=== PATIENT | female | born 1995 | race Caucasian/White ===

== ENCOUNTER 2016-03-23 08:17 | Emergency (ER) | payer OTHER ==
[~2016-03-23] VITALS: Ht 162.6 cm; Wt 56.3 kg
[2016-03-23] VITALS (11 sets, daily range): BP systolic 161–218; BP diastolic 102–135; PULSE 118–136; RESP 16–17; TEMP 99.4–100.3; O2SAT 95–100
[~2016-03-23 08:17] MED LIST: CLON.2 PO; CORE25TA PO; COZA100T PO; DOXA1 PO; HYDR200T3 PO; LEVE500 PO; LISI10 PO; NORV10TA PO; PANT20 PO; PROM25TA5 PO; RENV2.4P PO; SODI650T PO; [UNRECOGNIZED DRUG - CODE] SQ
[2016-03-23 08:56] LABS: BLOOD, URINE TRACE (NEG); GLUCOSE,URINE 100 mg/dL (NEG); KETONE, URINE NEG (NEG); NITRITE,URINE NEG (NEG)
[2016-03-23] MEDS ORDERED: SODI650T PO (08:57)
[2016-03-23] MEDS ORDERED: PANT20 PO (08:57)
[2016-03-23] MEDS ORDERED: LISI10TA3 PO (08:57)
[2016-03-23] MEDS ORDERED: CLON.2 PO (08:57)
[2016-03-23] MEDS ORDERED: RENV2.4P PO (08:57)
[2016-03-23] MEDS ORDERED: CORE25TA PO (08:57)
[2016-03-23] MEDS ORDERED: DOXA1TAB36 PO (08:57)
[2016-03-23] MEDS ORDERED: HYDR200T3 PO (08:57)
[2016-03-23] MEDS ORDERED: AMLO10 PO (08:57)
[2016-03-23] MEDS ORDERED: COZA50TA PO (08:57)
[2016-03-23] MEDS ORDERED: EPOG2000 SQ (08:57)
[2016-03-23 09:01] LABS: METHOD OF COLLECTION CLEAN CATCH; URINE COLOR YELLOW (YELLW/STRAW); WBC, URINE 15-19 /hpf (0-5)
[2016-03-23 09:02] LABS: BACTERIA, URINE RARE /hpf; COMMENT (UR) CULTURE INDICATED; CULTURE IF INDICATED CULTURE INDICATED; RBC, URINE 0-3 /hpf (0-3); SQUAMOUS EPITHELIAL CELL URINE > 8 /hpf (0-5)
[2016-03-23 09:38] LABS: AUTOMATED NEUTROPHIL # 5.8 TH/MM3 (1.8-7.7); BASOPHIL % 0.3 % (0.0-2.0); EOSINOPHIL # 0.1 TH/MM3 (0-0.4); HEMATOCRIT 33.7 % (35.0-46.0); HEMO FLAGS DIFF FINAL; LYMPHOCYTE # 0.3 TH/MM3 (1.0-4.8); MEAN CELL VOLUME 86.3 FL (80.0-100.0); MEAN CORPUSCULAR HGB CONC 32.5 % (32.0-36.0); MONO % 1.3 % (0.0-8.0); NEUT % 91.4 % (16.0-70.0); PLATELET COUNT 218 TH/MM3 (150-450); RED BLOOD COUNT 3.91 MIL/MM3 (4.00-5.30); RED CELL DISTRIBUTION WIDTH 14.2 % (11.6-17.2); WHITE BLOOD COUNT 6.3 TH/MM3 (4.0-11.0)
[2016-03-23] MEDS ORDERED: LABETALOL HCL 100 MG/20 ML VIAL IV PUSH ONE ×2 (09:45→10:45)
[2016-03-23] MEDS ORDERED: SODIUM CHLOR 0.9% 1000 ML INJ 1,000 ML IV SCH (09:45)
[2016-03-23] MEDS ORDERED: MORPHINE SULFATE 4 MG/ML INJ IV PUSH ONE (09:45)
[2016-03-23] MEDS ORDERED: ONDANSETRON HCL 4 MG/2 ML VIAL IV PUSH ONE (09:45)
--- NOTE | 2016-03-23 09:52 | PD ---
HPI Chief Complaint: GI Complaint Time Seen by Provider: 09:27 Travel History International Travel<30 days: No Contact w/Intl Traveler<30days: No Traveled to known affect area: No History of Present Illness HPI 20-year-old female complains of fever nausea vomiting diarrhea coughing congestion abdominal pain. Patient states that the symptoms started last night. Patient has history of lupus and end-stage renal disease on nightly peritoneal dialysis. Patient's paddock judge is Dr. Curry. Patient states that the cough is mild dry cough. Patient states that she had diffuse cramping and abdominal pain. Patient denies any pain radiation. Patient denies any blood or mucus in the stool. Patient states that dialysis fluid is clear. Patient has frequent elevated blood pressure. PFSH Past Medical History Arthritis: No Autoimmune Disease: Yes (LUPUS ) Anxiety: Yes Depression: No Heart Rhythm Problems: No Cancer: No Cardiovascular Problems: Yes (htn on meds) High Cholesterol: No Chemotherapy: No Chest Pain: No Congestive Heart Failure: No Cerebrovascular Accident: Yes Diabetes: No Dialysis: Yes Diminished Hearing: No Endocrine: No Gastrointestinal Disorders: Yes (Nausea, low appetite) GERD: No Genitourinary: No Headaches: Yes Hepatitis: No Hiatal Hernia: No Heparin Induced Thrombocytopen: No Hypertension: Yes Immune Disorder: Yes (Lupus) Implanted Vascular Access Dvce: No Kidney Stones: No Musculoskeletal: No Neurologic: Yes (LUPUS) Psychiatric: No Reproductive: No Respiratory: No Immunizations Current: Yes Migraines: Yes (FROM HTN) Radiation Therapy: No Renal Failure: Yes Seizures: Yes (FROM HTN) Sickle Cell Disease: No Thyroid Disease: No Ulcer: No Tetanus Vaccination: > 5 Years Influenza Vaccination: Yes ?: Not LMP: 03/08/16 : 1 Para: 1 Past Surgical History Abdominal Surgery: Yes (PERMACATH) AICD: No Arteriovenous Shunt: No Body Medical Devices: , PD catheter Cardiac Surgery: No Endocrine Surgery: No Genitourinary Surgery: No Insulin Pump: No Joint Replacement: No Neurologic Surgery: No Pacemaker: No Thoracic Surgery: Yes (VAS CATH TO LEFT CHEST) Other Surgery: Yes ((R) Permacath, PD catheter) Social History Alcohol Use: No Tobacco Use: No Substance Use: Yes (Marijuana daily) Allergies-Medications (Allergen,Severity, Reaction): Coded Allergies: Hydralazine (Verified Allergy, Severe, Rash, 03/23/16) Vancomycin (Verified Allergy, Severe, Red man syndrome , 03/23/16) Metoprolol (Verified Allergy, Unknown, Patient does not know, 03/23/16) Reported Meds & Prescriptions Reported Meds & Active Scripts Active Phenergan (Promethazine HCl) 25 Mg Tab 25 Mg PO Q6H PRN Keppra (Levetiracetam) 500 Mg Tab 500 Mg PO Q12HR 30 Days Reported Sodium Bicarbonate 650 Mg Tab 650 Mg PO BIDPC Renvela Liq (Sevelamer Carbonate) 2.4 Gm Pack 2.4 Gm PO BID Protonix (Pantoprazole Sodium) 20 Mg Tab 20 Mg PO DAILY Norvasc (Amlodipine Besylate) 10 Mg Tab 10 Mg PO BID Cozaar (Losartan Potassium) 50 Mg Tab 50 Mg PO BID Lisinopril 10 Mg Tab 10 Mg PO BID Hydroxychloroquine (Hydroxychloroquine Sulfate) 200 Mg Tab 200 Mg PO BID Takw with food Epogen Inj (Epoetin Diego) 2,000 Unit/Ml Inj 1,500 Units SQ 2XMONTH Doxazosin (Doxazosin Mesylate) 1 Mg Tab 1 Mg PO HS Catapres (Clonidine) 0.2 Mg Tab 0.2 Mg PO BID Coreg (Carvedilol) 25 Mg Tab 25 Mg PO BID Review of Systems General / Constitutional: Positive: Fever Eyes: No: Visual changes HENT: No: Headaches Cardiovascular: No: Chest Pain or Discomfort Respiratory: Positive: Cough, No: Shortness of Breath Gastrointestinal: Positive: Nausea, Vomiting, Diarrhea, Abdominal Pain Genitourinary: No: Dysuria Musculoskeletal: No: Pain Skin: No Rash Neurologic: No: Weakness Psychiatric: No: Depression Endocrine: No: Polydipsia Hematologic/Lymphatic: No: Easy Bruising Physical Exam Narrative GENERAL: Well-nourished, well-developed patient. SKIN: Warm and dry. HEAD: Normocephalic. EYES: No scleral icterus. No injection or drainage. Throat: Nonerythematous. NECK: Supple, trachea midline. No JVD or lymphadenopathy. CARDIOVASCULAR: Regular rate and rhythm without murmurs, gallops, or rubs. RESPIRATORY: Breath sounds equal bilaterally. No accessory muscle use. GASTROINTESTINAL: Abdomen soft, nondistended. Patient has moderate diffuse tenderness over the abdomen. Questionable rebound. No guarding. Peritoneal catheter localized to left low quadrant of the abdomen. MUSCULOSKELETAL: No cyanosis, or edema. BACK: Nontender without obvious deformity. No CVA tenderness. Neurologic exam normal. Data Data Last Documented VS Vital Signs Date Time Temp Pulse Resp B/P Pulse Ox O2 Delivery O2 Flow Rate FiO2 03/23/16 12:12 125 17 170/102 98 Room Air 03/23/16 10:11 99.4 Orders Urinalysis - C+S If Indicated (03/23/16 08:21) Ed Urine Pregnancytest Poc (03/23/16 08:22) Urine Culture (03/23/16 08:45) Complete Blood Count With Diff (03/23/16 09:25) Comprehensive Metabolic Panel (03/23/16 09:25) Lactic Acid Sepsis Protocol (03/23/16 09:25) Blood Culture (03/23/16 09:25) Iv Access Insert/Monitor (03/23/16 09:25) Oxygen Administration (03/23/16 09:25) Oximetry (03/23/16 09:25) Influenzae A/B Antigen (03/23/16 09:35) Morphine Inj (Morphine Inj) (03/23/16 09:45) Ondansetron Inj (Zofran Inj) (03/23/16 09:45) Labetalol Inj (Trandate Inj) (03/23/16 09:45) Sodium Chlor 0.9% 1000 Ml Inj (Ns 1000 M (03/23/16 09:45) Labetalol Inj (Trandate Inj) (03/23/16 10:45) Ceftriaxone Inj (Rocephin Inj) (03/23/16 13:00) Labs Laboratory Tests Test 03/23/16 03/23/16 08:45 09:25 Urine Collection Type CLEAN CATCH Urine Color YELLOW Urine Turbidity SLIGHT Urine pH 8.0 Urine Specific [place] 1.009 Urine Protein 100 mg/dL Urine Glucose (UA) 100 mg/dL Urine Ketones NEG mg/dL Urine Occult Blood TRACE Urine Nitrite NEG Urine Bilirubin NEG Urine Leukocyte Esterase TRACE Urine RBC 0-3 /hpf Urine WBC 15-19 /hpf Urine WBC Clumps OCC Urine Squamous Epithelial > 8 /hpf Cells Urine Bacteria RARE /hpf Microscopic Urinalysis Comment CULTURE INDICATED Urine Collection Time 08:45 White Blood Count 6.3 TH/MM3 Red Blood Count 3.91 MIL/MM3 Hemoglobin 10.9 GM/DL Hematocrit 33.7 % Mean Corpuscular Volume 86.3 FL Mean Corpuscular Hemoglobin 28.0 PG Mean Corpuscular Hemoglobin 32.5 % Concent Red Cell Distribution Width 14.2 % Platelet Count 218 TH/MM3 Mean Platelet Volume 5.9 FL Neutrophils (%) (Auto) 91.4 % Lymphocytes (%) (Auto) 5.0 % Monocytes (%) (Auto) 1.3 % Eosinophils (%) (Auto) 2.0 % Basophils (%) (Auto) 0.3 % Neutrophils # (Auto) 5.8 TH/MM3 Lymphocytes # (Auto) 0.3 TH/MM3 Monocytes # (Auto) 0.1 TH/MM3 Eosinophils # (Auto) 0.1 TH/MM3 Basophils # (Auto) 0.0 TH/MM3 CBC Comment DIFF FINAL Differential Comment Sodium Level 139 MEQ/L Potassium Level 4.3 MEQ/L Chloride Level 100 MEQ/L Carbon Dioxide Level 24.8 MEQ/L Anion Gap 14 MEQ/L Blood Urea Nitrogen 47 MG/DL Creatinine 12.00 MG/DL Estimat Glomerular Filtration 4 ML/MIN Rate Random Glucose 82 MG/DL Lactic Acid Level 0.8 mmol/L Calcium Level 7.7 MG/DL Total Bilirubin 0.5 MG/DL Aspartate Amino Transf 11 U/L (AST/SGOT) Alanine Aminotransferase 14 U/L (ALT/SGPT) Alkaline Phosphatase 75 U/L Total Protein 7.6 GM/DL Albumin 3.1 GM/DL [facility] Medical Decision Making Medical Screen Exam Complete: Yes Emergency Medical Condition: Yes Interpretation(s) 12:45 PM. CBC with WBC 6.3. Hemoglobin 10.8 hematocrit 33.7. 81 neutrophil. BUN 47. Creatinine 12.0. Lactic acid 0.8. Calcium 7.7. UA positive with WBC and bacteria. Differential Diagnosis Differential diagnosis including viral syndrome, bronchitis, pneumonia, UTI, peritonitis. Narrative Course 80-year-old female with history of lupus, end-stage renal disease on nightly peritoneal dialysis which fever coughing nausea vomiting diarrhea abdominal pain. Normal saline solution 1 25 cc an hour. Morphine 4 g IV. Zofran 4 mg IV. Labetalol 20 mg IV. Rocephin 1 g IV. Reexamination do not see evidence of spontaneous bacterial peritonitis. I spoke with Dr. Curry. Advised patient to follow with dialysis clinic for culture her dialysis fluid. Diagnosis Primary Impression: Gastroenteritis Additional Impression: UTI (urinary tract infection) Qualified Code: N30.00 - Acute cystitis without hematuria Patient Instructions: General Instructions Additional Instructions: Take medications as directed. Follow-up with personal physician. Return if persistent problem or worse. Med/Other Pt SpecificInfo: Prescription(s) given Scripts Cephalexin (Keflex)500 Mg [id number] Mg PO Q8H #30 CAP Ref 0 Prov:Beto Masters MD 03/23/16 Diphenoxylate-Atropine (Lomotil)2.5-0.025 Mg Tab1 Tab PO Q6H PRN (DIARRHEA) #10 TAB Ref 0 Prov:Beto Masters MD 03/23/16 Ondansetron Odt (Zofran Odt)4 Mg Tab4 Mg SL Q6HR PRN (Nausea/Vomiting) #10 TAB Prov:Beto Masters MD 03/23/16 Disposition: 01 DISCHARGE HOME Condition: Stable Beto Masters MD Mar 23, 2016 09:52
[2016-03-23 10:09] LABS: CHLORIDE 100 MEQ/L (98-107); POTASSIUM 4.3 MEQ/L (3.5-5.1); SODIUM (NA) 139 MEQ/L (136-145)
[2016-03-23 10:13] LABS: ANION GAP 14 MEQ/L (5-15); BICARBONATE 24.8 MEQ/L (21.0-32.0); BLOOD UREA NITROGEN 47 MG/DL (7-18)
[2016-03-23 10:16] LABS: AST (GOT) 11 U/L (15-37)
[2016-03-23 10:18] LABS: TOTAL BILIRUBIN ADULT 0.5 MG/DL (0.2-1.0)
[2016-03-23 10:19] LABS: ALKALINE PHOSPHATASE 75 U/L (45-117)
[2016-03-23 10:29] LABS: GLOMERULAR FILTRATION RATE 4 ML/MIN (>89)
[2016-03-23 10:44] LABS: ALT (GPT) 14 U/L (10-53)
[2016-03-23] MEDS ORDERED: cefTRIAXone INJ 1,000 MG in SODIUM CHLORIDE 0.9% INJ 100 ML IV ONE (13:00)
[2016-03-23] MEDS ORDERED: CEPH-460 PO (13:30)
[2016-03-23] MEDS ORDERED: LOMO2.5T PO (13:30)
[2016-03-23] MEDS ORDERED: ZOFR4TAB3 SL (13:30)
== END 2016-03-23 14:18 | disposition home or self-care (01) ==
LOC: PHED 08:17
DX: K52.9 Noninfective gastroenteritis and colitis, unspecified (principal); N39.0 Urinary tract infection, site not specified; N18.6 End stage renal disease; M32.9 Systemic lupus erythematosus, unspecified; Z99.2 Dependence on renal dialysis; I12.0 Hypertensive chronic kidney disease with stage 5 chronic kidney disease or end stage renal disease
CPT/HCPCS: 80053; 81001; 83605; 84703; 85025; 87040; 87086; 87804; 96361; 96365; 96375; 96376; 99284; J0696; J2270; J2405; J7030

== ENCOUNTER 2016-03-26 16:06 | Inpatient (IN) | payer OTHER ==
[~2016-03-26] VITALS: Ht 162.6 cm; Wt 55.6 kg
[~2016-03-26 16:06] MED LIST changes: +AMLO10 PO; +CEPH-460 PO; -COZA100T PO; +COZA50TA PO; -DOXA1 PO; +DOXA1TAB36 PO; +EPOG2000 SQ; -LISI10 PO; +LISI10TA3 PO; +LOMO2.5T PO; -NORV10TA PO; +ZOFR4TAB3 SL; -[UNRECOGNIZED DRUG - CODE] SQ
[2016-03-26 16:09] VITALS: BP 181/126; PULSE 112; RESP 24; TEMP 97.7; O2SAT 100
--- NOTE | 2016-03-26 16:37 | PD ---
HPI Chief Complaint: GI Complaint Time Seen by Provider: 16:24 Travel History International Travel<30 days: No Contact w/Intl Traveler<30days: No Traveled to known affect area: No History of Present Illness HPI 20-year-old female with history of lupus, ESRD on home peritoneal dialysis, hypertensive encephalopathy, here for evaluation of nausea, vomiting, and epigastric abdominal pain. The patient states that she had a "rough night" last night and missed her dialysis. She has also been up all night. She has had several episodes of nonbilious/nonbloody emesis throughout the day today. She is also having epigastric abdominal discomfort that started after vomiting. She has had chills. No history of abdominal surgeries other than placement of abdominal catheter for peritoneal dialysis. She states that she feels somewhat anxious that her heart is racing to her chest. No chest pain. The patient was seen in the emergency department 3 days ago and was diagnosed with gastroenteritis which she states resolved when she left the emergency department. She was also diagnosed with a UTI at that time and was started on an antibiotic, however she does not remember the name of it. PFSH Past Medical History Arthritis: No Autoimmune Disease: Yes (LUPUS ) Anxiety: Yes Depression: No Heart Rhythm Problems: No Cancer: No Cardiovascular Problems: Yes (htn on meds) High Cholesterol: No Chemotherapy: No Chest Pain: No Congestive Heart Failure: No Cerebrovascular Accident: Yes Diabetes: No Dialysis: Yes Diminished Hearing: No Endocrine: No Gastrointestinal Disorders: Yes (Nausea, low appetite) GERD: No Genitourinary: No Headaches: Yes Hepatitis: No Hiatal Hernia: No Heparin Induced Thrombocytopen: No Hypertension: Yes Immune Disorder: Yes (Lupus) Implanted Vascular Access Dvce: No Kidney Stones: No Musculoskeletal: No Neurologic: Yes (LUPUS) Psychiatric: No Reproductive: No Respiratory: No Immunizations Current: Yes Migraines: Yes (FROM HTN) Radiation Therapy: No Renal Failure: Yes Seizures: Yes (FROM HTN) Sickle Cell Disease: No Thyroid Disease: No Ulcer: No ?: Not LMP: 03/07/16 : 1 Para: 1 Past Surgical History Abdominal Surgery: Yes (PERMACATH) AICD: No Arteriovenous Shunt: No Body Medical Devices: , PD catheter Cardiac Surgery: No Endocrine Surgery: No Genitourinary Surgery: No Insulin Pump: No Joint Replacement: No Neurologic Surgery: No Pacemaker: No Thoracic Surgery: Yes (VAS CATH TO LEFT CHEST) Other Surgery: Yes ((R) Permacath, PD catheter) Social History Alcohol Use: No Tobacco Use: No Substance Use: Yes (Marijuana daily) Allergies-Medications (Allergen,Severity, Reaction): Coded Allergies: Hydralazine (Verified Allergy, Severe, Rash, 03/23/16) Vancomycin (Verified Allergy, Severe, Red man syndrome , 03/23/16) Metoprolol (Verified Allergy, Unknown, Patient does not know, 03/23/16) Reported Meds & Prescriptions Reported Meds & Active Scripts Active Keflex (Cephalexin) 500 Mg Cap 500 Mg PO Q8H Lomotil (Diphenoxylate-Atropine) 2.5-0.025 Mg Tab 1 Tab PO Q6H PRN Zofran Odt (Ondansetron Odt) 4 Mg Tab 4 Mg SL Q6HR PRN Phenergan (Promethazine HCl) 25 Mg Tab 25 Mg PO Q6H PRN Keppra (Levetiracetam) 500 Mg Tab 500 Mg PO Q12HR 30 Days Reported Renvela (Sevelamer Carbonate) 800 Mg Tab 800 Mg PO TIDPC Sodium Bicarbonate 650 Mg Tab 650 Mg PO BIDPC Protonix (Pantoprazole Sodium) 20 Mg Tab 20 Mg PO DAILY Norvasc (Amlodipine Besylate) 10 Mg Tab 10 Mg PO BID Cozaar (Losartan Potassium) 50 Mg Tab 50 Mg PO BID Lisinopril 10 Mg Tab 10 Mg PO BID Hydroxychloroquine (Hydroxychloroquine Sulfate) 200 Mg Tab 200 Mg PO BID Takw with food Epogen Inj (Epoetin Diego) 2,000 Unit/Ml Inj 1,500 Units SQ 2XMONTH Doxazosin (Doxazosin Mesylate) 1 Mg Tab 1 Mg PO HS Catapres (Clonidine) 0.2 Mg Tab 0.2 Mg PO BID Coreg (Carvedilol) 25 Mg Tab 25 Mg PO BID Review of Systems Except as stated in HPI: all other systems reviewed are Neg Physical Exam Narrative GENERAL: Well-developed, well-nourished, comfortable, no acute distress. SKIN: Warm and dry. HEAD: Atraumatic. Normocephalic. EYES: Pupils equal and round. No scleral icterus. No injection or drainage. ENT: No nasal bleeding or discharge. Mucous membranes pink and moist. NECK: Trachea midline. No JVD. CARDIOVASCULAR: Tachycardic, rate 110, regular. RESPIRATORY: No accessory muscle use. Clear to auscultation. Breath sounds equal bilaterally. GASTROINTESTINAL: Abdomen soft, nondistended. Mild gastric tenderness without rebound or guarding. Rest of abdomen is without peritoneal signs. Normal bowel sounds. Left/mid abdomen peritoneal dialysis catheter with site clean, dry, intact, no erythema or purulence. MUSCULOSKELETAL: No obvious deformities. No clubbing. No cyanosis. No edema. NEUROLOGICAL: Awake and alert. No obvious cranial nerve deficits. Motor grossly within normal limits. Normal speech. PSYCHIATRIC: Appropriate mood and affect; insight and judgment normal. Data Data Last Documented VS Vital Signs Date Time Temp Pulse Resp B/P Pulse Ox O2 Delivery O2 Flow Rate FiO2 03/26/16 17:20 98 03/26/16 16:09 97.7 112 24 181/126 Room Air Orders Beta Hcg (Quant/Titer) (03/26/16 16:31) Complete Blood Count With Diff (03/26/16 16:31) Comprehensive Metabolic Panel (03/26/16 16:31) Lipase (03/26/16 16:31) Prothrombin Time / Inr (Pt) (03/26/16 16:31) Act Partial Throm Time (Ptt) (03/26/16 16:31) Ct Abd/Pel W/O Iv Contrast (03/26/16 16:31) Iv Access Insert/Monitor (03/26/16 16:31) Ecg Monitoring (03/26/16 16:31) Oximetry (03/26/16 16:31) Morphine Inj (Morphine Inj) (03/26/16 16:45) Sodium Chloride 0.9% Flush (Ns Flush) (03/26/16 16:45) Electrocardiogram (03/26/16 16:31) Al-Mag Hy-Si 40-40-4 Mg/Ml Liq (Mag-Al P (03/26/16 16:45) Lidocaine 2% Viscous (Xylocaine 2% Visco (03/26/16 16:45) Lorazepam Inj (Ativan Inj) (03/26/16 16:45) Ondansetron Inj (Zofran Inj) (03/26/16 16:45) Sodium Chlorid 0.9% 500 Ml Inj (Ns 500 M (03/26/16 16:45) Us Abdomen Gallbladder (03/26/16 ) Labs Laboratory Tests Test 03/26/16 17:00 White Blood Count 5.6 TH/MM3 Red Blood Count 3.72 MIL/MM3 Hemoglobin 10.5 GM/DL Hematocrit 30.7 % Mean Corpuscular Volume 82.5 FL Mean Corpuscular Hemoglobin 28.3 PG Mean Corpuscular Hemoglobin 34.3 % Concent Red Cell Distribution Width 14.6 % Platelet Count 102 TH/MM3 Mean Platelet Volume 6.3 FL Neutrophils (%) (Auto) 59.1 % Lymphocytes (%) (Auto) 23.8 % Monocytes (%) (Auto) 5.9 % Eosinophils (%) (Auto) 10.3 % Basophils (%) (Auto) 0.9 % Neutrophils # (Auto) 3.3 TH/MM3 Lymphocytes # (Auto) 1.3 TH/MM3 Monocytes # (Auto) 0.3 TH/MM3 Eosinophils # (Auto) 0.6 TH/MM3 Basophils # (Auto) 0.1 TH/MM3 CBC Comment DIFF FINAL Differential Comment Prothrombin Time 10.2 SEC Prothromb Time International 0.9 RATIO Ratio Activated Partial 31.0 SEC Thromboplast Time Sodium Level 134 MEQ/L Potassium Level 4.2 MEQ/L Chloride Level 93 MEQ/L Carbon Dioxide Level 21.5 MEQ/L Anion Gap 20 MEQ/L Blood Urea Nitrogen 61 MG/DL Creatinine 14.61 MG/DL Estimat Glomerular Filtration 3 ML/MIN Rate Random Glucose 74 MG/DL Calcium Level 7.2 MG/DL Protein Corrected Calcium 7.3 MG/DL Total Bilirubin 0.4 MG/DL Aspartate Amino Transf 18 U/L (AST/SGOT) Alanine Aminotransferase 17 U/L (ALT/SGPT) Alkaline Phosphatase 67 U/L Total Protein 7.0 GM/DL Albumin 3.2 GM/DL Lipase 149 U/L Human Chorionic Gonadotropin, LESS THAN 1 Quant MIU/ML MDM Medical Decision Making Medical Screen Exam Complete: Yes Emergency Medical Condition: Yes Medical Record Reviewed: Yes Interpretation(s) EKG: Sinus, rate 99, normal axis, normal intervals, no acute ischemic abnormality. Differential Diagnosis Gastritis, gastritis, dehydration, pancreatitis, hepatobiliary disease, bowel perforation, SBP, pancreatitis Narrative Course Initial vital signs show heart rate 112, blood pressure 181/126, pulse ox 100% on room air, oral temp of 97.7F. CBC shows WBC 5.6, hemoglobin 10.5, hematocrit 30.7, platelets 102. CMP is remarkable for BUN 61, creatinine 14.6, GFR 3, routine cracked a calcium of 7.2, anion gap 20, otherwise unremarkable. Renal function is slightly worse than her baseline. She did miss her peritoneal dialysis last night. Lipase is 149. Beta hCG is negative. CT abdomen/pelvis: CONCLUSION: 1. Distended gallbladder. This is nonspecific. 2. Atrophy of the kidneys with a suspected peritoneal dialysis catheter in place. Patient was made aware of all findings. She is feeling somewhat better after receiving pain medication, GI cocktail, Protonix, and a small bolus of IV fluids. Her heart rate has improved to 98. Chart review shows that the patient has been here in the past with heart rates in the 120s. I do not believe she has SBP. Given her CT findings and persistent epigastric abdominal discomfort/tenderness, right upper quadrant ultrasound was ordered to rule out cholecystitis. At approximately 7:00 PM at the end of my shift the patient was signed out to oncoming provider Dr. Thomas who will follow up with right upper quadrant ultrasound and disposition the patient. Joseph Henry MD Mar 26, 2016 16:37
[2016-03-26] MEDS ORDERED: MORPHINE SULFATE 4 MG/ML INJ IV PUSH ONE ×2 (16:45→19:30)
[2016-03-26] MEDS ORDERED: SODIUM CHLORIDE 0.9% FLUSH 5 ML FLUSH IVF PRN (16:45)
[2016-03-26] MEDS ORDERED: LORazepam 2 MG/ML VIAL IV PUSH ONE (16:45)
[2016-03-26] MEDS ORDERED: ALUMINUM/MAGNESIUM/SIMETH 30 ML CUP PO ONE (16:45)
[2016-03-26] MEDS ORDERED: ONDANSETRON HCL 4 MG/2 ML VIAL IV PUSH ONE ×2 (16:45→22:00)
[2016-03-26] MEDS ORDERED: LIDOCAINE VISCOUS 2% SOLN 15 ML UDC PO ONE (16:45)
[2016-03-26] MEDS ORDERED: SODIUM CHLORID 0.9% 500 ML INJ 500 ML IV ONE (16:45)
[2016-03-26 17:20] VITALS: O2SAT 98
[2016-03-26 17:24] LABS: AUTOMATED NEUTROPHIL # 3.3 TH/MM3 (1.8-7.7); BASOPHIL # 0.1 TH/MM3 (0-0.2); BASOPHIL % 0.9 % (0.0-2.0); EOSINOPHIL # 0.6 TH/MM3 (0-0.4); EOSINOPHIL % 10.3 % (0.0-4.0); HEMATOCRIT 30.7 % (35.0-46.0); HEMO FLAGS DIFF FINAL; LYMPH % 23.8 % (9.0-44.0); LYMPHOCYTE # 1.3 TH/MM3 (1.0-4.8); MEAN CELL VOLUME 82.5 FL (80.0-100.0); MEAN CORPUSCULAR HEMOGLOBIN 28.3 PG (27.0-34.0); MEAN CORPUSCULAR HGB CONC 34.3 % (32.0-36.0); MONO % 5.9 % (0.0-8.0); NEUT % 59.1 % (16.0-70.0); PLATELET COUNT 102 TH/MM3 (150-450); RED BLOOD COUNT 3.72 MIL/MM3 (4.00-5.30); RED CELL DISTRIBUTION WIDTH 14.6 % (11.6-17.2); WHITE BLOOD COUNT 5.6 TH/MM3 (4.0-11.0)
[2016-03-26 17:35] LABS: INTERNATIONAL NORMALIZED RATIO 0.9 RATIO; PROTHROMBIN TIME - PATIENT 10.2 SEC (9.8-11.6)
[2016-03-26 17:46] LABS: ALKALINE PHOSPHATASE 67 U/L (45-117); ALT (GPT) 17 U/L (10-53); ANION GAP 20 MEQ/L (5-15); AST (GOT) 18 U/L (15-37); BETA HCG QUANT LESS THAN 1 MIU/ML (0-5); BICARBONATE 21.5 MEQ/L (21.0-32.0); BLOOD UREA NITROGEN 61 MG/DL (7-18); CHLORIDE 93 MEQ/L (98-107); GLOMERULAR FILTRATION RATE 3 ML/MIN (>89); POTASSIUM 4.2 MEQ/L (3.5-5.1); SODIUM (NA) 134 MEQ/L (136-145); TOTAL BILIRUBIN ADULT 0.4 MG/DL (0.2-1.0)
[2016-03-26 17:55] LABS: CALCIUM-PROTEIN CORRECTED 7.3 MG/DL (8.5-10.1)
--- NOTE | 2016-03-26 19:08 | RADRPT ---
EXAM DATE/TIME: 03/26/2016 18:23 [facility] COMPARISON: No previous studies available for comparison. INDICATIONS : Nausea, vomiting and abdominal pain. ORAL CONTRAST: No oral contrast ingested. RADIATION DOSE: 10.08 CTDIvol (mGy) MEDICAL HISTORY : Lupus. Hypertension. Renal failure, chronic. SURGICAL HISTORY : PermCath for dialysis. ENCOUNTER: Initial ACUITY: 2 days PAIN SCALE: 5/10 LOCATION: Right upper quadrant TECHNIQUE: Volumetric scanning of the abdomen and pelvis was performed. Using automated exposure control and adjustment of the mA and/or kV according to patient size, radiation dose was kept as low as reasonably achievable to obtain optimal diagnostic quality images. FINDINGS: The liver, spleen, pancreas and adrenal glands appear normal for noncontrast CT examina tion. The gallbladder is distended. The kidneys demonstrate diffuse atrophy. The patient does have a peritoneal presumed dialysis catheter in the left lower quadrant. The appendix has contrast withi n it. It appears normal. The bowel is unremarkable. There are small calcifications seen in the ova teo bilaterally. CONCLUSION: 1. Distended gallbladder. This is nonspecific. 2. Atrophy of the kidneys with a suspected peritoneal dialysis catheter in place. Navin Lovell MD on March 26, 2016 at 18:57 Board Certified Radiologist. This report was verified electronically.
[2016-03-26] MEDS ORDERED: SEVEL800 PO (19:17)
[2016-03-26 19:50] VITALS: BP 149/104; PULSE 88; RESP 24; O2SAT 96
--- NOTE | 2016-03-26 20:39 | RADRPT ---
EXAM DATE/TIME: 03/26/2016 19:39 [facility] COMPARISON: CT ABDOMEN & PELVIS W/O CONTRAST, March 26, 2016, 18:23. INDICATIONS : Right upper quadrant pain. MEDICAL HISTORY : Kidney failure, dialysis. Seizures. Hypertension. LUPUS. SURGICAL HISTORY : VAS Cath to left chest. Permacath, PD catheter. ENCOUNTER: Initial ACUITY: 3 days PAIN SCORE: 9/10 LOCATION: Right upper quadrant MEASUREMENTS: LIVER: 16.3 cm length COMMON DUCT: 5 mm RIGHT KIDNEY: 7.7 x 2.9 x 2.5 cm FINDINGS: LIVER: Normal echotexture without focal lesion or ductal dilatation. There is minimal fluid seen around the liver margin. COMMON DUCT: No intraluminal mass or stone visualized. GALLBLADDER: The gallbladder is distended. Gallbladder wall is mildly thickened. The patient complains of pain ove r the gallbladder. Gallstones however are not seen. There is some fluid seen around the gallbladder. PANCREAS: The visualized portions are within normal limits. RIGHT KIDNEY: The kidney is small and echogenic consistent with chronic medical renal disease. CONCLUSION: 1. Distended gallbladder without gallstones seen. The patient does complain about pain over the gallb ladder. 2. Fluid around the gallbladder and around the liver margin. The patient is on peritoneal dialysis ca theter in place. 3. Chronic appearance of the right kidney. Navin Lovell MD on March 26, 2016 at 20:35 Board Certified Radiologist. This report was verified electronically.
--- NOTE | 2016-03-26 21:47 | PD ---
Data Data Last Documented VS Vital Signs Date Time Temp Pulse Resp B/P Pulse Ox O2 Delivery O2 Flow Rate FiO2 03/26/16 22:32 106 17 125/92 100 Room Air 03/26/16 16:09 97.7 Orders Beta Hcg (Quant/Titer) (03/26/16 16:31) Complete Blood Count With Diff (03/26/16 16:31) Comprehensive Metabolic Panel (03/26/16 16:31) Lipase (03/26/16 16:31) Prothrombin Time / Inr (Pt) (03/26/16 16:31) Act Partial Throm Time (Ptt) (03/26/16 16:31) Ct Abd/Pel W/O Iv Contrast (03/26/16 16:31) Iv Access Insert/Monitor (03/26/16 16:31) Ecg Monitoring (03/26/16 16:31) Oximetry (03/26/16 16:31) Morphine Inj (Morphine Inj) (03/26/16 16:45) Sodium Chloride 0.9% Flush (Ns Flush) (03/26/16 16:45) Electrocardiogram (03/26/16 16:31) Al-Mag Hy-Si 40-40-4 Mg/Ml Liq (Mag-Al P (03/26/16 16:45) Lidocaine 2% Viscous (Xylocaine 2% Visco (03/26/16 16:45) Lorazepam Inj (Ativan Inj) (03/26/16 16:45) Ondansetron Inj (Zofran Inj) (03/26/16 16:45) Sodium Chlorid 0.9% 500 Ml Inj (Ns 500 M (03/26/16 16:45) Us Abdomen Gallbladder (03/26/16 ) Morphine Inj (Morphine Inj) (03/26/16 19:30) Ondansetron Inj (Zofran Inj) (03/26/16 22:00) Metronidazole 500 Mg Inj (Flagyl 500 Mg (03/26/16 22:00) Ceftriaxone Inj (Rocephin Inj) (03/26/16 22:00) Admit Order (Ed Use Only) (03/26/16 ) Piperacil-Tazo 2.25 Gm Premix (Zosyn 2.2 (03/27/16 06:00) Consult Nephrology (03/26/16 ) Admit To Inpatient (03/26/16 ) Vital Signs (Adult) Q4H (03/26/16 23:44) Activity Oob With Assistance (03/26/16 23:44) Intake + Output JESSI.QSHIFT (03/26/16 23:44) Diet Heart Healthy (03/27/16 Breakfast) Sodium Chloride 0.9% Flush (Ns Flush) (03/26/16 23:45) Sodium Chloride 0.9% Flush (Ns Flush) (03/27/16 09:00) Ondansetron Inj (Zofran Inj) (03/26/16 23:45) Bisacodyl Supp (Dulcolax Supp) (03/26/16 23:45) Comprehensive Metabolic Panel (03/27/16 06:00) Complete Blood Count With Diff (03/27/16 06:00) Scd Bilateral/Knee High JESSI.BID (03/26/16 23:44) [place] Bilateral/Knee High JESSI.QSHIFT (03/26/16 23:44) Acetaminophen (Tylenol) (03/26/16 23:45) Acetamin-Hydrocod 325-5 Mg ([place] 5-325 (03/26/16 23:45) Morphine Inj (Morphine Inj) (03/26/16 23:45) Inpatient Certification (03/26/16 ) Pantoprazole Inj (Protonix Inj) (03/26/16 23:45) Pantoprazole Inj (Protonix Inj) (03/27/16 09:00) Consult General Surgery (03/26/16 ) Labs Laboratory Tests Test 03/26/16 17:00 White Blood Count 5.6 TH/MM3 Red Blood Count 3.72 MIL/MM3 Hemoglobin 10.5 GM/DL Hematocrit 30.7 % Mean Corpuscular Volume 82.5 FL Mean Corpuscular Hemoglobin 28.3 PG Mean Corpuscular Hemoglobin 34.3 % Concent Red Cell Distribution Width 14.6 % Platelet Count 102 TH/MM3 Mean Platelet Volume 6.3 FL Neutrophils (%) (Auto) 59.1 % Lymphocytes (%) (Auto) 23.8 % Monocytes (%) (Auto) 5.9 % Eosinophils (%) (Auto) 10.3 % Basophils (%) (Auto) 0.9 % Neutrophils # (Auto) 3.3 TH/MM3 Lymphocytes # (Auto) 1.3 TH/MM3 Monocytes # (Auto) 0.3 TH/MM3 Eosinophils # (Auto) 0.6 TH/MM3 Basophils # (Auto) 0.1 TH/MM3 CBC Comment DIFF FINAL Differential Comment Prothrombin Time 10.2 SEC Prothromb Time International 0.9 RATIO Ratio Activated Partial 31.0 SEC Thromboplast Time Sodium Level 134 MEQ/L Potassium Level 4.2 MEQ/L Chloride Level 93 MEQ/L Carbon Dioxide Level 21.5 MEQ/L Anion Gap 20 MEQ/L Blood Urea Nitrogen 61 MG/DL Creatinine 14.61 MG/DL Estimat Glomerular Filtration 3 ML/MIN Rate Random Glucose 74 MG/DL Calcium Level 7.2 MG/DL Protein Corrected Calcium 7.3 MG/DL Total Bilirubin 0.4 MG/DL Aspartate Amino Transf 18 U/L (AST/SGOT) Alanine Aminotransferase 17 U/L (ALT/SGPT) Alkaline Phosphatase 67 U/L Total Protein 7.0 GM/DL Albumin 3.2 GM/DL Lipase 149 U/L Human Chorionic Gonadotropin, LESS THAN 1 Quant MIU/ML MDM Supervised Visit with RILEY: Yes Narrative Course Patient care assumed by me from Dr. Henry [id number] patient has peritoneal dialysis catheter in place and has a history of clear affluent after recent dialysis. She presents today with right upper quadrant pain ultrasound of her right upper quadrant tenderness suggestive of acute cholecystitis. On my examination she is tender the right upper quadrant will weakly positive Carlson sign. She appears comfortable in no apparent distress. Shortly after my exam she is becoming more nauseated. Discussed with her that she should stay overnight and for surgical consultation in the morning and she is agreeable. Discussed with Dr. anisha holm patient was started on Rocephin and Flagyl. He will see first and a morning. Nothing by mouth. Diagnosis Primary Impression: Cholecystitis Admitting Information Admitting Physician Requests: Observation Condition: Stable Harry Thomas MD Mar 26, 2016 21:47
[2016-03-26] MEDS ORDERED: metroNIDAZOLE 500 MG INJ 100 ML IV ONE (22:00)
[2016-03-26] MEDS ORDERED: cefTRIAXone INJ 1,000 MG in SODIUM CHLORIDE 0.9% INJ 100 ML IV ONE (22:00)
[2016-03-26 22:32] VITALS: BP 125/92; PULSE 106; RESP 17; O2SAT 100
[2016-03-26] MEDS ORDERED: ACETAMINOPHEN/HYDROcodone 325 MG/5 MG TAB PO PRN (23:45)
[2016-03-26] MEDS ORDERED: ACETAMINOPHEN 325 MG TAB PO PRN (23:45)
[2016-03-26] MEDS ORDERED: SODIUM CHLORIDE 0.9% FLUSH 5 ML FLUSH FLUSH PRN (23:45)
[2016-03-26] MEDS ORDERED: PANTOPRAZOLE SODIUM 40 MG VIAL IV PUSH ONE (23:45)
[2016-03-26] MEDS ORDERED: BISACODYL 10 MG SUPP PR PRN (23:45)
--- NOTE | 2016-03-26 23:50 | HHI.HP ---
[facility] Service [facility] Primary Care Physician Juventino Gibbs MD Admission Diagnosis Cholecystitis. Diagnoses: (1) Cholecystitis Diagnosis: Principal (2) Intractable vomiting with nausea Diagnosis: Principal (3) ESRD (end stage renal disease) on dialysis Diagnosis: Principal (4) Thrombocytopenia Diagnosis: Principal Travel History International Travel<30 Days: No Contact w/Intl Traveler <30 Da: No Traveled to Known Affected Are: No History of Present Illness This is a 20-year-old female with a PMH of Lupus, ESRD on PD, Non-Compliance and HTN who came to the ER w/ complaints of abdominal pain, nausea and vomiting starting last night. States she missed her PD due to her symptoms. Denies diarrhea, fever or sick contacts. Similar symptoms for which she was seen in ER on 03/23/16, diagnosed w/ Gastroenteritis and d/c'd home from ER. States symptoms resolved at that time, however now recurred. On arrival, BP 181/126, HR 112, O2 sat 100% on RA, Afebrile. WBC normal. Platelets 102. Chemistry essentially at baseline. CT Abd/Pelvis w/ distended gallbladder. US Gallbladder w/ distended gallbladder without gallstones, fluid around the gallbladder and liver margin. General Surgery consulted by ER physician for cholecystitis. S/p Rocephin/Flagyl in ER. Review of Systems Other ROS: 14 point review of systems otherwise negative. Past Family Social History Past Medical History PMH: Lupus, ESRD on PD, Non-Compliance and HTN Past Surgical History PAST SURGICAL HISTORY: Permacath, PD Catheter, Vas-Cath Allergies: Coded Allergies: Hydralazine (Verified Allergy, Severe, Rash, 03/23/16) Vancomycin (Verified Allergy, Severe, Red man syndrome , 03/23/16) Metoprolol (Verified Allergy, Unknown, Patient does not know, 03/23/16) Family History PAST FAMILY HISTORY: Reviewed. No h/o DM or CAD Social History PAST SOCIAL HISTORY: Negative for alcohol or tobacco. Smokes Marijuana. Physical Exam Vital Signs Vital Signs Date Time Temp Pulse Resp B/P Pulse Ox O2 Delivery O2 Flow Rate FiO2 03/26/16 22:32 106 17 125/92 100 Room Air 03/26/16 19:52 17 03/26/16 19:50 88 24 149/104 96 Room Air 03/26/16 17:20 98 03/26/16 16:09 97.7 112 24 181/126 100 Room Air Physical Exam PE: GENERAL: Young female in no acute distress. HEENT: PERRLA, EOMI. No scleral icterus or conjunctival pallor. No lid lag or facial droop. CARDIOVASCULAR: Regular rate and rhythm. No obvious murmurs to auscultation. No chest tenderness to palpation. RESPIRATORY: No obvious rhonchi or wheezing. Clear to auscultation. Breath sounds equal bilaterally. GASTROINTESTINAL: Abdomen soft, mild epigastric tenderness to palpation, PD catheter in place, no signs of infection, nondistended. BS normal. MUSCULOSKELETAL: Extremities without clubbing, cyanosis, or edema. No obvious deformities. NEUROLOGICAL: Awake, alert and oriented x4. No focal neurologic deficits. Moving both upper and lower extremities spontaneously. Laboratory Laboratory Tests Test 03/26/16 17:00 White Blood Count 5.6 Red Blood Count 3.72 Hemoglobin 10.5 Hematocrit 30.7 Mean Corpuscular Volume 82.5 Mean Corpuscular Hemoglobin 28.3 Mean Corpuscular Hemoglobin 34.3 Concent Red Cell Distribution Width 14.6 Platelet Count 102 Mean Platelet Volume 6.3 Neutrophils (%) (Auto) 59.1 Lymphocytes (%) (Auto) 23.8 Monocytes (%) (Auto) 5.9 Eosinophils (%) (Auto) 10.3 Basophils (%) (Auto) 0.9 Neutrophils # (Auto) 3.3 Lymphocytes # (Auto) 1.3 Monocytes # (Auto) 0.3 Eosinophils # (Auto) 0.6 Basophils # (Auto) 0.1 CBC Comment DIFF FINAL Differential Comment Prothrombin Time 10.2 Prothromb Time International 0.9 Ratio Activated Partial 31.0 Thromboplast Time Sodium Level 134 Potassium Level 4.2 Chloride Level 93 Carbon Dioxide Level 21.5 Anion Gap 20 Blood Urea Nitrogen 61 Creatinine 14.61 Estimat Glomerular Filtration 3 Rate Random Glucose 74 Calcium Level 7.2 Protein Corrected Calcium 7.3 Total Bilirubin 0.4 Aspartate Amino Transf 18 (AST/SGOT) Alanine Aminotransferase 17 (ALT/SGPT) Alkaline Phosphatase 67 Total Protein 7.0 Albumin 3.2 Lipase 149 Human Chorionic Gonadotropin, LESS THAN 1 Quant Result Diagram: 03/26/16 1700 03/26/16 1700 Assessment and Plan Problem List: (1) Cholecystitis ICD Code: K81.9 Status: Acute (2) Intractable vomiting with nausea ICD Code: R11.2 Status: Resolved (3) ESRD (end stage renal disease) on dialysis ICD Code: N18.6 Status: Chronic (4) Thrombocytopenia ICD Code: D69.6 Status: Acute Assessment and Plan A/P: 1. Cholecystitis: RUQ pain, nausea/vomiting. CT Abd/Pelvis w/ distended gallbladder, US Gallbladder w/ distention, no stones, images reviewed by me. Gen Sx consulted by ER physician for cholecystitis. S/p Rocephin/Flagyl in ER. Will continue w/ IV Zosyn, gentle IVF for hydration, repeat labs in am. 2. Intractable N/V: secondary to above, Protonix IV, Zofran, IVF-caution w/ ESRD. 3. ESRD on PD: Missed PD last night secondary to nausea/vomiting. Consult Nephrology to resume PD. 4. Thrombocytopenia: Platelets 102, previously 218 on 03/23/16, 67 on . No active bleeding. Will monitor. 5. DVT Prophylaxis: SCD/Teds. 6. Social work for d/c planning as needed. 7. Case discussed w/ ER physician at length. Physician Certification 2 Midnight Certification Type: Admission for Inpatient Services Order for Inpatient Services The services are ordered in accordance with Medicare regulations or non- Medicare payer requirements, as applicable. In the case of services not specified as inpatient-only, they are appropriately provided as inpatient services in accordance with the 2-midnight benchmark. Estimated LOS (days): 2 days is the estimated time the patient will need to remain in the hospital, assuming treatment plan goals are met and no additional complications. Post-Hospital Plan: Home Alexa Perez MD Mar 26, 2016 23:50
[2016-03-27] VITALS (7 sets, daily range): BP systolic 136–173; BP diastolic 87–115; PULSE 92–116; RESP 16–18; TEMP 96.2–98.3; O2SAT 94–99
[2016-03-27] MEDS: MORPHINE SULFATE 4 MG/ML INJ IV PRN ×2 (01:43→05:45)
[2016-03-27] MEDS: ONDANSETRON HCL 4 MG/2 ML VIAL IVP PRN ×2 (01:43→09:26)
[2016-03-27] MEDS: PIPERACIL-TAZO 2.25 GM PREMIX 50 ML IV SCH ×4 (06:18→23:26)
[2016-03-27 06:37] LABS: AUTOMATED NEUTROPHIL # 2.1 TH/MM3 (1.8-7.7); BASOPHIL % 0.9 % (0.0-2.0); EOSINOPHIL # 0.3 TH/MM3 (0-0.4); EOSINOPHIL % 7.4 % (0.0-4.0); HEMATOCRIT 29.5 % (35.0-46.0); LYMPHOCYTE # 1.3 TH/MM3 (1.0-4.8); MEAN CELL VOLUME 83.1 FL (80.0-100.0); MEAN CORPUSCULAR HEMOGLOBIN 27.8 PG (27.0-34.0); MEAN CORPUSCULAR HGB CONC 33.5 % (32.0-36.0); MONO % 8.2 % (0.0-8.0); NEUT % 52.5 % (16.0-70.0); PLATELET COUNT 89 TH/MM3 (150-450); RED BLOOD COUNT 3.55 MIL/MM3 (4.00-5.30); RED CELL DISTRIBUTION WIDTH 14.5 % (11.6-17.2); WHITE BLOOD COUNT 4.1 TH/MM3 (4.0-11.0)
[2016-03-27 07:04] LABS: HEMO FLAGS AUTO DIFF
[2016-03-27 07:11] LABS: BICARBONATE 18.9 MEQ/L (21.0-32.0); POTASSIUM 4.6 MEQ/L (3.5-5.1); TOTAL BILIRUBIN ADULT 0.5 MG/DL (0.2-1.0)
[2016-03-27 07:26] LABS: CALCIUM-PROTEIN CORRECTED 7.3 MG/DL (8.5-10.1)
[2016-03-27] MEDS ORDERED: HEPARIN SODIUM - IV 10,000 UNITS/10 ML VIAL XX PRN (08:15)
[2016-03-27] MEDS ORDERED: SODIUM CHLORIDE 0.9% FLUSH 5 ML FLUSH IVF PRN (08:15)
[2016-03-27] MEDS: SODIUM CHLORIDE 0.9% FLUSH 5 ML FLUSH FLUSH SCH ×2 (09:00→20:17)
[2016-03-27] MEDS: HYDROmorphone HCL PF 1 MG/ML VIAL IV PUSH PRN ×4 (09:20→22:03)
[2016-03-27] MEDS: PANTOPRAZOLE SODIUM 40 MG VIAL IV PUSH SCH ×2 (09:20→20:17)
[2016-03-27 10:00] LABS: PLATELET ESTIMATE SMEAR LOW (NORMAL); PLATELET MORPHOLOGY NORMAL (NORMAL); SCAN/DIFF AUTO DIFF CONFIRMED
[2016-03-27] MEDS: METOCLOPRAMIDE HCL 10 MG/2 ML VIAL IV PRN ×2 (11:25→22:03)
--- NOTE | 2016-03-27 11:51 | PD.CONS ---
HPI Service Nephrology Consult Requested By Dr. Mcknight Reason for Consult ESRD Primary Care Physician Juventino Gibbs MD History of Present Illness Patient is a 20-year-old female with history of lupus nephritis, end-stage renal disease on peritoneal dialysis who has developed the abdominal pain for the past 2 days accompanied with nausea and vomiting she stated the she has only missed one treatment in the past and yesterday she was in the hospital including do treatment and she has diffuse abdominal pain and nausea and vomiting and states that her Tenckhoff tubing showed blood-tinged fluid, she denies any diarrhea. She follows with Dr. Curry Review of Systems Constitutional: COMPLAINS OF: Fatigue Gastrointestinal: COMPLAINS OF: Abdominal pain, Nausea, Vomiting Past Family Social History Allergies: Coded Allergies: Hydralazine (Verified Allergy, Severe, Rash, 03/23/16) Vancomycin (Verified Allergy, Severe, Red man syndrome , 03/23/16) Metoprolol (Verified Allergy, Unknown, Patient does not know, 03/23/16) Past Medical History Lupus nephritis Hypertension Anemia Compliance issues ESRD Past Surgical History Tenckhoff catheter in the left side Reported Medications Reported Meds & Active Scripts Active Keflex (Cephalexin) 500 Mg Cap 500 Mg PO Q8H Lomotil (Diphenoxylate-Atropine) 2.5-0.025 Mg Tab 1 Tab PO Q6H PRN Zofran Odt (Ondansetron Odt) 4 Mg Tab 4 Mg SL Q6HR PRN Phenergan (Promethazine HCl) 25 Mg Tab 25 Mg PO Q6H PRN Keppra (Levetiracetam) 500 Mg Tab 500 Mg PO Q12HR 30 Days Reported Renvela (Sevelamer Carbonate) 800 Mg Tab 800 Mg PO TIDPC Sodium Bicarbonate 650 Mg Tab 650 Mg PO BIDPC Protonix (Pantoprazole Sodium) 20 Mg Tab 20 Mg PO DAILY Norvasc (Amlodipine Besylate) 10 Mg Tab 10 Mg PO BID Cozaar (Losartan Potassium) 50 Mg Tab 50 Mg PO BID Lisinopril 10 Mg Tab 10 Mg PO BID Hydroxychloroquine (Hydroxychloroquine Sulfate) 200 Mg Tab 200 Mg PO BID Takw with food Epogen Inj (Epoetin Diego) 2,000 Unit/Ml Inj 1,500 Units SQ 2XMONTH Doxazosin (Doxazosin Mesylate) 1 Mg Tab 1 Mg PO HS Catapres (Clonidine) 0.2 Mg Tab 0.2 Mg PO BID Coreg (Carvedilol) 25 Mg Tab 25 Mg PO BID Active Ordered Medications Current Medications Medications (Trade) Dose Ordered Sig/Leora Route Start Time Stop Time Status Last Admin (Zosyn 2.25 Gm Premix) 50 ml @ 100 mls/hr Q6H IV 03/27/16 06:00 03/27/16 06:18 (NS Flush) 2 ml UNSCH PRN FLUSH 03/26/16 23:45 (NS Flush) 2 ml BID FLUSH 03/27/16 09:00 (Zofran Inj) 4 mg Q6H PRN IVP 03/26/16 23:45 03/27/16 09:26 (Dulcolax Supp) 10 mg DAILY PRN ID 03/26/16 23:45 (Tylenol) 650 mg Q6H PRN PO 03/26/16 23:45 (Taylor 5-325 Mg) 1 tab Q4H PRN PO 03/26/16 23:45 (Protonix Inj) 40 mg Q12H IV PUSH 03/27/16 09:00 03/27/16 09:20 (Dilaudid Pf Inj) 1 mg Q4H PRN IV PUSH 03/27/16 06:45 03/27/16 09:20 (NS Flush) 10 ml UNSCH PRN IVF 03/27/16 08:15 (Fortaz Inj) 1,000 mg DAILY IP 03/27/16 09:00 (Reglan Inj) 5 mg Q6H PRN IV 03/27/16 12:00 (Phenergan Supp) 25 mg Q6H PRN ID 03/27/16 12:00 Family History Noncontributory Social History Denies smoking or alcohol use Physical Exam Vital Signs Vital Signs Date Time Temp Pulse Resp B/P Pulse Ox O2 Delivery O2 Flow Rate FiO2 03/27/16 08:00 97.6 116 18 159/113 96 03/27/16 06:21 110 158/104 03/27/16 05:50 96.2 111 18 157/102 99 03/27/16 03:00 97.5 106 18 165/92 94 03/26/16 22:32 106 17 125/92 100 Room Air 03/26/16 19:52 17 03/26/16 19:50 88 24 149/104 96 Room Air 03/26/16 17:20 98 03/26/16 16:09 97.7 112 24 181/126 100 Room Air Physical Exam GENERAL: Well-nourished, well-developed patient. SKIN: Warm and dry. HEAD: Normocephalic. EYES: No scleral icterus. No injection or drainage. NECK: Supple, trachea midline. No JVD or lymphadenopathy. CARDIOVASCULAR: Tachycardia RESPIRATORY: Breath sounds equal bilaterally. No accessory muscle use. GASTROINTESTINAL: Abdomen soft, diffuse tenderness, nondistended. Blood-tinged fluid in Tenckhoff EXTREMITIES: No cyanosis, or edema. NEUROLOGICAL: Awake, alert, and oriented x 3. Non-focal. Laboratory Laboratory Tests Test 03/26/16 03/27/16 17:00 05:50 White Blood Count 5.6 4.1 Red Blood Count 3.72 3.55 Hemoglobin 10.5 9.9 Hematocrit 30.7 29.5 Mean Corpuscular Volume 82.5 83.1 Mean Corpuscular Hemoglobin 28.3 27.8 Mean Corpuscular Hemoglobin 34.3 33.5 Concent Red Cell Distribution Width 14.6 14.5 Platelet Count 102 89 Mean Platelet Volume 6.3 7.0 Neutrophils (%) (Auto) 59.1 52.5 Lymphocytes (%) (Auto) 23.8 31.0 Monocytes (%) (Auto) 5.9 8.2 Eosinophils (%) (Auto) 10.3 7.4 Basophils (%) (Auto) 0.9 0.9 Neutrophils # (Auto) 3.3 2.1 Lymphocytes # (Auto) 1.3 1.3 Monocytes # (Auto) 0.3 0.3 Eosinophils # (Auto) 0.6 0.3 Basophils # (Auto) 0.1 0.0 CBC Comment DIFF FINAL AUTO DIFF Differential Comment AUTO DIFF CONFIRMED Prothrombin Time 10.2 Prothromb Time International 0.9 Ratio Activated Partial 31.0 Thromboplast Time Sodium Level 134 136 Potassium Level 4.2 4.6 Chloride Level 93 94 Carbon Dioxide Level 21.5 18.9 Anion Gap 20 23 Blood Urea Nitrogen 61 70 Creatinine 14.61 14.80 Estimat Glomerular Filtration 3 3 Rate Random Glucose 74 66 Calcium Level 7.2 7.1 Protein Corrected Calcium 7.3 7.3 Total Bilirubin 0.4 0.5 Aspartate Amino Transf 18 15 (AST/SGOT) Alanine Aminotransferase 17 16 (ALT/SGPT) Alkaline Phosphatase 67 70 Total Protein 7.0 6.7 Albumin 3.2 2.9 Lipase 149 Human Chorionic Gonadotropin, LESS THAN 1 Quant Platelet Estimate LOW Platelet Morphology Comment NORMAL Result Diagram: 03/27/16 0550 03/27/16 0550 Imaging Last Impressions Abdomen/Pelvis CT 03/26/16 1631 Signed Impressions: Service Date/Time: Saturday, March 26, 2016 18:23 - CONCLUSION: 1. Distended gallbladder. This is nonspecific. 2. Atrophy of the kidneys with a suspected peritoneal dialysis catheter in place. Navin Lovell MD Gall Bladder Ultrasound 03/26/16 0000 Signed Impressions: Service Date/Time: Saturday, March 26, 2016 19:39 - CONCLUSION: 1. Distended gallbladder without gallstones seen. The patient does complain about pain over the gallbladder. 2. Fluid around the gallbladder and around the liver margin. The patient is on peritoneal dialysis catheter in place. 3. Chronic appearance of the right kidney. Navin Lovell MD Assessment and Plan Problem List: (1) ESRD (end stage renal disease) on dialysis Plan: Patient is on peritoneal dialysis and her cultures will be checked, blood count will be sent and she has nonspecific allergy to vancomycin however I will use try to do Peritoneal dialysis as there is blood intraperitoneal as well she has been covered with Zosyn, we will continue to monitor peritoneal dialysis fluid (2) Peritonitis associated with peritoneal dialysis Plan: Follow cultures (3) Cholecystitis Plan: Treated with antibiotics (4) Hypertension Plan: Continue monitoring (5) Lupus Plan: She is off the steroids Ronaldo Silva MD Mar 27, 2016 11:51
[2016-03-27] MEDS ORDERED: PROMETHAZINE HCL 25 MG SUPP PR PRN (12:00)
--- NOTE | 2016-03-27 12:28 | HHI.PR ---
Subjective Remarks Follow-up cholecystitis/end-stage renal disease on hemodialysis/intractable nausea and vomiting 03/27/16-patient seen and examined, complains of nausea without any emesis. So complains of abdominal pain. Currently afebrile Objective Vitals Vital Signs Date Time Temp Pulse Resp B/P Pulse Ox O2 Delivery O2 Flow Rate FiO2 03/27/16 08:00 97.6 116 18 159/113 96 03/27/16 06:21 110 158/104 03/27/16 05:50 96.2 111 18 157/102 99 03/27/16 03:00 97.5 106 18 165/92 94 03/26/16 22:32 106 17 125/92 100 Room Air 03/26/16 19:52 17 03/26/16 19:50 88 24 149/104 96 Room Air 03/26/16 17:20 98 03/26/16 16:09 97.7 112 24 181/126 100 Room Air I/O 03/26/16 03/26/16 03/26/16 03/27/16 03/27/16 03/27/16 07:00 15:00 23:00 07:00 15:00 23:00 Intake Total 240 ml Output Total 500 ml Balance -260 ml Intake Oral 240 ml Output Urine Total 500 ml # Bowel Movements 0 Result Diagram: 03/27/16 0550 03/27/16 0550 Imaging Last Impressions Abdomen/Pelvis CT 03/26/16 1631 Signed Impressions: Service Date/Time: Saturday, March 26, 2016 18:23 - CONCLUSION: 1. Distended gallbladder. This is nonspecific. 2. Atrophy of the kidneys with a suspected peritoneal dialysis catheter in place. Navin Lovell MD Gall Bladder Ultrasound 03/26/16 0000 Signed Impressions: Service Date/Time: Saturday, March 26, 2016 19:39 - CONCLUSION: 1. Distended gallbladder without gallstones seen. The patient does complain about pain over the gallbladder. 2. Fluid around the gallbladder and around the liver margin. The patient is on peritoneal dialysis catheter in place. 3. Chronic appearance of the right kidney. Navin Lovell MD Objective Remarks GENERAL: mild distress SKIN: Warm and dry. HEAD: Normocephalic. EYES: No scleral icterus. No injection or drainage. NECK: Supple, trachea midline. No JVD or lymphadenopathy. CARDIOVASCULAR: Regular rate and rhythm without murmurs, gallops, or rubs. RESPIRATORY: Breath sounds equal bilaterally. No accessory muscle use. GASTROINTESTINAL: Abdomen soft, tender, nondistended. +BS MUSCULOSKELETAL: No cyanosis, or edema. BACK: Nontender without obvious deformity. No CVA tenderness. A/P Problem List: (1) Cholecystitis ICD Code: K81.9 Status: Acute (2) Intractable vomiting with nausea ICD Code: R11.2 Status: Resolved (3) ESRD (end stage renal disease) on dialysis ICD Code: N18.6 Status: Chronic (4) Thrombocytopenia ICD Code: D69.6 Status: Acute Assessment and Plan 20-year-old female with 1. Cholecystitis: RUQ pain, nausea/vomiting. CT Abd/Pelvis w/ distended gallbladder, US Gallbladder w/ distention, no stones. Gen Sx consulted by ER physician for cholecystitis. S/p Rocephin/Flagyl in ER.continue w/ IV Zosyn, gentle IVF for hydration, 2. Intractable N/V: secondary to above, Protonix IV, Zofran, IVF-caution w/ ESRD. Add Reglan however caution secondary to renal failure 3. ESRD on PD: Appreciate input from nephrology and plan for dialysis 4. Thrombocytopenia: Platelets 102, previously 218 on 03/23/16, 67 on . No active bleeding. Continue to monitor 5. Hypertension: Resume patient outpatient medication including Coreg, Norvasc and clonidine if able to tolerate by mouth. 6. History of seizure disorder: Resume Keppra however may switch to IV 7. DVT Prophylaxis: SCD/Teds. Jalen Mcknight MD Mar 27, 2016 12:28
--- NOTE | 2016-03-27 14:17 | EKG ---
Date Performed: 03/26/2016 Time Performed: 17:13:09 PTAGE: 20 years EKG: Sinus rhythm NORMAL ECG Compared to prior tracing no significant change PREVIOUS TRACING : 03/26/2016 17.12 DOCTOR: Dmitry Tim Interpretating Date/Time 03/27/2016 14:12:30
[2016-03-27 14:42] LABS: PERITONEAL EOS 3 %; PERITONEAL HISTIOCYTES 4 %; PERITONEAL LYMPHS 17 %; PERITONEAL MONOS 43 %; PERITONEAL POLYS(SEGS) 33 %; PERITONEAL WBC 2025 /MM3 (0-10)
[2016-03-27] MEDS ORDERED: cloNIDine HCL 0.2 MG TAB PO ONE (14:45)
[2016-03-27] MEDS ORDERED: CARVEDILOL 12.5 MG TAB PO ONE (14:45)
--- NOTE | 2016-03-27 15:44 | MB ---
cc: JORDANA BUTTS MD DATE OF CONSULTATION: 03/27/2016. REASON FOR CONSULTATION: Abdominal pain. Cholecystitis. Peritoneal dialysis. Possible peritonitis. HISTORY OF PRESENT ILLNESS: 20-year-old female with history of lupus and related end-stage renal failure on peritoneal dialysis. The patient arrived to the emergency room complaining of abdominal pain, nausea and vomiting that started yesterday. After about 24 hours, the patient did not resolve and she came to the emergency room. No diarrhea. She the patient was on the 10th in another emergency room and was discharged home as a gastroenteritis. Now the question arises about possible causes of her problem and possible cholecystitis; hence, the surgical consultation. PAST MEDICAL HISTORY: Systemic lupus erythematosus with end-stage renal failure on dialysis. PAST SURGICAL HISTORY: Various intervascular dialysis catheter placements and PD catheter placements last year by Dr. Stien. ALLERGIES: 1. VANCOMYCIN - RED MAN SYNDROME. 2. METOPROLOL. FAMILY HISTORY: Family history is noncontributory. SOCIAL HISTORY: The patient does not drink. She smokes pot. PHYSICAL EXAMINATION: GENERAL: The physical examination reveals a 20-year-old female in no acute distress. HEAD, EYES, EARS, NOSE, THROAT: Normocephalic. No trauma to the head. Pupils equal and reactive. Extraocular muscles intact. NECK: The neck is supple. Bilateral carotid pulses. No bruits. CHEST: Clear. Bilateral breath sounds. HEART: Regular rhythm. ABDOMEN: Abdomen soft. On palpation, it is tender in all four quadrants, more so in the mid-abdomen than the upper quadrants. No rebound. No guarding. No masses. No abdominal distention. Peritoneal dialysis catheter has some blood in it and I have asked the renal group to see this. GROINS: Normal. EXTREMITIES: Within normal limits. BACK: Normal. NEUROLOGIC: The patient is fully intact. IMPRESSION AND RECOMMENDATIONS: I have reviewed laboratory and diagnostic procedures. As far as the cholecystitis is concerned, the CT scan reveals normal gallbladder without any calculi, somewhat distended due to abstinence from food, but nothing other than that. The ultrasound reveals essentially normal gallbladder. Perihepatic fluid is of course peritoneal dialysate. Therefore I doubt a diagnosis of acute cholecystitis, although I have no problem doing a HIDA scan to make sure the patient does have acalculous cholecystitis with biliary dyskinesia. Having said that, patients who present with abdominal pain and on peritoneal dialysis should be first worked up for peritonitis due to the bacterial contamination considering peritoneal dialysis. The patient should have blood cultures, peritoneal cultures and be placed on antibiotics. Further care will depend on findings of this. Dr. Stein knows the patient. I texted him briefly and he will resume care on Tuesday. Thank you very much for the referral. Jordana HATHAWAY/HARRY /2:45 PM /3:36 PM
[2016-03-27] MEDS: levETIRAcetam 500 MG TAB PO SCH (20:17)
[2016-03-27] MEDS: HYDROXYCHLOROQUINE SULFATE 200 MG TAB PO SCH (20:17)
[2016-03-27] MEDS: CARVEDILOL 12.5 MG TAB PO SCH (20:17)
[2016-03-27] MEDS: cloNIDine HCL 0.2 MG TAB PO SCH (20:20)
[2016-03-28] VITALS: BP 123/85; PULSE 100; RESP 16; TEMP 97.5; O2SAT 98
[2016-03-28] MEDS: HYDROmorphone HCL PF 1 MG/ML VIAL IV PUSH PRN ×4 (03:06→21:22)
[2016-03-28] MEDS: ONDANSETRON HCL 4 MG/2 ML VIAL IVP PRN (03:06)
[2016-03-28 04:03] VITALS: BP 107/79; PULSE 94; RESP 16; TEMP 97.7; O2SAT 99
[2016-03-28] MEDS: PIPERACIL-TAZO 2.25 GM PREMIX 50 ML IV SCH ×3 (06:07→23:14)
[2016-03-28 07:14] LABS: AUTOMATED NEUTROPHIL # 2.2 TH/MM3 (1.8-7.7); BASOPHIL # 0.1 TH/MM3 (0-0.2); BASOPHIL % 1.1 % (0.0-2.0); EOSINOPHIL # 0.6 TH/MM3 (0-0.4); EOSINOPHIL % 10.3 % (0.0-4.0); HEMATOCRIT 28.7 % (35.0-46.0); LYMPH % 41.1 % (9.0-44.0); LYMPHOCYTE # 2.2 TH/MM3 (1.0-4.8); MEAN CELL VOLUME 82.3 FL (80.0-100.0); MEAN CORPUSCULAR HEMOGLOBIN 27.8 PG (27.0-34.0); MEAN CORPUSCULAR HGB CONC 33.7 % (32.0-36.0); MONO % 6.9 % (0.0-8.0); NEUT % 40.6 % (16.0-70.0); PLATELET COUNT 70 TH/MM3 (150-450); RED BLOOD COUNT 3.49 MIL/MM3 (4.00-5.30); RED CELL DISTRIBUTION WIDTH 14.4 % (11.6-17.2); WHITE BLOOD COUNT 5.4 TH/MM3 (4.0-11.0)
[2016-03-28 07:32] LABS: BICARBONATE 19.2 MEQ/L (21.0-32.0); POTASSIUM 4.6 MEQ/L (3.5-5.1)
[2016-03-28 08:00] VITALS: BP 135/79; PULSE 99; RESP 20; TEMP 97.4; O2SAT 94
[2016-03-28 08:02] LABS: HEMO FLAGS AUTO DIFF
[2016-03-28] MEDS: cloNIDine HCL 0.2 MG TAB PO SCH (09:00)
[2016-03-28] MEDS: SODIUM CHLORIDE 0.9% FLUSH 5 ML FLUSH FLUSH SCH ×2 (09:00→19:41)
[2016-03-28] MEDS: levETIRAcetam 500 MG TAB PO SCH ×2 (10:12→19:42)
[2016-03-28] MEDS: PANTOPRAZOLE SODIUM 40 MG VIAL IV PUSH SCH ×2 (10:12→19:41)
[2016-03-28] MEDS: CARVEDILOL 12.5 MG TAB PO SCH ×2 (10:13→19:41)
[2016-03-28] MEDS: HYDROXYCHLOROQUINE SULFATE 200 MG TAB PO SCH ×2 (10:13→19:41)
[2016-03-28] MEDS: METOCLOPRAMIDE HCL 10 MG/2 ML VIAL IV PRN ×2 (10:25→21:22)
--- NOTE | 2016-03-28 10:52 | PD.CAR.PN ---
CVT Progress Note Subjective/Hospital Course: Patient seen yesterday in consult dictated Patient is known to Dr. Stein and surgical associates. They will assume consulting services and therefore I will sign off at this time Thanks J Objective: Vital Signs Date Time Temp Pulse Resp B/P Pulse Ox O2 Delivery O2 Flow Rate FiO2 03/28/16 08:00 97.4 99 20 135/79 94 03/28/16 04:03 97.7 94 16 107/79 99 03/28/16 00:00 97.5 100 16 123/85 98 03/27/16 20:00 97.7 92 16 136/87 97 03/27/16 16:00 98.3 114 18 173/115 97 03/27/16 12:00 97.5 115 16 160/108 94 Labs: Laboratory Tests Test 03/28/16 06:35 White Blood Count 5.4 TH/MM3 (4.0-11.0) Red Blood Count 3.49 MIL/MM3 (4.00-5.30) Hemoglobin 9.7 GM/DL (11.6-15.3) Hematocrit 28.7 % (35.0-46.0) Mean Corpuscular Volume 82.3 FL (80.0-100.0) Mean Corpuscular Hemoglobin 27.8 PG (27.0-34.0) Mean Corpuscular Hemoglobin 33.7 % Concent (32.0-36.0) Red Cell Distribution Width 14.4 % (11.6-17.2) Platelet Count 70 TH/MM3 (150-450) Mean Platelet Volume 6.1 FL (7.0-11.0) Neutrophils (%) (Auto) 40.6 % (16.0-70.0) Lymphocytes (%) (Auto) 41.1 % (9.0-44.0) Monocytes (%) (Auto) 6.9 % (0.0-8.0) Eosinophils (%) (Auto) 10.3 % (0.0-4.0) Basophils (%) (Auto) 1.1 % (0.0-2.0) Neutrophils # (Auto) 2.2 TH/MM3 (1.8-7.7) Lymphocytes # (Auto) 2.2 TH/MM3 (1.0-4.8) Monocytes # (Auto) 0.4 TH/MM3 (0-0.9) Eosinophils # (Auto) 0.6 TH/MM3 (0-0.4) Basophils # (Auto) 0.1 TH/MM3 (0-0.2) CBC Comment AUTO DIFF Sodium Level 137 MEQ/L (136-145) Potassium Level 4.6 MEQ/L (3.5-5.1) Chloride Level 94 MEQ/L (98-107) Carbon Dioxide Level 19.2 MEQ/L (21.0-32.0) Anion Gap 24 MEQ/L (5-15) Blood Urea Nitrogen 72 MG/DL (7-18) Creatinine 15.67 MG/DL (0.50-1.00) Estimat Glomerular Filtration 3 ML/MIN (>89) Rate Random Glucose 69 MG/DL (74-106) Calcium Level 7.5 MG/DL (8.5-10.1) Result Diagram: 03/28/16 0635 03/28/16 0635 Jordana Velasco MD Mar 28, 2016 10:52
[2016-03-28 11:28] LABS: OVALOCYTES 1+ (NORMAL); PLATELET ESTIMATE SMEAR LOW (NORMAL); PLATELET MORPHOLOGY NORMAL (NORMAL); SCAN/DIFF AUTO DIFF CONFIRMED
--- NOTE | 2016-03-28 11:34 | HHI.PR ---
Subjective Remarks Follow-up cholecystitis/end-stage renal disease on hemodialysis/intractable nausea and vomiting 03/27/16-patient seen and examined, complains of nausea without any emesis. So complains of abdominal pain. Currently afebrile 03/28/16-patient seen and examined, had one episode of emesis this morning and 6 complain of nausea. Currently afebrile. Objective Vitals Vital Signs Date Time Temp Pulse Resp B/P Pulse Ox O2 Delivery O2 Flow Rate FiO2 03/28/16 08:00 97.4 99 20 135/79 94 03/28/16 04:03 97.7 94 16 107/79 99 03/28/16 00:00 97.5 100 16 123/85 98 03/27/16 20:00 97.7 92 16 136/87 97 03/27/16 16:00 98.3 114 18 173/115 97 03/27/16 12:00 97.5 115 16 160/108 94 I/O 03/27/16 03/27/16 03/27/16 03/28/16 03/28/16 03/28/16 07:00 15:00 23:00 07:00 15:00 23:00 Intake Total 240 ml 480 ml 720 ml Output Total 500 ml 600 ml 200 ml Balance -260 ml 480 ml 120 ml -200 ml Intake Oral 240 ml 480 ml 720 ml Output Urine Total 500 ml 600 ml 200 ml # Voids 2 2 # Bowel Movements 0 Result Diagram: 03/28/16 0635 03/28/16 0635 Imaging Last Impressions Abdomen/Pelvis CT 03/26/16 1631 Signed Impressions: Service Date/Time: Saturday, March 26, 2016 18:23 - CONCLUSION: 1. Distended gallbladder. This is nonspecific. 2. Atrophy of the kidneys with a suspected peritoneal dialysis catheter in place. Navin Lovell MD Gall Bladder Ultrasound 03/26/16 0000 Signed Impressions: Service Date/Time: Saturday, March 26, 2016 19:39 - CONCLUSION: 1. Distended gallbladder without gallstones seen. The patient does complain about pain over the gallbladder. 2. Fluid around the gallbladder and around the liver margin. The patient is on peritoneal dialysis catheter in place. 3. Chronic appearance of the right kidney. Navin Lovell MD Objective Remarks GENERAL: mild distress SKIN: Warm and dry. HEAD: Normocephalic. EYES: No scleral icterus. No injection or drainage. NECK: Supple, trachea midline. No JVD or lymphadenopathy. CARDIOVASCULAR: Regular rate and rhythm without murmurs, gallops, or rubs. RESPIRATORY: Breath sounds equal bilaterally. No accessory muscle use. GASTROINTESTINAL: Abdomen soft, tender, nondistended. +BS MUSCULOSKELETAL: No cyanosis, or edema. BACK: Nontender without obvious deformity. No CVA tenderness. A/P Problem List: (1) Cholecystitis ICD Code: K81.9 Status: Acute (2) Intractable vomiting with nausea ICD Code: R11.2 Status: Resolved (3) ESRD (end stage renal disease) on dialysis ICD Code: N18.6 Status: Chronic (4) Thrombocytopenia ICD Code: D69.6 Status: Acute Assessment and Plan 20-year-old female with 1. Cholecystitis: RUQ pain, nausea/vomiting. CT Abd/Pelvis w/ distended gallbladder, US Gallbladder w/ distention, no stones. Patient was seen by Dr. Catherine however signed off and advise on consultation from Dr. Stein and associated. May consider HIDA. S/p Rocephin/Flagyl in ER.continue w/ IV Zosyn , gentle IVF for hydration, 2. Intractable N/V: secondary to above, Protonix IV, Zofran, IVF-caution w/ ESRD. Continue Reglan however caution secondary to renal failure 3. ESRD on PD: Appreciate input from nephrology . Peritoneal fluid culture pending however elevated WBC. Continue with current antibiotic including Zosyn 4. Thrombocytopenia: Platelets 102, previously 218 on 03/23/16, 67 on . No active bleeding. Continue to monitor 5. Hypertension: Continue patient outpatient medication including Coreg, Norvasc and clonidine . 6. History of seizure disorder: Continue Keppra by mouth twice a day 7. DVT Prophylaxis: SCD/Teds. Jalen Mcknight MD Mar 28, 2016 11:34
[2016-03-28 12:00] VITALS: BP 119/76; PULSE 106; RESP 20; TEMP 97.9; O2SAT 96
--- NOTE | 2016-03-28 12:36 | HHI.NPPN ---
Subjective History of Present Illness 20 year old with ESRD and abdominal pain, has distended GB she has N/V and developed hemoperitoneum Review of Systems General Constitutional: Fatigue Objective Data Data 03/27/16 03/28/16 19:00 07:00 Intake Total 480 ml 720 ml Output Total 600 ml 200 ml Balance -120 ml 520 ml Intake Oral 480 ml 720 ml Output Urine Total 600 ml 200 ml # Voids 2 2 Vital Signs Date Time Temp Pulse Resp B/P Pulse Ox O2 Delivery O2 Flow Rate FiO2 03/28/16 08:00 97.4 99 20 135/79 94 03/28/16 04:03 97.7 94 16 107/79 99 03/28/16 00:00 97.5 100 16 123/85 98 03/27/16 20:00 97.7 92 16 136/87 97 03/27/16 16:00 98.3 114 18 173/115 97 -: 03/28/16 0635 03/28/16 0635 Microbiology 03/27/16 Gram Stain - Final, Resulted 03/27/16 Body Fluid Culture, Resulted Pending Physical Exam General Appearance: Well Developed Neck Neck Exam: Neck Supple Pulmonary Resp Exam: Clear Bilaterally, Breath Sounds Equal Cardiology CV Exam: Regular, Normal Sinus Rhythm Gastrointestinal/Abdomen GI Exam: Soft Extremeties Extremities Exam: No Edema Neurologic Neuro Exam: Alert, Awake Assessment/Plan Problem List: (1) ESRD (end stage renal disease) on dialysis Plan: Patient is on peritoneal dialysis and her cultures will be checked, however Peritoneal wbc cell count not high, RBC was elevated it appears clear now try PD today possibly trauma related (2) Peritonitis associated with peritoneal dialysis Plan: Follow cultures (3) Cholecystitis Plan: Treated with antibiotics (4) Hypertension Plan: Continue monitoring (5) Lupus Plan: She is off the steroids Ronaldo Silva MD Mar 28, 2016 12:36
[2016-03-28] MEDS ORDERED: EPOETIN ALFA 20,000 UNITS/ML VIAL SQ ONE (14:00)
[2016-03-28 16:00] VITALS: BP 121/82; PULSE 94; RESP 20; TEMP 97.8; O2SAT 96
[2016-03-28 20:00] VITALS: BP 130/100; PULSE 98; RESP 16; TEMP 97.3; O2SAT 95
[2016-03-29] VITALS: BP 133/91; PULSE 96; RESP 16; TEMP 97.3; O2SAT 97
[2016-03-29] MEDS: ONDANSETRON HCL 4 MG/2 ML VIAL IVP PRN ×2 (01:57→09:01)
[2016-03-29] MEDS: HYDROmorphone HCL PF 1 MG/ML VIAL IV PUSH PRN ×5 (01:58→22:06)
[2016-03-29 04:00] VITALS: BP 140/94; PULSE 109; RESP 16; TEMP 97.3; O2SAT 95
[2016-03-29] MEDS: METOCLOPRAMIDE HCL 10 MG/2 ML VIAL IV PRN ×2 (05:54→16:59)
[2016-03-29 08:00] VITALS: BP_SYST 141; BP_SYST 155; BP_DIAS 103; BP_DIAS 107; PULSE 104; RESP 16; TEMP 98.3; O2SAT 95
[2016-03-29] MEDS: HYDROXYCHLOROQUINE SULFATE 200 MG TAB PO SCH ×2 (08:52→21:22)
[2016-03-29] MEDS: levETIRAcetam 500 MG TAB PO SCH ×2 (08:52→21:22)
[2016-03-29] MEDS: SODIUM CHLORIDE 0.9% FLUSH 5 ML FLUSH FLUSH SCH ×2 (08:53→21:23)
[2016-03-29] MEDS: PANTOPRAZOLE SODIUM 40 MG VIAL IV PUSH SCH ×2 (08:53→21:22)
[2016-03-29] MEDS: CARVEDILOL 12.5 MG TAB PO SCH ×2 (08:57→21:22)
[2016-03-29] MEDS: PIPERACIL-TAZO 2.25 GM PREMIX 50 ML IV SCH (11:42)
[2016-03-29 12:00] VITALS: BP 151/108; PULSE 109; RESP 16; TEMP 97.8; O2SAT 99
--- NOTE | 2016-03-29 12:54 | HHI.PR ---
Subjective Remarks Follow-up cholecystitis/end-stage renal disease on hemodialysis/intractable nausea and vomiting 03/27/16-patient seen and examined, complains of nausea without any emesis. So complains of abdominal pain. Currently afebrile 03/28/16-patient seen and examined, had one episode of emesis this morning and 6 complain of nausea. Currently afebrile. 03/29/16-patient seen and examined; currently afebrile. Report improvement of nausea and vomiting. At. She had peritoneal dialysis last night. Peritoneal fluid culture negative Objective Vitals Vital Signs Date Time Temp Pulse Resp B/P Pulse Ox O2 Delivery O2 Flow Rate FiO2 03/29/16 08:00 98.3 104 16 155/107 95 141/103 03/29/16 04:00 97.3 109 16 140/94 95 03/29/16 00:00 97.3 96 16 133/91 97 03/28/16 20:00 97.3 98 16 130/100 95 03/28/16 16:00 97.8 94 20 121/82 96 I/O 03/28/16 03/28/16 03/28/16 03/29/16 03/29/16 03/29/16 07:00 15:00 23:00 07:00 15:00 23:00 Intake Total 360 ml 480 ml 480 ml Output Total 200 ml 300 ml 400 ml 400 ml 529 ml Balance -200 ml 60 ml 80 ml 80 ml -529 ml Intake Oral 360 ml 480 ml 480 ml Output Urine Total 200 ml 300 ml 400 ml 400 ml Peritoneal Fluid 529 ml # Bowel Movements 0 # Sanitary Pads 2 Pads Result Diagram: 03/28/16 0635 03/28/16 0635 Imaging Last Impressions Abdomen/Pelvis CT 03/26/16 1631 Signed Impressions: Service Date/Time: Saturday, March 26, 2016 18:23 - CONCLUSION: 1. Distended gallbladder. This is nonspecific. 2. Atrophy of the kidneys with a suspected peritoneal dialysis catheter in place. Navin Lovell MD Gall Bladder Ultrasound 03/26/16 0000 Signed Impressions: Service Date/Time: Saturday, March 26, 2016 19:39 - CONCLUSION: 1. Distended gallbladder without gallstones seen. The patient does complain about pain over the gallbladder. 2. Fluid around the gallbladder and around the liver margin. The patient is on peritoneal dialysis catheter in place. 3. Chronic appearance of the right kidney. Navin Lovell MD Objective Remarks GENERAL: NAD SKIN: Warm and dry. HEAD: Normocephalic. EYES: No scleral icterus. No injection or drainage. NECK: Supple, trachea midline. No JVD or lymphadenopathy. CARDIOVASCULAR: Regular rate and rhythm without murmurs, gallops, or rubs. RESPIRATORY: Breath sounds equal bilaterally. No accessory muscle use. GASTROINTESTINAL: Abdomen soft, mildly tender, nondistended. +BS MUSCULOSKELETAL: No cyanosis, or edema. BACK: Nontender without obvious deformity. No CVA tenderness. A/P Problem List: (1) Cholecystitis ICD Code: K81.9 Status: Acute (2) Intractable vomiting with nausea ICD Code: R11.2 Status: Resolved (3) ESRD (end stage renal disease) on dialysis ICD Code: N18.6 Status: Chronic (4) Thrombocytopenia ICD Code: D69.6 Status: Acute Assessment and Plan 20-year-old female with 1. Cholecystitis: RUQ pain, nausea/vomiting. CT Abd/Pelvis w/ distended gallbladder, US Gallbladder w/ distention, no stones. Patient was seen by Dr. Catherine however signed off and advised on consultation from Dr. Stein and associated. May consider HIDA. S/p Rocephin/Flagyl in ER.continue w/ IV Zosyn , gentle IVF for hydration, 2. Intractable N/V: secondary to above, Protonix IV, Zofran, IVF-caution w/ ESRD. Continue Reglan however caution secondary to renal failure 3. ESRD on PD: Appreciate input from nephrology . Peritoneal fluid culture negative despite elevated WBC. Continue with current antibiotic including Zosyn 4. Thrombocytopenia: Platelets 102, previously 218 on 03/23/16, 67 on . No active bleeding. Continue to monitor 5. Hypertension: Normotensive and Continue patient outpatient medication including Coreg, Norvasc and clonidine . 6. History of seizure disorder: Continue Keppra by mouth twice a day 7. DVT Prophylaxis: SCD/Teds. Jaeln Mcknight MD Mar 29, 2016 12:54
--- NOTE | 2016-03-29 14:26 | HHI.NPPN ---
Subjective History of Present Illness 20 year old with ESRD and abdominal pain, has distended GB she has N/V and developed hemoperitoneum Review of Systems General Constitutional: Fatigue Objective Data Data 03/28/16 03/29/16 19:00 07:00 Intake Total 360 ml 960 ml Output Total 300 ml 800 ml Balance 60 ml 160 ml Intake Oral 360 ml 960 ml Output Urine Total 300 ml 800 ml # Bowel Movements 0 # Sanitary Pads 2 Pads Vital Signs Date Time Temp Pulse Resp B/P Pulse Ox O2 Delivery O2 Flow Rate FiO2 03/29/16 12:00 97.8 109 16 151/108 99 03/29/16 08:00 98.3 104 16 155/107 95 141/103 03/29/16 04:00 97.3 109 16 140/94 95 03/29/16 00:00 97.3 96 16 133/91 97 03/28/16 20:00 97.3 98 16 130/100 95 03/28/16 16:00 97.8 94 20 121/82 96 -: 03/28/16 0635 03/28/16 0635 Physical Exam General Appearance: Well Developed Neck Neck Exam: Neck Supple Pulmonary Resp Exam: Clear Bilaterally, Breath Sounds Equal Cardiology CV Exam: Regular, Normal Sinus Rhythm Gastrointestinal/Abdomen GI Exam: Soft Extremeties Extremities Exam: No Edema Neurologic Neuro Exam: Alert, Awake Assessment/Plan Problem List: (1) ESRD (end stage renal disease) on dialysis Plan: she had PD UF 524 ML stable no more Hemoperitoneum noted no evidence of infection on PD fluid (2) Peritonitis associated with peritoneal dialysis Plan: Follow cultures (3) Cholecystitis Plan: Treated with antibiotics (4) Hypertension Plan: Continue monitoring, high amlodipine increased (5) Lupus Plan: She is off the steroids Ronaldo Silva MD Mar 29, 2016 14:26
[2016-03-29 16:00] VITALS: BP 145/104; PULSE 111; RESP 16; TEMP 98.3; O2SAT 97
[2016-03-29 20:00] VITALS: BP 138/102; PULSE 109; RESP 18; TEMP 97.5; O2SAT 96
[2016-03-30] VITALS: BP 129/92; PULSE 98; RESP 18; TEMP 97.6; O2SAT 96
[2016-03-30] MEDS: PIPERACIL-TAZO 2.25 GM PREMIX 50 ML IV SCH ×2 (00:17→12:52)
[2016-03-30 04:00] VITALS: BP 141/94; PULSE 109; RESP 18; TEMP 98.3; O2SAT 94
[2016-03-30] MEDS: HYDROmorphone HCL PF 1 MG/ML VIAL IV PUSH PRN ×3 (06:07→19:42)
[2016-03-30 06:57] LABS: AUTOMATED NEUTROPHIL # 3.5 TH/MM3 (1.8-7.7); BASOPHIL # 0.1 TH/MM3 (0-0.2); BASOPHIL % 0.8 % (0.0-2.0); EOSINOPHIL # 0.6 TH/MM3 (0-0.4); EOSINOPHIL % 8.4 % (0.0-4.0); HEMATOCRIT 29.6 % (35.0-46.0); HEMO FLAGS DIFF FINAL; LYMPH % 35.1 % (9.0-44.0); LYMPHOCYTE # 2.5 TH/MM3 (1.0-4.8); MEAN CELL VOLUME 79.2 FL (80.0-100.0); MEAN CORPUSCULAR HEMOGLOBIN 27.8 PG (27.0-34.0); MEAN CORPUSCULAR HGB CONC 35.1 % (32.0-36.0); MONO % 6.2 % (0.0-8.0); NEUT % 49.5 % (16.0-70.0); PLATELET COUNT 125 TH/MM3 (150-450); RED BLOOD COUNT 3.73 MIL/MM3 (4.00-5.30); RED CELL DISTRIBUTION WIDTH 14.5 % (11.6-17.2)
[2016-03-30 07:33] LABS: BICARBONATE 25.1 MEQ/L (21.0-32.0); POTASSIUM 3.5 MEQ/L (3.5-5.1)
[2016-03-30 08:00] VITALS: BP 129/97; PULSE 104; RESP 16; TEMP 98.2; O2SAT 96
[2016-03-30] MEDS: SODIUM CHLORIDE 0.9% FLUSH 5 ML FLUSH FLUSH SCH ×2 (09:00→20:45)
--- NOTE | 2016-03-30 09:28 | HHI.PR ---
Subjective Remarks Follow-up cholecystitis/end-stage renal disease on hemodialysis/intractable nausea and vomiting 03/27/16-patient seen and examined, complains of nausea without any emesis. So complains of abdominal pain. Currently afebrile 03/28/16-patient seen and examined, had one episode of emesis this morning and 6 complain of nausea. Currently afebrile. 03/29/16-patient seen and examined; currently afebrile. Report improvement of nausea and vomiting. At. She had peritoneal dialysis last night. Peritoneal fluid culture negative 03/30/16-patient seen and examined, states she's had a couple episode of emesis yesterday and continues to have abdominal pain. She is finishing up dialysis this morning Objective Vitals Vital Signs Date Time Temp Pulse Resp B/P Pulse Ox O2 Delivery O2 Flow Rate FiO2 03/30/16 04:00 98.3 109 18 141/94 94 03/30/16 00:00 97.6 98 18 129/92 96 03/29/16 20:00 97.5 109 18 138/102 96 03/29/16 16:00 98.3 111 16 145/104 97 03/29/16 12:00 97.8 109 16 151/108 99 I/O 03/29/16 03/29/16 03/29/16 03/30/16 03/30/16 03/30/16 07:00 15:00 23:00 07:00 15:00 23:00 Intake Total 480 ml 240 ml 240 ml 240 ml Output Total 400 ml 929 ml 100 ml 687 ml Balance 80 ml -689 ml 240 ml 140 ml -687 ml Intake Oral 480 ml 240 ml 240 ml 240 ml Output Urine Total 400 ml 400 ml 100 ml Peritoneal Fluid 529 ml 687 ml Result Diagram: 03/30/16 0550 03/30/16 0550 Objective Remarks GENERAL: NAD SKIN: Warm and dry. HEAD: Normocephalic. EYES: No scleral icterus. No injection or drainage. NECK: Supple, trachea midline. No JVD or lymphadenopathy. CARDIOVASCULAR: Regular rate and rhythm without murmurs, gallops, or rubs. RESPIRATORY: Breath sounds equal bilaterally. No accessory muscle use. GASTROINTESTINAL: Abdomen soft, mildly tender, nondistended. +BS MUSCULOSKELETAL: No cyanosis, or edema. BACK: Nontender without obvious deformity. No CVA tenderness. A/P Problem List: (1) Cholecystitis ICD Code: K81.9 Status: Acute (2) Intractable vomiting with nausea ICD Code: R11.2 Status: Resolved (3) ESRD (end stage renal disease) on dialysis ICD Code: N18.6 Status: Chronic (4) Thrombocytopenia ICD Code: D69.6 Status: Acute Assessment and Plan 20-year-old female with 1. Cholecystitis: RUQ pain, nausea/vomiting. CT Abd/Pelvis w/ distended gallbladder, US Gallbladder w/ distention, no stones. Patient was seen by Dr. Catherine however signed off and advised on consultation from Dr. Stein and associated. Check HIDA today 03/30/16. S/p Rocephin/Flagyl in ER.continue w/ IV Zosyn, gentle IVF for hydration, 2. Intractable N/V: secondary to above, Protonix IV, Zofran, IVF-caution w/ ESRD. Continue Reglan 3. ESRD on PD: Appreciate input from nephrology . Peritoneal fluid culture negative despite elevated WBC. Continue with current antibiotic including Zosyn 4. Thrombocytopenia: No active bleeding. Continue to monitor 5. Hypertension: Normotensive and Continue patient outpatient medication including Coreg, Norvasc and clonidine . 6. History of seizure disorder: Continue Keppra by mouth twice a day 7. DVT Prophylaxis: SCD/Teds. Jalen Mcknight MD Mar 30, 2016 09:28
[2016-03-30] MEDS: levETIRAcetam 500 MG TAB PO SCH ×2 (09:48→20:42)
[2016-03-30] MEDS: CARVEDILOL 12.5 MG TAB PO SCH ×2 (09:48→20:42)
[2016-03-30] MEDS: PANTOPRAZOLE SODIUM 40 MG VIAL IV PUSH SCH ×2 (09:48→20:44)
[2016-03-30] MEDS: HYDROXYCHLOROQUINE SULFATE 200 MG TAB PO SCH ×2 (09:48→20:42)
[2016-03-30] MEDS ORDERED: SINCALIDE 5 MCG/5 ML VIAL IV ONE (11:38)
[2016-03-30 12:30] VITALS: BP 117/78; PULSE 102; RESP 16; TEMP 98.4; O2SAT 97
--- NOTE | 2016-03-30 12:38 | RADRPT ---
EXAM DATE/TIME: 03/30/2016 10:32 [facility] COMPARISON: No previous studies available for comparison. INDICATIONS : Abdominal pain with nausea and vomiting. DOSE: 4.1 mCi Tc99m Mebrofenin IV MEDICATION: 1.1 mcg Cholecystokinin IV; No symptomatic response. Cholecystokinin was administered by slow infusion over 8 minutes beginning at 60 minutes. MEDICAL HISTORY : Lupus. Renal disease, end stage. Hypertension. SURGICAL HISTORY : None. ENCOUNTER: Subsequent ACUITY: 1 week PAIN SCALE: 6/10 LOCATION: Right upper quadrant TECHNIQUE: Following the intravenous administration of radiotracer, dynamic sequential image were performed with continuous acquisition. Time-activity curves were generated. FINDINGS: HEPATIIC KINETICS: There is prompt uptake of radiotracer in the liver. No focal defects are seen. There is normal rate of washout from the hepatic parenchyma. BILIARY CLEARANCE: Activity is first seen in the extrahepatic biliary system at 10 minutes. There is normal excretion i nto the small bowel. GALLBLADDER: Activity is first seen in the gallbladder at 10 minutes. POST CHOLECYSTOKININ: After Cholecystokinin administration, there is mild emptying of the gallbladder with a 30 % ejection fraction. Common bile duct kinetics are normal and there is no evidence of biliary obstruction. BILIARY ENTERIC REFLUX: There is bile reflux into the stomach. CLINICAL: The patient was asymptomatic after Cholecystokinin administration. CONCLUSION: 1. No sign of biliary obstruction. 2. Bile reflux into the stomach. Navin Lovell MD on March 30, 2016 at 12:29 Board Certified Radiologist. This report was verified electronically.
--- NOTE | 2016-03-30 13:22 | HHI.NPPN ---
Subjective History of Present Illness 20 year old with ESRD and abdominal pain, has distended GB she has N/V and developed hemoperitoneum Review of Systems General Constitutional: Fatigue Objective Data Data 03/29/16 03/30/16 19:00 07:00 Intake Total 240 ml 480 ml Output Total 929 ml 100 ml Balance -689 ml 380 ml Intake Oral 240 ml 480 ml Output Urine Total 400 ml 100 ml Peritoneal Fluid 529 ml Vital Signs Date Time Temp Pulse Resp B/P Pulse Ox O2 Delivery O2 Flow Rate FiO2 03/30/16 08:00 98.2 104 16 129/97 96 03/30/16 04:00 98.3 109 18 141/94 94 03/30/16 00:00 97.6 98 18 129/92 96 03/29/16 20:00 97.5 109 18 138/102 96 03/29/16 16:00 98.3 111 16 145/104 97 -: 03/30/16 0550 03/30/16 0550 Physical Exam General Appearance: Well Developed Neck Neck Exam: Neck Supple Pulmonary Resp Exam: Clear Bilaterally, Breath Sounds Equal Cardiology CV Exam: Regular, Normal Sinus Rhythm Gastrointestinal/Abdomen GI Exam: Soft Extremeties Extremities Exam: No Edema Neurologic Neuro Exam: Alert, Awake Assessment/Plan Problem List: (1) ESRD (end stage renal disease) on dialysis Plan: Patient is on peritoneal dialysis and her cultures negative HIDA Neg bile reflux in stomach UF 687 ML continue supportive care (2) Peritonitis associated with peritoneal dialysis Plan: Follow cultures (3) Cholecystitis Plan: Treated with antibiotics (4) Hypertension Plan: Continue monitoring (5) Lupus Plan: She is off the steroids Ronaldo Silva MD Mar 30, 2016 13:22
[2016-03-30 16:00] VITALS: BP 108/69; PULSE 106; RESP 16; TEMP 98.4; O2SAT 96
[2016-03-30] MEDS: ONDANSETRON HCL 4 MG/2 ML VIAL IVP PRN (19:42)
[2016-03-30 20:00] VITALS: BP 117/84; PULSE 108; RESP 16; TEMP 98; O2SAT 97
[2016-03-31] VITALS: BP 128/89; PULSE 106; RESP 16; TEMP 97.5; O2SAT 98
[2016-03-31] MEDS: PIPERACIL-TAZO 2.25 GM PREMIX 50 ML IV SCH
[2016-03-31 04:00] VITALS: BP 120/80; PULSE 100; RESP 16; TEMP 97.7; O2SAT 98
[2016-03-31] MEDS: ONDANSETRON HCL 4 MG/2 ML VIAL IVP PRN ×3 (04:29→18:04)
[2016-03-31] MEDS: HYDROmorphone HCL PF 1 MG/ML VIAL IV PUSH PRN ×5 (04:29→18:04)
[2016-03-31 08:00] VITALS: BP 112/78; PULSE 99; RESP 18; TEMP 98.3; O2SAT 96
[2016-03-31] MEDS: SODIUM CHLORIDE 0.9% FLUSH 5 ML FLUSH FLUSH SCH (09:00)
--- NOTE | 2016-03-31 09:22 | HHI.PR ---
Subjective Remarks Follow-up cholecystitis/end-stage renal disease on hemodialysis/intractable nausea and vomiting 03/27/16-patient seen and examined, complains of nausea without any emesis. So complains of abdominal pain. Currently afebrile 03/28/16-patient seen and examined, had one episode of emesis this morning and 6 complain of nausea. Currently afebrile. 03/29/16-patient seen and examined; currently afebrile. Report improvement of nausea and vomiting. At. She had peritoneal dialysis last night. Peritoneal fluid culture negative 03/30/16-patient seen and examined, states she's had a couple episode of emesis yesterday and continues to have abdominal pain. She is finishing up dialysis this morning 03/31/16-patient seen and examined, denies any abdominal pain. No more nausea or vomiting.HIDA scan Negative . Vitals stable and patient afebrile. Objective Vitals Vital Signs Date Time Temp Pulse Resp B/P Pulse Ox O2 Delivery O2 Flow Rate FiO2 03/31/16 04:00 97.7 100 16 120/80 98 03/31/16 00:00 97.5 106 16 128/89 98 03/30/16 20:00 98.0 108 16 117/84 97 03/30/16 16:00 98.4 106 16 108/69 96 03/30/16 12:30 98.4 102 16 117/78 97 I/O 03/30/16 03/30/16 03/30/16 03/31/16 03/31/16 03/31/16 07:00 15:00 23:00 07:00 15:00 23:00 Intake Total 240 ml 240 ml 480 ml Output Total 100 ml 1087 ml Balance 140 ml -847 ml 480 ml Intake Oral 240 ml 240 ml 480 ml Output Urine Total 100 ml 400 ml Peritoneal Fluid 687 ml Result Diagram: 03/30/16 0550 03/30/16 0550 Imaging Last Impressions Hepatobiliary Scan Nuclear Medicine 03/30/16 0000 Signed Impressions: Service Date/Time: Wednesday, March 30, 2016 10:32 - CONCLUSION: 1. No sign of biliary obstruction. 2. Bile reflux into the stomach. Navin Lovell MD Abdomen/Pelvis CT 03/26/16 1631 Signed Impressions: Service Date/Time: Saturday, March 26, 2016 18:23 - CONCLUSION: 1. Distended gallbladder. This is nonspecific. 2. Atrophy of the kidneys with a suspected peritoneal dialysis catheter in place. Navin Lovell MD Gall Bladder Ultrasound 03/26/16 0000 Signed Impressions: Service Date/Time: Saturday, March 26, 2016 19:39 - CONCLUSION: 1. Distended gallbladder without gallstones seen. The patient does complain about pain over the gallbladder. 2. Fluid around the gallbladder and around the liver margin. The patient is on peritoneal dialysis catheter in place. 3. Chronic appearance of the right kidney. Navin Lovell MD Objective Remarks GENERAL: NAD SKIN: Warm and dry. HEAD: Normocephalic. EYES: No scleral icterus. No injection or drainage. NECK: Supple, trachea midline. No JVD or lymphadenopathy. CARDIOVASCULAR: Regular rate and rhythm without murmurs, gallops, or rubs. RESPIRATORY: Breath sounds equal bilaterally. No accessory muscle use. GASTROINTESTINAL: Abdomen soft, mildly tender, nondistended. +BS MUSCULOSKELETAL: No cyanosis, or edema. BACK: Nontender without obvious deformity. No CVA tenderness. A/P Problem List: (1) Cholecystitis ICD Code: K81.9 Status: Acute (2) Intractable vomiting with nausea ICD Code: R11.2 Status: Resolved (3) ESRD (end stage renal disease) on dialysis ICD Code: N18.6 Status: Chronic (4) Thrombocytopenia ICD Code: D69.6 Status: Acute Assessment and Plan 20-year-old female with 1. Cholecystitis: Improved CT Abd/Pelvis w/ distended gallbladder, US Gallbladder w/ distention, no stones. Patient was seen by Dr. Catherine however signed off and advised on consultation from Dr. Stein and associated. HIDA noted and review with No sign of biliary obstruction. 2. Bile reflux into the stomach. S/p Rocephin/Flagyl in ER.continue w/ IV Zosyn, gentle IVF for hydration, 2. Intractable N/V: Now resolved. Secondary to above, Protonix IV, Zofran, IVF -caution w/ ESRD. Continue Reglan 3. ESRD on PD: Appreciate input from nephrology . Peritoneal fluid culture negative despite elevated WBC. Continue with current antibiotic including Zosyn ; will discontinue Zosyn 4. Thrombocytopenia: No active bleeding. Continue to monitor 5. Hypertension: Normotensive and Continue patient outpatient medication including Coreg, Norvasc and clonidine . 6. History of seizure disorder: Continue Keppra by mouth twice a day 7. DVT Prophylaxis: SCD/Teds. Jalen Mcknight MD Mar 31, 2016 09:21
[2016-03-31] MEDS: levETIRAcetam 500 MG TAB PO SCH (09:25)
[2016-03-31] MEDS: CARVEDILOL 12.5 MG TAB PO SCH (09:25)
[2016-03-31] MEDS: HYDROXYCHLOROQUINE SULFATE 200 MG TAB PO SCH (09:25)
[2016-03-31] MEDS: PANTOPRAZOLE SODIUM 40 MG VIAL IV PUSH SCH (09:27)
--- NOTE | 2016-03-31 09:31 | HHI.DS ---
Discharge Summary Admission Date Mar 26, 2016 at 23:48 Discharge Date: Mar 31, 2016 Admitting Diagnosis Cholecystitis. (1) Cholecystitis ICD Code: K81.9 (2) Intractable vomiting with nausea ICD Code: R11.2 (3) ESRD (end stage renal disease) on dialysis ICD Code: N18.6 (4) Thrombocytopenia ICD Code: D69.6 Procedures None Brief History - From Admission This is a 20-year-old female with a PMH of Lupus, ESRD on PD, Non-Compliance and HTN who came to the ER w/ complaints of abdominal pain, nausea and vomiting starting last night. States she missed her PD due to her symptoms. Denies diarrhea, fever or sick contacts. Similar symptoms for which she was seen in ER on 03/23/16, diagnosed w/ Gastroenteritis and d/c'd home from ER. States symptoms resolved at that time, however now recurred. On arrival, BP 181/126, HR 112, O2 sat 100% on RA, Afebrile. WBC normal. Platelets 102. Chemistry essentially at baseline. CT Abd/Pelvis w/ distended gallbladder. US Gallbladder w/ distended gallbladder without gallstones, fluid around the gallbladder and liver margin. General Surgery consulted by ER physician for cholecystitis. S/p Rocephin/Flagyl in ER. CBC/BMP: 03/30/16 0550 03/30/16 0550 Significant Findings Laboratory Tests Test 03/30/16 05:50 Red Blood Count 3.73 MIL/MM3 (4.00-5.30) Hemoglobin 10.4 GM/DL (11.6-15.3) Hematocrit 29.6 % (35.0-46.0) Mean Corpuscular Volume 79.2 FL (80.0-100.0) Platelet Count 125 TH/MM3 (150-450) Eosinophils (%) (Auto) 8.4 % (0.0-4.0) Eosinophils # (Auto) 0.6 TH/MM3 (0-0.4) Chloride Level 95 MEQ/L (98-107) Anion Gap 17 MEQ/L (5-15) Blood Urea Nitrogen 55 MG/DL (7-18) Creatinine 12.82 MG/DL (0.50-1.00) Estimat Glomerular Filtration 4 ML/MIN (>89) Rate Calcium Level 8.0 MG/DL (8.5-10.1) Imaging Last Impressions Hepatobiliary Scan Nuclear Medicine 03/30/16 0000 Signed Impressions: Service Date/Time: Wednesday, March 30, 2016 10:32 - CONCLUSION: 1. No sign of biliary obstruction. 2. Bile reflux into the stomach. Navin Lovell MD Abdomen/Pelvis CT 03/26/16 1631 Signed Impressions: Service Date/Time: Saturday, March 26, 2016 18:23 - CONCLUSION: 1. Distended gallbladder. This is nonspecific. 2. Atrophy of the kidneys with a suspected peritoneal dialysis catheter in place. Navin Lovell MD Gall Bladder Ultrasound 03/26/16 0000 Signed Impressions: Service Date/Time: Saturday, March 26, 2016 19:39 - CONCLUSION: 1. Distended gallbladder without gallstones seen. The patient does complain about pain over the gallbladder. 2. Fluid around the gallbladder and around the liver margin. The patient is on peritoneal dialysis catheter in place. 3. Chronic appearance of the right kidney. Navin Lovell MD PE at Discharge GENERAL: NAD SKIN: Warm and dry. HEAD: Normocephalic. EYES: No scleral icterus. No injection or drainage. NECK: Supple, trachea midline. No JVD or lymphadenopathy. CARDIOVASCULAR: Regular rate and rhythm without murmurs, gallops, or rubs. RESPIRATORY: Breath sounds equal bilaterally. No accessory muscle use. GASTROINTESTINAL: Abdomen soft, mildly tender, nondistended. +BS MUSCULOSKELETAL: No cyanosis, or edema. BACK: Nontender without obvious deformity. No CVA tenderness. Hospital Course Patient was admitted secondary to intractable nausea and vomiting, was started on anti-emetics, Zosyn IV, IV fluids and nothing by mouth. CT abdomen/pelvis with finding of distended gallbladder and follow-up ultrasound gallbladder again with distention without stone for which general surgery was consulted. A HIDA scan was performed 03/30/16 and negative for CBD obstruction. Nephrology was consulted and patient throughout hospitalization received peritoneal dialysis; peritoneal fluid was obtained and culture resulted negative. She was continued on her treatment for hypertension as well as seizure disorder other chronic medical conditions. DVT and GI prophylaxis were provided. Prior to discharge vitals were stable and patient conditions improved as she was tolerating by mouth without a complication of nausea or vomiting. Pt Condition on Discharge: Stable Discharge Disposition: Discharge Home Discharge Time: <= 30 minutes Discharge Instructions DIET: Follow Instructions for: As Tolerated, No Restrictions Activities you can perform: Regular-No Restrictions Follow up Referrals: Nephrology PCP Follow-up - 1 Week Continued Medications: Amlodipine (Norvasc) 10 Mg Tab 10 MG PO BID Blood Pressure Management #30 Ref 0 TAB Carvedilol (Coreg) 25 Mg Tab 25 MG PO BID #60 Ref 0 TAB Clonidine (Catapres) 0.2 Mg Tab 0.2 MG PO BID Blood Pressure Management #60 Ref 0 TAB Doxazosin (Doxazosin) 1 Mg Tab 1 MG PO HS #30 Ref 0 TAB Epoetin Inj (Epogen Inj) 2,000 Unit/Ml Inj 1500 UNITS SQ 2XMONTH VIAL Hydroxychloroquine (Hydroxychloroquine) 200 Mg Tab 200 MG PO BID Takw with food #60 Ref 0 TAB Levetiracetam (Keppra) 500 Mg Tab 500 MG PO Q12HR seizures Days 30 TAB Lisinopril (Lisinopril) 10 Mg Tab 10 MG PO BID #30 Ref 0 TAB Losartan (Cozaar) 50 Mg Tab 50 MG PO BID Blood Pressure Management #30 Ref 0 TAB Pantoprazole (Protonix) 20 Mg Tab 20 MG PO DAILY Reflux #30 Ref 0 TAB Sevelamer Carbonate (Renvela) 800 Mg Tab 800 MG PO TIDPC Control phosphorous levels #90 Ref 0 TAB Sodium Bicarbonate (Sodium Bicarbonate) 650 Mg Tab 650 MG PO BIDPC #60 Ref 0 TAB Discontinued Medications: Cephalexin (Keflex) 500 Mg Cap 500 MG PO Q8H Infection #30 Ref 0 CAP Diphenoxylate-Atropine (Lomotil) 2.5-0.025 Mg Tab 1 TAB PO Q6H PRN DIARRHEA #10 Ref 0 TAB Ondansetron Odt (Zofran Odt) 4 Mg Tab 4 MG SL Q6HR PRN Nausea/Vomiting #10 TAB Promethazine (Phenergan) 25 Mg Tab 25 MG PO Q6H PRN Nausea/Vomiting #12 Ref 0 TAB Jalen Mcknight MD Mar 31, 2016 09:31
[2016-03-31] MEDS: METOCLOPRAMIDE HCL 10 MG/2 ML VIAL IV PRN (14:02)
--- NOTE | 2016-03-31 18:23 | HHI.NPPN ---
Subjective History of Present Illness 20 year old with ESRD and abdominal pain, has distended GB she has N/V and developed hemoperitoneum Review of Systems General Constitutional: Fatigue Objective Data Data 03/30/16 03/31/16 19:00 07:00 Intake Total 240 ml 480 ml Output Total 1087 ml Balance -847 ml 480 ml Intake Oral 240 ml 480 ml Output Urine Total 400 ml Peritoneal Fluid 687 ml Vital Signs Date Time Temp Pulse Resp B/P Pulse Ox O2 Delivery O2 Flow Rate FiO2 03/31/16 08:00 98.3 99 18 112/78 96 03/31/16 04:00 97.7 100 16 120/80 98 03/31/16 00:00 97.5 106 16 128/89 98 03/30/16 20:00 98.0 108 16 117/84 97 -: 03/30/16 0550 03/30/16 0550 Physical Exam General Appearance: Well Developed Neck Neck Exam: Neck Supple Pulmonary Resp Exam: Clear Bilaterally, Breath Sounds Equal Cardiology CV Exam: Regular, Normal Sinus Rhythm Gastrointestinal/Abdomen GI Exam: Soft Extremeties Extremities Exam: No Edema Neurologic Neuro Exam: Alert, Awake Assessment/Plan Problem List: (1) ESRD (end stage renal disease) on dialysis Plan: she had PD UF 687 ML stable continue with current management (2) Peritonitis associated with peritoneal dialysis Plan: Follow cultures (3) Cholecystitis Plan: Treated with antibiotics (4) Hypertension Plan: Continue monitoring, high amlodipine increased (5) Lupus Plan: She is off the steroids oRnaldo Silva MD Mar 31, 2016 18:23
--- NOTE | 2016-03-31 18:27 | HHI.PR ---
Subjective Subjective Notes Patient reports she is still having some emesis. Pain is in LUQ; none in RUQ Objective Vitals/I&O Vital Signs Date Time Temp Pulse Resp B/P Pulse Ox O2 Delivery O2 Flow Rate FiO2 03/31/16 08:00 98.3 99 18 112/78 96 Labs Date/Time Procedure Status Source Growth 03/27/16 13:35 Gram Stain - Final Complete Fluid Peritoneal Fluid 03/27/16 13:35 Body Fluid Culture - Final Complete Fluid Peritoneal Fluid NO GROWTH IN 72 HRS.--AEROBICALLY OR ... Lungs: Clear Abdomen: Non-distended, Other (Tender in LUQ; no RUQ, RLQ tenderness) A/P Assessment and Plan LUQ tenderness with continued emesis according to patient. HIDA scan 03/30 normal with 30% EF and no reproduction of pain with CCK administration. Gallbladder/biliary system is not etiology for patient's problems. Plan: No general surgery intervention required Rec: GI to see patient Will see as needed. Andi Gonzalez MD Mar 31, 2016 18:27
== END 2016-03-31 19:13 | disposition home or self-care (01) | DRG 444 ==
LOC: NEPC 16:06 → NEDA 23:48 → HOCB 03-27 01:35
PROVIDERS: ADMIT Hospitalist; ATTEND Hospitalist
PROC: 3E1M39Z Irrigation of Peritoneal Cavity using Dialysate, Percutaneous Approach (ICD-10-PCS; principal; 2016-03-28)
PROC: 3E1M39Z Irrigation of Peritoneal Cavity using Dialysate, Percutaneous Approach (ICD-10-PCS; 2016-03-29)
PROC: 3E1M39Z Irrigation of Peritoneal Cavity using Dialysate, Percutaneous Approach (ICD-10-PCS; 2016-03-30)
DX: K81.9 Cholecystitis, unspecified (principal); K65.9 Peritonitis, unspecified; K66.1 Hemoperitoneum; I67.4 Hypertensive encephalopathy; N18.6 End stage renal disease; I12.0 Hypertensive chronic kidney disease with stage 5 chronic kidney disease or end stage renal disease; D69.6 Thrombocytopenia, unspecified; M32.14 Glomerular disease in systemic lupus erythematosus; M32.9 Systemic lupus erythematosus, unspecified; Z99.2 Dependence on renal dialysis; G40.909 Epilepsy, unspecified, not intractable, without status epilepticus; K21.9 Gastro-esophageal reflux disease without esophagitis; Y84.1 Kidney dialysis as the cause of abnormal reaction of the patient, or of later complication, without mention of misadventure at the time of the procedure; Z86.73 Personal history of transient ischemic attack (TIA), and cerebral infarction without residual deficits; Z91.19 Patient's noncompliance with other medical treatment and regimen; D64.9 Anemia, unspecified; Z88.1 Allergy status to other antibiotic agents
CPT/HCPCS: 74176; 76705; 78227; 80048; 80053; 83690; 84702; 85025; 85610; 85730; 87070; 87205; 89051; 90935; 93005; 96365; 96375; 96376; A9537; C9113; J0696; J0713; J1170; J2060; J2270; J2405; J2543; J2765; J2805; J7040; Q4081

== ENCOUNTER 2016-05-03 10:36 | Inpatient (IN) | payer OTHER ==
[2016-05-03] VITALS (12 sets, daily range): BP systolic 22–230; BP diastolic 88–143; PULSE 104–168; RESP 20–26; TEMP 98.5–98.8; O2SAT 94–100
[~2016-05-03] VITALS: Ht 162.6 cm; Wt 59.4 kg
[~2016-05-03 10:36] MED LIST changes: -CEPH-460 PO; -CLON.2 PO; -LISI10TA3 PO; -LOMO2.5T PO; -PROM25TA5 PO; -RENV2.4P PO; +SEVEL800 PO; -ZOFR4TAB3 SL
[2016-05-03] MEDS ORDERED: ONDANSETRON HCL 4 MG/2 ML VIAL IV ONE (11:00)
[2016-05-03] MEDS ORDERED: HYDROmorphone HCL PF 1 MG/ML VIAL IVS ONE (11:00)
[2016-05-03] MEDS ORDERED: LABETALOL HCL 100 MG/20 ML VIAL IV PUSH ONE (11:00)
--- NOTE | 2016-05-03 11:01 | PD ---
HPI Chief Complaint: headache Time Seen by Provider: 10:43 Travel History International Travel<30 days: No Contact w/Intl Traveler<30days: No Traveled to known affect area: No History of Present Illness HPI This patient is brought in by paramedics emergently. Having severe headache. It's bilateral and frontal. No head injury or fever or blood thinners. She has chronic frequent cluster headaches but reports this is worse than usual. She arrives with a blood pressure 234 systolic. She has hypertension and peritoneal dialysis and lupus. She finished her dialysis this morning. Duration one day. No alleviating factors PFSH Past Medical History Arthritis: No Autoimmune Disease: Yes (LUPUS ) Anxiety: Yes Depression: No Heart Rhythm Problems: No Cancer: No Cardiovascular Problems: Yes (htn on meds) High Cholesterol: No Chemotherapy: No Chest Pain: No Congestive Heart Failure: No Cerebrovascular Accident: Yes Diabetes: No Dialysis: Yes (DAILY) Diminished Hearing: No Endocrine: No Gastrointestinal Disorders: Yes (Nausea, low appetite) GERD: No Genitourinary: No Headaches: Yes (CLUSTER MUNOZ) Hepatitis: No Hiatal Hernia: No Heparin Induced Thrombocytopen: No Hypertension: Yes Immune Disorder: Yes (Lupus) Implanted Vascular Access Dvce: No Kidney Stones: No Musculoskeletal: No Neurologic: Yes (LUPUS) Psychiatric: No Reproductive: No Respiratory: No Immunizations Current: Yes Migraines: Yes (FROM HTN) Radiation Therapy: No Renal Failure: Yes Seizures: Yes (FROM HTN) Sickle Cell Disease: No Thyroid Disease: No Ulcer: No ?: Not LMP: LAST MONTH : 1 Para: 1 Past Surgical History Abdominal Surgery: Yes (PERMACATH) AICD: No Arteriovenous Shunt: No Body Medical Devices: ,PD catheter Cardiac Surgery: No Endocrine Surgery: No Genitourinary Surgery: No Insulin Pump: No Joint Replacement: No Neurologic Surgery: No Pacemaker: No Thoracic Surgery: Yes (VAS CATH TO LEFT CHEST, removed) Other Surgery: Yes ((R) Permacath, PD catheter) Social History Alcohol Use: No Tobacco Use: No Substance Use: Yes (Marijuana daily) Allergies-Medications (Allergen,Severity, Reaction): Coded Allergies: Hydralazine (Verified Allergy, Severe, Rash, 03/23/16) Vancomycin (Verified Allergy, Severe, Red man syndrome , 03/23/16) Metoprolol (Verified Allergy, Unknown, Patient does not know, 03/23/16) Reported Meds & Prescriptions Reported Meds & Active Scripts Active Keppra (Levetiracetam) 500 Mg Tab 500 Mg PO Q12HR 30 Days Reported Renvela (Sevelamer Carbonate) 800 Mg Tab 800 Mg PO TIDPC Sodium Bicarbonate 650 Mg Tab 650 Mg PO BIDPC Protonix (Pantoprazole Sodium) 20 Mg Tab 20 Mg PO DAILY Norvasc (Amlodipine Besylate) 10 Mg Tab 10 Mg PO BID Cozaar (Losartan Potassium) 50 Mg Tab 50 Mg PO BID Hydroxychloroquine (Hydroxychloroquine Sulfate) 200 Mg Tab 200 Mg PO BID Takw with food Epogen Inj (Epoetin Diego) 2,000 Unit/Ml Inj 1,500 Units SQ 2XMONTH Coreg (Carvedilol) 25 Mg Tab 25 Mg PO BID Review of Systems General / Constitutional: No: Fever Eyes: No: Visual changes HENT: Positive: Headaches, Lightheadedness Cardiovascular: No: Chest Pain or Discomfort Respiratory: No: Shortness of Breath Gastrointestinal: Positive: Nausea, No: Abdominal Pain Genitourinary: No: Dysuria Musculoskeletal: No: Pain Skin: No Rash Neurologic: Positive: Dizziness, Headache, No: Weakness Psychiatric: Positive: Anxiety, No: Depression Endocrine: No: Polydipsia Hematologic/Lymphatic: No: Easy Bruising Physical Exam Narrative GENERAL: Well-nourished, well-developed patient in severe headache . SKIN: Warm and dry. HEAD: Atraumatic. Normocephalic. EYES: Pupils equal and round. No scleral icterus. No injection or drainage. ENT: No nasal bleeding or discharge. Mucous membranes pink and moist. NECK: Trachea midline. No JVD. No meningeal signs CARDIOVASCULAR: Regular rate and rhythm. No murmur appreciated. Tachycardic RESPIRATORY: No accessory muscle use. Clear to auscultation. Breath sounds equal bilaterally. GASTROINTESTINAL: Abdomen soft, non-tender, nondistended. Hepatic and splenic margins not palpable. Peritoneal dialysis catheter in place MUSCULOSKELETAL: No obvious deformities. No clubbing. No cyanosis. No edema. NEUROLOGICAL: Awake and alert. No obvious cranial nerve deficits. Motor grossly within normal limits. Normal speech. PSYCHIATRIC: Anxious mood and affect; insight and judgment normal. Data Data Last Documented VS Vital Signs Date Time Temp Pulse Resp B/P Pulse Ox O2 Delivery O2 Flow Rate FiO2 05/03/16 10:38 98.8 145 26 134/142 100 Orders Ondansetron Inj (Zofran Inj) (05/03/16 11:00) Hydromorphone Pf Inj (Dilaudid Pf Inj) (05/03/16 11:00) Labetalol Inj (Trandate Inj) (05/03/16 11:00) Iv Access Insert/Monitor (05/03/16 10:49) Complete Blood Count With Diff (05/03/16 10:49) Basic Metabolic Panel (Bmp) (05/03/16 10:49) Ct Brain W/O Iv Contrast(Rout) (05/03/16 ) [facility] Medical Decision Making Medical Screen Exam Complete: Yes Emergency Medical Condition: Yes Medical Record Reviewed: Yes Differential Diagnosis Intracranial hemorrhage, cluster headache, migraine Narrative Course I have reviewed the patient's electronic medical record. She is an extremely frequent visitor to the ER for headache and lupus and dialysis problems 2 IVs placed Patient arrives critically ill with hypertensive emergency I gave her 20 mg IV labetalol She claims allergy to metoprolol but takes carvedilol daily I've ordered an emergent CT of brain to rule out intracranial hemorrhage CBC Metabolic profile Coagulation studies Patient is alert and answering questions and following commands. Critical Care Narrative Aggregate critical care time was 35 minutes. Time to perform other separately billable procedures was not included in the critical care time. My time did not include minutes spent treating any other patients simultaneously or on activities that did not directly contribute to the patient's treatment. The services I provided to this patient were to treat and/or prevent clinically significant deterioration that could result in: Intracranial hemorrhage, brain stem herniation, permanent neurologic deficit I provided critical care services requiring my management, as noted below: Chart data review, documentation time, medication orders and management, vital sign assessments/reviewing monitor data, ordering and reviewing lab tests, ordering and interpreting/reviewing x-rays and diagnostic studies, care of the patient and discussion of the patient with the admitting physicians. Apollo Rdz MD May 03, 2016 11:01
[2016-05-03 11:09] LABS: AUTOMATED NEUTROPHIL # 8.5 TH/MM3 (1.8-7.7); BASOPHIL # 0.1 TH/MM3 (0-0.2); BASOPHIL % 0.5 % (0.0-2.0); EOSINOPHIL # 0.9 TH/MM3 (0-0.4); EOSINOPHIL % 7.4 % (0.0-4.0); HEMATOCRIT 35.1 % (35.0-46.0); HEMO FLAGS DIFF FINAL; LYMPH % 15.9 % (9.0-44.0); LYMPHOCYTE # 1.9 TH/MM3 (1.0-4.8); MEAN CELL VOLUME 81.1 FL (80.0-100.0); MEAN CORPUSCULAR HEMOGLOBIN 27.3 PG (27.0-34.0); MEAN CORPUSCULAR HGB CONC 33.7 % (32.0-36.0); MONO % 4.6 % (0.0-8.0); NEUT % 71.6 % (16.0-70.0); PLATELET COUNT 284 TH/MM3 (150-450); RED BLOOD COUNT 4.34 MIL/MM3 (4.00-5.30); RED CELL DISTRIBUTION WIDTH 16.3 % (11.6-17.2); WHITE BLOOD COUNT 11.9 TH/MM3 (4.0-11.0)
[2016-05-03] MEDS ORDERED: LORazepam 2 MG/ML VIAL ONE (11:10)
[2016-05-03] MEDS: niCARdipine INJ 25 MG in SODIUM CHLOR 0.9% 250 ML INJ 250 ML IV SCH ×2 (11:30→21:11)
--- NOTE | 2016-05-03 11:33 | RADRPT ---
EXAM DATE/TIME: 05/03/2016 11:13 [facility] COMPARISON: CT BRAIN W/O CONTRAST, January 21, 2016, 16:24. INDICATIONS : Extreme cephalgia, seizures this morning. Hypertensive. RADIATION DOSE: 40.30 CTDIvol (mGy) MEDICAL HISTORY : Seizures. Cardiovascular disease Hypertension.Lupus, renal failure. SURGICAL HISTORY : None. ENCOUNTER: Initial ACUITY: 1 day PAIN SCALE: Non-responsive LOCATION: cranial TECHNIQUE: Multiple contiguous axial images were obtained of the head. Using automated exposure control and adj ustment of the mA and/or kV according to patient size, radiation dose was kept as low as reasonably a chievable to obtain optimal diagnostic quality images. FINDINGS: CEREBRUM: The ventricles are normal for age. No evidence of midline shift, mass lesion, hemorrhage or acute in farction. No extra-axial fluid collections are seen. POSTERIOR FOSSA: The cerebellum and brainstem are intact. The 4th ventricle is midline. The cerebellopontine angle i s unremarkable. EXTRACRANIAL: The visualized portion of the orbits is intact. SKULL: The calvaria is intact. No evidence of skull fracture. CONCLUSION: Normal examination. No significant change has occurred. Medhat Dugan MD on May 03, 2016 at 11:27 Board Certified Radiologist. This report was verified electronically.
[2016-05-03 11:35] LABS: BICARBONATE 23.8 MEQ/L (21.0-32.0); POTASSIUM 3.1 MEQ/L (3.5-5.1)
[2016-05-03 11:54] LABS: PROTHROMBIN TIME - PATIENT 11.3 SEC (9.8-11.6)
[2016-05-03] MEDS ORDERED: PHENYTOIN INJ 1,000 MG in SODIUM CHLORIDE 0.9% INJ 100 ML IV ONE (12:15)
[2016-05-03] MEDS ORDERED: CHLORHEXIDINE GLUCONATE 2 % 1 PACK (2 CLOTHS) TOP PRN (13:15)
[2016-05-03] MEDS ORDERED: MISCELLANEOUS NURSING INFORMATION XX SCH (13:15)
[2016-05-03] MEDS ORDERED: SODIUM CHLORIDE 0.9% FLUSH 5 ML FLUSH IV FLUSH PRN (13:15)
[2016-05-03] MEDS ORDERED: DEXTROSE 50% IN WATER 50 ML VIAL(D50) IV PUSH PRN (13:30)
[2016-05-03] MEDS ORDERED: GLUCAGON 1 MG/ML VIAL OTHER PRN (13:30)
[2016-05-03] MEDS ORDERED: LORazepam 2 MG/ML VIAL IV PUSH PRN (13:30)
[2016-05-03] MEDS ORDERED: POTASSIUM CHLOR 20 MEQ PREMIX 100 ML IV ONE (14:00)
[2016-05-03] MEDS: CARVEDILOL 12.5 MG TAB PO SCH ×2 (14:00→21:08)
[2016-05-03] MEDS: levETIRAcetam 500 MG TAB PO SCH ×2 (14:00→21:08)
[2016-05-03] MEDS: LOSARTAN 50 MG TAB PO SCH ×2 (14:00→21:08)
--- NOTE | 2016-05-03 14:13 | EKG ---
Date Performed: 05/03/2016 Time Performed: 10:42:05 PTAGE: 20 years EKG: SINUS TACHYCARDIA WITH SHORT ID INTERVAL, POSSIBLE ATRIAL FLUTTER LEFT VENTRICULAR HYPERTRO PHY AND ST-T CHANGE ABNORMAL ECG PREVIOUS TRACING : 03/26/2016 17.13 DOCTOR: Cuong Vogt Interpretating Date/Time 05/03/2016 14:11:19
--- NOTE | 2016-05-03 14:23 | MH ---
cc: HERMES CARTER M.D. DATE OF ADMISSION: 05/03/2016 DATE OF : 1995 HISTORY OF PRESENT ILLNESS The patient is a 20-year-old female with past medical history of seizure disorder on Keppra, end-stage renal disease on peritoneal dialysis, lupus and hypertension, who presented to [facility] ED with severe headache which is generalized. She had a systolic blood pressure of greater than 200 and was tachycardic. A stat. CT scan of the brain was obtained which showed no acute intracranial findings. In the ER the patient had two episodes of seizure and a third one in CAT scan. She was given Ativan 2 mg IV push and a loading dose of Dilantin. For her blood pressure the patient was given labetalol 20 mg IV push and placed on a Cardene drip, currently 2 mg an hour, with a blood pressure of 168/98. History is limited due to the patient's underlying mental status. She is on 2 liters oxygen with good saturation. PAST MEDICAL HISTORY 1. End-stage renal disease on peritoneal dialysis. 2. Lupus. 3. Hypertension. 4. Cluster headaches. 5. Seizure disorder. PAST SURGICAL HISTORY Previous Perma-Cath placement. SOCIAL HISTORY Non-smoker, non-drinker. FAMILY HISTORY Noncontributory. REVIEW OF SYSTEMS As per HPI. The rest of the review of systems is limited as the patient is a poor historian. PHYSICAL EXAMINATION GENERAL: A 20-year-old female lying in bed in no acute respiratory distress, lethargic at times, on a Cardene drip. VITAL SIGNS: Afebrile with temperature of 98.8. Pulse 135, blood pressure 168/98. Saturation 98% on 2 liters oxygen. HEENT: Atraumatic, normocephalic. Pupils equal, round and reactive to light and accommodation. Extraocular muscles intact. Conjunctiva pink. Non-icteric sclera. Oral mucosa within normal. NECK: Supple. No JVD, adenopathy or thyromegaly. Trachea in the midline. CARDIOVASCULAR: Tachycardic. Normal S1, S2. No murmurs, rubs or gallops noted. PULMONARY: Bilateral equal entry. No rales or wheezing. ABDOMEN: Soft, nontender, no distension. Positive bowel sounds. EXTREMITIES: No cyanosis, clubbing or edema. NEUROLOGIC: No focal sensory deficit. LABORATORY DATA Sodium 133,, potassium 3.1, chloride 95, CO2 23, BUN 34, creatinine 13.3, glucose 120, calcium 8.4. WBC 11.9, hemoglobin 11.8, hematocrit 35, platelet count 284. INR 1, PT 11.3, PTT 32. RADIOGRAPHIC STUDIES CT of the brain showed no acute intracranial findings. IMPRESSION 1. Respiratory insufficiency. 2. Hypertensive emergency. 3. Seizures. 4. Encephalopathy, multifactorial, likely related to seizure disorder and hypertension. 5. End-stage renal disease on peritoneal dialysis. 6. Hypokalemia. 7. History of cluster headaches. 8. History of lupus. RECOMMENDATIONS 1. Monitor neuro status closely. CT scan of the brain in the ED negative for acute intracranial process. Will consult the neurology service and check an EEG study. 2. Place on Ativan 1 mg IV q.4h. p.r.n. for seizure. In addition she received one gram loading dose of Dilantin. Will obtain a Dilantin level tomorrow. 3. Continue with oxygen and maintain sats above 92%. 4. Bronchodilators in the form of DuoNeb q.6h. 5. Aspiration precautions and speech evaluation. 6. Monitor renal function, I's and O's, and avoid nephrotoxins. Will give KCl 20 mEq IV x1. 7. Consult nephrology service for peritoneal dialysis. 8. Keep n.p.o. for now and place on Protonix 40 mg daily for GI prophylaxis. 9. Monitor for signs of infections which include fever and WBC. Will obtain urinalysis with culture if indicated and a baseline chest x-ray. 10.Check a urine drug screen. The patient has a history of cannabinoid use. 11.Sliding scale insulin with Accu-Cheks if needed for glycemic control. 12.GI prophylaxis with Protonix 40 mg daily and DVT prophylaxis with SCDs and heparin subcu. 13.Further recommendations will be based on the hospital course. Critical care time 40 minutes excluding procedures. MD SAIMA Villanueva/SAMANTHA /1:57 PM /2:09 PM
[2016-05-03] MEDS: INSULIN NovoLIN REGULAR SUPPLEMENTAL SCALE SQ SCH ×2 (15:00→21:00)
--- NOTE | 2016-05-03 15:12 | RADRPT ---
EXAM DATE/TIME: 05/03/2016 14:13 [facility] COMPARISON: CHEST SINGLE AP, November 22, 2015, 16:20. INDICATIONS : Short of breath, lethargic, seizures, headache MEDICAL HISTORY : Hypertension. Lupus. Cephalgia, renal failure, cardiovascular disease SURGICAL HISTORY : None. ENCOUNTER: Initial ACUITY: 1 day PAIN SCORE: Non-responsive. LOCATION: Bilateral chest FINDINGS: There is mild interstitial prominence present. The lungs are clear. Heart and pulmonary vascularity are normal. Portions of the bony skeleton visualized are unremarkable. CONCLUSION: Mild interstitial prominence otherwise negative. Ricardo Matos MD FACR on May 03, 2016 at 14:52 Board Certified Radiologist. This report was verified electronically.
[2016-05-03] MEDS ORDERED: MORPHINE SULFATE 8 MG/ML INJ ONE (15:28)
[2016-05-03] MEDS ORDERED: SODIUM CHLORIDE 0.9% FLUSH 5 ML FLUSH IVF PRN (15:30)
[2016-05-03] MEDS ORDERED: HEPARIN SODIUM - IV 10,000 UNITS/10 ML VIAL XX PRN (15:30)
[2016-05-03] MEDS ORDERED: MORPHINE SULFATE 4 MG/ML INJ IV PUSH ONE ×2 (15:45)
[2016-05-03] MEDS ORDERED: LABETALOL HCL 100 MG/20 ML VIAL IV PUSH PRN (16:30)
--- NOTE | 2016-05-03 16:30 | PD.CONS ---
HPI Service Nephrology Consult Requested By Dr. Case Reason for Consult ESRD on Peritoneal dialysis Primary Care Physician Unknown History of Present Illness 20 year old with SLE, Hypertension, seizure disorder came in to the ER complaining of severe headaches, she was note to in Hypertensive emergency, BP 230/138, and then had seizure and she had total of 3 seizure required Ativan, she was transferred for observation in ICU. Review of Systems Constitutional: COMPLAINS OF: Fatigue Neurologic: COMPLAINS OF: Headache, Seizures Psychiatric: COMPLAINS OF: Anxiety Past Family Social History Allergies: Coded Allergies: Hydralazine (Verified Allergy, Severe, Rash, 03/23/16) Vancomycin (Verified Allergy, Severe, Red man syndrome , 03/23/16) Metoprolol (Verified Allergy, Unknown, Patient does not know, 03/23/16) Past Medical History SLE ESRD Anemia Hypertension headaches Lupus Nephritis Past Surgical History Kidney Biopsy Tenkhoff catheter Hx of PermCath Reported Medications Reported Meds & Active Scripts Active Keppra (Levetiracetam) 500 Mg Tab 500 Mg PO Q12HR 30 Days Reported Renvela (Sevelamer Carbonate) 800 Mg Tab 800 Mg PO TIDPC Sodium Bicarbonate 650 Mg Tab 650 Mg PO BIDPC Protonix (Pantoprazole Sodium) 20 Mg Tab 20 Mg PO DAILY Norvasc (Amlodipine Besylate) 10 Mg Tab 10 Mg PO BID Cozaar (Losartan Potassium) 50 Mg Tab 50 Mg PO BID Hydroxychloroquine (Hydroxychloroquine Sulfate) 200 Mg Tab 200 Mg PO BID Takw with food Epogen Inj (Epoetin Diego) 2,000 Unit/Ml Inj 1,500 Units SQ 2XMONTH Coreg (Carvedilol) 25 Mg Tab 25 Mg PO BID Active Ordered Medications Current Medications Medications (Trade) Dose Ordered Sig/Leora Route Start Time Stop Time Status Last Admin (Cardene Inj/NS 250 ml Inj) 260 ml @ 0 mls/hr TITRATE IV 05/03/16 11:30 05/03/16 11:30 (NS Flush) 2 ml UNSCH PRN IV FLUSH 05/03/16 13:15 (NS Flush) 2 ml BID IV FLUSH 05/03/16 21:00 (Protonix Inj) 40 mg DAILY IV 05/04/16 09:00 Miscellaneous Information 1 Q361D XX 05/03/16 13:15 (Chlorhexidine 2% Cloth) 3 pack Taper DAILY@04 TOP 05/04/16 04:00 04/30/17 03:59 (Chlorhexidine 2% Cloth) 3 pack UNSCH PRN TOP 05/03/16 13:15 (D50w (Vial) Inj) 25 ml UNSCH PRN IV PUSH 05/03/16 13:30 (Glucagon Inj) 1 mg UNSCH PRN OTHER 05/03/16 13:30 (NovoLIN R SUPPLEMENTAL SCALE) 1 Q6H SQ 05/03/16 15:00 (Ativan Inj) 1 mg Q4H PRN IV PUSH 05/03/16 13:30 (Norvasc) 10 mg BID PO 05/03/16 14:00 (Coreg) 25 mg BID PO 05/03/16 14:00 (Plaquenil) 200 mg BID PO 05/03/16 21:00 (Keppra) 500 mg Q12HR PO 05/03/16 14:00 (Cozaar) 50 mg BID PO 05/03/16 14:00 (Renvela) 800 mg TIDPC PO 05/03/16 18:30 (Sodium Bicarbonate) 650 mg BIDPC PO 05/03/16 18:00 (Heparin Inj) 5,000 units Q12HR SQ 05/03/16 21:00 (NS Flush) 10 ml UNSCH PRN IVF 05/03/16 15:30 Family History noncontributory Social History denies smoking or ETOH Physical Exam Vital Signs Vital Signs Date Time Temp Pulse Resp B/P Pulse Ox O2 Delivery O2 Flow Rate FiO2 05/03/16 16:00 98.8 126 26 158/100 98 05/03/16 14:00 104 20 176/110 97 Nasal Cannula 2 05/03/16 13:00 112 20 163/98 97 Room Air 05/03/16 12:30 104 20 169/103 96 Nasal Cannula 2 05/03/16 11:45 137 22 186/120 97 Nasal Cannula 2 05/03/16 11:30 123 22 212/134 97 Nasal Cannula 3 05/03/16 11:15 123 22 223/143 97 Nasal Cannula 3 05/03/16 10:50 168 26 230/128 98 Nasal Cannula 3 05/03/16 10:38 98.8 145 26 134/142 100 Physical Exam GENERAL: Well-nourished, well-developed patient. SKIN: Warm and dry. HEAD: Normocephalic. EYES: No scleral icterus. No injection or drainage. NECK: Supple, trachea midline. No JVD or lymphadenopathy. CARDIOVASCULAR: Tachycardia without murmurs, gallops, or rubs. RESPIRATORY: Breath sounds equal bilaterally. No accessory muscle use. GASTROINTESTINAL: Abdomen soft, non-tender, nondistended. EXTREMITIES: No cyanosis, or edema. NEUROLOGICAL: sleeping, alert, and oriented x 3. responding to verbal command. Laboratory Laboratory Tests Test 05/03/16 05/03/16 10:59 11:23 White Blood Count 11.9 Red Blood Count 4.34 Hemoglobin 11.8 Hematocrit 35.1 Mean Corpuscular Volume 81.1 Mean Corpuscular Hemoglobin 27.3 Mean Corpuscular Hemoglobin 33.7 Concent Red Cell Distribution Width 16.3 Platelet Count 284 Mean Platelet Volume 6.9 Neutrophils (%) (Auto) 71.6 Lymphocytes (%) (Auto) 15.9 Monocytes (%) (Auto) 4.6 Eosinophils (%) (Auto) 7.4 Basophils (%) (Auto) 0.5 Neutrophils # (Auto) 8.5 Lymphocytes # (Auto) 1.9 Monocytes # (Auto) 0.5 Eosinophils # (Auto) 0.9 Basophils # (Auto) 0.1 CBC Comment DIFF FINAL Differential Comment Sodium Level 133 Potassium Level 3.1 Chloride Level 95 Carbon Dioxide Level 23.8 Anion Gap 14 Blood Urea Nitrogen 34 Creatinine 13.36 Estimat Glomerular Filtration 3 Rate Random Glucose 120 Calcium Level 8.4 Prothrombin Time 11.3 Prothromb Time International 1.0 Ratio Activated Partial 32.0 Thromboplast Time Result Diagram: 05/03/16 1059 05/03/16 1059 Imaging Last Impressions Head CT 05/03/16 0000 Signed Impressions: Service Date/Time: Tuesday, May 03, 2016 11:13 - CONCLUSION: Normal examination. No significant change has occurred. Medhat Dugan MD Chest X-Ray 05/03/16 0000 Signed Impressions: Service Date/Time: Tuesday, May 03, 2016 14:13 - CONCLUSION: Mild interstitial prominence otherwise negative. Ricardo Matos MD FACR Assessment and Plan Problem List: (1) ESRD (end stage renal disease) on dialysis Plan: patient will be restarted on Peritoneal dialysis, she does 2 L exchanges 5 cycles continue supportive care replace potassium follow BMP monitor BP (2) Seizures Plan: on Dilantin/Keppra (3) Accelerated essential hypertension Plan: Cardene drip add PRN Labetalol as heart rate high (4) Hypokalemia Plan: replace Ronaldo Silva MD May 03, 2016 16:30
[2016-05-03] MEDS ORDERED: POTASSIUM CHLORIDE 10 MEQ CONTROLLED RELEASE TAB PO ONE (16:45)
[2016-05-03] MEDS: SODIUM BICARBONATE 650 MG TAB PO SCH (18:00)
[2016-05-03] MEDS: SEVELAMER CARBONATE 800 MG TAB PO SCH (18:30)
[2016-05-03] MEDS: SODIUM CHLORIDE 0.9% FLUSH 5 ML FLUSH IV FLUSH SCH (21:00)
[2016-05-03] MEDS: HYDROXYCHLOROQUINE SULFATE 200 MG TAB PO SCH (21:08)
[2016-05-03] MEDS: HEPARIN SODIUM - SQ 10,000 UNITS/ML VIAL SQ SCH (21:09)
[2016-05-03] MEDS: RESP: ALBUTEROL 2.5 MG/IPRATROPIUM 0.5 MG NEB (SCH) INH (22:00)
[2016-05-04] VITALS (14 sets, daily range): BP systolic 119–149; BP diastolic 63–98; PULSE 98–127; RESP 13–19; TEMP 98.5–99; O2SAT 93–100
[2016-05-04] MEDS: niCARdipine INJ 25 MG in SODIUM CHLOR 0.9% 250 ML INJ 250 ML IV SCH ×2 (00:41→06:26)
[2016-05-04] MEDS: INSULIN NovoLIN REGULAR SUPPLEMENTAL SCALE SQ SCH ×4 (03:00→21:00)
[2016-05-04] MEDS: CHLORHEXIDINE GLUCONATE 2 % 1 PACK (2 CLOTHS) TOP SCH (04:00)
[2016-05-04] MEDS: RESP: ALBUTEROL 2.5 MG/IPRATROPIUM 0.5 MG NEB (SCH) INH ×3 (04:00→19:52)
[2016-05-04 04:32] LABS: AUTOMATED NEUTROPHIL # 4.6 TH/MM3 (1.8-7.7); BASOPHIL % 0.4 % (0.0-2.0); EOSINOPHIL % 0.2 % (0.0-4.0); HEMATOCRIT 28.9 % (35.0-46.0); HEMO FLAGS DIFF FINAL; LYMPH % 20.1 % (9.0-44.0); LYMPHOCYTE # 1.3 TH/MM3 (1.0-4.8); MEAN CELL VOLUME 80.9 FL (80.0-100.0); MEAN CORPUSCULAR HEMOGLOBIN 27.7 PG (27.0-34.0); MEAN CORPUSCULAR HGB CONC 34.2 % (32.0-36.0); MONO % 5.3 % (0.0-8.0); PLATELET COUNT 275 TH/MM3 (150-450); RED BLOOD COUNT 3.58 MIL/MM3 (4.00-5.30); RED CELL DISTRIBUTION WIDTH 16.7 % (11.6-17.2); WHITE BLOOD COUNT 6.2 TH/MM3 (4.0-11.0)
[2016-05-04 04:52] LABS: BICARBONATE 23.7 MEQ/L (21.0-32.0); POTASSIUM 3.7 MEQ/L (3.5-5.1)
--- NOTE | 2016-05-04 06:05 | MB ---
cc: BRITNI ISRAEL M.D. DATE OF CONSULTATION 05/03/2016 DATE OF 1995 AGE [age] years old. REASON FOR CONSULTATION Seizure. HISTORY OF PRESENT ILLNESS The patient is a 20-year-old woman with a history of epilepsy on Keppra, history of end-stage renal disease on peritoneal dialysis, lupus, hypertension, comes into the ED with headache, blood pressure around [address] of the brain was obtained, did not show any acute findings. No hemorrhage or mass lesion or stroke. In the ER, however, she had two episodes of seizures, a third one in CAT scan. Given 2 mg of Ativan and a loading dose of Dilantin 1 gram. She was given some labetalol for her blood pressure and placed on a Cardene drip. Her pressure came down to 168/98. PAST MEDICAL HISTORY As stated. SOCIAL HISTORY Nonsmoker, nondrinker. FAMILY HISTORY Noncontributory. PHYSICAL EXAMINATION VITALS: Her temperature is 98.8, pulse 126, respiratory rate 26, blood pressure 158/100. GENERAL: She is awake and alert but somnolent. HEENT: Pupils are reactive. Face is symmetrical. NEUROLOGIC: She is nonverbal right now but she did nod yes and no and followed commands. She squeezes my hand equally. She wiggles her toes. Toes are downgoing. Reflexes are trace to 1+. Cerebellar she could not do, nor gait. LABORATORY DATA CBC shows a white count of 11.9. Coag panel - PTT 32. Chemistries - Her creatinine is 13.36, BUN 34, calcium 8.4, random glucose 120, sodium 133, potassium 3.1. Microbiology - None. CHEST X-RAY Mild interstitial prominence, otherwise unremarkable. CT OF THE HEAD Unremarkable. IMPRESSION 1. Epilepsy in a 20-year woman with end-stage renal disease, lupus and hypertension. She was loaded with 1 gram of Dilantin. We will get a level tomorrow. However, it may be difficult to maintain a level. 2. Continue Keppra 500 mg q. 12, certainly that can be increased. We may need to change her Dilantin to another antiepileptic, likely I would recommend at that point glucosamide. 3. With a patient with peritoneal dialysis, her Keppra dose can be increased, should not be more than 1000 mg every 24 hours so at this point I would not increase her Keppra dose. 4. If we do changes her to Vimpat, [employer] her a smaller dose, 50% of the usual dose. 5. However, at this point will continue with phenytoin, get the level tomorrow and, since there is no supplement with renal impairment, we can probably just continue her at 100 mg q.8. 6. Continue seizure precautions using Ativan and if she starts to have more seizures, airway needs to be maintained. At this point she is stable. 7. Nephrology will follow for peritoneal dialysis. 8. Watch for aspiration. 9. Further recommendations will be made accordingly. MD DEVIKA Mccormack/SSB /4:33 PM /5:56 AM
[2016-05-04] MEDS: PANTOPRAZOLE SODIUM 40 MG VIAL IV SCH (08:36)
[2016-05-04] MEDS: CARVEDILOL 12.5 MG TAB PO SCH (08:39)
[2016-05-04] MEDS: SEVELAMER CARBONATE 800 MG TAB PO SCH ×3 (08:39→18:02)
[2016-05-04] MEDS: POTASSIUM CHLORIDE 20 MEQ CONTROLLED RELEASE TAB PO SCH (08:39)
[2016-05-04] MEDS: HYDROXYCHLOROQUINE SULFATE 200 MG TAB PO SCH ×2 (08:39→21:06)
[2016-05-04] MEDS: levETIRAcetam 500 MG TAB PO SCH ×2 (08:39→21:06)
[2016-05-04] MEDS: SODIUM BICARBONATE 650 MG TAB PO SCH ×2 (08:39→18:02)
[2016-05-04] MEDS: SODIUM CHLORIDE 0.9% FLUSH 5 ML FLUSH IV FLUSH SCH ×2 (08:39→21:00)
[2016-05-04] MEDS: LOSARTAN 50 MG TAB PO SCH ×2 (08:39→21:06)
[2016-05-04] MEDS: HEPARIN SODIUM - SQ 10,000 UNITS/ML VIAL SQ SCH ×2 (08:40→21:06)
[2016-05-04] MEDS ORDERED: ACETAMINOPHEN 325 MG TAB PO PRN (09:00)
--- NOTE | 2016-05-04 09:08 | HHI.CCPN ---
Subjective Remarks/Hospital Course The patient is a 20-year-old female with past medical history of seizure disorder on Keppra, end-stage renal disease on peritoneal dialysis, lupus and hypertension, who presented to [facility] ED with severe headache which is generalized. She had a systolic blood pressure of greater than 200 and was tachycardic. A stat. CT scan of the brain was obtained which showed no acute intracranial findings. In the ER the patient had two episodes of seizure and a third one in CAT scan. She was given Ativan 2 mg IV push and a loading dose of Dilantin. For her blood pressure the patient was given labetalol 20 mg IV push and placed on a Cardene drip, currently 2 mg an hour, with a blood pressure of 168/98. History is limited due to the patient's underlying mental status. She is on 2 liters oxygen with good saturation. 05/04 Patient is lying in bed in NAD. No recurrent seizures. Afebrile. Objective Vital Signs Date Time Temp Pulse Resp B/P Pulse Ox O2 Delivery O2 Flow Rate FiO2 05/04/16 06:00 109 05/04/16 04:00 98.6 16 121/63 98 05/03/16 20:55 21 05/03/16 18:39 Nasal Cannula 2.00 Intake and Output 05/03/16 05/03/16 05/04/16 08:00 16:00 00:00 Intake Total 1040 ml Balance 1040 ml Result Diagram: 05/04/16 0344 05/04/16 0344 Other Results Laboratory Tests Test 05/03/16 05/03/16 05/03/16 05/04/16 10:59 11:23 16:00 03:44 White Blood Count 11.9 TH/MM3 6.2 TH/MM3 Red Blood Count 4.34 MIL/MM3 3.58 MIL/MM3 Hemoglobin 11.8 GM/DL 9.9 GM/DL Hematocrit 35.1 % 28.9 % Mean Corpuscular Volume 81.1 FL 80.9 FL Mean Corpuscular Hemoglobin 27.3 PG 27.7 PG Mean Corpuscular Hemoglobin 33.7 % 34.2 % Concent Red Cell Distribution Width 16.3 % 16.7 % Platelet Count 284 TH/MM3 275 TH/MM3 Mean Platelet Volume 6.9 FL 6.4 FL Neutrophils (%) (Auto) 71.6 % 74.0 % Lymphocytes (%) (Auto) 15.9 % 20.1 % Monocytes (%) (Auto) 4.6 % 5.3 % Eosinophils (%) (Auto) 7.4 % 0.2 % Basophils (%) (Auto) 0.5 % 0.4 % Neutrophils # (Auto) 8.5 TH/MM3 4.6 TH/MM3 Lymphocytes # (Auto) 1.9 TH/MM3 1.3 TH/MM3 Monocytes # (Auto) 0.5 TH/MM3 0.3 TH/MM3 Eosinophils # (Auto) 0.9 TH/MM3 0.0 TH/MM3 Basophils # (Auto) 0.1 TH/MM3 0.0 TH/MM3 CBC Comment DIFF FINAL DIFF FINAL Differential Comment Sodium Level 133 MEQ/L 136 MEQ/L Potassium Level 3.1 MEQ/L 3.7 MEQ/L Chloride Level 95 MEQ/L 98 MEQ/L Carbon Dioxide Level 23.8 MEQ/L 23.7 MEQ/L Anion Gap 14 MEQ/L 14 MEQ/L Blood Urea Nitrogen 34 MG/DL 36 MG/DL Creatinine 13.36 MG/DL 12.63 MG/DL Estimat Glomerular Filtration 3 ML/MIN 4 ML/MIN Rate Random Glucose 120 MG/DL 101 MG/DL Calcium Level 8.4 MG/DL 7.7 MG/DL Prothrombin Time 11.3 SEC Prothromb Time International 1.0 RATIO Ratio Activated Partial 32.0 SEC Thromboplast Time Nasal Screen MRSA (PCR) NEGATIVE Phenytoin (Dilantin) Level 0.8 MCG/ML Imaging Last Impressions Head CT 05/03/16 Signed Impressions: Service Date/Time: Tuesday, May 03, 2016 11:13 - CONCLUSION: Normal examination. No significant change has occurred. Medhat Dugan MD Chest X-Ray 05/03/16 Signed Impressions: Service Date/Time: Tuesday, May 03, 2016 14:13 - CONCLUSION: Mild interstitial prominence otherwise negative. Ricardo Matos MD FACR Objective Remarks GENERAL: Patient is lying in be din NAD SKIN: Warm and dry. HEAD: Normocephalic. EYES: No scleral icterus. No injection or drainage. NECK: Supple, trachea midline. No JVD or lymphadenopathy. CARDIOVASCULAR: Tachycardic without murmurs, gallops, or rubs. RESPIRATORY: Breath sounds equal bilaterally. No accessory muscle use. GASTROINTESTINAL: Abdomen soft, non-tender, nondistended. MUSCULOSKELETAL: No cyanosis, or edema. BACK: Nontender without obvious deformity. No CVA tenderness. A/P Assessment and Plan 1. Respiratory insufficiency. 2. Hypertensin 3. Seizures. 4. Encephalopathy, multifactorial, likely related to seizure disorder and hypertension. 5. End-stage renal disease on peritoneal dialysis. 6. Hypokalemia. 7. History of cluster headaches. 8. History of lupus. Plan Neuro: Monitor neuro status closely. CT brain: No acute intracranial process. Follow up on EEG results. Neuro is following- Dr. Pulido. Continue with Keppra 500mg Q12. s/p Dilantin 1gram loading dose on arrival. Dilantin level 0.8 today on Ativan 1 mg IV q.4h. p.r.n. for seizure. Pulm: Continue with oxygen and maintain sats above 92%. Bronchodilators in the form of DuoNeb q.6h. CV: Off Cardene drip. On Coreg 25mg BID, Cozaar 50mg BID, Norvasc 10mg BID Monitor HR and BP keep MAP>65mmHg : Monitor renal function, I's and O's, and avoid nephrotoxins. Renal -Dr. Silva. On PD. On Sodium bicarb and Renvela On Plaquenil 200mg BID for Lupus GI: on Protonix 40 mg daily for GI prophylaxis.On PO diet ID: Monitor for signs of infections(fever and WBC) CXR: Mild interstitial prominence Endo: SSI with Accu-Cheks if needed for glycemic control. GI prophylaxis with Protonix 40 mg daily and DVT prophylaxis with SCDs and heparin subcu. Will sign off and transfer care to [facility] Level 3 Vicente Case MD May 04, 2016 09:08
--- NOTE | 2016-05-04 10:38 | MG ---
cc: BRITNI ISRAEL M.D. Lab No: [id number] Date: 05/04/2016 Age: 20 Sex: F Race: ___ DATE OF [address] aCse TECHNIQUE In room 524, awake, drowsy, asleep. No hyperventilation due to headaches. Photic stimulation attempted, but wanted to stop due to headache. MEDICATIONS Received 2 mg of morphine during the EEG. Last EEG 01/22/2016 showed bihemispheric slowing. INDICATIONS She is at 20 woman admitted with severe headache, seizures, history of lupus as well. She also has a history of end-stage renal disease on dialysis. DESCRIPTION OF RECORD EKG shows some sinus tachycardia with quit a bit of artifact seen. Overall slowing noted with 2-3 Hz. No epileptic activity. IMPRESSION Abnormal EEG due to moderate slowing suggestive of an encephalopathic process. No epileptiform features. Clinical correlation. MD DEVIKA Mccormack/ELIAS /7:23 AM /10:34 AM
--- NOTE | 2016-05-04 11:14 | HHI.NPPN ---
Subjective History of Present Illness 20 year old female with SLE, Seizure, ESRD on PD Additional Remarks no more seizure overnight c/o headache Review of Systems Neuro Neuro: Headache Objective Data Data 05/03/16 05/04/16 19:00 07:00 Intake Total 1288 ml Balance 1288 ml Intake Oral 100 ml IV Total 1188 ml Vital Signs Date Time Temp Pulse Resp B/P Pulse Ox O2 Delivery O2 Flow Rate FiO2 05/04/16 10:35 95 21 05/04/16 06:00 109 05/04/16 04:00 98.6 125 16 121/63 98 05/04/16 04:00 125 05/04/16 02:00 123 05/04/16 00:00 127 05/04/16 00:00 98.7 127 18 131/69 93 05/03/16 22:00 138 05/03/16 21:26 20 05/03/16 20:55 94 21 05/03/16 20:00 139 05/03/16 20:00 98.5 139 20 153/88 95 05/03/16 18:39 Nasal Cannula 2.00 05/03/16 16:00 98.8 126 26 158/100 98 05/03/16 14:00 104 20 176/110 97 Nasal Cannula 2 05/03/16 13:00 112 20 163/98 97 Room Air 05/03/16 12:30 104 20 169/103 96 Nasal Cannula 2 05/03/16 11:45 137 22 186/120 97 Nasal Cannula 2 05/03/16 11:30 123 22 212/134 97 Nasal Cannula 3 05/03/16 11:15 123 22 223/143 97 Nasal Cannula 3 -: 05/04/16 0344 05/04/16 0344 Physical Exam General Appearance: Well Developed Neck Neck Exam: Neck Supple Pulmonary Resp Exam: Clear Bilaterally, Breath Sounds Equal Cardiology CV Exam: Regular, Normal Sinus Rhythm Gastrointestinal/Abdomen GI Exam: Soft, Non-Tender, Bowel Sounds Present Extremeties Extremities Exam: No Edema Neurologic Neuro Exam: Alert Assessment/Plan Problem List: (1) ESRD (end stage renal disease) on dialysis Plan: patient will be restarted on Peritoneal dialysis, she does 2 L exchanges 5 cycles continue supportive care replace potassium K better UF 988 ML (2) Seizures Plan: on Keppra (3) Accelerated essential hypertension Plan: Cardene drip off PRN Labetalol as heart rate high started on oral medications add oral Labetalol 300 mg bid and hold coreg (4) Hypokalemia Plan: replaced Ronaldo Silva MD May 04, 2016 11:14
--- NOTE | 2016-05-04 14:56 | HHI.PR ---
Subjective Remarks no sz's on lev 500 mg bid Objective Vital Signs Date Time Temp Pulse Resp B/P Pulse Ox O2 Delivery O2 Flow Rate FiO2 05/04/16 12:00 98.9 102 15 119/70 96 05/04/16 12:00 102 05/04/16 10:35 95 21 05/04/16 10:00 108 05/04/16 08:00 98.5 111 18 121/70 96 05/04/16 08:00 111 05/04/16 06:00 109 05/04/16 04:00 98.6 125 16 121/63 98 05/04/16 04:00 125 05/04/16 02:00 123 05/04/16 00:00 127 05/04/16 00:00 98.7 127 18 131/69 93 05/03/16 22:00 138 05/03/16 21:26 20 05/03/16 20:55 94 21 05/03/16 20:00 139 05/03/16 20:00 98.5 139 20 153/88 95 05/03/16 18:39 Nasal Cannula 2.00 05/03/16 16:00 98.8 126 26 158/100 98 I/O 05/03/16 05/03/16 05/03/16 05/04/16 05/04/16 05/04/16 07:00 15:00 23:00 07:00 15:00 23:00 Intake Total 1040 ml 248 ml 163 ml Output Total 988 ml Balance 1040 ml 248 ml -825 ml Intake Oral 100 ml 100 ml IV Total 940 ml 248 ml 63 ml Output Urine Total 0 ml Peritoneal Fluid 988 ml sleeping arousable, follows no focal deficit. Result Diagram: 05/04/16 0344 05/04/16 0344 Assessment and Plan Assessment and Plan hx epilepsy -cont keppra 500 mg bid -would not put back on dilantin level was 0.8. -sz precautions -eeg no sz's -cont dialysis bp control. Amee Pulido MD May 04, 2016 14:56
[2016-05-04] MEDS: LABETALOL HCL 300 MG TAB PO SCH (21:06)
[2016-05-05] VITALS (7 sets, daily range): BP systolic 120–138; BP diastolic 79–86; PULSE 96–109; RESP 14–19; TEMP 98.2–98.9; O2SAT 96–100
[2016-05-05] MEDS: INSULIN NovoLIN REGULAR SUPPLEMENTAL SCALE SQ SCH ×2 (03:00→08:08)
[2016-05-05] MEDS: RESP: ALBUTEROL 2.5 MG/IPRATROPIUM 0.5 MG NEB (SCH) INH (03:53)
[2016-05-05] MEDS: CHLORHEXIDINE GLUCONATE 2 % 1 PACK (2 CLOTHS) TOP SCH (04:00)
[2016-05-05 06:15] LABS: AUTOMATED NEUTROPHIL # 4.9 TH/MM3 (1.8-7.7); BASOPHIL # 0.1 TH/MM3 (0-0.2); BASOPHIL % 0.7 % (0.0-2.0); EOSINOPHIL # 0.9 TH/MM3 (0-0.4); EOSINOPHIL % 11.6 % (0.0-4.0); HEMATOCRIT 26.3 % (35.0-46.0); HEMO FLAGS DIFF FINAL; LYMPH % 22.3 % (9.0-44.0); LYMPHOCYTE # 1.8 TH/MM3 (1.0-4.8); MEAN CELL VOLUME 81.4 FL (80.0-100.0); MEAN CORPUSCULAR HEMOGLOBIN 28.3 PG (27.0-34.0); MEAN CORPUSCULAR HGB CONC 34.8 % (32.0-36.0); MONO % 3.5 % (0.0-8.0); NEUT % 61.9 % (16.0-70.0); PLATELET COUNT 276 TH/MM3 (150-450); RED BLOOD COUNT 3.23 MIL/MM3 (4.00-5.30); RED CELL DISTRIBUTION WIDTH 16.6 % (11.6-17.2); WHITE BLOOD COUNT 7.9 TH/MM3 (4.0-11.0)
[2016-05-05 06:46] LABS: BICARBONATE 25.2 MEQ/L (21.0-32.0); POTASSIUM 3.9 MEQ/L (3.5-5.1)
[2016-05-05] MEDS: PANTOPRAZOLE SODIUM 40 MG VIAL IV SCH (08:07)
[2016-05-05] MEDS: SODIUM CHLORIDE 0.9% FLUSH 5 ML FLUSH IV FLUSH SCH (08:08)
[2016-05-05] MEDS: POTASSIUM CHLORIDE 20 MEQ CONTROLLED RELEASE TAB PO SCH (08:08)
[2016-05-05] MEDS: HEPARIN SODIUM - SQ 10,000 UNITS/ML VIAL SQ SCH (08:08)
[2016-05-05] MEDS: LABETALOL HCL 300 MG TAB PO SCH (08:08)
[2016-05-05] MEDS: LOSARTAN 50 MG TAB PO SCH (08:08)
[2016-05-05] MEDS: HYDROXYCHLOROQUINE SULFATE 200 MG TAB PO SCH (08:08)
[2016-05-05] MEDS: levETIRAcetam 500 MG TAB PO SCH (08:08)
[2016-05-05] MEDS: SEVELAMER CARBONATE 800 MG TAB PO SCH (08:08)
[2016-05-05] MEDS: SODIUM BICARBONATE 650 MG TAB PO SCH (08:08)
--- NOTE | 2016-05-05 09:06 | HHI.NPPN ---
Subjective History of Present Illness 20 year old female with SLE, Seizure, ESRD on PD Additional Remarks no more seizure overnight c/o headache Review of Systems Neuro Neuro: Headache Objective Data Data 05/04/16 05/05/16 19:00 07:00 Intake Total 163 ml 510 ml Output Total 988 ml Balance -825 ml 510 ml Intake Oral 100 ml 440 ml IV Total 63 ml 70 ml Output Urine Total 0 ml Peritoneal Fluid 988 ml # Voids 1 Vital Signs Date Time Temp Pulse Resp B/P Pulse Ox O2 Delivery O2 Flow Rate FiO2 05/05/16 06:00 102 05/05/16 04:00 101 05/05/16 04:00 98.2 101 15 128/79 100 05/05/16 02:00 101 05/05/16 00:00 96 05/05/16 00:00 98.9 96 14 120/79 96 05/04/16 22:00 100 05/04/16 20:00 104 05/04/16 20:00 98.7 104 13 149/98 100 05/04/16 19:52 100 05/04/16 18:00 100 05/04/16 16:00 98 05/04/16 16:00 99.0 98 19 128/82 96 05/04/16 14:00 99 05/04/16 12:00 98.9 102 15 119/70 96 05/04/16 12:00 102 05/04/16 10:35 95 21 05/04/16 10:00 108 -: 05/05/16 0526 05/05/16 0526 Physical Exam General Appearance: Well Developed Neck Neck Exam: Neck Supple Pulmonary Resp Exam: Clear Bilaterally, Breath Sounds Equal Cardiology CV Exam: Regular, Normal Sinus Rhythm Gastrointestinal/Abdomen GI Exam: Soft, Non-Tender, Bowel Sounds Present Extremeties Extremities Exam: No Edema Neurologic Neuro Exam: Alert Assessment/Plan Problem List: (1) ESRD (end stage renal disease) on dialysis Plan: patient will be restarted on Peritoneal dialysis, she does 2 L exchanges 5 cycles continue supportive care replace potassium K better UF 605 ML BP improved k normal (2) Seizures Plan: on Keppra (3) Accelerated essential hypertension Plan: Cardene drip off PRN Labetalol as heart rate high started on oral medications add oral Labetalol 300 mg bid and hold coreg (4) Hypokalemia Plan: replaced Shira,Sajid MD May 05, 2016 09:06
[2016-05-05] MEDS ORDERED: LABE300T PO (11:08)
--- NOTE | 2016-05-05 11:09 | HHI.DS ---
Discharge Summary Admission Date May 03, 2016 at 12:55 Discharge Date: May 05, 2016 Admitting Diagnosis hypertensive emerg,uncontrolled seizure disorder (1) Malignant hypertension with chronic kidney disease stage IV ICD Code: I12.9 (2) Seizures ICD Code: R56.9 (3) ESRD (end stage renal disease) on dialysis ICD Code: N18.6 Procedures None Brief History - From Admission 20-year-old female with past medical history of end-stage renal disease on peritoneal dialysis, lupus, seizure disorder on Keppra who presented to [facility] emergency department with severe headache. She was noted to have systolic blood pressure greater than 200. The patient had 2 seizures in the ER. A stat head CT was obtained which showed no acute intracranial findings. She had another seizure in CAT scan. The patient was given Ativan 2 mg IV and a loading dose of Dilantin and started on Cardene drip. She was admitted to the c.o.d. clerk. CBC/BMP: 05/05/16 0526 05/05/16 0526 Significant Findings Laboratory Tests Test 05/03/16 05/03/16 05/04/16 05/05/16 10:59 11:23 03:44 05:26 White Blood Count 11.9 TH/MM3 (4.0-11.0) Mean Platelet Volume 6.9 FL 6.4 FL 6.2 FL (7.0-11.0) (7.0-11.0) (7.0-11.0) Neutrophils (%) (Auto) 71.6 % 74.0 % (16.0-70.0) (16.0-70.0) Eosinophils (%) (Auto) 7.4 % (0.0-4.0) 11.6 % (0.0-4.0) Neutrophils # (Auto) 8.5 TH/MM3 (1.8-7.7) Eosinophils # (Auto) 0.9 TH/MM3 0.9 TH/MM3 (0-0.4) (0-0.4) Sodium Level 133 MEQ/L (136-145) Potassium Level 3.1 MEQ/L (3.5-5.1) Chloride Level 95 MEQ/L (98-107) Blood Urea Nitrogen 34 MG/DL (7-18) 36 MG/DL (7-18) 34 MG/DL (7-18) Creatinine 13.36 MG/DL 12.63 MG/DL 13.21 MG/DL (0.50-1.00) (0.50-1.00) (0.50-1.00) Estimat Glomerular Filtration 3 ML/MIN (>89) 4 ML/MIN (>89) 4 ML/MIN (>89) Rate Random Glucose 120 MG/DL (74-106) Calcium Level 8.4 MG/DL 7.7 MG/DL 8.0 MG/DL (8.5-10.1) (8.5-10.1) (8.5-10.1) Activated Partial 32.0 SEC Thromboplast Time (24.3-30.1) Red Blood Count 3.58 MIL/MM3 3.23 MIL/MM3 (4.00-5.30) (4.00-5.30) Hemoglobin 9.9 GM/DL 9.2 GM/DL (11.6-15.3) (11.6-15.3) Hematocrit 28.9 % 26.3 % (35.0-46.0) (35.0-46.0) Phenytoin (Dilantin) Level 0.8 MCG/ML (10.0-20.0) PE at Discharge GENERAL: Well-nourished, well-developed patient. SKIN: Warm and dry. HEAD: Normocephalic. EYES: No scleral icterus. No injection or drainage. NECK: Supple, trachea midline. No JVD or lymphadenopathy. CARDIOVASCULAR: Regular rate and rhythm without murmurs, gallops, or rubs. RESPIRATORY: Breath sounds equal bilaterally. No accessory muscle use. GASTROINTESTINAL: Abdomen soft, non-tender, nondistended. EXTREMITIES: No cyanosis, or edema. NEUROLOGICAL: Awake, alert, and oriented x 3. Non-focal. Pt update on day of discharge The patient is doing well. Denies headaches. She states that she has been having blurry vision for the past few weeks and plans to see an boiler erector. Hospital Course The patient had no further seizures in the ICU. Her blood pressure obtained good control on by mouth medications. The patient continue with peritoneal dialysis. She was seen by neurology. EEG showed no seizure focus. It was recommended that she continue her Keppra. Of note the patient had recently had trouble getting her Keppra filled due to insurance denial and had been out of it for about a week and had only restarted it one to 2 days prior to admission. Of note the patient also tells me that she takes clonidine at home scheduled however this is not reported on her med history. The patient denied missing any doses of clonidine. The patient at this time is medically stable and greatly desires to go home. It is my opinion that the patient had a seizure likely secondary to her hypertensive crisis and this may have been exacerbated by being off her seizure medication for a week. Her blood pressure has been controlled on oral medications for 2 days as per her ICU nurse Jaret. I did discuss with the patient that clonidine withdrawal causing cause rebound hypertension. I recommended that she continue on the medications that we have had her on here but that she should check her blood pressure 2-3 times a day and that she can use clonidine as needed for systolic blood pressure greater than 160 or higher. I also asked the ICU nurse Jaret to make an appointment with her PCP Dr. Sai Moore for tomorrow so that she can have a blood pressure evaluation. The patient agrees that she will follow up tomorrow with Dr. Sai Moore. Pt Condition on Discharge: Stable Discharge Disposition: Discharge Home Discharge Time: > 30 minutes Discharge Instructions DIET: Follow Instructions for: As Tolerated, No Restrictions Speech Therapy-Diet Recommends: Regular Activities you can perform: Regular-No Restrictions New Medications: Clonidine (Clonidine) 0.1 Mg Tab 0.1 MG PO Q6HR PRN SYS BP GREATER THAN 160 MMHG #30 Ref 0 TAB Labetalol (Labetalol) 300 Mg Tab 300 MG PO Q12HR Blood Pressure Management #60 TAB Continued Medications: Amlodipine (Norvasc) 10 Mg Tab 10 MG PO BID Blood Pressure Management #30 Ref 0 TAB Epoetin Inj (Epogen Inj) 2,000 Unit/Ml Inj 1500 UNITS SQ 2XMONTH VIAL Hydroxychloroquine (Hydroxychloroquine) 200 Mg Tab 200 MG PO BID Takw with food #60 Ref 0 TAB Levetiracetam (Keppra) 500 Mg Tab 500 MG PO Q12HR seizures Days 30 TAB Losartan (Cozaar) 50 Mg Tab 50 MG PO BID Blood Pressure Management #30 Ref 0 TAB Pantoprazole (Protonix) 20 Mg Tab 20 MG PO DAILY Reflux #30 Ref 0 TAB Sevelamer Carbonate (Renvela) 800 Mg Tab 800 MG PO TIDPC Control phosphorous levels #90 Ref 0 TAB Sodium Bicarbonate (Sodium Bicarbonate) 650 Mg Tab 650 MG PO BIDPC #60 Ref 0 TAB Discontinued Medications: Carvedilol (Coreg) 25 Mg Tab 25 MG PO BID #60 Ref 0 TAB Lesli Low MD May 05, 2016 11:09
[2016-05-05] MEDS ORDERED: CLON0.1T PO (12:01)
== END 2016-05-05 13:30 | disposition home or self-care (01) | DRG 304 ==
LOC: NEPE 10:36 → NEDA 12:55 → HIMN 14:42
PROVIDERS: ADMIT Family Medicine; ATTEND Family Medicine
PROC: 3E1M39Z Irrigation of Peritoneal Cavity using Dialysate, Percutaneous Approach (ICD-10-PCS; principal; 2016-05-03)
DX: I16.1 Hypertensive emergency (principal); I12.0 Hypertensive chronic kidney disease with stage 5 chronic kidney disease or end stage renal disease; N18.6 End stage renal disease; G93.49 Other encephalopathy; M32.9 Systemic lupus erythematosus, unspecified; M32.14 Glomerular disease in systemic lupus erythematosus; Z99.2 Dependence on renal dialysis; G40.909 Epilepsy, unspecified, not intractable, without status epilepticus; G44.009 Cluster headache syndrome, unspecified, not intractable; R06.89 Other abnormalities of breathing; E87.6 Hypokalemia; Z91.14 Patient's other noncompliance with medication regimen; F12.90 Cannabis use, unspecified, uncomplicated; D64.9 Anemia, unspecified
CPT/HCPCS: 70450; 71010; 80048; 80185; 85025; 85610; 85730; 87641; 90935; 93005; 94640; 94664; 95819; 96365; 96375; C9113; J1165; J1644; J2060; J2270; J2405; J3480; J7050

== ENCOUNTER 2016-05-08 13:20 | Inpatient (IN) | payer OTHER ==
[~2016-05-08] VITALS: Ht 162.6 cm; Wt 54.0 kg
[~2016-05-08 13:20] MED LIST changes: +CLON0.1T PO; -CORE25TA PO; -DOXA1TAB36 PO; +LABE300T PO
[2016-05-08 13:25] VITALS: BP 169/134; PULSE 120; RESP 20; TEMP 97.7; O2SAT 99
[2016-05-08] MEDS ORDERED: CALC1CAP PO (13:43)
--- NOTE | 2016-05-08 14:09 | PD ---
HPI Chief Complaint: GI Complaint Time Seen by Provider: 14:09 Travel History International Travel<30 days: No Contact w/Intl Traveler<30days: No Traveled to known affect area: No History of Present Illness HPI 20-year-old female with a past medical history of end-stage renal disease on. She'll dialysis, lupus, hypertension, seizures presents to the emergency department for evaluation of "chest pain and abdominal pain". She also states that her hands and face have been swelling since she was last discharged. Patient just recently admitted to the hospital May 03 and was discharged on May 05 for hypertensive emergency, uncontrolled seizures. She is currently on Keppra. Patient denies any seizure. Patient denies . She states that she took a couple of her blood pressure medications this morning , was unsure which one she took. No fevers or chills. Patient does report history of gallbladder issues. Patient states her special technical operations officer is Dr. Curry. Patient reports doing her peritoneal dialysis as directed. When asked where her chest pain is, she points to her epigastric region. She denies any previous cardiac history. PFSH Past Medical History Arthritis: No Autoimmune Disease: Yes (LUPUS ) Anxiety: Yes Depression: No Heart Rhythm Problems: No Cancer: No Cardiovascular Problems: Yes (htn) High Cholesterol: No Chemotherapy: No Chest Pain: No Congestive Heart Failure: No Cerebrovascular Accident: Yes Diabetes: No Dialysis: Yes (DAILY) Diminished Hearing: No Endocrine: No Gastrointestinal Disorders: Yes (Nausea, low appetite) GERD: No Genitourinary: No Headaches: Yes (CLUSTER MUNOZ) Hepatitis: No Hiatal Hernia: No Heparin Induced Thrombocytopen: No Hypertension: Yes Immune Disorder: Yes (Lupus) Implanted Vascular Access Dvce: No Kidney Stones: No Musculoskeletal: No Neurologic: Yes (LUPUS) Psychiatric: No Reproductive: No Respiratory: No Immunizations Current: Yes Migraines: Yes (FROM HTN) Radiation Therapy: No Renal Failure: Yes Seizures: Yes (FROM HTN) Sickle Cell Disease: No Thyroid Disease: No Ulcer: No Tetanus Vaccination: > 5 Years ?: Not LMP: 05/01/2016 : 1 Para: 1 Past Surgical History Abdominal Surgery: Yes (PERMACATH, PERITONEAL DIALYSIS) AICD: No Arteriovenous Shunt: No Body Medical Devices: ,PD catheter Cardiac Surgery: No Endocrine Surgery: No Genitourinary Surgery: No Insulin Pump: No Joint Replacement: No Neurologic Surgery: No Pacemaker: No Thoracic Surgery: Yes (VAS CATH TO LEFT CHEST, removed) Other Surgery: Yes ((R) Permacath, PD catheter) Social History Alcohol Use: No Tobacco Use: No Substance Use: Yes (Marijuana daily) Allergies-Medications (Allergen,Severity, Reaction): Coded Allergies: Hydralazine (Verified Allergy, Severe, Rash, 05/08/16) Vancomycin (Verified Allergy, Severe, Red man syndrome , 05/08/16) Metoprolol (Verified Allergy, Unknown, Patient does not know, 05/08/16) Reported Meds & Prescriptions Reported Meds & Active Scripts Active Labetalol (Labetalol HCl) 300 Mg Tab 300 Mg PO Q12HR Keppra (Levetiracetam) 500 Mg Tab 500 Mg PO Q12HR 30 Days Reported Calcium Acetate (Phosphate Binder) 667 Mg Cap 1,334 Mg PO TID Sodium Bicarbonate 650 Mg Tab 650 Mg PO BIDPC Protonix (Pantoprazole Sodium) 20 Mg Tab 20 Mg PO DAILY Norvasc (Amlodipine Besylate) 10 Mg Tab 10 Mg PO BID Cozaar (Losartan Potassium) 50 Mg Tab 50 Mg PO BID Hydroxychloroquine (Hydroxychloroquine Sulfate) 200 Mg Tab 200 Mg PO BID Takw with food Epogen Inj (Epoetin Diego) 2,000 Unit/Ml Inj 1,500 Units SQ 2XMONTH Review of Systems Except as stated in HPI: all other systems reviewed are Neg Physical Exam Narrative GENERAL: Well-developed well-nourished female patient, ambulatory. Afebrile. SKIN: Warm and dry. HEAD: Normocephalic. Atraumatic. EYES: No scleral icterus. No injection or drainage. NECK: Supple, trachea midline. No JVD or lymphadenopathy. CARDIOVASCULAR: Regular rhythm without murmurs, gallops, or rubs. Patient is tachycardic on exam with heart rate approximately 110. RESPIRATORY: Breath sounds equal bilaterally. No accessory muscle use. Lungs sounds are clear to auscultation. GASTROINTESTINAL: Abdomen soft and nondistended. Patient is tender throughout the abdomen to palpation. Peritoneal dialysis catheter noted. MUSCULOSKELETAL: No cyanosis, or edema. BACK: Nontender without obvious deformity. No CVA tenderness. Data Data Last Documented VS Vital Signs Date Time Temp Pulse Resp B/P Pulse Ox O2 Delivery O2 Flow Rate FiO2 05/08/16 16:00 98 16 186/130 99 Room Air 05/08/16 13:25 97.7 Orders Beta Hcg (Quant/Titer) (05/08/16 14:04) Complete Blood Count With Diff (05/08/16 14:04) Comprehensive Metabolic Panel (05/08/16 14:04) Lipase (05/08/16 14:04) Ct Abd/Pel W/O Iv Contrast (05/08/16 14:04) Iv Access Insert/Monitor (05/08/16 14:04) Ecg Monitoring (05/08/16 14:04) Oximetry (05/08/16 14:04) Sodium Chloride 0.9% Flush (Ns Flush) (05/08/16 14:15) Electrocardiogram (05/08/16 14:04) Chest, Single Ap (05/08/16 ) Ondansetron Inj (Zofran Inj) (05/08/16 14:15) Morphine Inj (Morphine Inj) (05/08/16 14:30) Labetalol Inj (Trandate Inj) (05/08/16 15:15) Labetalol Inj (Trandate Inj) (05/08/16 16:15) Labs Laboratory Tests Test 05/08/16 14:12 White Blood Count 11.1 TH/MM3 Red Blood Count 4.49 MIL/MM3 Hemoglobin 12.3 GM/DL Hematocrit 37.2 % Mean Corpuscular Volume 82.8 FL Mean Corpuscular Hemoglobin 27.3 PG Mean Corpuscular Hemoglobin 32.9 % Concent Red Cell Distribution Width 17.6 % Platelet Count 295 TH/MM3 Mean Platelet Volume 6.3 FL Neutrophils (%) (Auto) 44.1 % Lymphocytes (%) (Auto) 26.8 % Monocytes (%) (Auto) 4.2 % Eosinophils (%) (Auto) 23.7 % Basophils (%) (Auto) 1.2 % Neutrophils # (Auto) 4.9 TH/MM3 Lymphocytes # (Auto) 3.0 TH/MM3 Monocytes # (Auto) 0.5 TH/MM3 Eosinophils # (Auto) 2.6 TH/MM3 Basophils # (Auto) 0.1 TH/MM3 CBC Comment DIFF FINAL Differential Comment Sodium Level 138 MEQ/L Potassium Level 4.2 MEQ/L Chloride Level 97 MEQ/L Carbon Dioxide Level 24.6 MEQ/L Anion Gap 16 MEQ/L Blood Urea Nitrogen 65 MG/DL Creatinine 11.47 MG/DL Estimat Glomerular Filtration 4 ML/MIN Rate Random Glucose 86 MG/DL Calcium Level 7.8 MG/DL Total Bilirubin 0.5 MG/DL Aspartate Amino Transf 14 U/L (AST/SGOT) Alanine Aminotransferase 10 U/L (ALT/SGPT) Alkaline Phosphatase 64 U/L Total Protein 5.6 GM/DL Albumin 2.5 GM/DL Lipase 427 U/L Human Chorionic Gonadotropin, 1 MIU/ML Quant MDM Medical Decision Making Medical Screen Exam Complete: Yes Emergency Medical Condition: Yes Medical Record Reviewed: Yes Interpretation(s) chest x-ray - CONCLUSION: No acute disease. CT abdomen/pelvis - CONCLUSION: 1. Fluid adjacent to the pancreas raises the possibility of pancreatitis in the right clinical setting. Correlation with amylase/lipase levels. 2. Diffuse minimal ascites. 3. Atrophic kidneys and peritoneal dialysis catheter. Differential Diagnosis Electrolyte abnormality versus peritonitis versus hypertensive urgency versus cholecystitis versus pancreatitis versus ESRD Narrative Course 20-year-old female presents to the emergency department for evaluation of chest pain,abdominal pain, swelling of the hands and face. EKG, CBC, CMP, lipase, beta-hCG, chest x-ray, CT of the abdomen/pelvis are ordered and pending. Patient is given Zofran 4 mg IV and morphine 4 mg IV. EKG shows sinus tachycardia, heart rate 104, no acute ST changes. CBC shows mild leukocytosis of 11.1. CMP shows anion gap 16, BUN 65, creatinine 11.47. Lipase is 427. Beta-hCG is 1. Chest x-ray shows no acute disease. CT abdomen/ pelvis shows 1. Fluid adjacent to the pancreas raises the possibility of pancreatitis in the right clinical setting. Correlation with amylase/lipase levels. 2. Diffuse minimal ascites. 3. Atrophic kidneys and peritoneal dialysis catheter. I discussed results with my attending physician, Dr. Cosby, who agrees on admission. Residents are paged. Dr. Pang, resident, accepted admission. Diagnosis Primary Impression: Pancreatitis, acute Qualified Code: K85.90 - Acute pancreatitis, unspecified complication status, unspecified pancreatitis type Additional Impressions: Malignant hypertension with chronic kidney disease stage IV ESRD (end stage renal disease) on dialysis Admitting Information Admitting Physician Requests: Tressa Sauceda May 08, 2016 14:09
[2016-05-08] MEDS ORDERED: ONDANSETRON HCL 4 MG/2 ML VIAL IV PUSH ONE (14:15)
[2016-05-08] MEDS ORDERED: SODIUM CHLORIDE 0.9% FLUSH 5 ML FLUSH IVF PRN ×2 (14:15→19:30)
[2016-05-08 14:30] VITALS: BP 201/138; PULSE 108; RESP 18; O2SAT 98
[2016-05-08] MEDS ORDERED: MORPHINE SULFATE 4 MG/ML INJ IV PUSH ONE (14:30)
[2016-05-08 14:31] LABS: AUTOMATED NEUTROPHIL # 4.9 TH/MM3 (1.8-7.7); BASOPHIL # 0.1 TH/MM3 (0-0.2); BASOPHIL % 1.2 % (0.0-2.0); EOSINOPHIL # 2.6 TH/MM3 (0-0.4); EOSINOPHIL % 23.7 % (0.0-4.0); HEMATOCRIT 37.2 % (35.0-46.0); HEMO FLAGS DIFF FINAL; LYMPH % 26.8 % (9.0-44.0); MEAN CELL VOLUME 82.8 FL (80.0-100.0); MEAN CORPUSCULAR HEMOGLOBIN 27.3 PG (27.0-34.0); MEAN CORPUSCULAR HGB CONC 32.9 % (32.0-36.0); MONO % 4.2 % (0.0-8.0); NEUT % 44.1 % (16.0-70.0); PLATELET COUNT 295 TH/MM3 (150-450); RED BLOOD COUNT 4.49 MIL/MM3 (4.00-5.30); RED CELL DISTRIBUTION WIDTH 17.6 % (11.6-17.2); WHITE BLOOD COUNT 11.1 TH/MM3 (4.0-11.0)
[2016-05-08 14:56] LABS: ALKALINE PHOSPHATASE 64 U/L (45-117); ALT (GPT) 10 U/L (10-53); ANION GAP 16 MEQ/L (5-15); AST (GOT) 14 U/L (15-37); BETA HCG QUANT 1 MIU/ML (0-5); BICARBONATE 24.6 MEQ/L (21.0-32.0); BLOOD UREA NITROGEN 65 MG/DL (7-18); CHLORIDE 97 MEQ/L (98-107); GLOMERULAR FILTRATION RATE 4 ML/MIN (>89); POTASSIUM 4.2 MEQ/L (3.5-5.1); SODIUM (NA) 138 MEQ/L (136-145); TOTAL BILIRUBIN ADULT 0.5 MG/DL (0.2-1.0)
[2016-05-08] MEDS ORDERED: LABETALOL HCL 100 MG/20 ML VIAL IV PUSH ONE ×2 (15:15→16:15)
--- NOTE | 2016-05-08 15:15 | RADRPT ---
EXAM DATE/TIME: 05/08/2016 14:28 [facility] COMPARISON: No previous studies available for comparison. INDICATIONS : Chest pain, weakness starting today MEDICAL HISTORY : Hypertension. Lupus. Cephalgia, renal failure, cardiovascular disease SURGICAL HISTORY : None. ENCOUNTER: Initial ACUITY: 1 day PAIN SCORE: 7/10 LOCATION: Bilateral chest FINDINGS: A single view of the chest demonstrates the lungs to be symmetrically aerated without evidence of mas s, infiltrate or effusion. The cardiomediastinal contours are unremarkable. Osseous structures are intact. CONCLUSION: No acute disease. Jalen Gregg MD on May 08, 2016 at 15:13 Board Certified Radiologist. This report was verified electronically.
--- NOTE | 2016-05-08 15:52 | RADRPT ---
EXAM DATE/TIME: 05/08/2016 15:26 [facility] COMPARISON: No previous studies available for comparison. INDICATIONS : Abdominal pain. ORAL CONTRAST: No oral contrast ingested. RADIATION DOSE: 4.58 CTDIvol (mGy) MEDICAL HISTORY : Lupus. Renal disease, end stage. Hypertension. SURGICAL HISTORY : Dialysis catheter placement. ENCOUNTER: Initial ACUITY: 1 day PAIN SCALE: 8/10 LOCATION: abdomen. TECHNIQUE: Volumetric scanning of the abdomen and pelvis was performed. Using automated exposure control and ad justment of the mA and/or kV according to patient size, radiation dose was kept as low as reasonably achievable to obtain optimal diagnostic quality images. FINDINGS: LOWER LUNGS: The visualized lower lungs are clear. LIVER: Homogeneous density without lesion. There is no dilation of the biliary tree. No calcified gallston es. SPLEEN: Normal size without lesion. PANCREAS: Fluid adjacent to the pancreas. KIDNEYS: Atrophic kidneys. There is no mass, stone, or hydronephrosis. ADRENAL GLANDS: Within normal limits. VASCULAR: There is no aortic aneurysm. BOWEL/MESENTERY: The stomach, small bowel, and colon demonstrate no acute abnormality. There is no free intraperitone al air or fluid. Haziness appearance to the abdomen CT minimal ascites. Peritoneal dialysis catheter in the left lower quadrant. Normal appendix. ABDOMINAL WALL: Within normal limits. RETROPERITONEUM: There is no lymphadenopathy. BLADDER: No wall thickening or mass. REPRODUCTIVE: Within normal limits. INGUINAL: There is no lymphadenopathy or hernia. MUSCULOSKELETAL: Within normal limits for patient age. CONCLUSION: 1. Fluid adjacent to the pancreas raises the possibility of pancreatitis in the right clinical settin g. Correlation with amylase/lipase levels. 2. Diffuse minimal ascites. 3. Atrophic kidneys and peritoneal dialysis catheter. Jalen Gregg MD on May 08, 2016 at 15:49 Board Certified Radiologist. This report was verified electronically.
[2016-05-08 16:00] VITALS: BP 186/130; PULSE 98; RESP 16; O2SAT 99
--- NOTE | 2016-05-08 16:29 | EKG ---
Date Performed: 05/08/2016 Time Performed: 14:15:34 PTAGE: 20 years EKG: SINUS TACHYCARDIA POSSIBLE LEFT ATRIAL ENLARGEMENT NONSPECIFIC T-WAVE ABNORMALITY ABNORMAL ECG PREVIOUS TRACING : 05/03/2016 10.42 Compared to previous tracing, lateral T wave abnormality wong s improved. DOCTOR: Ruy Salazar Interpretating Date/Time 05/08/2016 16:27:56
[2016-05-08 18:00] VITALS: BP 170/117; PULSE 103; PULSE 108; RESP 16; O2SAT 99
--- NOTE | 2016-05-08 18:08 | HHI.HP ---
[facility] Juventino Gibbs MD Admission Diagnosis acute pancreatitis; ESRD on peritoneal dialysis; HTN Diagnoses: Chief Complaint: abdominal pain, nausea Travel History International Travel<30 Days: No Contact w/Intl Traveler <30 Da: No Traveled to Known Affected Are: No History of Present Illness 20-year-old female with history of ESRD on PD, lupus, hypertension, anxiety, migraines, presents with a 2 day history of abdominal pain, nausea, chest fullness, shortness of breath. The patient states last night when she got on her dialysis machine, she started having abdominal discomfort and shortness of breath. This morning she woke up with significant abdominal pain located diffusely throughout the entire abdomen, associated with nausea. She also noticed her face was more swollen with increased shortness of breath. Her entire chest feels tight. Denies fevers/chills. Denies cough. She still makes urine, denies dysuria or increased urinary frequency/urgency. She follows with Dr. Curry, last seen 1-2 weeks ago and everything was fine at that visit. Denies any alcohol use. Reports compliance with medications. Denies any surrounding erythema/drainage at peritoneal dialysis catheter site. She has no other medical complaints at this time. Review of Systems Constitutional: COMPLAINS OF: Change in appetite, DENIES: Fever, Chills, Dizziness Endocrine: DENIES: Polydipsia, Polyuria, Polyphagia Eyes: DENIES: Blurred vision, Vision loss, Double Vision Ears, nose, mouth, throat: DENIES: Throat pain, Running Nose, Odynophagia Respiratory: COMPLAINS OF: Shortness of breath, DENIES: Cough, Sputum production Cardiovascular: COMPLAINS OF: Chest pain, DENIES: Palpitations, Syncope, Dyspnea on Exertion, Lower Extremity Edema Gastrointestinal: COMPLAINS OF: Abdominal pain, Nausea, DENIES: Constipation, Diarrhea, Vomiting Genitourinary: DENIES: Urinary frequency, Urgency, Dysuria Musculoskeletal: DENIES: Joint pain, Back pain, Neck pain Integumentary: DENIES: Pruritus, Rash Hematologic/lymphatic: DENIES: Bruising, Lymphadenopathy Immunologic/allergic: DENIES: Eczema, Urticaria Neurologic: DENIES: Headache, Localized weakness, Paresthesias Psychiatric: DENIES: Anxiety, Depression Past Family Social History Past Medical History seizures anxiety lupus ESRD on PD hypertension migraines Past Surgical History Permacath placement left upper chest PD catheter placement Reported Medications Labetalol (Labetalol HCl) 300 Mg Tab 300 Mg PO Q12HR Keppra (Levetiracetam) 500 Mg Tab 500 Mg PO Q12HR 30 Days Calcium Acetate (Phosphate Binder) 667 Mg Cap 1,334 Mg PO TID Sodium Bicarbonate 650 Mg Tab 650 Mg PO BIDPC Protonix (Pantoprazole Sodium) 20 Mg Tab 20 Mg PO DAILY Norvasc (Amlodipine Besylate) 10 Mg Tab 10 Mg PO BID Cozaar (Losartan Potassium) 50 Mg Tab 50 Mg PO BID Hydroxychloroquine (Hydroxychloroquine Sulfate) 200 Mg Tab 200 Mg PO BID Takw with food Epogen Inj (Epoetin Diego) 2,000 Unit/Ml Inj 1,500 Units SQ 2XMONTH Clonidine as needed Allergies: Coded Allergies: Hydralazine (Verified Allergy, Severe, Rash, 05/08/16) Vancomycin (Verified Allergy, Severe, Red man syndrome , 05/08/16) Metoprolol (Verified Allergy, Unknown, Patient does not know, 05/08/16) Active Ordered Medications Current Medications Medications (Trade) Dose Ordered Sig/Leora Route Start Time Stop Time Status Last Admin (NS Flush) 2 ml UNSCH PRN IVF 05/08/16 14:15 (NS Flush) 2 ml UNSCH PRN FLUSH 05/08/16 18:15 UNV (NS Flush) 2 ml BID FLUSH 05/08/16 21:00 UNV (Zofran Inj) 4 mg Q6H PRN IVP 05/08/16 18:15 UNV (Colace) 100 mg Q12H PRN PO 05/08/16 18:15 UNV (Heparin Inj) 5,000 units Q12H SQ 05/08/16 18:15 UNV (Tylenol) 650 mg Q6H PRN PO 05/08/16 18:15 UNV (Percocet 5-325 Mg) 1 tab Q6H PRN PO 05/08/16 18:15 UNV (Percocet 10-325 Mg) 1 tab Q6H PRN PO 05/08/16 18:15 UNV (Morphine Inj) 4 mg Q3H PRN IV 05/08/16 18:15 UNV (Narcan Inj) 0.4 mg UNSCH PRN IV 05/08/16 18:15 UNV Family History No significant family history. Social History Denies tobacco use Denies alcohol use Occasional marijuana use, denies any other illicit drug use Physical Exam Vital Signs Vital Signs Date Time Temp Pulse Resp B/P Pulse Ox O2 Delivery O2 Flow Rate FiO2 05/08/16 16:00 98 16 186/130 99 Room Air 05/08/16 14:30 108 18 201/138 98 Room Air 05/08/16 13:34 22 05/08/16 13:25 97.7 120 20 169/134 99 Room Air Physical Exam GENERAL: Well-nourished, well-developed young female patient in [facility]. SKIN: Warm and dry. No rash. HEAD: Normocephalic. Atraumatic. EYES: Pupils equal and round. No scleral icterus. No injection or drainage. ENT: No nasal bleeding or discharge. Mucous membranes pink and moist. NECK: Supple. Trachea midline. CARDIOVASCULAR: Regular rate and rhythm. S1, S2 noted. No murmur appreciated. Diffuse anterior chest wall tenderness to palpation. RESPIRATORY: No accessory muscle use. Clear to auscultation. Breath sounds equal bilaterally. GASTROINTESTINAL: Abdomen soft, nondistended, no erythema, diffuse tenderness to palpation throughout entire abdomen. Normoactive bowel sounds x4. PD catheter with no surrounding erythema/drainage. MUSCULOSKELETAL: No obvious deformities. Extremities without clubbing, cyanosis , or edema. NEUROLOGICAL: Awake and alert. No obvious cranial nerve deficits. Motor grossly within normal limits. Normal speech. PSYCHIATRIC: Appropriate mood and affect; insight and judgment normal. Laboratory Laboratory Tests Test 05/08/16 14:12 White Blood Count 11.1 Red Blood Count 4.49 Hemoglobin 12.3 Hematocrit 37.2 Mean Corpuscular Volume 82.8 Mean Corpuscular Hemoglobin 27.3 Mean Corpuscular Hemoglobin 32.9 Concent Red Cell Distribution Width 17.6 Platelet Count 295 Mean Platelet Volume 6.3 Neutrophils (%) (Auto) 44.1 Lymphocytes (%) (Auto) 26.8 Monocytes (%) (Auto) 4.2 Eosinophils (%) (Auto) 23.7 Basophils (%) (Auto) 1.2 Neutrophils # (Auto) 4.9 Lymphocytes # (Auto) 3.0 Monocytes # (Auto) 0.5 Eosinophils # (Auto) 2.6 Basophils # (Auto) 0.1 CBC Comment DIFF FINAL Differential Comment Sodium Level 138 Potassium Level 4.2 Chloride Level 97 Carbon Dioxide Level 24.6 Anion Gap 16 Blood Urea Nitrogen 65 Creatinine 11.47 Estimat Glomerular Filtration 4 Rate Random Glucose 86 Calcium Level 7.8 Total Bilirubin 0.5 Aspartate Amino Transf 14 (AST/SGOT) Alanine Aminotransferase 10 (ALT/SGPT) Alkaline Phosphatase 64 Total Protein 5.6 Albumin 2.5 Lipase 427 Human Chorionic Gonadotropin, 1 Quant Result Diagram: 05/08/16 1412 05/08/16 1412 Imaging Last Impressions Abdomen/Pelvis CT 05/08/16 1404 Signed Impressions: Service Date/Time: Sunday, May 08, 2016 15:26 - CONCLUSION: 1. Fluid adjacent to the pancreas raises the possibility of pancreatitis in the right clinical setting. Correlation with amylase/lipase levels. 2. Diffuse minimal ascites. 3. Atrophic kidneys and peritoneal dialysis catheter. Jalen Gregg MD Chest X-Ray 05/08/16 0000 Signed Impressions: Service Date/Time: Sunday, May 08, 2016 14:28 - CONCLUSION: No acute disease. Jalen Gregg MD Assessment and Plan Assessment and Plan 20-year-old female with history of ESRD on PD, lupus, hypertension, anxiety, migraines, presents with a 2 day history of abdominal pain, nausea, chest fullness, shortness of breath. Abdominal pain: Possible SBP and pancreatitis. Lipase 427. WBC 11.1 K, afebrile. Abdomen/pelvis CT images reviewed by me, showed fluid adjacent to the pancreas, results possibly pancreatitis; diffuse minimal ascites; atrophic kidneys and PD catheter. -Start on IV Rocephin 2 g daily to cover for SBP. -Clear liquid diet for now -Supportive treatment with IVF, antiemetics, and pain control with Percocet and IV morphine prn -Monitor CBC, CMP, lipase -Continue PPI. -Consider GI consult if no improvement NÉSTOR on ESRD on PD: Cr 11. Likely secondary to inability to tolerate recent peritoneal dialysis -Consult patient's customer service representative teller Dr. Curry -Monitor daily renal function Accelerated Hypertension: SBP >200 upon arrival. S/p multiple IV labetalol doses in the ED. Now SBP 170s -Continue patient's home Cozaar, Labetalol -Added clonidine prn and IV labetalol prn -Monitor BP and adjust antihypertensives as needed Chest Pain/SOB: atypical, suspect related to fluid overload. -Rule out ACS with serial cardiac enzymes and EKG x2 -IV morphine prn pain Seizure disorder: Chronic -Continue patient's Keppra twice a day DVT prophylaxis: Heparin sq Written by Ivet Cardenas, acting as scribe for Dr. Doss on 05/08/16 at 18:07. The documentation accurately reflects the work performed [id number] by me on at 18:07. Discussed Condition With Patient, ER Ivet Painting PA-C May 08, 2016 18:07 Emily Doss DO May 08, 2016 22:59
[2016-05-08] MEDS ORDERED: ACETAMINOPHEN 325 MG TAB PO PRN (18:15)
[2016-05-08] MEDS ORDERED: oxyCODONE/ACETAMINOPHEN 5 MG/325 MG TAB PO PRN (18:15)
[2016-05-08] MEDS ORDERED: NALOXONE HCL 0.4 MG/ML AMP IV PRN (18:15)
[2016-05-08] MEDS ORDERED: SODIUM CHLORIDE 0.9% FLUSH 5 ML FLUSH FLUSH PRN (18:15)
[2016-05-08] MEDS ORDERED: DOCUSATE SODIUM 100 MG CAP PO PRN (18:15)
[2016-05-08] MEDS ORDERED: LABETALOL HCL 100 MG/20 ML VIAL IV PUSH PRN (18:30)
[2016-05-08] MEDS ORDERED: cloNIDine HCL 0.2 MG TAB PO PRN (18:30)
[2016-05-08] MEDS ORDERED: HEPARIN SODIUM - IV 10,000 UNITS/10 ML VIAL XX PRN (19:30)
--- NOTE | 2016-05-08 20:32 | EKG ---
Date Performed: 05/08/2016 Time Performed: 18:31:39 PTAGE: 20 years EKG: SINUS TACHYCARDIA NONSPECIFIC T-WAVE ABNORMALITY ABNORMAL RHYTHM ECG PREVIOUS TRACING : 05/08/2016 14.15 No significant change from previous tracing noted. DOCTOR: Ruy Salazar Interpretating Date/Time 05/08/2016 20:31:39
[2016-05-08 21:08] VITALS: BP 139/95; PULSE 96; RESP 14; O2SAT 96
[2016-05-08] MEDS: cefTRIAXone INJ 2,000 MG in SODIUM CHLORIDE 0.9% INJ 100 ML IV SCH (22:15)
[2016-05-08] MEDS: LOSARTAN 50 MG TAB PO SCH (22:16)
[2016-05-08] MEDS: SODIUM CHLORIDE 0.9% FLUSH 5 ML FLUSH FLUSH SCH (22:16)
[2016-05-08] MEDS: HEPARIN SODIUM - SQ 10,000 UNITS/ML VIAL SQ SCH (22:16)
[2016-05-08] MEDS: levETIRAcetam 500 MG TAB PO SCH (22:17)
[2016-05-08 23:00] VITALS: BP 149/104; PULSE 104; RESP 20
[2016-05-09] VITALS (27 sets, daily range): BP systolic 117–144; BP diastolic 17–103; PULSE 89–112; RESP 16–30; TEMP 98.1–98.9; O2SAT 96–100
[2016-05-09] MEDS: LABETALOL HCL 300 MG TAB PO SCH ×3 (00:36→21:52)
[2016-05-09] MEDS: HYDROXYCHLOROQUINE SULFATE 200 MG TAB PO SCH ×3 (00:36→21:52)
[2016-05-09] MEDS: MORPHINE SULFATE 4 MG/ML INJ IV PRN ×5 (01:42→21:52)
[2016-05-09 04:42] LABS: AUTOMATED NEUTROPHIL # 3.5 TH/MM3 (1.8-7.7); BASOPHIL # 0.1 TH/MM3 (0-0.2); BASOPHIL % 1.2 % (0.0-2.0); EOSINOPHIL # 1.9 TH/MM3 (0-0.4); EOSINOPHIL % 23.1 % (0.0-4.0); HEMATOCRIT 32.3 % (35.0-46.0); HEMO FLAGS DIFF FINAL; LYMPH % 28.5 % (9.0-44.0); LYMPHOCYTE # 2.4 TH/MM3 (1.0-4.8); MEAN CELL VOLUME 81.7 FL (80.0-100.0); MEAN CORPUSCULAR HEMOGLOBIN 28.1 PG (27.0-34.0); MEAN CORPUSCULAR HGB CONC 34.4 % (32.0-36.0); MONO % 5.5 % (0.0-8.0); NEUT % 41.7 % (16.0-70.0); PLATELET COUNT 245 TH/MM3 (150-450); RED BLOOD COUNT 3.96 MIL/MM3 (4.00-5.30); RED CELL DISTRIBUTION WIDTH 17.7 % (11.6-17.2); WHITE BLOOD COUNT 8.4 TH/MM3 (4.0-11.0)
[2016-05-09 05:03] LABS: ALT (GPT) 7 U/L (10-53); ANION GAP 14 MEQ/L (5-15); AST (GOT) 10 U/L (15-37); BICARBONATE 27.1 MEQ/L (21.0-32.0); BLOOD UREA NITROGEN 60 MG/DL (7-18); CHLORIDE 98 MEQ/L (98-107); GLOMERULAR FILTRATION RATE 4 ML/MIN (>89); SODIUM (NA) 139 MEQ/L (136-145)
[2016-05-09 05:05] LABS: ALKALINE PHOSPHATASE 50 U/L (45-117); TOTAL BILIRUBIN ADULT 0.4 MG/DL (0.2-1.0)
[2016-05-09] MEDS: oxyCODONE/ACETAMINOPHEN 10 MG/325 MG TAB PO PRN (08:21)
[2016-05-09] MEDS: levETIRAcetam 500 MG TAB PO SCH ×2 (08:22→21:53)
[2016-05-09] MEDS: CALCIUM ACETATE 667 MG CAP PO SCH ×3 (08:23→18:00)
[2016-05-09] MEDS: PANTOPRAZOLE SOD 20 MG DELAYED RELEASE TAB PO SCH (08:23)
[2016-05-09] MEDS: HEPARIN SODIUM - SQ 10,000 UNITS/ML VIAL SQ SCH ×2 (08:24→21:51)
[2016-05-09] MEDS: SODIUM CHLORIDE 0.9% FLUSH 5 ML FLUSH FLUSH SCH ×2 (08:24→21:55)
[2016-05-09] MEDS: LOSARTAN 50 MG TAB PO SCH ×2 (08:24→21:52)
--- NOTE | 2016-05-09 09:17 | EKG ---
Date Performed: 05/08/2016 Time Performed: 23:58:28 PTAGE: 20 years EKG: SINUS TACHYCARDIA POSSIBLE LEFT ATRIAL ENLARGEMENT T-WAVE ABNORMALITY, CONSIDER ANTEROLATER AL ISCHEMIA T-WAVE ABNORMALITY, CONSIDER INFERIOR ISCHEMIA ABNORMAL ECG PREVIOUS TRACING : 05/08/2016 18.31 Compared to previous tracing, anterolateral and inferior T wave inversions are now evident. DOCTOR: Ruy Salazar Interpretating Date/Time 05/09/2016 09:15:36
[2016-05-09] MEDS: ONDANSETRON HCL 4 MG/2 ML VIAL IVP PRN (11:12)
--- NOTE | 2016-05-09 11:16 | HHI.PR ---
Subjective Remarks Follow up for Abdominal pain, ESRD on PD. Patient is doing somewhat better. However, she complains of persistent abdominal pain. No fever, chills. Objective Vitals Vital Signs Date Time Temp Pulse Resp B/P Pulse Ox O2 Delivery O2 Flow Rate FiO2 05/09/16 07:30 98.4 93 18 118/80 97 05/09/16 07:30 93 05/09/16 05:06 98.1 92 18 140/103 96 05/09/16 05:00 92 05/09/16 04:00 94 05/09/16 03:00 96 05/09/16 02:00 90 05/09/16 01:30 98.1 99 18 137/101 96 05/09/16 00:00 108 30 144/100 100 Room Air 05/08/16 23:00 104 20 149/104 Room Air 05/08/16 21:08 96 14 139/95 96 Room Air 05/08/16 18:00 103 16 170/117 99 Room Air 05/08/16 16:00 98 16 186/130 99 Room Air 05/08/16 14:30 108 18 201/138 98 Room Air 05/08/16 13:34 22 05/08/16 13:25 97.7 120 20 169/134 99 Room Air I/O 05/08/16 05/08/16 05/08/16 05/09/16 05/09/16 05/09/16 07:00 15:00 23:00 07:00 15:00 23:00 Intake Total 120 ml Output Total 500 ml Balance -380 ml Intake Oral 120 ml Output Urine Total 500 ml Result Diagram: 05/09/16 0357 05/09/16 0357 Imaging Last Impressions Abdomen/Pelvis CT 05/08/16 1404 Signed Impressions: Service Date/Time: Sunday, May 08, 2016 15:26 - CONCLUSION: 1. Fluid adjacent to the pancreas raises the possibility of pancreatitis in the right clinical setting. Correlation with amylase/lipase levels. 2. Diffuse minimal ascites. 3. Atrophic kidneys and peritoneal dialysis catheter. Jalen Gregg MD Chest X-Ray 05/08/16 0000 Signed Impressions: Service Date/Time: Sunday, May 08, 2016 14:28 - CONCLUSION: No acute disease. Jalen Gregg MD Objective Remarks GENERAL: Alert, Oriented x 3, NAD. SKIN: Warm and dry. HEAD: Normocephalic. EYES: No scleral icterus. No injection or drainage. NECK: Supple, trachea midline. No JVD or lymphadenopathy. CARDIOVASCULAR: Regular rate and rhythm without murmurs, gallops, or rubs. RESPIRATORY: Breath sounds equal bilaterally. No accessory muscle use. GASTROINTESTINAL: Abdomen soft, nondistended, tender to light palpation. No rigidity, guarding present. MUSCULOSKELETAL: No cyanosis, or edema. BACK: Nontender without obvious deformity. No CVA tenderness. Procedures None. A/P Assessment and Plan Ms. Sullivan is a 20-year-old female with history of ESRD on PD, lupus, hypertension, anxiety, migraines, presents with a 2 day history of abdominal pain, nausea, chest fullness, shortness of breath. Abdominal pain: Possible SBP and pancreatitis. Lipase 427. WBC 11.1 K, afebrile. Abdomen/pelvis CT images reviewed by me on 05/08/2016, showed fluid adjacent to the pancreas, results possibly pancreatitis; diffuse minimal ascites ; atrophic kidneys and PD catheter. - Lipase is not more than 3 times upper limit of normal. - Continue IV Rocephin 2 g daily for possible SBP. - Clear liquid diet for now - Supportive treatment with IVF, antiemetics, and pain control with Percocet and IV morphine prn - WBC 11.1 --> 8.4. - Continue PPI. - If no significant improvement by 05/10/2016, we will consult GI for abdominal pain. ESRD on PD: Cr 11. Likely secondary to inability to tolerate recent peritoneal dialysis - Nephrology consulted. Dr. Kothari saw patient today. Dr. Rosado will take over from 05/10/2016. Accelerated Hypertension: SBP >200 upon arrival. S/p multiple IV labetalol doses in the ED. - Continue patient's home Cozaar, Labetalol - Added clonidine prn and IV labetalol prn - Currently BP is within reasonable range. Chest Pain/SOB: atypical, suspect related to fluid overload. - ACS ruled out. Troponins were 0.02, 0.03. - IV morphine prn pain Seizure disorder: Chronic - Continue patient's Keppra twice a day Full code. Heparin SQ. Emily Doss DO May 09, 2016 11:16
--- NOTE | 2016-05-09 12:55 | MB ---
cc: RAMESH TREVINO MD DATE OF : 1995 DATE OF CONSULTATION: 05/09/2016 REASON FOR CONSULTATION: End-stage renal disease on peritoneal dialysis for evaluation. HISTORY OF PRESENT ILLNESS This is a 20-year-old female with past medical history of hypertension, history of lupus, anxiety, migraine, end-stage renal disease on peritoneal dialysis since January of last year who came to the hospital with complaint of abdominal pain. I was called to see the patient last night for the management of peritoneal dialysis. The patient has been on peritoneal dialysis since January last year and she has been following with Dr. Curry and she was recently discharged about four days ago. At that time she was admitted with uncontrolled hypertension and seizure. Patient has ultrasound of the lower bladder done last month and it shows the gallbladder was distended without any gallstones, and she did have HIDA scan done it shows no signs of biliary obstruction. The patient has this abdominal pain which started four days ago associated with nausea, vomiting. She has no history of diarrhea. She continued her peritoneal dialysis and according to her the fluid has been clear. She was started on clear liquid diet, now she has some improvement in her pain so far. There is no history of fever. Denies shortness of breath. When she came here this time, her blood pressure was on the higher side but it has been improving now. PAST MEDICAL HISTORY: 1. Hypertension. 2. History of seizure disorder. 3. Anxiety. 4. History of lupus. 5. Migraine headaches 6. End-stage renal disease on peritoneal dialysis. PAST SURGICAL HISTORY: 1. History of perm cath placement and removal. 2. History of PD catheter placement. REVIEW OF SYSTEMS: The patient denies any history of ever, no sore throat. No headache, dizziness. She has no shortness of breath, no chest pain. Sometimes she feels short of breath when she has more fluid in her belly. She has abdominal pain which started two days ago and the pain continues mainly around the umbilicus and increases by touching or movement. She has nausea and vomiting. The last time she vomited was last night. There is no history of diarrhea. The PD fluid has been clear. SOCIAL HISTORY Patient has no history of smoking or alcoholism. FAMILY HISTORY: Noncontributory. ALLERGIES She has allergy to HYDRALAZINE, METOPROLOL AND VANCOMYCIN. MEDICATIONS Currently she is on the following medications: 3. Amlodipine 10 mg b.i.d. 4. Plaquenil 200 mg b.i.d. 5. Cozaar 50 mg b.i.d. 6. Protonix 20 mg once a day. 7. Labetalol 300 mg q. 12-hour. 8. Keppra 500 mg q.12 h. 9. Ceftriaxone 1 gram IV q. 24-hour. 10. PhosLo 1334 mg t.i.d. 11. Zofran as needed. 12. Colace as needed. 13. Morphine as needed. PHYSICAL EXAMINATION: On examination the patient is awake, alert. She is in mild abdominal pain. Her last blood pressure is 118/80 and temperature is 98.4. Oxygen saturation on room air is 96 to 97%. HEENT: Pupils equally reacting to light. Nonicteric sclera. Conjunctivae normal. Neck: Supple. JVD is not elevated. Lungs: The patient has bilateral good air entry with occasional wheezing. Heart: S1-S2 regular rhythm. Abdomen: There is diffuse tenderness around the umbilicus. There is no rebound or rigidity. Bowel sounds are present. Extremities: There is no pedal edema. INVESTIGATIONS: WBC count is 8.4, hemoglobin 11.1, platelet count of 245, neutrophils 41.7%, sodium 139, potassium 4.0, chloride 98, bicarb 27, BUN 60, creatinine 11.2, calcium is 7.7, AST 10 and ALT is 7. Total protein is 4.7, albumin of 2.0, INR is 1.0. Urinalysis showing protein of 100, trace leukocyte esterase, WBC 15-19 but this is an old one which was done last month. Lipase level was 427. IMAGING STUDIES The patient had a CT scan of the abdomen and pelvis done which shows fluid adjacent to the pancreas, diffuse minimal ascites, atrophic kidneys with peritoneal dialysis, catheter in place. Chest x-ray was done which shows no acute disease. ASSESSMENT/PLAN 1. Abdominal pain and acute pancreatitis. 2. End-stage renal disease on peritoneal dialysis. 3. Hypertension uncontrolled. 4. History of seizure disorder 5. History of lupus. 6. Mild anemia The patient has elevated lipase and CT scan showing there is some inflammation around the pancreas. Her vomiting is better. She is started on liquids and so far tolerating well, her PD fluid is clear using 1.5% solution and the same prescription she was on before when she was here the last time. If the pain is not better then consider GI consultation. The patient will be followed by Dr. Curry from tomorrow. MD EMILIA Villegas/GINO /12:04 PM /12:43 PM
[2016-05-09] MEDS: cefTRIAXone INJ 2,000 MG in SODIUM CHLORIDE 0.9% INJ 100 ML IV SCH (21:54)
[2016-05-10] VITALS (25 sets, daily range): BP systolic 106–150; BP diastolic 66–113; PULSE 96–110; RESP 16–18; TEMP 98.6–99.3; O2SAT 95–99
[2016-05-10] MEDS: oxyCODONE/ACETAMINOPHEN 10 MG/325 MG TAB PO PRN ×2 (01:59→20:38)
[2016-05-10] MEDS: MORPHINE SULFATE 4 MG/ML INJ IV PRN ×4 (04:07→18:30)
[2016-05-10] MEDS: HEPARIN SODIUM - SQ 10,000 UNITS/ML VIAL SQ SCH ×2 (08:00→20:37)
[2016-05-10] MEDS: levETIRAcetam 500 MG TAB PO SCH ×2 (09:01→20:38)
[2016-05-10] MEDS: PANTOPRAZOLE SOD 20 MG DELAYED RELEASE TAB PO SCH (09:01)
[2016-05-10] MEDS: LABETALOL HCL 300 MG TAB PO SCH ×2 (09:01→20:37)
[2016-05-10] MEDS: CALCIUM ACETATE 667 MG CAP PO SCH ×3 (09:02→18:00)
[2016-05-10] MEDS: LOSARTAN 50 MG TAB PO SCH ×2 (09:02→20:37)
[2016-05-10] MEDS: HYDROXYCHLOROQUINE SULFATE 200 MG TAB PO SCH ×2 (09:02→20:37)
[2016-05-10] MEDS: SODIUM CHLORIDE 0.9% FLUSH 5 ML FLUSH FLUSH SCH ×2 (09:03→20:37)
--- NOTE | 2016-05-10 09:39 | HHI.NPPN ---
Subjective Complaints: Abdominal Pain General Problems: Hypertension Renal Failure: Chronic, End Stage Renal Disease Interval History She is awake. Afebrile. Blood pressure is stable. PD last night without complication. (Kaylen Ireland) Review of Systems Gastrointestinal Gastrointestinal: Abdominal Pain, Nausea & Vomiting (Kaylen Ireland) Objective Data Data 05/09/16 05/10/16 19:00 07:00 Intake Total 770 ml 240 ml Output Total 1428 ml 350 ml Balance -658 ml -110 ml Intake Oral 770 ml 240 ml IV Total 0 ml 0 ml Output Urine Total 500 ml 350 ml Emesis 300 ml Peritoneal Fluid 628 ml # Bowel Movements 0 0 Vital Signs Date Time Temp Pulse Resp B/P Pulse Ox O2 Delivery O2 Flow Rate FiO2 05/10/16 06:00 99 05/10/16 05:03 98.6 103 18 106/66 97 05/10/16 05:00 104 05/10/16 04:00 102 05/10/16 03:00 98 05/10/16 02:00 102 05/10/16 01:00 102 05/10/16 00:51 98.9 98 16 150/113 98 05/10/16 00:00 106 05/09/16 23:00 102 05/09/16 22:00 104 05/09/16 21:09 98.9 107 16 141/103 97 05/09/16 21:00 106 05/09/16 20:00 107 05/09/16 19:00 96 05/09/16 18:42 112 05/09/16 17:49 98.2 92 16 117/72 97 05/09/16 17:00 100 05/09/16 16:00 104 05/09/16 15:00 101 05/09/16 14:00 102 05/09/16 13:01 96 05/09/16 12:00 90 05/09/16 11:19 98.3 89 18 117/17 97 05/09/16 11:00 93 05/09/16 10:00 96 (Kaylen Ireland) -: 05/09/16 0357 05/09/16 0357 Imaging Last 72 hours Impressions Abdomen/Pelvis CT 05/08/16 1404 Signed Impressions: Service Date/Time: Sunday, May 08, 2016 15:26 - CONCLUSION: 1. Fluid adjacent to the pancreas raises the possibility of pancreatitis in the right clinical setting. Correlation with amylase/lipase levels. 2. Diffuse minimal ascites. 3. Atrophic kidneys and peritoneal dialysis catheter. Jalen Gregg MD Chest X-Ray 05/08/16 0000 Signed Impressions: Service Date/Time: Sunday, May 08, 2016 14:28 - CONCLUSION: No acute disease. Jalen Gregg MD Tubes & Lines: Tenckhoff Catheter (Kaylen Ireland PROGRAM REVIEW DIRECTOR) Physical Exam General Appearance: Well Developed, Well Nourished, No Acute Distress (Kaylen Ireland B. PROGRAM REVIEW DIRECTOR) Throat Throat Exam: Oral Mucosa [place] & Moist (Kaylen Ireland B. PROGRAM REVIEW DIRECTOR) Neck Neck Exam: Neck Supple (Kaylen Ireland B. PROGRAM REVIEW DIRECTOR) Pulmonary Resp Exam: Clear Bilaterally, Breath Sounds Equal (Kaylen Ierland B. PROGRAM REVIEW DIRECTOR) Cardiology CV Exam: Normal Sinus Rhythm, Good Perfusion, Tachycardia (Kaylen Ireland B. PROGRAM REVIEW DIRECTOR) Gastrointestinal/Abdomen GI Exam: Soft, Bowel Sounds Present GI Remarks slightly tender (Kaylen Ireland B. PROGRAM REVIEW DIRECTOR) Musculoskeletal MS Exam: Joints Intact, Good Strength (Kaylen Ireland B. PROGRAM REVIEW DIRECTOR) Integumentary Skin Exam: Clear, Warm, Dry, Intact (Kaylen Ireland B. PROGRAM REVIEW DIRECTOR) Extremeties Extremities Exam: No Edema, Pedal Pulses Palpable (Kaylen Ireland B. PROGRAM REVIEW DIRECTOR) Neurologic Neuro Exam: Alert, Awake, Oriented, Speech Clear, Moving All Extremities ( Kaylen Ireland B. PROGRAM REVIEW DIRECTOR) Psychiatric Psych Exam: Appropriate Responses (Kaylen Ireland BBart POLLARDP) Assessment/Plan Discussed Condition With: Patient Assessment Summary: Anemia of CKD, Hypertension, End Stage Renal Disease Problem List: (1) ESRD (end stage renal disease) on dialysis Plan: Continue PD nightly, no current concerns no electrolyte concerns continue current plan (2) Pancreatitis, acute Plan: On Rocephin with clear liquid diet afebrile, monitor clinically possible GI evaluation prn pain medications (3) Hypertension Plan: BP acceptable continue oral medications (4) Metabolic bone disease Plan: On calcium acetate check phosphorus level in am (5) Anemia Plan: Hb stable, she receives Epogen in the PD clinic outpatient monitor for changes (Kaylen Ireland) Plan Patient was seen and examined. Agree with above. She reports that she is hungry , wants us to advance her diet. Continue PD. (Jasbir Curry MD) Problem Qualifiers (1) Pancreatitis, acute: Qualified Code: K85.90 - Acute pancreatitis, unspecified complication status, unspecified pancreatitis type Kaylen Ireland May 10, 2016 09:39 Jasbir Curry MD May 10, 2016 11:34
--- NOTE | 2016-05-10 14:18 | HHI.PR ---
Subjective Remarks Follow up for Abdominal pain, ESRD on PD. Ms. Sullivan is currently doing well. She reports feeling better and improved abdominal pain. She is tolerating diet better per RN. No fever or chills. Objective Vitals Vital Signs Date Time Temp Pulse Resp B/P Pulse Ox O2 Delivery O2 Flow Rate FiO2 05/10/16 13:00 18 05/10/16 12:00 104 05/10/16 11:00 100 05/10/16 11:00 99.2 105 18 139/96 99 05/10/16 10:00 110 05/10/16 08:00 98 05/10/16 07:30 98.9 99 18 119/73 95 05/10/16 07:00 98 05/10/16 06:00 99 05/10/16 05:03 98.6 103 18 106/66 97 05/10/16 05:00 104 05/10/16 04:00 102 05/10/16 03:00 98 05/10/16 02:00 102 05/10/16 01:00 102 05/10/16 00:51 98.9 98 16 150/113 98 05/10/16 00:00 106 05/09/16 23:00 102 05/09/16 22:00 104 05/09/16 21:09 98.9 107 16 141/103 97 05/09/16 21:00 106 05/09/16 20:00 107 05/09/16 19:00 96 05/09/16 18:42 112 05/09/16 17:49 98.2 92 16 117/72 97 05/09/16 17:00 100 05/09/16 16:00 104 05/09/16 15:00 101 I/O 05/09/16 05/09/16 05/09/16 05/10/16 05/10/16 05/10/16 07:00 15:00 23:00 07:00 15:00 23:00 Intake Total 120 ml 650 ml 240 ml Output Total 1128 ml 300 ml 350 ml 818 ml Balance -1008 ml 350 ml -110 ml -818 ml Intake Oral 120 ml 650 ml 240 ml IV Total 0 ml 0 ml Output Urine Total 500 ml 0 ml 350 ml Emesis 300 ml Peritoneal Fluid 628 ml 818 ml # Voids 1 # Bowel Movements 0 0 Result Diagram: 05/09/16 0357 05/09/16 0357 Imaging Last Impressions Abdomen/Pelvis CT 05/08/16 1404 Signed Impressions: Service Date/Time: Sunday, May 08, 2016 15:26 - CONCLUSION: 1. Fluid adjacent to the pancreas raises the possibility of pancreatitis in the right clinical setting. Correlation with amylase/lipase levels. 2. Diffuse minimal ascites. 3. Atrophic kidneys and peritoneal dialysis catheter. Jalen Gregg MD Chest X-Ray 05/08/16 0000 Signed Impressions: Service Date/Time: Sunday, May 08, 2016 14:28 - CONCLUSION: No acute disease. Jalen Gregg MD Objective Remarks GENERAL: Alert, Oriented x 3, NAD. SKIN: Warm and dry. HEAD: Normocephalic. EYES: No scleral icterus. No injection or drainage. NECK: Supple, trachea midline. No JVD or lymphadenopathy. CARDIOVASCULAR: Regular rate and rhythm without murmurs, gallops, or rubs. RESPIRATORY: Breath sounds equal bilaterally. No accessory muscle use. GASTROINTESTINAL: Abdomen soft, nondistended, tender to light palpation. No rigidity, guarding present. MUSCULOSKELETAL: No cyanosis, or edema. BACK: Nontender without obvious deformity. No CVA tenderness. Procedures None. A/P Assessment and Plan Ms. Sullivan is a 20-year-old female with history of ESRD on PD, lupus, hypertension, anxiety, migraines, presents with a 2 day history of abdominal pain, nausea, chest fullness, shortness of breath. Abdominal pain: Possible SBP and pancreatitis. Lipase 427. WBC 11.1 K, afebrile. Abdomen/pelvis CT images reviewed by me on 05/08/2016, showed fluid adjacent to the pancreas, results possibly pancreatitis; diffuse minimal ascites ; atrophic kidneys and PD catheter. - Lipase is not more than 3 times upper limit of normal. - Continue IV Rocephin 2 g daily for possible SBP. -Advance diet to regular diet. - Supportive treatment with IVF, antiemetics, and pain control with Percocet and IV morphine prn - WBC 11.1 --> 8.4. - Continue PPI. ESRD on PD: Cr 11. Likely secondary to inability to tolerate recent peritoneal dialysis - Nephrology following patient. Accelerated Hypertension: SBP >200 upon arrival. S/p multiple IV labetalol doses in the ED. - Continue patient's home Cozaar, Labetalol - Added clonidine prn and IV labetalol prn - Currently BP is within reasonable range. Chest Pain/SOB: atypical, suspect related to fluid overload. - ACS ruled out. Troponins were 0.02, 0.03. - IV morphine prn pain Seizure disorder: Chronic - Continue patient's Keppra twice a day Full code. Heparin SQ. Emily Doss DO May 10, 2016 14:18
[2016-05-10] MEDS: ONDANSETRON HCL 4 MG/2 ML VIAL IVP PRN (14:45)
[2016-05-10] MEDS: cefTRIAXone INJ 2,000 MG in SODIUM CHLORIDE 0.9% INJ 100 ML IV SCH (20:36)
[2016-05-11] VITALS (12 sets, daily range): BP systolic 127–142; BP diastolic 84–88; PULSE 71–117; RESP 16–18; TEMP 98.7–99; O2SAT 97–98
[2016-05-11] MEDS: MORPHINE SULFATE 4 MG/ML INJ IV PRN ×2 (00:14→06:10)
[2016-05-11 06:57] LABS: BICARBONATE 30.5 MEQ/L (21.0-32.0)
[2016-05-11] MEDS ORDERED: PERC7.5T13 PO (09:17)
[2016-05-11] MEDS ORDERED: CIPR500T2 PO (09:17)
--- NOTE | 2016-05-11 09:21 | HHI.DS ---
Discharge Summary Admission Date May 08, 2016 at 6:18 pm Discharge Date: May 11, 2016 Admitting Diagnosis acute pancreatitis; ESRD on peritoneal dialysis; HTN (1) Gastroenteritis ICD Code: K52.9 (2) ESRD (end stage renal disease) on dialysis ICD Code: N18.6 (3) SBP (spontaneous bacterial peritonitis) ICD Code: K65.2 Procedures None. Brief History - From Admission 20-year-old female with history of ESRD on PD, lupus, hypertension, anxiety, migraines, presents with a 2 day history of abdominal pain, nausea, chest fullness, shortness of breath. The patient states last night when she got on her dialysis machine, she started having abdominal discomfort and shortness of breath. This morning she woke up with significant abdominal pain located diffusely throughout the entire abdomen, associated with nausea. She also noticed her face was more swollen with increased shortness of breath. Her entire chest feels tight. Denies fevers/chills. Denies cough. She still makes urine, denies dysuria or increased urinary frequency/urgency. She follows with Dr. Curry, last seen 1-2 weeks ago and everything was fine at that visit. Denies any alcohol use. Reports compliance with medications. Denies any surrounding erythema/drainage at peritoneal dialysis catheter site. She has no other medical complaints at this time. CBC/BMP: 05/09/16 0357 05/11/16 0443 Significant Findings Laboratory Tests Test 05/08/16 05/09/16 05/11/16 14:12 03:57 04:43 White Blood Count 11.1 TH/MM3 (4.0-11.0) Red Cell Distribution Width 17.6 % 17.7 % (11.6-17.2) (11.6-17.2) Mean Platelet Volume 6.3 FL 6.7 FL (7.0-11.0) (7.0-11.0) Eosinophils (%) (Auto) 23.7 % 23.1 % (0.0-4.0) (0.0-4.0) Eosinophils # (Auto) 2.6 TH/MM3 1.9 TH/MM3 (0-0.4) (0-0.4) Chloride Level 97 MEQ/L (98-107) Anion Gap 16 MEQ/L (5-15) Blood Urea Nitrogen 65 MG/DL (7-18) 60 MG/DL (7-18) 52 MG/DL (7-18) Creatinine 11.47 MG/DL 11.26 MG/DL 12.55 MG/DL (0.50-1.00) (0.50-1.00) (0.50-1.00) Estimat Glomerular Filtration 4 ML/MIN (>89) 4 ML/MIN (>89) 4 ML/MIN (>89) Rate Calcium Level 7.8 MG/DL 7.7 MG/DL 8.0 MG/DL (8.5-10.1) (8.5-10.1) (8.5-10.1) Aspartate Amino Transf 14 U/L (15-37) 10 U/L (15-37) (AST/SGOT) Total Protein 5.6 GM/DL 4.7 GM/DL (6.4-8.2) (6.4-8.2) Albumin 2.5 GM/DL 2.0 GM/DL 2.2 GM/DL (3.4-5.0) (3.4-5.0) (3.4-5.0) Lipase 427 U/L (73-393) Red Blood Count 3.96 MIL/MM3 (4.00-5.30) Hemoglobin 11.1 GM/DL (11.6-15.3) Hematocrit 32.3 % (35.0-46.0) Alanine Aminotransferase 7 U/L (10-53) (ALT/SGPT) Phosphorus Level 7.7 MG/DL (2.5-4.9) Imaging Last Impressions Abdomen/Pelvis CT 05/08/16 1404 Signed Impressions: Service Date/Time: Sunday, May 08, 2016 15:26 - CONCLUSION: 1. Fluid adjacent to the pancreas raises the possibility of pancreatitis in the right clinical setting. Correlation with amylase/lipase levels. 2. Diffuse minimal ascites. 3. Atrophic kidneys and peritoneal dialysis catheter. Jalen Gregg MD Chest X-Ray 05/08/16 0000 Signed Impressions: Service Date/Time: Sunday, May 08, 2016 14:28 - CONCLUSION: No acute disease. Jalen Gregg MD PE at Discharge GENERAL: Alert, Oriented x 3, NAD. SKIN: Warm and dry. HEAD: Normocephalic. EYES: No scleral icterus. No injection or drainage. NECK: Supple, trachea midline. No JVD or lymphadenopathy. CARDIOVASCULAR: Regular rate and rhythm without murmurs, gallops, or rubs. RESPIRATORY: Breath sounds equal bilaterally. No accessory muscle use. GASTROINTESTINAL: Abdomen soft, nondistended, Non-Tender. No rigidity, guarding present. MUSCULOSKELETAL: No cyanosis, or edema. BACK: Nontender without obvious deformity. No CVA tenderness. Pt update on day of discharge Ms. Sullivan is doing well. No acute concerns. Tolerated diet well last night. Much improved abdominal pain. No fever, chills. Hospital Course Ms. Sullivan is a 20-year-old female with history of ESRD on PD, lupus, hypertension, anxiety, migraines, presents with a 2 day history of abdominal pain, nausea, chest fullness, shortness of breath. Abdominal pain Probable Spontaneous bacterial peritonitis. Possible Acute pancreatitis. - Lipase 427. WBC 11.1 K, afebrile. Abdomen/pelvis CT images reviewed by me on 05/08/2016, showed fluid adjacent to the pancreas, results possibly pancreatitis; diffuse minimal ascites; atrophic kidneys and PD catheter. - Lipase is not more than 3 times upper limit of normal. - Continue IV Rocephin 2 g daily for possible SBP. Cipro for 5 days on discharge. - Continue regular diet. - Supportive treatment with IVF, antiemetics, and pain control with Percocet and IV morphine prn - WBC 11.1 --> 8.4. - Continue PPI. ESRD on PD: Cr 11. Likely secondary to inability to tolerate recent peritoneal dialysis - Nephrology following patient. Accelerated Hypertension: SBP >200 upon arrival. S/p multiple IV labetalol doses in the ED. - Continue patient's home Cozaar, Labetalol - clonidine prn and IV labetalol prn - Currently BP is within reasonable range. Chest Pain/SOB: atypical, suspect related to fluid overload. - ACS ruled out. Troponins were 0.02, 0.03. - IV morphine prn pain Seizure disorder: Chronic - Continue patient's Keppra twice a day Patient was seen/examined. She is doing well and is being discharged home. Nephrology is okay with the discharge plan. Pt Condition on Discharge: Good Discharge Disposition: Discharge Home Discharge Time: > 30 minutes Discharge Instructions DIET: Follow Instructions for: As Tolerated, No Restrictions Activities you can perform: Regular-No Restrictions Follow up Referrals: Nephrology - 1 Week with Jasbir Curry MD PCP Follow-up - 1 Week New Medications: Ciprofloxacin (Ciprofloxacin) 500 Mg Tab 500 MG PO BID Infection #10 Ref 0 TAB Oxycodone-Acetaminophen (Percocet) 7.5-325 mg Tab 1 TAB PO Q6H PRN PAIN #20 Ref 0 TAB Continued Medications: Amlodipine (Norvasc) 10 Mg Tab 10 MG PO BID Blood Pressure Management #30 Ref 0 TAB Calcium Acetate (Phosphate Binder) (Calcium Acetate (Phosphate Binder)) 667 Mg Cap 1334 MG PO TID Hyperphosphatemia #180 Ref 0 CAP Epoetin Inj (Epogen Inj) 2,000 Unit/Ml Inj 1500 UNITS SQ 2XMONTH VIAL Hydroxychloroquine (Hydroxychloroquine) 200 Mg Tab 200 MG PO BID Takw with food #60 Ref 0 TAB Labetalol (Labetalol) 300 Mg Tab 300 MG PO Q12HR Blood Pressure Management #60 TAB Levetiracetam (Keppra) 500 Mg Tab 500 MG PO Q12HR seizures Days 30 TAB Losartan (Cozaar) 50 Mg Tab 50 MG PO BID Blood Pressure Management #30 Ref 0 TAB Pantoprazole (Protonix) 20 Mg Tab 20 MG PO DAILY Reflux #30 Ref 0 TAB Sodium Bicarbonate (Sodium Bicarbonate) 650 Mg Tab 650 MG PO BIDPC #60 Ref 0 TAB Emily Doss DO May 11, 2016 09:21
[2016-05-11] MEDS: levETIRAcetam 500 MG TAB PO SCH (09:35)
[2016-05-11] MEDS: PANTOPRAZOLE SOD 20 MG DELAYED RELEASE TAB PO SCH (09:35)
[2016-05-11] MEDS: LABETALOL HCL 300 MG TAB PO SCH (09:36)
[2016-05-11] MEDS: HYDROXYCHLOROQUINE SULFATE 200 MG TAB PO SCH (09:36)
[2016-05-11] MEDS: LOSARTAN 50 MG TAB PO SCH (09:36)
[2016-05-11] MEDS: HEPARIN SODIUM - SQ 10,000 UNITS/ML VIAL SQ SCH (09:36)
[2016-05-11] MEDS: CALCIUM ACETATE 667 MG CAP PO SCH ×2 (09:36→13:00)
[2016-05-11] MEDS: oxyCODONE/ACETAMINOPHEN 10 MG/325 MG TAB PO PRN (09:42)
[2016-05-11] MEDS: SODIUM CHLORIDE 0.9% FLUSH 5 ML FLUSH FLUSH SCH (09:42)
--- NOTE | 2016-05-11 12:32 | HHI.NPPN ---
Subjective Complaints: Abdominal Pain General Problems: Hypertension Renal Failure: Chronic, End Stage Renal Disease Interval History PD going well. She was going to be discharged but began vomiting. (Kaylen Ireland) Review of Systems Gastrointestinal Gastrointestinal: Abdominal Pain, Nausea & Vomiting (Kaylen Ireland) Objective Data Data 05/10/16 05/11/16 19:00 07:00 Intake Total 460 ml Output Total 818 ml Balance -818 ml 460 ml Intake Oral 360 ml IV Total 100 ml Peritoneal Fluid 818 ml # Voids 1 1 # Bowel Movements 0 Vital Signs Date Time Temp Pulse Resp B/P Pulse Ox O2 Delivery O2 Flow Rate FiO2 05/11/16 10:00 96 05/11/16 09:00 96 05/11/16 08:00 100 05/11/16 07:47 98.7 101 16 127/84 05/11/16 07:00 111 05/11/16 06:00 71 05/11/16 05:00 88 05/11/16 04:00 91 05/11/16 03:00 99.0 94 18 133/84 98 05/11/16 03:00 99 05/11/16 02:00 98 05/11/16 01:00 93 05/11/16 00:00 99.0 117 18 142/88 97 05/11/16 00:00 117 05/10/16 23:00 104 05/10/16 22:00 107 05/10/16 21:00 96 05/10/16 20:00 96 05/10/16 20:00 98.8 99 18 138/90 97 05/10/16 19:00 98 05/10/16 17:00 100 05/10/16 16:00 102 05/10/16 15:00 99.3 103 18 138/88 98 05/10/16 15:00 102 05/10/16 14:00 100 05/10/16 13:00 106 05/10/16 13:00 18 (Kaylen Ireland) -: 05/09/16 0357 05/11/16 0443 Tubes & Lines: Tenckhoff Catheter (Kaylen Ireland) Physical Exam General Appearance: Well Developed, Well Nourished, No Acute Distress (Kayeln Ireland) Throat Throat Exam: Oral Mucosa [place] & Moist (Kaylen Ireland) Neck Neck Exam: Neck Supple (Kaylen Ireland) Pulmonary Resp Exam: Clear Bilaterally, Breath Sounds Equal (Kaylen Ireland) Cardiology CV Exam: Normal Sinus Rhythm, Good Perfusion, Tachycardia (Kaylen Ierland) Gastrointestinal/Abdomen GI Exam: Soft, Bowel Sounds Present GI Remarks slightly tender (Kaylen Ireland) Musculoskeletal MS Exam: Joints Intact, Good Strength (Kaylen Ireland) Integumentary Skin Exam: Clear, Warm, Dry, Intact (Kaylen Ireland) Extremeties Extremities Exam: No Edema, Pedal Pulses Palpable (Kaylen Ireland) Neurologic Neuro Exam: Alert, Awake, Oriented, Speech Clear, Moving All Extremities ( Kaylen Ireland) Psychiatric Psych Exam: Appropriate Responses (Kaylen Ireland) Assessment/Plan Discussed Condition With: Patient Assessment Summary: Anemia of CKD, Hypertension, End Stage Renal Disease Problem List: (1) ESRD (end stage renal disease) on dialysis Plan: Continue PD nightly, no current concerns no electrolyte concerns continue current plan she is cleared for discharge if tolerating food/fluids (2) Pancreatitis, acute Plan: On Rocephin had tolerated advanced diet, now vomiting, reattempt feeding afebrile, monitor clinically prn pain medications (3) Hypertension Plan: BP acceptable continue oral medications (4) Metabolic bone disease Plan: On calcium acetate discussed phos restriction (5) Anemia Plan: Hb stable, she receives Epogen in the PD clinic outpatient monitor for changes Plan D. (Kaylen Ireland) Plan patient was seen and examined. Agree with above assessment and plan. Possible discharge today. (Jasbir Curry MD) Problem Qualifiers (1) Pancreatitis, acute: Qualified Code: K85.90 - Acute pancreatitis, unspecified complication status, unspecified pancreatitis type Kaylen Ireland May 11, 2016 12:32 Jasbir Curry MD May 11, 2016 16:36
== END 2016-05-11 15:27 | disposition home or self-care (01) | DRG 371 ==
LOC: NEPA 13:20 → NEDA 16:24 → OBSVTOIN 18:18 → HCIS 05-09 01:04
PROVIDERS: ADMIT Hospitalist; ATTEND Hospitalist
PROC: 3E1M39Z Irrigation of Peritoneal Cavity using Dialysate, Percutaneous Approach (ICD-10-PCS; principal; 2016-05-10)
DX: K65.2 Spontaneous bacterial peritonitis (principal); K85.90 Acute pancreatitis without necrosis or infection, unspecified; N18.6 End stage renal disease; E88.89 Other specified metabolic disorders; I12.0 Hypertensive chronic kidney disease with stage 5 chronic kidney disease or end stage renal disease; M32.9 Systemic lupus erythematosus, unspecified; F41.9 Anxiety disorder, unspecified; G40.909 Epilepsy, unspecified, not intractable, without status epilepticus; E87.70 Fluid overload, unspecified; F12.90 Cannabis use, unspecified, uncomplicated; G43.909 Migraine, unspecified, not intractable, without status migrainosus; D63.1 Anemia in chronic kidney disease; K52.9 Noninfective gastroenteritis and colitis, unspecified; Z99.2 Dependence on renal dialysis
CPT/HCPCS: 71010; 74176; 80053; 80069; 82550; 83690; 84484; 84702; 85025; 87040; 90935; 93005; 96374; 96375; 96376; J0696; J1644; J2270; J2405

== ENCOUNTER 2016-05-24 14:26 | Inpatient (IN) | payer OTHER ==
[~2016-05-24] VITALS: Ht 162.6 cm; Wt 58.9 kg
[~2016-05-24 14:26] MED LIST changes: +CALC1CAP PO; +CIPR500T2 PO; -CLON0.1T PO; +PERC7.5T13 PO; -SEVEL800 PO
[2016-05-24 14:38] VITALS: BP 191/142; PULSE 104; RESP 20; TEMP 102.9; O2SAT 97
[2016-05-24 15:30] VITALS: RESP 22; O2SAT 100
[2016-05-24] MEDS ORDERED: MORPHINE SULFATE 4 MG/ML INJ IV PUSH ONE (15:45)
[2016-05-24] MEDS ORDERED: SODIUM CHLORIDE 0.9% FLUSH 5 ML FLUSH IVF PRN (15:45)
[2016-05-24] MEDS ORDERED: ONDANSETRON HCL 4 MG/2 ML VIAL IVP ONE (15:45)
[2016-05-24] MEDS ORDERED: LABETALOL HCL 100 MG/20 ML VIAL IV PUSH ONE (15:45)
--- NOTE | 2016-05-24 15:49 | PD ---
HPI Chief Complaint: Headache Time Seen by Provider: 15:28 Travel History International Travel<30 days: No Contact w/Intl Traveler<30days: No Traveled to known affect area: No History of Present Illness HPI The patient is a 20-year-old female who presents to the emergency department for headache, blurry vision, nausea, vomiting, body aches, and fever. The patient states her symptoms started last night and progressively worsened. The patient states she awakened this morning with a headache which she describes as throbbing, bilateral, and associated with blurry vision. The patient also complains of chest pain and chest tightness with mild shortness of breath. The patient does note a dry nonproductive cough that started last night. She also complains of generalized abdominal pain and states she had pancreatitis several weeks ago. The patient is currently on peritoneal dialysis, nightly, for end- stage renal disease secondary to lupus. The patient was being treated for lupus , however, was taken off of the CellCept secondary to her renal disease. The patient is currently followed by her territory account representative, Dr. Curry. The patient does note a history of similar symptoms in the past secondary to elevated blood pressure. The patient states she had these symptoms 3 weeks ago when she suffered 3 seizures from her elevated blood pressure. Patient also complains of body aches, mostly over the right thigh and right ankle. PFSH Past Medical History Arthritis: No Autoimmune Disease: Yes (LUPUS ) Anxiety: Yes Depression: No Heart Rhythm Problems: No Cancer: No Cardiovascular Problems: Yes (htn) High Cholesterol: No Chemotherapy: No Chest Pain: No Congestive Heart Failure: No Cerebrovascular Accident: Yes Diabetes: No Dialysis: Yes (DAILY) Diminished Hearing: No Endocrine: No Gastrointestinal Disorders: Yes (Nausea, low appetite) GERD: No Genitourinary: No Headaches: Yes (CLUSTER MUNOZ) Hepatitis: No Hiatal Hernia: No Heparin Induced Thrombocytopen: No Hypertension: Yes Immune Disorder: Yes (Lupus) Implanted Vascular Access Dvce: No Kidney Stones: No Musculoskeletal: No Neurologic: Yes (LUPUS) Psychiatric: No Reproductive: No Respiratory: No Immunizations Current: Yes Migraines: Yes (FROM HTN) Radiation Therapy: No Renal Failure: Yes Seizures: Yes (FROM HTN) Sickle Cell Disease: No Thyroid Disease: No Ulcer: No ?: Not LMP: 3 WEEKS AGO : 1 Para: 1 Past Surgical History Abdominal Surgery: Yes (PERMACATH, PERITONEAL DIALYSIS) AICD: No Arteriovenous Shunt: No Body Medical Devices: ,PD catheter Cardiac Surgery: No Endocrine Surgery: No Genitourinary Surgery: No Insulin Pump: No Joint Replacement: No Neurologic Surgery: No Pacemaker: No Thoracic Surgery: Yes (VAS CATH TO LEFT CHEST, removed) Other Surgery: Yes ((R) Permacath, PD catheter) Social History Alcohol Use: No Tobacco Use: No Substance Use: Yes (Marijuana daily) Allergies-Medications (Allergen,Severity, Reaction): Coded Allergies: Hydralazine (Verified Allergy, Severe, Rash, 05/08/16) Vancomycin (Verified Allergy, Severe, Red man syndrome , 05/08/16) Metoprolol (Verified Allergy, Unknown, Patient does not know, 05/08/16) Reported Meds & Prescriptions Reported Meds & Active Scripts Active Percocet (Oxycodone-Acetaminophen) 7.5-325 mg Tab 1 Tab PO Q6H PRN Ciprofloxacin (Ciprofloxacin HCl) 500 Mg Tab 500 Mg PO BID Labetalol (Labetalol HCl) 300 Mg Tab 300 Mg PO Q12HR Keppra (Levetiracetam) 500 Mg Tab 500 Mg PO Q12HR 30 Days Reported Calcium Acetate (Phosphate Binder) 667 Mg Cap 1,334 Mg PO TID Sodium Bicarbonate 650 Mg Tab 650 Mg PO BIDPC Protonix (Pantoprazole Sodium) 20 Mg Tab 20 Mg PO DAILY Norvasc (Amlodipine Besylate) 10 Mg Tab 10 Mg PO BID Cozaar (Losartan Potassium) 50 Mg Tab 50 Mg PO BID Hydroxychloroquine (Hydroxychloroquine Sulfate) 200 Mg Tab 200 Mg PO BID Takw with food Epogen Inj (Epoetin [place]) 2,000 Unit/Ml Inj 1,500 Units SQ 2XMONTH Review of Systems Except as stated in HPI: all other systems reviewed are Neg General / Constitutional: Positive: Fever Eyes: Positive: Blurred Vision HENT: Positive: Headaches Cardiovascular: Positive: Chest Pain or Discomfort Respiratory: Positive: Shortness of Breath Gastrointestinal: Positive: Nausea, Vomiting Genitourinary: Positive: Decreased Urinary Output Musculoskeletal: Positive: Myalgias, Arthralgias, Weakness Skin: No Rash Physical Exam Narrative GENERAL: 20-year-old female appears her stated age and appears in moderate discomfort and slightly anxious. SKIN: Warm and dry. HEAD: Atraumatic. Normocephalic. EYES: Pupils equal and round. 3 mm bilateral and reactive. EOMs are intact. Patient is able to see fingers at a distance of 2 feet without difficulty. ENT: No nasal bleeding or discharge. Mucous membranes pink and moist. NECK: Trachea midline. No JVD. No meningeal signs. CARDIOVASCULAR: Regular, tachycardic with a heart rate of 101. RESPIRATORY: No accessory muscle use. Clear to auscultation. Breath sounds equal bilaterally. GASTROINTESTINAL: Abdomen soft, peritoneal dialysis catheter in place. Soft, mild tenderness. MUSCULOSKELETAL: No obvious deformities. No clubbing. No cyanosis. No edema. Back: No CVA tenderness. NEUROLOGICAL: Awake and alert. No obvious cranial nerve deficits. Motor grossly within normal limits. Normal speech. Nonfocal. PSYCHIATRIC: Appropriate mood and affect; insight and judgment normal. Data Data Last Documented VS Vital Signs Date Time Temp Pulse Resp B/P Pulse Ox O2 Delivery O2 Flow Rate FiO2 05/24/16 15:30 22 100 Room Air 05/24/16 15:30 110 05/24/16 14:38 102.9 191/142 Orders Complete Blood Count With Diff (05/24/16 15:39) Comprehensive Metabolic Panel (05/24/16 15:39) Prothrombin Time / Inr (Pt) (05/24/16 15:39) Act Partial Throm Time (Ptt) (05/24/16 15:39) Blood Culture (05/24/16 15:39) Ct Brain W/O Iv Contrast(Rout) (05/24/16 15:39) Ecg Monitoring (05/24/16 15:39) Iv Access Insert/Monitor (05/24/16 15:39) Oximetry (05/24/16 15:39) Sodium Chloride 0.9% Flush (Ns Flush) (05/24/16 15:45) Ondansetron Inj (Zofran Inj) (05/24/16 15:45) Influenzae A/B Antigen (05/24/16 15:39) Morphine Inj (Morphine Inj) (05/24/16 15:45) Labetalol Inj (Trandate Inj) (05/24/16 15:45) Lipase (05/24/16 15:39) Peritoneal Cell Count + Diff (05/24/16 15:46) Acetaminophen (Tylenol) (05/24/16 16:00) Chest, Single Ap (05/24/16 ) Creatine Kinase (Cpk) (05/24/16 15:39) Electrocardiogram (05/24/16 ) Lactic Acid Sepsis Protocol (05/24/16 16:04) Ceftriaxone Inj (Rocephin Inj) (05/24/16 16:45) Calcium Gluconate Inj (Calcium Gluconate (05/24/16 17:15) Insulin Human Regular Inj (Novolin R Inj (05/24/16 17:15) Dextrose 50% In Linnea (Vial) Inj (D50w (Vi (05/24/16 17:15) Sodium Polysty Sulfate Liq (Kayexalate L (05/24/16 17:15) Ceftriaxone Inj (Rocephin Inj) (05/24/16 17:30) Vancomycin Inj (Vancomycin Inj) (05/24/16 17:45) Admit Order (Ed Use Only) (05/24/16 17:32) Labs Laboratory Tests Test 05/24/16 05/24/16 15:58 16:17 White Blood Count 4.7 TH/MM3 Red Blood Count 3.92 MIL/MM3 Hemoglobin 11.1 GM/DL Hematocrit 34.2 % Mean Corpuscular Volume 87.2 FL Mean Corpuscular Hemoglobin 28.4 PG Mean Corpuscular Hemoglobin 32.5 % Concent Red Cell Distribution Width 19.1 % Platelet Count 186 TH/MM3 Mean Platelet Volume 6.8 FL Neutrophils (%) (Auto) 61.6 % Lymphocytes (%) (Auto) 22.1 % Monocytes (%) (Auto) 6.6 % Eosinophils (%) (Auto) 8.8 % Basophils (%) (Auto) 0.9 % Neutrophils # (Auto) 3.0 TH/MM3 Lymphocytes # (Auto) 1.0 TH/MM3 Monocytes # (Auto) 0.3 TH/MM3 Eosinophils # (Auto) 0.4 TH/MM3 Basophils # (Auto) 0.0 TH/MM3 CBC Comment DIFF FINAL Differential Comment Prothrombin Time 11.0 SEC Prothromb Time International 1.0 RATIO Ratio Activated Partial 30.6 SEC Thromboplast Time Sodium Level 136 MEQ/L Potassium Level 6.4 MEQ/L Chloride Level 100 MEQ/L Carbon Dioxide Level 23.5 MEQ/L Anion Gap 13 MEQ/L Blood Urea Nitrogen 44 MG/DL Creatinine 12.00 MG/DL Estimat Glomerular Filtration 4 ML/MIN Rate Random Glucose 81 MG/DL Calcium Level 7.4 MG/DL Protein Corrected Calcium 8.0 MG/DL Total Bilirubin 0.4 MG/DL Aspartate Amino Transf 19 U/L (AST/SGOT) Alanine Aminotransferase 15 U/L (ALT/SGPT) Alkaline Phosphatase 68 U/L Total Creatine Kinase 31 U/L Total Protein 6.0 GM/DL Albumin 2.6 GM/DL Lipase 130 U/L Lactic Acid Level 1.0 mmol/L MDM Medical Decision Making Medical Screen Exam Complete: Yes Emergency Medical Condition: Yes Medical Record Reviewed: Yes Differential Diagnosis Differential diagnosis includes hypertensive emergency, hypertensive urgency, influenza, spontaneous bacterial peritonitis, pneumonia, dissection, end-stage renal disease on peritoneal dialysis, lupus exacerbation. Narrative Course IV was established, labs are drawn and sent, and the patient was placed on cardiac telemetry monitoring and continuous pulse oximetry monitoring. EKG was ordered and interpreted. Chest x-ray was ordered. CT of the brain was obtained. The patient was administered labetalol 20 mg intravenously, morphine 4 mg intravenously, Zofran 4 mg intravenously. Fluid from the peritoneal dialysis catheter was ordered to evaluate for possible spontaneous bacterial peritonitis with diffuse symptoms and history of peritoneal dialysis. Blood cultures were sent to lab. The patient was signed out of 4 PM laboratory evaluation, chest x-ray, and CT of the brain pending. Diagnosis Primary Impression: Accelerated essential hypertension Additional Impression: ESRD (end stage renal disease) on dialysis Admitting Information Admitting Physician Requests: Admit Condition: Stable Fady Latif MD May 24, 2016 15:49
[2016-05-24] MEDS ORDERED: ACETAMINOPHEN 325 MG TAB PO ONE (16:00)
[2016-05-24 16:12] LABS: BASOPHIL % 0.9 % (0.0-2.0); EOSINOPHIL # 0.4 TH/MM3 (0-0.4); EOSINOPHIL % 8.8 % (0.0-4.0); HEMATOCRIT 34.2 % (35.0-46.0); HEMO FLAGS DIFF FINAL; LYMPH % 22.1 % (9.0-44.0); MEAN CELL VOLUME 87.2 FL (80.0-100.0); MEAN CORPUSCULAR HEMOGLOBIN 28.4 PG (27.0-34.0); MEAN CORPUSCULAR HGB CONC 32.5 % (32.0-36.0); MONO % 6.6 % (0.0-8.0); NEUT % 61.6 % (16.0-70.0); PLATELET COUNT 186 TH/MM3 (150-450); RED BLOOD COUNT 3.92 MIL/MM3 (4.00-5.30); RED CELL DISTRIBUTION WIDTH 19.1 % (11.6-17.2); WHITE BLOOD COUNT 4.7 TH/MM3 (4.0-11.0)
--- NOTE | 2016-05-24 16:14 | RADHPO ---
EXAM DATE/TIME: 05/24/2016 15:56 [facility] COMPARISON: CHEST SINGLE AP, May 08, 2016, 14:28. INDICATIONS : Severe shortness of breath. MEDICAL HISTORY : Hypertension. Renal disease, end stage. Lupus. SURGICAL HISTORY : dialysis catheter ENCOUNTER: Initial ACUITY: 2 days PAIN SCORE: 0/10 LOCATION: Bilateral upper chest FINDINGS: A single view of the chest demonstrates the lungs to be symmetrically aerated without evidence of mas s, infiltrate or effusion. The cardiomediastinal contours are unremarkable. Osseous structures are intact. CONCLUSION: No acute disease. Ricardo Matos MD FACR on May 24, 2016 at 16:13 Board Certified Radiologist. This report was verified electronically.
[2016-05-24 16:19] LABS: POTASSIUM 6.4 MEQ/L (3.5-5.1)
[2016-05-24 16:23] LABS: APTT (PATIENT) 30.6 SEC (24.3-30.1)
[2016-05-24 16:36] LABS: BICARBONATE 23.5 MEQ/L (21.0-32.0); TOTAL BILIRUBIN ADULT 0.4 MG/DL (0.2-1.0)
[2016-05-24] MEDS ORDERED: cefTRIAXone INJ 1,000 MG in SODIUM CHLORIDE 0.9% INJ 100 ML IV ONE (16:45)
--- NOTE | 2016-05-24 16:51 | RADHPO ---
EXAM DATE/TIME: 05/24/2016 16:21 [place] COMPARISON: CT BRAIN W/O CONTRAST, May 03, 2016, 11:13. INDICATIONS : Cephaliga. RADIATION DOSE: 56.98 CTDIvol (mGy) MEDICAL HISTORY : Cerebrovascular disease. Hypertension. Renal failure, chronic.Lupus SURGICAL HISTORY : None. ENCOUNTER: Initial ACUITY: 1 day PAIN SCALE: 4/10 LOCATION: Bilateral cranial TECHNIQUE: Multiple contiguous axial images were obtained of the head. Using automated exposure control and adj ustment of the mA and/or kV according to patient size, radiation dose was kept as low as reasonably a chievable to obtain optimal diagnostic quality images. FINDINGS: CEREBRUM: The ventricles are normal for age. No evidence of midline shift, mass lesion, hemorrhage or acute in farction. No extra-axial fluid collections are seen. POSTERIOR FOSSA: The cerebellum and brainstem are intact. The 4th ventricle is midline. The cerebellopontine angle i s unremarkable. EXTRACRANIAL: The visualized portion of the orbits is intact. There appears to be soft tissue swelling at the super ior medial left frontal scalp. SKULL: The calvaria is intact. No evidence of skull fracture. CONCLUSION: No acute intracranial abnormality. Navin Lovell MD on May 24, 2016 at 16:48 Board Certified Radiologist. This report was verified electronically.
--- NOTE | 2016-05-24 17:10 | PD ---
Physical Exam Narrative Received sign out from previous team to follow up labs, CT brain and likely admit. 20yo F with PMH of end stage renal disease on peritoneal dialysis secondary to lupus presents to the ED with c/o headache, generalized bodyache, sob, abdominal pain and fever since yesterday. Pt also with chest tightness, blurry vision today. +NBNB vomit today. States she has a history of migraine and usually gets similar headache when her blood pressure was elevated. States she was just admitted for pancreatitis and the abdominal pain feels similar. Denies any rash, focal weakness, focal numbness, neck pain. Pt is febrile at 102.9F, tachycardic at 104bpm and tachypneic at 20 breaths a minute on arrival. Pt also found to be hypertensive at 191/142. Pt was given morphine 4mg, acetaminophen 650mg, labetalol 20mg IV by previous team. Peritoneal cultures were also ordered by previous team. I was informed by dialysis that a nurse cannot be sent to [place] to obtain the cultures at this time but when they come to do dialysis, they will be able to draw fluid for cultures. Will cover with ceftriaxone 2mg IV. Pt evaluated at bedside and does not have any nuchal rigidity. I discussed with previous team regarding possibility of meningitis and he also does not feel that pt has meningitis based on his exam. GENERAL: 20yo F in moderate distress. SKIN: Warm and dry. HEAD: Atraumatic. Normocephalic. EYES: Pupils equal and round at 4mm bilaterally. EOMI. No scleral icterus. No injection or drainage. ENT: Throat clear. TM wnl bilaterally. NECK: No nuchal rigidity. CARDIOVASCULAR: Tachycardic. No murmur appreciated. RESPIRATORY: No accessory muscle use. Clear to auscultation. Breath sounds equal bilaterally. GASTROINTESTINAL: Abdomen soft, +Peritoneal dialysis catheter. Mild ttp periumbilical. No rebound tenderness or guarding. MUSCULOSKELETAL: No obvious deformities. No clubbing. No cyanosis. No edema. NEUROLOGICAL: Awake and alert. No obvious cranial nerve deficits. Motor grossly within normal limits. Normal speech. PSYCHIATRIC: Appropriate mood and affect; insight and judgment normal. Labs reviewed, no leukocytosis. H/H low at 11.1/34.2, at baseline. Creatinine 12.0, at baseline. K is elevated at 6.4. Pt does have some peaked T wave in anterior leads on EKG, will give calcium gluconate, insulin/dextrose, kayexylate. Lactic acid 1.0. Lipase is normal at 130. Dr. Velasco is her service liaison representative. CT brain and CXR negative. I discussed with Dr. Velasco and he recommended adding vancomycin 1gm IV for MRSA coverage. States that she had vancomycin before with no adverse reaction. Pt also states she does not know why it is listed in her allergies. Discussed with Dr. Mcknight and accepted to his service. Informed by nurse that pt did not get her medication for hyperkalemia and that she is going to hemodialysis now. Since she is having hemodialysis, I cancelled the insulin/dextrose and kayexylate. Data Data Last Documented VS Vital Signs Date Time Temp Pulse Resp B/P Pulse Ox O2 Delivery O2 Flow Rate FiO2 05/24/16 15:30 22 100 Room Air 05/24/16 15:30 110 05/24/16 14:38 102.9 191/142 Orders Complete Blood Count With Diff (05/24/16 15:39) Comprehensive Metabolic Panel (05/24/16 15:39) Prothrombin Time / Inr (Pt) (05/24/16 15:39) Act Partial Throm Time (Ptt) (05/24/16 15:39) Blood Culture (05/24/16 15:39) Ct Brain W/O Iv Contrast(Rout) (05/24/16 15:39) Ecg Monitoring (05/24/16 15:39) Iv Access Insert/Monitor (05/24/16 15:39) Oximetry (05/24/16 15:39) Sodium Chloride 0.9% Flush (Ns Flush) (05/24/16 15:45) Ondansetron Inj (Zofran Inj) (05/24/16 15:45) Influenzae A/B Antigen (05/24/16 15:39) Morphine Inj (Morphine Inj) (05/24/16 15:45) Labetalol Inj (Trandate Inj) (05/24/16 15:45) Lipase (05/24/16 15:39) Peritoneal Cell Count + Diff (05/24/16 15:46) Acetaminophen (Tylenol) (05/24/16 16:00) Chest, Single Ap (05/24/16 ) Creatine Kinase (Cpk) (05/24/16 15:39) Electrocardiogram (05/24/16 ) Lactic Acid Sepsis Protocol (05/24/16 16:04) Ceftriaxone Inj (Rocephin Inj) (05/24/16 16:45) Calcium Gluconate Inj (Calcium Gluconate (05/24/16 17:15) Insulin Human Regular Inj (Novolin R Inj (05/24/16 17:15) Dextrose 50% In Linnea (Vial) Inj (D50w (Vi (05/24/16 17:15) Sodium Polysty Sulfate Liq (Kayexalate L (05/24/16 17:15) Ceftriaxone Inj (Rocephin Inj) (05/24/16 17:30) Vancomycin Inj (Vancomycin Inj) (05/24/16 17:45) Admit Order (Ed Use Only) (05/24/16 17:32) Labs Laboratory Tests Test 05/24/16 05/24/16 15:58 16:17 White Blood Count 4.7 TH/MM3 Red Blood Count 3.92 MIL/MM3 Hemoglobin 11.1 GM/DL Hematocrit 34.2 % Mean Corpuscular Volume 87.2 FL Mean Corpuscular Hemoglobin 28.4 PG Mean Corpuscular Hemoglobin 32.5 % Concent Red Cell Distribution Width 19.1 % Platelet Count 186 TH/MM3 Mean Platelet Volume 6.8 FL Neutrophils (%) (Auto) 61.6 % Lymphocytes (%) (Auto) 22.1 % Monocytes (%) (Auto) 6.6 % Eosinophils (%) (Auto) 8.8 % Basophils (%) (Auto) 0.9 % Neutrophils # (Auto) 3.0 TH/MM3 Lymphocytes # (Auto) 1.0 TH/MM3 Monocytes # (Auto) 0.3 TH/MM3 Eosinophils # (Auto) 0.4 TH/MM3 Basophils # (Auto) 0.0 TH/MM3 CBC Comment DIFF FINAL Differential Comment Prothrombin Time 11.0 SEC Prothromb Time International 1.0 RATIO Ratio Activated Partial 30.6 SEC Thromboplast Time Sodium Level 136 MEQ/L Potassium Level 6.4 MEQ/L Chloride Level 100 MEQ/L Carbon Dioxide Level 23.5 MEQ/L Anion Gap 13 MEQ/L Blood Urea Nitrogen 44 MG/DL Creatinine 12.00 MG/DL Estimat Glomerular Filtration 4 ML/MIN Rate Random Glucose 81 MG/DL Calcium Level 7.4 MG/DL Protein Corrected Calcium 8.0 MG/DL Total Bilirubin 0.4 MG/DL Aspartate Amino Transf 19 U/L (AST/SGOT) Alanine Aminotransferase 15 U/L (ALT/SGPT) Alkaline Phosphatase 68 U/L Total Creatine Kinase 31 U/L Total Protein 6.0 GM/DL Albumin 2.6 GM/DL Lipase 130 U/L Lactic Acid Level 1.0 mmol/L MDM Supervised Visit with [facility]: No Interpretation(s) EKG: NSR 91bpm. Normal axis. Peaked T waves in V2-V3. Laboratory Tests Test 05/24/16 05/24/16 15:58 16:17 White Blood Count 4.7 TH/MM3 (4.0-11.0) Red Blood Count 3.92 MIL/MM3 (4.00-5.30) Hemoglobin 11.1 GM/DL (11.6-15.3) Hematocrit 34.2 % (35.0-46.0) Mean Corpuscular Volume 87.2 FL (80.0-100.0) Mean Corpuscular Hemoglobin 28.4 PG (27.0-34.0) Mean Corpuscular Hemoglobin 32.5 % Concent (32.0-36.0) Red Cell Distribution Width 19.1 % (11.6-17.2) Platelet Count 186 TH/MM3 (150-450) Mean Platelet Volume 6.8 FL (7.0-11.0) Neutrophils (%) (Auto) 61.6 % (16.0-70.0) Lymphocytes (%) (Auto) 22.1 % (9.0-44.0) Monocytes (%) (Auto) 6.6 % (0.0-8.0) Eosinophils (%) (Auto) 8.8 % (0.0-4.0) Basophils (%) (Auto) 0.9 % (0.0-2.0) Neutrophils # (Auto) 3.0 TH/MM3 (1.8-7.7) Lymphocytes # (Auto) 1.0 TH/MM3 (1.0-4.8) Monocytes # (Auto) 0.3 TH/MM3 (0-0.9) Eosinophils # (Auto) 0.4 TH/MM3 (0-0.4) Basophils # (Auto) 0.0 TH/MM3 (0-0.2) CBC Comment DIFF FINAL Differential Comment Prothrombin Time 11.0 SEC (9.8-11.6) Prothromb Time International 1.0 RATIO Ratio Activated Partial 30.6 SEC Thromboplast Time (24.3-30.1) Sodium Level 136 MEQ/L (136-145) Potassium Level 6.4 MEQ/L (3.5-5.1) Chloride Level 100 MEQ/L (98-107) Carbon Dioxide Level 23.5 MEQ/L (21.0-32.0) Anion Gap 13 MEQ/L (5-15) Blood Urea Nitrogen 44 MG/DL (7-18) Creatinine 12.00 MG/DL (0.50-1.00) Estimat Glomerular Filtration 4 ML/MIN (>89) Rate Random Glucose 81 MG/DL (74-106) Calcium Level 7.4 MG/DL (8.5-10.1) Protein Corrected Calcium 8.0 MG/DL (8.5-10.1) Total Bilirubin 0.4 MG/DL (0.2-1.0) Aspartate Amino Transf 19 U/L (15-37) (AST/SGOT) Alanine Aminotransferase 15 U/L (10-53) (ALT/SGPT) Alkaline Phosphatase 68 U/L (45-117) Total Creatine Kinase 31 U/L (26-192) Total Protein 6.0 GM/DL (6.4-8.2) Albumin 2.6 GM/DL (3.4-5.0) Lipase 130 U/L (73-393) Lactic Acid Level 1.0 mmol/L (0.4-2.0) Critical Care Narrative Aggregate critical care time was 40 minutes. Time to perform other separately billable procedures was not included in the critical care time. My time did not include minutes spent treating any other patients simultaneously or on activities that did not directly contribute to the patient's treatment. The services I provided to this patient were to treat and/or prevent clinically significant deterioration that could result in: cardiovascular collapse or . I provided critical care services requiring my management, as noted below: Chart data review, documentation time, medication orders and management, vital sign assessments/reviewing monitor data, ordering and reviewing lab tests, ordering and interpreting/reviewing x-rays and diagnostic studies, care of the patient and discussion of the patient with the admitting physicians. Diagnosis Primary Impression: Sepsis Qualified Code: A41.9 - Sepsis, due to unspecified organism Additional Impressions: ESRD (end stage renal disease) on dialysis Hyperkalemia Admitting Information Admitting Physician Requests: Admit Condition: Stable Darlene Lee DO May 24, 2016 17:10
[2016-05-24] MEDS ORDERED: DEXTROSE 50% IN WATER 50 ML VIAL(D50) IV PUSH ONE (17:15)
[2016-05-24] MEDS ORDERED: SODIUM POLYSTYRENE SULFONATE SUSP 15 GM/60 ML CUP PO ONE (17:15)
[2016-05-24] MEDS ORDERED: CALCIUM GLUCONATE 10% 1 GM/10 ML VIAL SLOW IVP ONE (17:15)
[2016-05-24] MEDS ORDERED: INSULIN HUMAN REGULAR 1,000 UNITS/10 ML VIAL IV PUSH ONE (17:15)
[2016-05-24] MEDS ORDERED: cefTRIAXone INJ 2,000 MG in SODIUM CHLORIDE 0.9% INJ 100 ML IV ONE (17:30)
[2016-05-24] MEDS ORDERED: VANCOMYCIN INJ 1,000 MG in SODIUM CHLOR 0.9% 250 ML INJ 250 ML IV ONE (17:45)
[2016-05-24] MEDS ORDERED: SODIUM CHLORIDE 0.9% FLUSH 5 ML FLUSH FLUSH PRN (18:00)
[2016-05-24] MEDS ORDERED: RESP: ALBUTEROL 2.5 MG/IPRATROPIUM 0.5 MG NEB (PRN) NEB (18:00)
[2016-05-24] MEDS ORDERED: ACETAMINOPHEN 325 MG TAB PO PRN ×2 (18:00)
[2016-05-24] MEDS ORDERED: SODIUM BICARBONATE 650 MG TAB PO SCH (18:00)
[2016-05-24] MEDS ORDERED: NALOXONE HCL 0.4 MG/ML AMP IV PRN (18:00)
[2016-05-24 18:20] VITALS: BP 173/127; PULSE 83; RESP 22; TEMP 99.9; O2SAT 98
[2016-05-24] MEDS: CALCIUM ACETATE 667 MG CAP PO SCH (18:27)
[2016-05-24] MEDS: cloNIDine HCL 0.1 MG TAB PO PRN ×2 (18:28→21:54)
[2016-05-24 19:25] LABS: PERITONEAL HISTIOCYTES 32 %; PERITONEAL LYMPHS 50 %; PERITONEAL MESOTHELIAL 2 %; PERITONEAL MONOS 12 %; PERITONEAL POLYS(SEGS) 4 %; PERITONEAL WBC 9 /MM3 (0-10)
[2016-05-24 20:00] VITALS: BP 191/132; PULSE 79; RESP 16; TEMP 98.4; O2SAT 97
[2016-05-24 20:53] VITALS: O2SAT 98
[2016-05-24] MEDS ORDERED: LABETALOL HCL 300 MG TAB PO SCH (21:00)
[2016-05-24 21:46] VITALS: BP 193/132; PULSE 90; RESP 18; TEMP 98.9; O2SAT 99
[2016-05-24] MEDS: MORPHINE SULFATE 4 MG/ML INJ IV PRN (21:48)
[2016-05-24] MEDS: ONDANSETRON HCL 4 MG/2 ML VIAL IVP PRN (21:52)
[2016-05-24] MEDS: LOSARTAN 50 MG TAB PO SCH (21:53)
[2016-05-24] MEDS: levETIRAcetam 500 MG TAB PO SCH (21:53)
[2016-05-24] MEDS: HYDROXYCHLOROQUINE SULFATE 200 MG TAB PO SCH (21:53)
[2016-05-24] MEDS: SODIUM CHLORIDE 0.9% FLUSH 5 ML FLUSH FLUSH SCH (21:54)
[2016-05-24] MEDS: LABETALOL HCL 100 MG TAB PO SCH (21:54)
[2016-05-25] VITALS (8 sets, daily range): BP systolic 114–177; BP diastolic 73–124; PULSE 83–97; RESP 18–20; TEMP 97.5–100.1; O2SAT 93–100
[2016-05-25] MEDS: ONDANSETRON HCL 4 MG/2 ML VIAL IVP PRN ×2 (04:06→20:53)
[2016-05-25] MEDS: MORPHINE SULFATE 4 MG/ML INJ IV PRN ×5 (04:08→20:53)
[2016-05-25 06:34] LABS: ALKALINE PHOSPHATASE 58 U/L (45-117); ALT (GPT) 13 U/L (10-53); ANION GAP 13 MEQ/L (5-15); AST (GOT) 14 U/L (15-37); BICARBONATE 23.9 MEQ/L (21.0-32.0); BLOOD UREA NITROGEN 42 MG/DL (7-18); CHLORIDE 101 MEQ/L (98-107); GLOMERULAR FILTRATION RATE 4 ML/MIN (>89); POTASSIUM 5.1 MEQ/L (3.5-5.1); SODIUM (NA) 138 MEQ/L (136-145); TOTAL BILIRUBIN ADULT 0.4 MG/DL (0.2-1.0)
[2016-05-25] MEDS ORDERED: HEPARIN SODIUM - IV 10,000 UNITS/10 ML VIAL XX PRN (08:15)
[2016-05-25] MEDS ORDERED: SODIUM CHLORIDE 0.9% FLUSH 5 ML FLUSH IVF PRN (08:15)
--- NOTE | 2016-05-25 08:19 | PD.CONS ---
HPI Service Nephrology Consult Requested By Reason for Consult ESRD on PD Primary Care Physician Juventino Gibbs MD History of Present Illness This is a 20-year-old female pt with ESRD on PD who presents to the emergency department for headache, blurry vision, nausea, vomiting, body aches, and fever. The patient states her symptoms started Tuesday night and progressively worsened. She has also been hypertensive on arrival 190s systolic. She did not take her medications on Tuesday morning as she was not feeling well. 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 She has not had any trouble with PD, no abdominal pain. Hx of migraines, she states her headaches have been typical of her usual migraines. She has also had sinus congestion, denies sick contacts, states she got the flu vaccine. We were consulted for dialysis management. Her PD fluid was cultured, it is not indicative of peritonitis. Temp 102.9 at highest. 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 nephritis Hypertension Anemia Compliance issues Metabolic bone disease Past Surgical History Tenckhoff catheter Permcath and removal Reported Medications Percocet (Oxycodone-Acetaminophen) 7.5-325 mg Tab 1 Tab PO Q6H PRN Ciprofloxacin (Ciprofloxacin HCl) 500 Mg Tab 500 Mg PO BID Labetalol (Labetalol HCl) 300 Mg Tab 300 Mg PO Q12HR Keppra (Levetiracetam) 500 Mg Tab 500 Mg PO Q12HR 30 Days Calcium Acetate (Phosphate Binder) 667 Mg Cap 1,334 Mg PO TID Sodium Bicarbonate 650 Mg Tab 650 Mg PO BIDPC Protonix (Pantoprazole Sodium) 20 Mg Tab 20 Mg PO DAILY Norvasc (Amlodipine Besylate) 10 Mg Tab 10 Mg PO BID Cozaar (Losartan Potassium) 50 Mg Tab 50 Mg PO BID Hydroxychloroquine (Hydroxychloroquine Sulfate) 200 Mg Tab 200 Mg PO BID Takw with food Epogen Inj (Epoetin Diego) 2,000 Unit/Ml Inj 1,500 Units SQ 2XMONTH Active Ordered Medications Current Medications Medications (Trade) Dose Ordered Sig/Leora Route Start Time Stop Time Status Last Admin (NS Flush) 2 ml UNSCH PRN FLUSH 05/24/16 18:00 (NS Flush) 2 ml BID FLUSH 05/24/16 21:00 05/24/16 21:54 (Tylenol) 650 mg Q4H PRN PO 05/24/16 18:00 (Zofran Inj) 4 mg Q6H PRN IVP 05/24/16 18:00 05/25/16 04:06 (Tylenol) 650 mg Q6H PRN PO 05/24/16 18:00 (Morphine Inj) 2 mg Q4H PRN IV 05/24/16 18:00 05/25/16 04:08 Naloxone HCl 0.4 mg 0.4 mg UNSCH PRN IV 05/24/16 18:00 (Rocephin Inj/NS Inj) 100 ml @ 200 mls/hr Q24H IV 05/25/16 09:00 (Norvasc) 10 mg BID PO 05/24/16 21:00 05/24/16 21:53 (Phoslo) 1,334 mg TID PO 05/24/16 18:00 05/24/16 18:27 (Plaquenil) 200 mg BID PO 05/24/16 21:00 05/24/16 21:53 (Keppra) 500 mg Q12HR PO 05/24/16 21:00 05/24/16 21:53 (Cozaar) 50 mg BID PO 05/24/16 21:00 05/24/16 21:53 (Protonix) 20 mg DAILY PO 05/25/16 09:00 (Catapres) 0.1 mg Q6H PRN PO 05/24/16 18:00 05/24/16 21:54 (Sodium Bicarbonate) 650 mg BIDPC PO 05/25/16 09:00 (Trandate) 300 mg Q12HR PO 05/24/16 21:00 05/24/16 21:54 Family History no hx of renal disorders Social History former smoker no ETOH or drug use lives with daughter, has boyfriend independent full code (Kayeln Ireland) Physical Exam Vital Signs Vital Signs Date Time Temp Pulse Resp B/P Pulse Ox O2 Delivery O2 Flow Rate FiO2 05/25/16 03:58 98.1 97 20 128/84 97 05/25/16 00:18 20 05/25/16 00:00 100.1 92 18 177/124 100 05/24/16 21:46 98.9 90 18 193/132 99 05/24/16 20:53 98 Nasal Cannula 21 05/24/16 20:00 98.4 79 16 191/132 97 05/24/16 18:20 99.9 83 22 173/127 98 05/24/16 15:30 22 100 Room Air 05/24/16 15:30 110 05/24/16 14:38 102.9 104 20 191/142 97 Physical Exam Young female, awake/oriented some sinus congestion lungs clear S1/S2, normal rate/rhythm without murmurs or rubs abdomen soft, catheter in place, normal bowel sounds ext: no edema Laboratory Laboratory Tests Test 05/24/16 05/24/16 05/24/16 05/25/16 15:58 16:17 18:30 05:27 White Blood Count 4.7 Red Blood Count 3.92 Hemoglobin 11.1 Hematocrit 34.2 Mean Corpuscular Volume 87.2 Mean Corpuscular Hemoglobin 28.4 Mean Corpuscular Hemoglobin 32.5 Concent Red Cell Distribution Width 19.1 Platelet Count 186 Mean Platelet Volume 6.8 Neutrophils (%) (Auto) 61.6 Lymphocytes (%) (Auto) 22.1 Monocytes (%) (Auto) 6.6 Eosinophils (%) (Auto) 8.8 Basophils (%) (Auto) 0.9 Neutrophils # (Auto) 3.0 Lymphocytes # (Auto) 1.0 Monocytes # (Auto) 0.3 Eosinophils # (Auto) 0.4 Basophils # (Auto) 0.0 CBC Comment DIFF FINAL Differential Comment Prothrombin Time 11.0 Prothromb Time International 1.0 Ratio Activated Partial 30.6 Thromboplast Time Sodium Level 136 138 Potassium Level 6.4 5.1 Chloride Level 100 101 Carbon Dioxide Level 23.5 23.9 Anion Gap 13 13 Blood Urea Nitrogen 44 42 Creatinine 12.00 12.00 Estimat Glomerular Filtration 4 4 Rate Random Glucose 81 87 Calcium Level 7.4 8.1 Protein Corrected Calcium 8.0 Total Bilirubin 0.4 0.4 Aspartate Amino Transf 19 14 (AST/SGOT) Alanine Aminotransferase 15 13 (ALT/SGPT) Alkaline Phosphatase 68 58 Total Creatine Kinase 31 Total Protein 6.0 5.2 Albumin 2.6 2.2 Lipase 130 Lactic Acid Level 1.0 Peritoneal Fluid WBC 9 Peritoneal Fluid RBC 4 Peritoneal Fluid Neutrophils 4 Peritoneal Fluid Lymphocytes 50 Peritoneal Fluid Monocytes 12 Peritoneal Fluid Mesothelial 2 Cells Peritoneal Fluid Histiocytes 32 Date/Time Procedure Status Source Growth 05/24/16 16:10 Aerobic Blood Culture Received Blood Peripheral Pending 05/24/16 16:10 Anaerobic Blood Culture Received Blood Peripheral Pending 05/24/16 15:55 Influenza Types A,B Antigen (GIOVANNI) - Final Complete Nasal Aspirate NEGATIVE FOR FLU A AND B ANTIGEN.... (Kaylen Ireland) Result Diagram: 05/24/16 1558 05/25/16 0527 Imaging CXR and head CT reviewed (Kaylen Ireland) Assessment and Plan Problem List: (1) ESRD (end stage renal disease) on dialysis Plan: PD resumed, her regimen consists of 9 hrs, 6 cycles, 1.5% solution, no last fill hyperkalemic yesterday, treated medically, has normalized no acute renal concerns continue and monitor for changes no IVF required high protein diet (2) Hypertension Plan: BP improved after medications were resumed she is on Amlodipine, labetalol, losartan (3) Metabolic bone disease Plan: on phoslo, check phosphorus in am if still admitted (4) Fever Plan: fever of unknown origin WBC normal, PD fluid negative for peritonitis CXR reviewed, negative check UA (Kaylen Ireland) Assessment and Plan patient was seen and examined. No evidence of peritonitis. She can be discharged from renal standpoint. Hyperkalemia has improved. (Jasbir Curry MD) Kaylen Ireland May 25, 2016 08:19 Jasbir Curry MD May 25, 2016 09:29
--- NOTE | 2016-05-25 09:30 | HHI.HP ---
[facility] Physician Juventino Gibbs MD Admission Diagnosis Sepsis Diagnoses: (1) Sepsis (2) ESRD (end stage renal disease) on dialysis (3) Accelerated essential hypertension (4) Hyperkalemia (5) Peritonitis associated with peritoneal dialysis (6) Lupus (7) Seizure Chief Complaint: Nausea, vomiting, generalized malaise Travel History International Travel<30 Days: No Contact w/Intl Traveler <30 Da: No Traveled to Known Affected Are: No Sepsis Criteria SIRS Criteria (2 or more): Temp > 100.9 or < 96.8, Heart rate over 90 Sepsis Criteria (SIRS+source): Infect source susp/known Criteria Outcome: Meets sepsis criteria History of Present Illness 20 year-old -[place] female with a PMH of Lupus, ESRD on PD, Non- Compliance and HTN who came to the ER w/ complaints of abdominal pain, headache , blurry vision, body aches, fevers, nausea and vomiting started Tuesday night and progressively worsened yesterday 05/24/16. ED patient was hypertensive with says BP 190s. She was started on antibiotics secondary to questionable peritonitis associated with peritoneal dialysis. Chest x-ray with no acute cardiopulmonary disease and head CT negative. There was no GI bleed patient denies any diarrhea Review of Systems Other 12 systems reviewed and are negative except for the ones mentioned in the history of present illness Past Family Social History Past Medical History seizures anxiety lupus ESRD on PD hypertension migraines Past Surgical History Permacath placement left upper chest PD catheter placement Reported Medications Percocet (Oxycodone-Acetaminophen) 7.5-325 mg Tab 1 Tab PO Q6H PRN Ciprofloxacin (Ciprofloxacin HCl) 500 Mg Tab 500 Mg PO BID Labetalol (Labetalol HCl) 300 Mg Tab 300 Mg PO Q12HR Keppra (Levetiracetam) 500 Mg Tab 500 Mg PO Q12HR 30 Days Reported Calcium Acetate (Phosphate Binder) 667 Mg Cap 1,334 Mg PO TID Sodium Bicarbonate 650 Mg Tab 650 Mg PO BIDPC Protonix (Pantoprazole Sodium) 20 Mg Tab 20 Mg PO DAILY Norvasc (Amlodipine Besylate) 10 Mg Tab 10 Mg PO BID Cozaar (Losartan Potassium) 50 Mg Tab 50 Mg PO BID Hydroxychloroquine (Hydroxychloroquine Sulfate) 200 Mg Tab 200 Mg PO BID Takw with food Epogen Inj (Epoetin Diego) 2,000 Unit/Ml Inj 1,500 Units SQ 2XMONTH Allergies: Coded Allergies: Hydralazine (Verified Allergy, Severe, Rash, 05/08/16) Vancomycin (Verified Allergy, Severe, Red man syndrome , 05/08/16) Metoprolol (Verified Allergy, Unknown, Patient does not know, 05/08/16) Family History No h/o DM or CAD Social History Denies tobacco use Denies alcohol use Occasional marijuana use, denies any other illicit drug use Physical Exam Vital Signs Vital Signs Date Time Temp Pulse Resp B/P Pulse Ox O2 Delivery O2 Flow Rate FiO2 05/25/16 08:26 98.0 86 18 143/94 97 05/25/16 03:58 98.1 97 20 128/84 97 05/25/16 00:18 20 05/25/16 00:00 100.1 92 18 177/124 100 05/24/16 21:46 98.9 90 18 193/132 99 05/24/16 20:53 98 Nasal Cannula 21 05/24/16 20:00 98.4 79 16 191/132 97 05/24/16 18:20 99.9 83 22 173/127 98 05/24/16 15:30 22 100 Room Air 05/24/16 15:30 110 05/24/16 14:38 102.9 104 20 191/142 97 Physical Exam GENERAL: This is a well-nourished, well-developed patient, in no apparent distress. SKIN: No rashes, ecchymoses or lesions. Cool and dry. HEAD: Atraumatic. Normocephalic. No temporal or scalp tenderness. EYES: Pupils equal round and reactive. Extraocular motions intact. No scleral icterus. No injection or drainage. ENT: Nose without bleeding, purulent drainage or septal hematoma. Throat without erythema, tonsillar hypertrophy or exudate. Uvula midline. Airway patent. NECK: Trachea midline. No JVD or lymphadenopathy. Supple, nontender, no meningeal signs. CARDIOVASCULAR: Regular rate and rhythm without murmurs, gallops, or rubs. RESPIRATORY: Clear to auscultation. Breath sounds equal bilaterally. No wheezes , rales, or rhonchi. GASTROINTESTINAL: Abdomen soft, non-tender, nondistended. No hepato-splenomegaly , or palpable masses. No guarding. MUSCULOSKELETAL: Extremities without clubbing, cyanosis, or edema. No joint tenderness, effusion, or edema noted. No calf tenderness. Negative Homans sign bilaterally. NEUROLOGICAL: Awake and alert. Cranial nerves II through XII intact. Motor and sensory grossly within normal limits. Five out of 5 muscle strength in all muscle groups. Normal speech. Laboratory Laboratory Tests Test 05/24/16 05/24/16 05/24/16 05/25/16 15:58 16:17 18:30 05:27 White Blood Count 4.7 Red Blood Count 3.92 Hemoglobin 11.1 Hematocrit 34.2 Mean Corpuscular Volume 87.2 Mean Corpuscular Hemoglobin 28.4 Mean Corpuscular Hemoglobin 32.5 Concent Red Cell Distribution Width 19.1 Platelet Count 186 Mean Platelet Volume 6.8 Neutrophils (%) (Auto) 61.6 Lymphocytes (%) (Auto) 22.1 Monocytes (%) (Auto) 6.6 Eosinophils (%) (Auto) 8.8 Basophils (%) (Auto) 0.9 Neutrophils # (Auto) 3.0 Lymphocytes # (Auto) 1.0 Monocytes # (Auto) 0.3 Eosinophils # (Auto) 0.4 Basophils # (Auto) 0.0 CBC Comment DIFF FINAL Differential Comment Prothrombin Time 11.0 Prothromb Time International 1.0 Ratio Activated Partial 30.6 Thromboplast Time Sodium Level 136 138 Potassium Level 6.4 5.1 Chloride Level 100 101 Carbon Dioxide Level 23.5 23.9 Anion Gap 13 13 Blood Urea Nitrogen 44 42 Creatinine 12.00 12.00 Estimat Glomerular Filtration 4 4 Rate Random Glucose 81 87 Calcium Level 7.4 8.1 Protein Corrected Calcium 8.0 Total Bilirubin 0.4 0.4 Aspartate Amino Transf 19 14 (AST/SGOT) Alanine Aminotransferase 15 13 (ALT/SGPT) Alkaline Phosphatase 68 58 Total Creatine Kinase 31 Total Protein 6.0 5.2 Albumin 2.6 2.2 Lipase 130 Lactic Acid Level 1.0 Peritoneal Fluid WBC 9 Peritoneal Fluid RBC 4 Peritoneal Fluid Neutrophils 4 Peritoneal Fluid Lymphocytes 50 Peritoneal Fluid Monocytes 12 Peritoneal Fluid Mesothelial 2 Cells Peritoneal Fluid Histiocytes 32 Date/Time Procedure Status Source Growth 05/24/16 16:10 Aerobic Blood Culture Received Blood Peripheral Pending 05/24/16 16:10 Anaerobic Blood Culture Received Blood Peripheral Pending 05/24/16 15:55 Influenza Types A,B Antigen (GIOVANNI) - Final Complete Nasal Aspirate NEGATIVE FOR FLU A AND B ANTIGEN.... Result Diagram: 05/24/16 1558 05/25/16 0527 Assessment and Plan Problem List: (1) Sepsis ICD Code: A41.9 Status: Acute (2) Peritonitis associated with peritoneal dialysis ICD Code: T85.71XA Status: Acute (3) ESRD (end stage renal disease) on dialysis ICD Code: N18.6 Status: Chronic (4) Seizures ICD Code: R56.9 Status: Acute (5) Accelerated essential hypertension ICD Code: I10 Status: Acute (6) Hyperkalemia ICD Code: E87.5 Status: Acute (7) Seizure ICD Code: R56.9 Status: Acute (8) Lupus ICD Code: M32.9 Status: Chronic Assessment and Plan 20-year-old female with Sepsis:SIRS Criteria (2 or more): Initially thought to be secondary to peritonitis d/t PD ;Temp > 100.9 or < 96.8, Heart rate over 90; Treated with Rocephin and vancomycin IV 1 in ED, continue with Rocephin 1 g IV every 24H Peritonitis associated with PD: initially treated with Rocephin and Vancomycin IV ; however PD culture obtained was not indicative of Peritonitis; WBC normal Fever of unknown origin: CXR noted and reviewed by me and negative; PD culture negative; Check UA and continue with empiric Treatment with Rocephin Hyperkalemia: Treated with calcium gluconate, insulin/dextrose, Kayexalate End-stage renal disease on peritoneal dialysis: Nephrology was consulted and patient currently on daily PD Accelerated essential hypertension: Resolved after home medications were resumed including Amlodipine, labetalol, losartan History of seizure disorder: Continue Keppra by mouth twice a day History of lupus: Continue outpatient medication Headache: CT head noted and review without any acute finding Code Status Full code Discussed Condition With Patient, ED physician Physician Certification 2 Midnight Certification Type: Admission for Inpatient Services Order for Inpatient Services The services are ordered in accordance with Medicare regulations or non- Medicare payer requirements, as applicable. In the case of services not specified as inpatient-only, they are appropriately provided as inpatient services in accordance with the 2-midnight benchmark. Estimated LOS (days): 2 days is the estimated time the patient will need to remain in the hospital, assuming treatment plan goals are met and no additional complications. Post-Hospital Plan: Not yet determined Problem Qualifiers (1) Sepsis: Qualified Code: A41.9 - Sepsis, due to unspecified organism Jalen Mcknight MD May 25, 2016 09:30
[2016-05-25] MEDS: LOSARTAN 50 MG TAB PO SCH ×2 (10:08→20:52)
[2016-05-25] MEDS: HYDROXYCHLOROQUINE SULFATE 200 MG TAB PO SCH ×2 (10:08→20:51)
[2016-05-25] MEDS: levETIRAcetam 500 MG TAB PO SCH ×2 (10:08→20:52)
[2016-05-25] MEDS: CALCIUM ACETATE 667 MG CAP PO SCH ×3 (10:08→17:45)
[2016-05-25] MEDS: cefTRIAXone INJ 1,000 MG in SODIUM CHLORIDE 0.9% INJ 100 ML IV SCH (10:08)
[2016-05-25] MEDS: PANTOPRAZOLE SOD 20 MG DELAYED RELEASE TAB PO SCH (10:08)
[2016-05-25] MEDS: SODIUM BICARBONATE 325 MG TAB PO SCH ×2 (10:09→17:45)
[2016-05-25] MEDS: LABETALOL HCL 100 MG TAB PO SCH ×2 (10:09→20:52)
[2016-05-25] MEDS: SODIUM CHLORIDE 0.9% FLUSH 5 ML FLUSH FLUSH SCH ×2 (10:09→20:52)
[2016-05-25 18:55] LABS: BLOOD, URINE NEG (NEG); GLUCOSE,URINE 100 mg/dL (NEG); KETONE, URINE NEG (NEG); NITRITE,URINE NEG (NEG); PH, URINE 7.5 (5.0-8.5)
[2016-05-25 19:11] LABS: URINE COLOR YELLOW (YELLW/STRAW)
[2016-05-25 19:12] LABS: WBC, URINE 0-2 /hpf (0-5)
[2016-05-25 19:13] LABS: BACTERIA, URINE RARE /hpf; COMMENT (UR) CULT NOT INDICATED; CULTURE IF INDICATED CULT NOT INDICATED
[2016-05-26] VITALS: BP 124/81; PULSE 89; RESP 18; TEMP 97; O2SAT 96
[2016-05-26] MEDS: MORPHINE SULFATE 4 MG/ML INJ IV PRN (00:27)
--- NOTE | 2016-05-26 07:52 | EKG ---
Date Performed: 05/24/2016 Time Performed: 16:09:20 PTAGE: 20 years EKG: Sinus rhythm Compared to the previous tracing sinus rate has slowed, T wave changes have resolved Normal ECG PREVIOUS TRACING : 05/08/2016 23.58 DOCTOR: Shalom Allred Interpretating Date/Time 05/26/2016 07:51:53
--- NOTE | 2016-05-26 08:19 | HHI.NPPN ---
Subjective Renal Failure: Chronic, End Stage Renal Disease Interval History She has been afebrile. No acute concerns. PD going well. (Kaylen Ireland) Objective Data Data 05/25/16 05/26/16 19:00 07:00 Intake Total 260 ml 240 ml Output Total 822 ml Balance 260 ml -582 ml Intake Oral 260 ml 240 ml Peritoneal Fluid 822 ml # Voids 6 # Bowel Movements 0 Vital Signs Date Time Temp Pulse Resp B/P Pulse Ox O2 Delivery O2 Flow Rate FiO2 05/26/16 00:00 97.0 89 18 124/81 96 05/25/16 21:46 18 05/25/16 20:55 100 21 05/25/16 20:00 97.5 83 18 129/88 98 05/25/16 17:03 97.5 85 19 114/73 93 05/25/16 12:19 97.5 89 18 137/87 96 05/25/16 08:26 98.0 86 18 143/94 97 (Kaylen Ireland) -: 05/24/16 1558 05/25/16 0527 Imaging Last Impressions Head CT 05/24/16 1539 Signed Impressions: Service Date/Time: Tuesday, May 24, 2016 16:21 - CONCLUSION: No acute intracranial abnormality. Navin Lovell MD Chest X-Ray 05/24/16 0000 Signed Impressions: Service Date/Time: Tuesday, May 24, 2016 15:56 - CONCLUSION: No acute disease. Ricardo Matos MD FACR Tubes & Lines: Tenckhoff Catheter (Kaylen Ireland) Physical Exam General Appearance: Well Developed, Well Nourished, No Acute Distress, Sleeping ( Kaylen Ireland) Ears & Nose Ears & Nose Remarks sinus congestion (Kaylen Ireland) Throat Throat Exam: Oral Mucosa [place] & Moist (Kaylen Ireland) Pulmonary Resp Exam: Clear Bilaterally, Breath Sounds Equal (Kaylen Ireland) Cardiology CV Exam: Normal Sinus Rhythm, Good Perfusion (Kaylen Ireland) Gastrointestinal/Abdomen GI Exam: Soft, Non-Tender, Bowel Sounds Present (Kaylen Ireland) Musculoskeletal MS Exam: Normal Gait, Normal Tone, Good Strength (Kaylen Ireland) Integumentary Skin Exam: Clear, Warm, Dry, Intact (Kaylen Ireland) Extremeties Extremities Exam: No Edema, Pedal Pulses Palpable (Kaylen Ireland) Neurologic Neuro Exam: Alert, Oriented, Speech Clear, Moving All Extremities (Kaylen Ireland) Psychiatric Psych Exam: Appropriate Responses (Kaylen Ireland) Assessment/Plan Discussed Condition With: Patient Assessment Summary: Anemia of CKD, Hypertension, Transplant Kidney Status Problem List: (1) ESRD (end stage renal disease) on dialysis Plan: PD resumed, her regimen consists of 9 hrs, 6 cycles, 1.5% solution, no last fill no new labs PD has gone well no acute renal concerns (2) Hypertension Plan: BP stable she is on Amlodipine, labetalol, losartan (3) Metabolic bone disease Plan: on phoslo (4) Fever Plan: now afebrile fever of unknown origin UA unremarkable, CXR negative, PD fluid negative may have been viral illnes Plan She can be discharged from renal perspective. We have appt to follow her in PD clinic on . (Kaylen Ireland) Plan patient is stable from renal standpoint. She can be discharged from renal standpoint. (Jasbir Curry MD) Kaylen Ireland May 26, 2016 08:19 Jasbir Curry MD May 26, 2016 09:18
--- NOTE | 2016-05-26 08:32 | HHI.PR ---
Subjective Remarks Follow-up fever of unknown origin/ 05/26/16-patient seen and examined, currently afebrile 48 hours, denies any headaches. Tolerated by mouth without any competition of nausea and vomiting. She has been cleared by nephrology for discharge Objective Vitals Vital Signs Date Time Temp Pulse Resp B/P Pulse Ox O2 Delivery O2 Flow Rate FiO2 05/26/16 00:00 97.0 89 18 124/81 96 05/25/16 21:46 18 05/25/16 20:55 100 21 05/25/16 20:00 97.5 83 18 129/88 98 05/25/16 17:03 97.5 85 19 114/73 93 05/25/16 12:19 97.5 89 18 137/87 96 I/O 05/25/16 05/25/16 05/25/16 05/26/16 05/26/16 05/26/16 07:00 15:00 23:00 07:00 15:00 23:00 Intake Total 320 ml 260 ml 240 ml Output Total 600 ml 822 ml Balance -280 ml 260 ml -582 ml Intake Oral 320 ml 260 ml 240 ml Output Urine Total 600 ml Peritoneal Fluid 822 ml # Voids 2 6 # Bowel Movements 0 0 Result Diagram: 05/24/16 1558 05/25/16 0527 Imaging Last Impressions Head CT 05/24/16 1539 Signed Impressions: Service Date/Time: Tuesday, May 24, 2016 16:21 - CONCLUSION: No acute intracranial abnormality. Navin Lovell MD Chest X-Ray 05/24/16 0000 Signed Impressions: Service Date/Time: Tuesday, May 24, 2016 15:56 - CONCLUSION: No acute disease. Ricardo Matos MD FACR Objective Remarks GENERAL: NAD SKIN: Warm and dry. HEAD: Normocephalic. EYES: No scleral icterus. No injection or drainage. NECK: Supple, trachea midline. No JVD or lymphadenopathy. CARDIOVASCULAR: Regular rate and rhythm without murmurs, gallops, or rubs. RESPIRATORY: Breath sounds equal bilaterally. No accessory muscle use. GASTROINTESTINAL: Abdomen soft, non-tender, nondistended. MUSCULOSKELETAL: No cyanosis, or edema. BACK: Nontender without obvious deformity. No CVA tenderness. Procedures none A/P Problem List: (1) Sepsis ICD Code: A41.9 Status: Resolved (2) Peritonitis associated with peritoneal dialysis ICD Code: T85.71XA Status: Resolved (3) ESRD (end stage renal disease) on dialysis ICD Code: N18.6 Status: Chronic (4) Seizures ICD Code: R56.9 Status: Chronic (5) Accelerated essential hypertension ICD Code: I10 Status: Resolved (6) Hyperkalemia ICD Code: E87.5 Status: Resolved (7) Seizure ICD Code: R56.9 Status: Chronic (8) Lupus ICD Code: M32.9 Status: Chronic Assessment and Plan 20-year-old female with Sepsis: Resolved. Currently on Rocephin 1 g IV every 24H; all cultures report including UA, peritoneal fluid were all negative. Chest x-ray negative. Peritonitis associated with PD: initially treated with Rocephin and Vancomycin IV ; however PD culture obtained was not indicative of Peritonitis; WBC normal Fever of unknown origin: Resolved. CXR noted and reviewed by me and negative; PD culture negative; UA negative. Patient currently on Rocephin which I will discontinue today. Hyperkalemia: Treated with calcium gluconate, insulin/dextrose, Kayexalate End-stage renal disease on peritoneal dialysis: Appreciate input from Nephrology and patient currently on daily PD; will follow with nephrology Accelerated essential hypertension: Resolved after home medications were resumed including Amlodipine, labetalol, losartan History of seizure disorder: Continue Keppra by mouth twice a day History of lupus: Continue outpatient medication Headache: CT head noted and review without any acute finding-resolved Patient's condition significantly improved since admission, therefore she'll be discharged home. Problem Qualifiers (1) Sepsis: Qualified Code: A41.9 - Sepsis, due to unspecified organism Jalen Mcnkight MD May 26, 2016 08:32
[2016-05-26] MEDS: LABETALOL HCL 100 MG TAB PO SCH (08:48)
[2016-05-26] MEDS: CALCIUM ACETATE 667 MG CAP PO SCH (08:48)
[2016-05-26] MEDS: levETIRAcetam 500 MG TAB PO SCH (08:48)
[2016-05-26] MEDS: SODIUM BICARBONATE 325 MG TAB PO SCH (08:49)
[2016-05-26] MEDS: HYDROXYCHLOROQUINE SULFATE 200 MG TAB PO SCH (08:49)
[2016-05-26] MEDS: LOSARTAN 50 MG TAB PO SCH (08:49)
[2016-05-26] MEDS: SODIUM CHLORIDE 0.9% FLUSH 5 ML FLUSH FLUSH SCH (08:49)
--- NOTE | 2016-05-26 08:49 | HHI.DS ---
Discharge Summary Admission Date May 24, 2016 at 17:33 Discharge Date: May 26, 2016 Admitting Diagnosis Sepsis (1) Sepsis ICD Code: A41.9 (2) Peritonitis associated with peritoneal dialysis ICD Code: T85.71XA (3) ESRD (end stage renal disease) on dialysis ICD Code: N18.6 (4) Seizures ICD Code: R56.9 (5) Accelerated essential hypertension ICD Code: I10 (6) Hyperkalemia ICD Code: E87.5 (7) Seizure ICD Code: R56.9 (8) Lupus ICD Code: M32.9 Procedures none Brief History - From Admission 20 year-old -Maltese female with a PMH of Lupus, ESRD on PD, Non- Compliance and HTN who came to the ER w/ complaints of abdominal pain, headache , blurry vision, body aches, fevers, nausea and vomiting started Tuesday night and progressively worsened yesterday 05/24/16. ED patient was hypertensive with says BP 190s. She was started on antibiotics secondary to questionable peritonitis associated with peritoneal dialysis. Chest x-ray with no acute cardiopulmonary disease and head CT negative. There was no GI bleed patient denies any diarrhea CBC/BMP: 05/24/16 1558 05/25/16 0527 Significant Findings Laboratory Tests Test 05/24/16 05/24/16 05/25/16 05/25/16 15:58 18:30 05:27 18:25 Red Blood Count 3.92 MIL/MM3 (4.00-5.30) Hemoglobin 11.1 GM/DL (11.6-15.3) Hematocrit 34.2 % (35.0-46.0) Red Cell Distribution Width 19.1 % (11.6-17.2) Mean Platelet Volume 6.8 FL (7.0-11.0) Eosinophils (%) (Auto) 8.8 % (0.0-4.0) Activated Partial 30.6 SEC Thromboplast Time (24.3-30.1) Potassium Level 6.4 MEQ/L (3.5-5.1) Blood Urea Nitrogen 44 MG/DL (7-18) 42 MG/DL (7-18) Creatinine 12.00 MG/DL 12.00 MG/DL (0.50-1.00) (0.50-1.00) Estimat Glomerular Filtration 4 ML/MIN (>89) 4 ML/MIN (>89) Rate Calcium Level 7.4 MG/DL 8.1 MG/DL (8.5-10.1) (8.5-10.1) Protein Corrected Calcium 8.0 MG/DL (8.5-10.1) Total Protein 6.0 GM/DL 5.2 GM/DL (6.4-8.2) (6.4-8.2) Albumin 2.6 GM/DL 2.2 GM/DL (3.4-5.0) (3.4-5.0) Peritoneal Fluid RBC 4 /MM3 (0-0) Aspartate Amino Transf 14 U/L (15-37) (AST/SGOT) Urine Protein 100 mg/dL (NEG-TRACE) Urine Glucose (UA) 100 mg/dL (NEG) Urine RBC 4-9 /hpf (0-3) Urine Squamous Epithelial 6-8 /hpf (0-5) Cells Urine Bacteria RARE /hpf (NONE) Imaging Last Impressions Head CT 05/24/16 1539 Signed Impressions: Service Date/Time: Tuesday, May 24, 2016 16:21 - CONCLUSION: No acute intracranial abnormality. Navin Lovell MD Chest X-Ray 05/24/16 0000 Signed Impressions: Service Date/Time: Tuesday, May 24, 2016 15:56 - CONCLUSION: No acute disease. Ricardo Matos MD FACR PE at Discharge GENERAL: NAD SKIN: Warm and dry. HEAD: Normocephalic. EYES: No scleral icterus. No injection or drainage. NECK: Supple, trachea midline. No JVD or lymphadenopathy. CARDIOVASCULAR: Regular rate and rhythm without murmurs, gallops, or rubs. RESPIRATORY: Breath sounds equal bilaterally. No accessory muscle use. GASTROINTESTINAL: Abdomen soft, non-tender, nondistended. MUSCULOSKELETAL: No cyanosis, or edema. BACK: Nontender without obvious deformity. No CVA tenderness. Hospital Course Patient admitted secondary to febrile episode and was thought to have peritonitis associated with PD for which she was started on Rocephin and vancomycin with culture of PD however, came back negative. UA and chest x-ray were all negative patient's febrile episode resolved. She was treating the ED for hyperkalemia. Hold oral antihypertensive medications were resumed and patient's BP remained stable throughout hospitalization. She was continued on home medication for other chronic medical conditions. Pt Condition on Discharge: Stable Discharge Disposition: Discharge Home Discharge Time: <= 30 minutes Discharge Instructions DIET: Follow Instructions for: Renal Failure Diet Activities you can perform: Regular-No Restrictions Follow up Referrals: Nephrology - Next Day PCP Follow-up - 1 Week Continued Medications: Amlodipine (Norvasc) 10 Mg Tab 10 MG PO BID Blood Pressure Management #30 Ref 0 TAB Calcium Acetate (Phosphate Binder) (Calcium Acetate (Phosphate Binder)) 667 Mg Cap 1334 MG PO TID Hyperphosphatemia #180 Ref 0 CAP Epoetin Inj (Epogen Inj) 2,000 Unit/Ml Inj 1500 UNITS SQ 2XMONTH VIAL Hydroxychloroquine (Hydroxychloroquine) 200 Mg Tab 200 MG PO BID Takw with food #60 Ref 0 TAB Labetalol (Labetalol) 300 Mg Tab 300 MG PO Q12HR Blood Pressure Management #60 TAB Levetiracetam (Keppra) 500 Mg Tab 500 MG PO Q12HR seizures Days 30 TAB Losartan (Cozaar) 50 Mg Tab 50 MG PO BID Blood Pressure Management #30 Ref 0 TAB Pantoprazole (Protonix) 20 Mg Tab 20 MG PO DAILY Reflux #30 Ref 0 TAB Sodium Bicarbonate (Sodium Bicarbonate) 650 Mg Tab 650 MG PO BIDPC #60 Ref 0 TAB Discontinued Medications: Ciprofloxacin (Ciprofloxacin) 500 Mg Tab 500 MG PO BID Infection #10 Ref 0 TAB Oxycodone-Acetaminophen (Percocet) 7.5-325 mg Tab 1 TAB PO Q6H PRN PAIN #20 Ref 0 TAB Jalen Mcknight MD May 26, 2016 08:49
[2016-05-26] MEDS: PANTOPRAZOLE SOD 20 MG DELAYED RELEASE TAB PO SCH (08:50)
[2016-05-26] MEDS: cefTRIAXone INJ 1,000 MG in SODIUM CHLORIDE 0.9% INJ 100 ML IV SCH (08:59)
[2016-05-26 09:25] VITALS: BP 129/89; PULSE 62; RESP 18; TEMP 96.5; O2SAT 98
== END 2016-05-26 10:09 | disposition home or self-care (01) | DRG 871 ==
LOC: PHED 14:26 → PHEDA 17:33 → PH3B 18:07
PROVIDERS: ADMIT Hospitalist; ATTEND Hospitalist
DX: A41.9 Sepsis, unspecified organism (principal); N18.6 End stage renal disease; E88.89 Other specified metabolic disorders; I12.0 Hypertensive chronic kidney disease with stage 5 chronic kidney disease or end stage renal disease; M32.14 Glomerular disease in systemic lupus erythematosus; E87.5 Hyperkalemia; G40.909 Epilepsy, unspecified, not intractable, without status epilepticus; G43.909 Migraine, unspecified, not intractable, without status migrainosus; R09.81 Nasal congestion; F41.9 Anxiety disorder, unspecified; D63.1 Anemia in chronic kidney disease; F12.90 Cannabis use, unspecified, uncomplicated; Z86.73 Personal history of transient ischemic attack (TIA), and cerebral infarction without residual deficits; Z88.1 Allergy status to other antibiotic agents; Z91.19 Patient's noncompliance with other medical treatment and regimen; Z87.891 Personal history of nicotine dependence; Z99.2 Dependence on renal dialysis
CPT/HCPCS: 70450; 71010; 80053; 81001; 82550; 83605; 83690; 85025; 85610; 85730; 87040; 87804; 89051; 90935; 93005; 96374; 96375; J0610; J0696; J2270; J2405; J3370; J7050

== ENCOUNTER 2016-05-31 12:54 | Inpatient (IN) | payer OTHER ==
[~2016-05-31] VITALS: Ht 162.6 cm; Wt 56.6 kg
[2016-05-31] VITALS (18 sets, daily range): BP systolic 118–196; BP diastolic 76–141; PULSE 78–95; RESP 9–24; TEMP 97.9–98.7; O2SAT 96–100
[~2016-05-31 12:54] MED LIST changes: -CIPR500T2 PO; -PERC7.5T13 PO
[2016-05-31] MEDS ORDERED: LABETALOL HCL 100 MG/20 ML VIAL IV PUSH ONE (13:30)
--- NOTE | 2016-05-31 13:43 | PD ---
HPI Chief Complaint: GI Complaint Time Seen by Provider: 13:22 Travel History International Travel<30 days: No Contact w/Intl Traveler<30days: No Traveled to known affect area: No History of Present Illness HPI 20yo F with PMH of peritoneal dialysis secondary to lupus, migraine headache, seizure on keppra, HTN presents to the ED with c/o headache. States it feels like her migraine headache and had blurry vision that is now getting better. Pt states she vomited her blood pressure medication this morning and is now feeling nauseous. Denies any fever, neck pain, new abdominal pain, focal weakness or numbness. Pt was just here for sepsis and with same complaints. Pt always has headache when her blood pressure is elevated. Pt was just here for fever of unknown origin and had similar headache and negative CT brain . PFSH Past Medical History Arthritis: No Autoimmune Disease: Yes (LUPUS ) Anxiety: Yes Depression: No Heart Rhythm Problems: No Cancer: No Cardiovascular Problems: Yes (htn) High Cholesterol: No Chemotherapy: No Chest Pain: No Congestive Heart Failure: No Cerebrovascular Accident: Yes Diabetes: Yes Patient Takes Glucophage: No Dialysis: Yes (DAILY) Diminished Hearing: No Endocrine: No Gastrointestinal Disorders: Yes (Nausea, low appetite) GERD: No Genitourinary: No Headaches: Yes (CLUSTER MUNOZ) Hepatitis: No Hiatal Hernia: No Heparin Induced Thrombocytopen: No Hypertension: Yes Immune Disorder: Yes (Lupus) Implanted Vascular Access Dvce: No Kidney Stones: No Musculoskeletal: No Neurologic: Yes (LUPUS) Psychiatric: No Reproductive: No Respiratory: No Immunizations Current: Yes Migraines: Yes (FROM HTN) Radiation Therapy: No Renal Failure: Yes Seizures: Yes (FROM HTN) Sickle Cell Disease: No Thyroid Disease: No Ulcer: No ?: Not : 1 Para: 1 Past Surgical History Abdominal Surgery: Yes (PERMACATH, PERITONEAL DIALYSIS) AICD: No Arteriovenous Shunt: No Body Medical Devices: ,PD catheter Cardiac Surgery: No Ear Surgery: No Endocrine Surgery: No Eye Surgery: No Genitourinary Surgery: No Gynecologic Surgery: No Insulin Pump: No Joint Replacement: No Neurologic Surgery: No Oral Surgery: No Pacemaker: No Thoracic Surgery: Yes (VAS CATH TO LEFT CHEST, removed) Other Surgery: Yes ((R) Permacath, PD catheter) Social History Alcohol Use: No Tobacco Use: No Substance Use: Yes (Marijuana daily) Allergies-Medications (Allergen,Severity, Reaction): Coded Allergies: Hydralazine (Verified Allergy, Severe, Rash, 05/31/16) Vancomycin (Verified Allergy, Severe, Red man syndrome , 05/31/16) Metoprolol (Verified Allergy, Unknown, Patient does not know, 05/31/16) Reported Meds & Prescriptions Reported Meds & Active Scripts Active Labetalol (Labetalol HCl) 300 Mg Tab 300 Mg PO Q12HR Keppra (Levetiracetam) 500 Mg Tab 500 Mg PO Q12HR 30 Days Reported Calcium Acetate (Phosphate Binder) 667 Mg Cap 1,334 Mg PO TID Sodium Bicarbonate 650 Mg Tab 650 Mg PO BIDPC Protonix (Pantoprazole Sodium) 20 Mg Tab 20 Mg PO DAILY Norvasc (Amlodipine Besylate) 10 Mg Tab 10 Mg PO BID Cozaar (Losartan Potassium) 50 Mg Tab 50 Mg PO BID Hydroxychloroquine (Hydroxychloroquine Sulfate) 200 Mg Tab 200 Mg PO BID Takw with food Epogen Inj (Epoetin Diego) 2,000 Unit/Ml Inj 1,500 Units SQ 2XMONTH Review of Systems Except as stated in HPI: all other systems reviewed are Neg Physical Exam Narrative GENERAL: 20yo F not in distress. SKIN: Warm and dry. HEAD: Atraumatic. Normocephalic. EYES: Pupils equal and round. EOMI. No scleral icterus. No injection or drainage. ENT: No nasal bleeding or discharge. Mucous membranes pink and moist. NECK: Trachea midline. No JVD. No nuchal rigidity. CARDIOVASCULAR: Regular rate and rhythm. No murmur appreciated. RESPIRATORY: No accessory muscle use. Clear to auscultation. Breath sounds equal bilaterally. GASTROINTESTINAL: Abdomen soft, nondistended. +Peritoneal dialysis catheter. No rebound tenderness or guarding. MUSCULOSKELETAL: No obvious deformities. No clubbing. No cyanosis. No edema. NEUROLOGICAL: Awake and alert. No obvious cranial nerve deficits. Motor grossly within normal limits. Normal speech. Data Data Last Documented VS Vital Signs Date Time Temp Pulse Resp B/P Pulse Ox O2 Delivery O2 Flow Rate FiO2 05/31/16 14:58 80 18 164/117 97 Room Air 05/31/16 13:13 98.7 Orders Labetalol Inj (Trandate Inj) (05/31/16 13:30) Complete Blood Count With Diff (05/31/16 13:27) Basic Metabolic Panel (Bmp) (05/31/16 13:27) Prothrombin Time / Inr (Pt) (05/31/16 13:27) Act Partial Throm Time (Ptt) (05/31/16 13:27) Ondansetron Inj (Zofran Inj) (05/31/16 14:00) Ketorolac Inj (Toradol Inj) (05/31/16 14:00) Clonidine (Catapres) (05/31/16 14:15) Protein Corrected Calcium(Pcc) (05/31/16 13:42) Prochlorperazine Inj (Compazine Inj) (05/31/16 14:45) Ct Brain W/O Iv Contrast(Rout) (05/31/16 ) Nicardipine Inj (Cardene Inj) (05/31/16 15:30) Calcium Gluconate Inj (Calcium Gluconate (05/31/16 16:00) Admit Order (Ed Use Only) (05/31/16 15:56) Labs Laboratory Tests Test 05/31/16 13:42 White Blood Count 5.5 TH/MM3 Red Blood Count 3.54 MIL/MM3 Hemoglobin 10.1 GM/DL Hematocrit 29.7 % Mean Corpuscular Volume 83.8 FL Mean Corpuscular Hemoglobin 28.5 PG Mean Corpuscular Hemoglobin 34.0 % Concent Red Cell Distribution Width 17.6 % Platelet Count 86 TH/MM3 Mean Platelet Volume 6.3 FL Neutrophils (%) (Auto) 61.8 % Lymphocytes (%) (Auto) 22.9 % Monocytes (%) (Auto) 4.3 % Eosinophils (%) (Auto) 10.1 % Basophils (%) (Auto) 0.9 % Neutrophils # (Auto) 3.4 TH/MM3 Lymphocytes # (Auto) 1.2 TH/MM3 Monocytes # (Auto) 0.2 TH/MM3 Eosinophils # (Auto) 0.5 TH/MM3 Basophils # (Auto) 0.1 TH/MM3 CBC Comment AUTO DIFF Differential Comment AUTO DIFF CONFIRMED Platelet Estimate LOW Platelet Morphology Comment NORMAL Ovalocytes 1+ Acanthocytes OCC Prothrombin Time 10.7 SEC Prothromb Time International 1.0 RATIO Ratio Activated Partial 28.7 SEC Thromboplast Time Sodium Level 139 MEQ/L Potassium Level 5.1 MEQ/L Chloride Level 101 MEQ/L Carbon Dioxide Level 26.7 MEQ/L Anion Gap 11 MEQ/L Blood Urea Nitrogen 49 MG/DL Creatinine 10.86 MG/DL Estimat Glomerular Filtration 4 ML/MIN Rate Random Glucose 82 MG/DL Calcium Level 7.3 MG/DL Protein Corrected Calcium 8.1 MG/DL Total Protein 5.6 GM/DL MDM Medical Decision Making Medical Screen Exam Complete: Yes Emergency Medical Condition: Yes Interpretation(s) EKG: NSR 87bpm. Normal axis. TWI aVL. Laboratory Tests Test 05/31/16 13:42 White Blood Count 5.5 TH/MM3 (4.0-11.0) Red Blood Count 3.54 MIL/MM3 (4.00-5.30) Hemoglobin 10.1 GM/DL (11.6-15.3) Hematocrit 29.7 % (35.0-46.0) Mean Corpuscular Volume 83.8 FL (80.0-100.0) Mean Corpuscular Hemoglobin 28.5 PG (27.0-34.0) Mean Corpuscular Hemoglobin 34.0 % Concent (32.0-36.0) Red Cell Distribution Width 17.6 % (11.6-17.2) Platelet Count 86 TH/MM3 (150-450) Mean Platelet Volume 6.3 FL (7.0-11.0) Neutrophils (%) (Auto) 61.8 % (16.0-70.0) Lymphocytes (%) (Auto) 22.9 % (9.0-44.0) Monocytes (%) (Auto) 4.3 % (0.0-8.0) Eosinophils (%) (Auto) 10.1 % (0.0-4.0) Basophils (%) (Auto) 0.9 % (0.0-2.0) Neutrophils # (Auto) 3.4 TH/MM3 (1.8-7.7) Lymphocytes # (Auto) 1.2 TH/MM3 (1.0-4.8) Monocytes # (Auto) 0.2 TH/MM3 (0-0.9) Eosinophils # (Auto) 0.5 TH/MM3 (0-0.4) Basophils # (Auto) 0.1 TH/MM3 (0-0.2) CBC Comment AUTO DIFF Differential Comment AUTO DIFF CONFIRMED Platelet Estimate LOW (NORMAL) Platelet Morphology Comment NORMAL (NORMAL) Ovalocytes 1+ (NORMAL) Acanthocytes OCC (NORMAL) Prothrombin Time 10.7 SEC (9.8-11.6) Prothromb Time International 1.0 RATIO Ratio Activated Partial 28.7 SEC Thromboplast Time (24.3-30.1) Sodium Level 139 MEQ/L (136-145) Potassium Level 5.1 MEQ/L (3.5-5.1) Chloride Level 101 MEQ/L (98-107) Carbon Dioxide Level 26.7 MEQ/L (21.0-32.0) Anion Gap 11 MEQ/L (5-15) Blood Urea Nitrogen 49 MG/DL (7-18) Creatinine 10.86 MG/DL (0.50-1.00) Estimat Glomerular Filtration 4 ML/MIN (>89) Rate Random Glucose 82 MG/DL (74-106) Calcium Level 7.3 MG/DL (8.5-10.1) Protein Corrected Calcium 8.1 MG/DL (8.5-10.1) Total Protein 5.6 GM/DL (6.4-8.2) Last Impressions Head CT 05/31/16 0000 Signed Impressions: Service Date/Time: Tuesday, May 31, 2016 15:28 - CONCLUSION: No acute intracranial abnormality. Mild mucosal thickening within the right sphenoid sinus. Harry Decker MD Differential Diagnosis Hypertensive emergency vs. migraine headache vs. ICH Narrative Course 20yo F with migraine headache that feels like her normal headache. Pt complains of mild blurry vision that was improving. Pt has always had blurry vision with her migraine and just had CT brain on 05/24/16. Pt's blood pressure is 193/141. Pt states she vomited today after she took her blood pressure medication. Pt is on multiple blood pressure medications including amlodipine 10mg, labetalol 30mmg and losartan 50mg. Pt has many admissions for hypertensive emergency. Labs reviewed, no leukocytosis. Creatinine is better than baseline at 10.86. Pt evaluated at bedside after toradol, zofran and states her nausea has improved but not her headache. Pt also states her vision is getting worse. Pt given compazine for her migraine headache. Pt has been given labetalol 20mg IV , as well as clonidine 0.1mg PO and BP is still 202/137. Will do CT brain and start pt on nicardipine drip. CT brain showed no acute intracranial abnormality. Discussed with Dr. Chavez who accepted the patient to her service. Diagnosis Primary Impression: Hypertensive urgency Admitting Information Admitting Physician Requests: Observation Darlene Lee DO May 31, 2016 13:43
[2016-05-31 13:51] LABS: AUTOMATED NEUTROPHIL # 3.4 TH/MM3 (1.8-7.7); BASOPHIL # 0.1 TH/MM3 (0-0.2); BASOPHIL % 0.9 % (0.0-2.0); EOSINOPHIL # 0.5 TH/MM3 (0-0.4); EOSINOPHIL % 10.1 % (0.0-4.0); HEMATOCRIT 29.7 % (35.0-46.0); LYMPH % 22.9 % (9.0-44.0); LYMPHOCYTE # 1.2 TH/MM3 (1.0-4.8); MEAN CELL VOLUME 83.8 FL (80.0-100.0); MEAN CORPUSCULAR HEMOGLOBIN 28.5 PG (27.0-34.0); MONO % 4.3 % (0.0-8.0); NEUT % 61.8 % (16.0-70.0); PLATELET COUNT 86 TH/MM3 (150-450); RED BLOOD COUNT 3.54 MIL/MM3 (4.00-5.30); RED CELL DISTRIBUTION WIDTH 17.6 % (11.6-17.2); WHITE BLOOD COUNT 5.5 TH/MM3 (4.0-11.0)
[2016-05-31 13:54] LABS: HEMO FLAGS AUTO DIFF
[2016-05-31 13:59] LABS: APTT (PATIENT) 28.7 SEC (24.3-30.1); PROTHROMBIN TIME - PATIENT 10.7 SEC (9.8-11.6)
[2016-05-31] MEDS ORDERED: ONDANSETRON HCL 4 MG/2 ML VIAL IV PUSH ONE (14:00)
[2016-05-31] MEDS ORDERED: KETOROLAC TROMETHAMINE 30 MG/ML (IVP) VIAL IV PUSH ONE (14:00)
[2016-05-31 14:15] LABS: BICARBONATE 26.7 MEQ/L (21.0-32.0); POTASSIUM 5.1 MEQ/L (3.5-5.1)
[2016-05-31] MEDS ORDERED: cloNIDine HCL 0.1 MG TAB PO ONE (14:15)
[2016-05-31 14:32] LABS: ACANTHOCYTES OCC (NORMAL); CALCIUM-PROTEIN CORRECTED 8.1 MG/DL (8.5-10.1); OVALOCYTES 1+ (NORMAL)
[2016-05-31 14:33] LABS: PLATELET ESTIMATE SMEAR LOW (NORMAL); PLATELET MORPHOLOGY NORMAL (NORMAL); SCAN/DIFF AUTO DIFF CONFIRMED
[2016-05-31] MEDS ORDERED: PROCHLORPERAZINE INJ 10 MG/2 ML VIAL IVS ONE (14:45)
[2016-05-31] MEDS ORDERED: niCARdipine INJ 25 MG in SODIUM CHLOR 0.9% 250 ML INJ 250 ML IV ONE (15:30)
[2016-05-31] MEDS ORDERED: CALCIUM GLUCONATE INJ 1 GM in DEXTROSE 5% IN WATER 100ML INJ 100 ML IV ONE ×2 (16:00)
--- NOTE | 2016-05-31 16:07 | RADRPT ---
EXAM DATE/TIME: 05/31/2016 15:28 [facility] COMPARISON: CT BRAIN W/O CONTRAST, May 24, 2016, 16:21. INDICATIONS : Nausea,vomiting, blurred vision today RADIATION DOSE: 56.78 CTDIvol (mGy) MEDICAL HISTORY : Cerebrovascular disease. Seizures. Cardiovascular disease. High blood pressure,renal failure,diabtete s,lupus SURGICAL HISTORY : None. ENCOUNTER: Initial ACUITY: 1 day PAIN SCALE: 8/10 LOCATION: cranial TECHNIQUE: Multiple contiguous axial images were obtained of the head. Using automated exposure control and adj ustment of the mA and/or kV according to patient size, radiation dose was kept as low as reasonably a chievable to obtain optimal diagnostic quality images. FINDINGS: CEREBRUM: The ventricles are normal for age. No evidence of midline shift, mass lesion, hemorrhage or acute in farction. No extra-axial fluid collections are seen. POSTERIOR FOSSA: The cerebellum and brainstem are intact. The 4th ventricle is midline. The cerebellopontine angle i s unremarkable. EXTRACRANIAL: The visualized portion of the orbits is intact. Mild mucosal thickening is noted within the right sph enoid sinus. SKULL: The calvaria is intact. No evidence of skull fracture. CONCLUSION: No acute intracranial abnormality. Mild mucosal thickening within the right sphenoid sinus. Harry Decker MD on May 31, 2016 at 16:03 Board Certified Radiologist. This report was verified electronically.
[2016-05-31] MEDS ORDERED: ACETAMINOPHEN 325 MG TAB PO PRN (16:30)
[2016-05-31] MEDS ORDERED: NALOXONE HCL 0.4 MG/ML AMP IV PRN (16:30)
[2016-05-31] MEDS ORDERED: SODIUM CHLORIDE 0.9% FLUSH 5 ML FLUSH FLUSH PRN (16:30)
[2016-05-31] MEDS ORDERED: ONDANSETRON HCL 4 MG/2 ML VIAL IVP PRN (16:30)
[2016-05-31] MEDS: DOCUSATE SODIUM 100 MG CAP PO SCH (16:30)
--- NOTE | 2016-05-31 16:34 | HHI.HP ---
[facility] Service [facility] Primary Care Physician Juventino Gibbs MD Admission Diagnosis Hypertensive urgency Diagnoses: Chief Complaint: migraines Travel History International Travel<30 Days: No Contact w/Intl Traveler <30 Da: No Traveled to Known Affected Are: No History of Present Illness This is a 20-year-old female past medical history of end-stage renal disease secondary to lupus on peritoneal dialysis, history of hypertension, history of migraines, and history of seizure disorder who presented with severe migraines. Patient stated that her migraine started yesterday and which it has been constant since yesterday along with blurry vision. Patient stated that this is her normal symptoms when she has migraines. She stated then today she had some emesis describe yellowish in color. Patient stated that she does not take any medication at home and that when she usually has migraines she comes to the hospital and that's how was treated. Patient denies any fevers or chills. In the emergency department she was found to have uncontrolled blood pressure she was given multiple doses of IV antihypertensive medication but did not work so she is put on a Cardene drip. Patient stated that her migraine worsens with light so she preferred during the interview and examination to have the light off. Otherwise she has no complaints. Denies any focal neurological deficits. Review of Systems Constitutional: DENIES: Diaphoretic episodes, Fatigue, Fever, Weight gain, Weight loss, Chills, Dizziness, Change in appetite, Night Sweats Endocrine: DENIES: Abnorml menstrual pattern, Heat/cold intolerance, Polydipsia , Polyuria, Polyphagia Eyes: COMPLAINS OF: Blurred vision, Photosensitivity, DENIES: Diplopia, Eye inflammation, Eye pain, Vision loss, Double Vision Ears, nose, mouth, throat: DENIES: Tinnitus, Hearing loss, Vertigo, Nasal discharge, Oral lesions, Throat pain, Hoarseness, Ear Pain, Running Nose, Epistaxis, Sinus Pain, Toothache, Odynophagia Respiratory: DENIES: Apneas, Cough, Snoring, Wheezing, Hemoptysis, Sputum production, Shortness of breath Cardiovascular: DENIES: Chest pain, Palpitations, Syncope, Dyspnea on Exertion , PND, Lower Extremity Edema, Orthopnea, Claudication Gastrointestinal: COMPLAINS OF: Nausea, DENIES: Abdominal pain, Black stools, Bloody stools, Constipation, Diarrhea, Vomiting, Difficulty Swallowing, Anorexia Genitourinary: DENIES: Abnormal vaginal bleeding, Dysmenorrhea, Dyspareunia, Sexual dysfunction, Urinary frequency, Urinary incontinence, Urgency, Hematuria , Dysuria, Nocturia, Vaginal discharge Musculoskeletal: DENIES: Joint pain, Muscle aches, Stiffness, Joint Swelling, Back pain, Neck pain Integumentary: DENIES: Abnormal pigmentation, Pruritus, Rash, Nail changes, Breast masses, Breast skin changes, Nipple discharge Hematologic/lymphatic: DENIES: Bruising, Lymphadenopathy Neurologic: COMPLAINS OF: Headache, DENIES: Abnormal gait, Localized weakness , Paresthesias, Seizures, Speech Problems, Tremor, Poor Balance Psychiatric: DENIES: Anxiety, Confusion, Mood changes, Depression, Hallucinations, Agitation, Suicidal Ideation, Homicidal Ideation, Delusions Past Family Social History Past Medical History seizures anxiety lupus ESRD on PD hypertension migraines GERD Past Surgical History Permacath placement left upper chest PD catheter placement Reported Medications Reported Meds & Active Scripts Active Labetalol (Labetalol HCl) 300 Mg Tab 300 Mg PO Q12HR Keppra (Levetiracetam) 500 Mg Tab 500 Mg PO Q12HR 30 Days Reported Calcium Acetate (Phosphate Binder) 667 Mg Cap 1,334 Mg PO TID Sodium Bicarbonate 650 Mg Tab 650 Mg PO BIDPC Protonix (Pantoprazole Sodium) 20 Mg Tab 20 Mg PO DAILY Norvasc (Amlodipine Besylate) 10 Mg Tab 10 Mg PO BID Cozaar (Losartan Potassium) 50 Mg Tab 50 Mg PO BID Hydroxychloroquine (Hydroxychloroquine Sulfate) 200 Mg Tab 200 Mg PO BID Takw with food Epogen Inj (Epoetin Diego) 2,000 Unit/Ml Inj 1,500 Units SQ 2XMONTH Allergies: Coded Allergies: Hydralazine (Verified Allergy, Severe, Rash, 05/31/16) Vancomycin (Verified Allergy, Severe, Red man syndrome , 05/31/16) Metoprolol (Verified Allergy, Unknown, Patient does not know, 05/31/16) Active Ordered Medications Current Medications Labetalol HCl (Trandate Inj) 20 mg ONCE ONCE IV PUSH Last administered on 05/31 13:30; Start 05/31/16 at 13:30; Stop 05/31/16 at 13:31; Status DC Ondansetron HCl (Zofran Inj) 4 mg ONCE ONCE IV PUSH Last administered on 14:06; Start 05/31/16 at 14:00; Stop 05/31/16 at 14:01; Status DC Ketorolac Tromethamine (Toradol Inj) 30 mg ONCE ONCE IV PUSH Last administered on 05/31/16 14:06; Start 05/31/16 at 14:00; Stop 05/31/16 at 14:01 ; Status DC Clonidine (Catapres) 0.1 mg ONCE ONCE PO Last administered on 05/31/16 14:16 ; Start 05/31/16 at 14:15; Stop 05/31/16 at 14:16; Status DC Prochlorperazine Edisylate 10 mg 10 mg ONCE ONCE IVS Last administered on 05/31 15:02; Start 05/31/16 at 14:45; Stop 05/31/16 at 14:46; Status DC Nicardipine HCl 25 mg/Sodium Chloride 260 ml @ 0 mls/hr TITRATE ONCE IV Last administered on 05/31/16 15:47; Start 05/31/16 at 15:30; Stop 05/31/16 at 15:31 ; Status DC Calcium Gluconate/ Dextrose (Calcium Gluconate Inj/D5W 100 ml Inj) 110 ml @ 110 mls/hr ONCE ONCE IV Last administered on 05/31/16 16:06; Start 05/31/16 at 16:00; Stop 05/31/16 at 16:59 Amlodipine Besylate (Norvasc) 10 mg BID PO ; Start 05/31/16 at 21:00; Status UNV Calcium Acetate (Phoslo) 1,334 mg TID PO ; Start 05/31/16 at 18:00; Status UNV Hydroxychloroquine Sulfate (Plaquenil) 200 mg BID PO ; Start 05/31/16 at 21:00; Status UNV Labetalol HCl (Trandate) 300 mg Q12HR PO ; Start 05/31/16 at 21:00; Status UNV Levetriacetam (Keppra) 500 mg Q12HR PO ; Start 05/31/16 at 21:00; Status UNV Losartan Potassium (Cozaar) 50 mg BID PO ; Start 05/31/16 at 21:00; Status UNV Pantoprazole Sodium (Protonix) 20 mg DAILY PO ; Start 06/01/16 at 09:00; Status UNV Sodium Bicarbonate (Sodium Bicarbonate) 650 mg BIDPC PO ; Start 05/31/16 at 18: 00; Status UNV IV Flush (NS Flush) 2 ml UNSCH PRN FLUSH FLUSH AFTER USING IV ACCESS; Start at 16:30; Status UNV IV Flush (NS Flush) 2 ml BID FLUSH ; Start 05/31/16 at 21:00; Status UNV Acetaminophen (Tylenol) 650 mg Q4H PRN PO TEMP > 100.4; Start 05/31/16 at 16:30 ; Status UNV Ondansetron HCl (Zofran Inj) 4 mg Q6H PRN IVP NAUSEA OR VOMITING; Start at 16:30; Status UNV Docusate Sodium (Colace) 100 mg Q12H PO ; Start 05/31/16 at 16:30; Status UNV Naloxone HCl (Narcan Inj) 0.4 mg UNSCH PRN IV SEE LABEL COMMENTS; Start at 16:30; Status UNV Family History noncontributory Social History denied any alcohol, tobacco use. Occasionally uses marijuana. Physical Exam Vital Signs Vital Signs Date Time Temp Pulse Resp B/P Pulse Ox O2 Delivery O2 Flow Rate FiO2 05/31/16 16:15 92 18 175/119 96 Room Air 05/31/16 14:58 80 18 164/117 97 Room Air 05/31/16 14:08 86 18 196/137 98 Room Air 05/31/16 13:43 90 18 194/134 99 Room Air 05/31/16 13:13 98.7 20 193/136 05/31/16 12:56 97.9 92 24 193/141 100 Room Air Physical Exam GENERAL: This is a well-nourished, well-developed patient, who is showing pain. SKIN: No rashes, ecchymoses or lesions. Cool and dry. HEAD: Atraumatic. Normocephalic. No temporal or scalp tenderness. EYES: Pupils equal round and reactive. Extraocular motions intact. No scleral icterus. No injection or drainage. ENT: Nose without bleeding, purulent drainage or septal hematoma. Throat without erythema, tonsillar hypertrophy or exudate. Uvula midline. Airway patent. NECK: Trachea midline. No JVD or lymphadenopathy. Supple, nontender, no meningeal signs. CARDIOVASCULAR: Regular rate and rhythm without murmurs, gallops, or rubs. RESPIRATORY: Clear to auscultation. Breath sounds equal bilaterally. No wheezes , rales, or rhonchi. GASTROINTESTINAL: Abdomen soft, non-tender, nondistended. No hepato-splenomegaly , or palpable masses. No guarding. cath in place. MUSCULOSKELETAL: Extremities without clubbing, cyanosis, or edema. No joint tenderness, effusion, or edema noted. No calf tenderness. Negative Homans sign bilaterally. NEUROLOGICAL: Awake and alert. Cranial nerves II through XII intact. Motor and sensory grossly within normal limits. Five out of 5 muscle strength in all muscle groups. Normal speech. Laboratory Laboratory Tests Test 05/31/16 13:42 White Blood Count 5.5 Red Blood Count 3.54 Hemoglobin 10.1 Hematocrit 29.7 Mean Corpuscular Volume 83.8 Mean Corpuscular Hemoglobin 28.5 Mean Corpuscular Hemoglobin 34.0 Concent Red Cell Distribution Width 17.6 Platelet Count 86 Mean Platelet Volume 6.3 Neutrophils (%) (Auto) 61.8 Lymphocytes (%) (Auto) 22.9 Monocytes (%) (Auto) 4.3 Eosinophils (%) (Auto) 10.1 Basophils (%) (Auto) 0.9 Neutrophils # (Auto) 3.4 Lymphocytes # (Auto) 1.2 Monocytes # (Auto) 0.2 Eosinophils # (Auto) 0.5 Basophils # (Auto) 0.1 CBC Comment AUTO DIFF Differential Comment AUTO DIFF CONFIRMED Platelet Estimate LOW Platelet Morphology Comment NORMAL Ovalocytes 1+ Acanthocytes OCC Prothrombin Time 10.7 Prothromb Time International 1.0 Ratio Activated Partial 28.7 Thromboplast Time Sodium Level 139 Potassium Level 5.1 Chloride Level 101 Carbon Dioxide Level 26.7 Anion Gap 11 Blood Urea Nitrogen 49 Creatinine 10.86 Estimat Glomerular Filtration 4 Rate Random Glucose 82 Calcium Level 7.3 Protein Corrected Calcium 8.1 Total Protein 5.6 Result Diagram: 05/31/16 1342 05/31/16 1342 Imaging Last Impressions Head CT 05/31/16 0000 Signed Impressions: Service Date/Time: Tuesday, May 31, 2016 15:28 - CONCLUSION: No acute intracranial abnormality. Mild mucosal thickening within the right sphenoid sinus. Harry Decker MD Assessment and Plan Assessment and Plan 20-year-old female with history of end-stage renal disease on peritoneal dialysis secondary to lupus nephritis, history of seizure, and history of migraines who presented with Intractable migraines -Patient stated that these of the same symptoms she gets when she has migraines. -No acute intracranial abnormality. Mild mucosal thickening within the right sphenoid sinus. -Due to uncontrolled hypertension will avoid a trip dense. We'll give morphine when necessary for pain. -We'll need to consult neurologist for further recommendations. Hypertensive urgency -Patient seems to have this problem multiple times in the past. -Resume home medication. Patient was put on the Cardene drip in the emergency department will continue with this. -We'll also consult electricity trading analyst to assess. End-stage renal disease on peritoneal dialysis -Will consult patient's cardiac sonographer. GERD/seizure disorder -Resume home medication. DVT prophylaxis -SCDs. Code Status full Discussed Condition With patient Physician Certification 2 Midnight Certification Type: Admission for Inpatient Services Order for Inpatient Services The services are ordered in accordance with Medicare regulations or non- Medicare payer requirements, as applicable. In the case of services not specified as inpatient-only, they are appropriately provided as inpatient services in accordance with the 2-midnight benchmark. Estimated LOS (days): 3 3 days is the estimated time the patient will need to remain in the hospital, assuming treatment plan goals are met and no additional complications. Post-Hospital Plan: Home Anali Chavez MD May 31, 2016 16:34
[2016-05-31] MEDS: SODIUM BICARBONATE 650 MG TAB PO SCH (19:58)
[2016-05-31] MEDS: CALCIUM ACETATE 667 MG CAP PO SCH (19:58)
[2016-05-31] MEDS: LOSARTAN 50 MG TAB PO SCH (21:10)
[2016-05-31] MEDS: LABETALOL HCL 300 MG TAB PO SCH (21:10)
[2016-05-31] MEDS: levETIRAcetam 500 MG TAB PO SCH (21:11)
[2016-05-31] MEDS: HYDROXYCHLOROQUINE SULFATE 200 MG TAB PO SCH (21:11)
[2016-05-31] MEDS: MORPHINE SULFATE 4 MG/ML INJ IV PUSH PRN (21:12)
[2016-05-31] MEDS: SODIUM CHLORIDE 0.9% FLUSH 5 ML FLUSH FLUSH SCH (21:13)
[2016-05-31] MEDS ORDERED: CHLORHEXIDINE GLUCONATE 2 % 1 PACK (2 CLOTHS)(extra cloths) TOP PRN (23:00)
[2016-06-01] VITALS (12 sets, daily range): BP systolic 124–166; BP diastolic 71–113; PULSE 76–93; RESP 11–18; TEMP 98.5–99; O2SAT 96–98
[2016-06-01] MEDS: CHLORHEXIDINE GLUCONATE 2 % 1 PACK (2 CLOTHS)(taper/protocol) TOP SCH (04:00)
[2016-06-01] MEDS: DOCUSATE SODIUM 100 MG CAP PO SCH ×3 (04:11→19:49)
[2016-06-01] MEDS: MORPHINE SULFATE 4 MG/ML INJ IV PUSH PRN ×5 (04:14→21:10)
[2016-06-01] MEDS ORDERED: cloNIDine HCL 0.1 MG TAB PO PRN (04:45)
--- NOTE | 2016-06-01 09:01 | MB ---
cc: KWADWO WHYTE MD DATE OF CONSULTATION: 06/01/2016 HISTORY OF PRESENT ILLNESS This is a 20-year-old woman who was admitted to the hospital for headaches, specifically a migraine headache. She has a history of lupus with end-stage renal disease on peritoneal dialysis and severe hypertension as well as a seizure disorder in the past. She began having one of her migraine headaches yesterday associated with blurred vision, nausea and vomiting, and came to the hospital. Migraines are not uncommon for her but severe migraines usually result in a trip to the hospital and she has subsequently been admitted. When she was seen in the emergency department her blood pressure was quite high at 194/134. She was begun on a Cardene drip. This has since been discontinued and her blood pressure is 160/107. She notes that her blood pressures at home generally run in the 160/100 range despite her significant antihypertensive regimen including amlodipine 10 mg daily, labetalol 300 twice daily, losartan 50 mg daily and clonidine 0.1 mg twice daily. She also takes calcium gluconate, Plaquenil, PhosLo, Keppra and Protonix. ALLERGIES ALLERGIES ARE TO METOPROLOL, HYDRALAZINE AND VANCOMYCIN, ALTHOUGH SHE IS NOT SURE WERE WHAT HER ALLERGIES ARE. SHE DOES KNOW THAT SHE GOT A RASH WITH ONE OF THE THREE BUT IS UNCERTAIN WHICH OF THOSE IT IS. PAST SURGICAL HISTORY Peritoneal dialysis catheter. SOCIAL HISTORY The patient does not smoke or drink. She occasionally smokes marijuana. PHYSICAL EXAMINATION GENERAL: On physical exam she is awake and alert, still has somewhat of a headache, but otherwise is improved. VITAL SIGNS: Blood pressure 160/100, pulse 70 and regular. NECK: There is no neck vein distension. LUNGS: Clear. CARDIOVASCULAR: Regular rate and rhythm. There is no murmur or gallop noted. EXTREMITIES: No edema. ASSESSMENT AND RECOMMENDATION The patient has rather significant hypertension, probably as a result of her lupus as well as essential hypertension. She is on clonidine 0.1 mg twice daily which is probably inadequate in terms of its frequency. Would suggest that we discontinue her clonidine and try a different alpha dimas such as terazosin with an initial dose of 5 mg daily to see if that may better control her blood pressure. I feel that her headaches are probably secondary to her migraine and not as a result of her hypertension. The hypertension was probably a result of her severe pain and discomfort from her migraine. MD BELL Peña /6:55 AM /8:52 AM
[2016-06-01] MEDS: CALCIUM ACETATE 667 MG CAP PO SCH ×3 (09:02→17:07)
[2016-06-01] MEDS: LABETALOL HCL 300 MG TAB PO SCH ×2 (09:02→19:46)
[2016-06-01] MEDS: levETIRAcetam 500 MG TAB PO SCH ×2 (09:02→19:46)
[2016-06-01] MEDS: PANTOPRAZOLE SOD 20 MG DELAYED RELEASE TAB PO SCH (09:02)
[2016-06-01] MEDS: SODIUM BICARBONATE 650 MG TAB PO SCH ×2 (09:02→17:07)
[2016-06-01] MEDS: LOSARTAN 50 MG TAB PO SCH ×2 (09:02→19:47)
[2016-06-01] MEDS: HYDROXYCHLOROQUINE SULFATE 200 MG TAB PO SCH ×2 (09:02→19:47)
[2016-06-01] MEDS: SODIUM CHLORIDE 0.9% FLUSH 5 ML FLUSH FLUSH SCH ×2 (09:03→19:47)
[2016-06-01] MEDS ORDERED: HEPARIN SODIUM - IV 10,000 UNITS/10 ML VIAL XX PRN (09:30)
[2016-06-01] MEDS ORDERED: SODIUM CHLORIDE 0.9% FLUSH 10 ML FLUSH IV FLUSH PRN (09:30)
--- NOTE | 2016-06-01 10:25 | EKG ---
Date Performed: 05/31/2016 Time Performed: 13:03:39 PTAGE: 20 years EKG: Sinus rhythm NORMAL ECG INTERPRETATION BASED ON A DEFAULT AGE OF 38 YEARS PREVIOUS TRACING : 05/24/2016 16.09 DOCTOR: Cuong Vogt Interpretating Date/Time 06/01/2016 10:21:12
--- NOTE | 2016-06-01 10:39 | HHI.PR ---
Subjective Remarks f/u for HTN urgency, migraines patient stated MUNOZ is better. Denied any N/V. BP continues to be uncontrolled and she is on cardene gtt. her nurse is at the bedside. Patient was found sleeping and she stated she feels better. Objective Vitals Vital Signs Date Time Temp Pulse Resp B/P Pulse Ox O2 Delivery O2 Flow Rate FiO2 06/01/16 10:00 86 06/01/16 08:00 98.8 84 18 166/113 98 06/01/16 08:00 83 06/01/16 06:00 86 06/01/16 04:00 99.0 85 14 146/97 97 06/01/16 04:00 85 06/01/16 02:00 81 06/01/16 00:00 98.6 93 11 124/71 96 06/01/16 00:00 93 05/31/16 22:00 89 05/31/16 21:00 98.7 95 9 148/110 98 05/31/16 18:42 82 18 134/84 97 Room Air 05/31/16 18:20 80 18 149/101 98 Room Air 05/31/16 18:05 80 18 144/95 97 Room Air 05/31/16 17:50 80 18 153/100 97 Room Air 05/31/16 17:40 78 18 141/95 97 Room Air 05/31/16 17:31 79 18 129/85 97 Room Air 05/31/16 17:30 78 18 134/92 98 Room Air 05/31/16 16:59 86 18 118/76 97 Room Air 05/31/16 16:50 86 18 122/78 96 Room Air 05/31/16 16:35 88 18 126/81 96 Room Air 05/31/16 16:15 92 18 175/119 96 Room Air 05/31/16 14:58 80 18 164/117 97 Room Air 05/31/16 14:08 86 18 196/137 98 Room Air 05/31/16 13:43 90 18 194/134 99 Room Air 05/31/16 13:13 98.7 20 193/136 05/31/16 12:56 97.9 92 24 193/141 100 Room Air I/O 05/31/16 05/31/16 05/31/16 06/01/16 06/01/16 06/01/16 07:00 15:00 23:00 07:00 15:00 23:00 Intake Total 414 ml 240 ml Output Total 0 ml 350 ml Balance 414 ml -110 ml Intake Oral 240 ml 240 ml IV Total 174 ml 0 ml Output Urine Total 350 ml Stool Total 0 ml 0 ml # Voids 0 0 Result Diagram: 05/31/16 1342 05/31/16 1342 Objective Remarks GENERAL: in NAD CARDIOVASCULAR: Regular rate and rhythm without murmurs, gallops, or rubs. RESPIRATORY: Breath sounds equal bilaterally. No accessory muscle use. GASTROINTESTINAL: Abdomen soft, non-tender, nondistended. + cath in place. MUSCULOSKELETAL: No cyanosis, or edema. BACK: Nontender without obvious deformity. No CVA tenderness. Medications and IVs Current Medications Labetalol HCl (Trandate Inj) 20 mg ONCE ONCE IV PUSH Last administered on 05/31 13:30; Start 05/31/16 at 13:30; Stop 05/31/16 at 13:31; Status DC Ondansetron HCl (Zofran Inj) 4 mg ONCE ONCE IV PUSH Last administered on 14:06; Start 05/31/16 at 14:00; Stop 05/31/16 at 14:01; Status DC Ketorolac Tromethamine (Toradol Inj) 30 mg ONCE ONCE IV PUSH Last administered on 05/31/16 14:06; Start 05/31/16 at 14:00; Stop 05/31/16 at 14:01 ; Status DC Clonidine (Catapres) 0.1 mg ONCE ONCE PO Last administered on 05/31/16 14:16 ; Start 05/31/16 at 14:15; Stop 05/31/16 at 14:16; Status DC Prochlorperazine Edisylate 10 mg 10 mg ONCE ONCE IVS Last administered on 05/31 15:02; Start 05/31/16 at 14:45; Stop 05/31/16 at 14:46; Status DC Nicardipine HCl 25 mg/Sodium Chloride 260 ml @ 0 mls/hr TITRATE ONCE IV Last administered on 05/31/16 15:47; Start 05/31/16 at 15:30; Stop 05/31/16 at 15:31 ; Status DC Calcium Gluconate/ Dextrose (Calcium Gluconate Inj/D5W 100 ml Inj) 110 ml @ 110 mls/hr ONCE ONCE IV Last administered on 05/31/16 16:06; Start 05/31/16 at 16:00; Stop 05/31/16 at 16:59; Status DC Amlodipine Besylate (Norvasc) 10 mg BID PO Last administered on 06/01/16 09:02 ; Start 05/31/16 at 21:00 Calcium Acetate (Phoslo) 1,334 mg TID PO Last administered on 06/01/16 09:02; Start 05/31/16 at 18:00 Hydroxychloroquine Sulfate (Plaquenil) 200 mg BID PO Last administered on 09:02; Start 05/31/16 at 21:00 Labetalol HCl (Trandate) 300 mg Q12HR PO Last administered on 06/01/16 09:02; Start 05/31/16 at 21:00 Levetriacetam (Keppra) 500 mg Q12HR PO Last administered on 06/01/16 09:02; Start 05/31/16 at 21:00 Losartan Potassium (Cozaar) 50 mg BID PO Last administered on 06/01/16 09:02; Start 05/31/16 at 21:00 Pantoprazole Sodium (Protonix) 20 mg DAILY PO Last administered on 06/01/16 09 :02; Start 06/01/16 at 09:00 Sodium Bicarbonate (Sodium Bicarbonate) 650 mg BIDPC PO Last administered on 09:02; Start 05/31/16 at 18:00 IV Flush (NS Flush) 2 ml UNSCH PRN FLUSH FLUSH AFTER USING IV ACCESS; Start at 16:30 IV Flush (NS Flush) 2 ml BID FLUSH Last administered on 06/01/16 09:03; Start 05/31/16 at 21:00 Acetaminophen (Tylenol) 650 mg Q4H PRN PO TEMP > 100.4; Start 05/31/16 at 16:30 Ondansetron HCl (Zofran Inj) 4 mg Q6H PRN IVP NAUSEA OR VOMITING; Start at 16:30 Docusate Sodium (Colace) 100 mg Q12H PO ; Start 05/31/16 at 16:30 Naloxone HCl (Narcan Inj) 0.4 mg UNSCH PRN IV SEE LABEL COMMENTS; Start at 16:30 Morphine Sulfate (Morphine Inj) 2 mg Q4HR PRN IV PUSH pain Last administered on 06/01/16 09:03; Start 05/31/16 at 16:45 Miscellaneous Information Patient in critical care unit? Ass... Q361D XX Last administered on 05/31/16 23:00; Start 05/31/16 at 23:00 Chlorhexidine Gluconate (Chlorhexidine 2% Cloth) 3 pack DAILY@04 TOP Last administered on 06/01/16 04:00; Start 06/01/16 at 04:00; Stop 06/05/16 at 04:01 Chlorhexidine Gluconate (Chlorhexidine 2% Cloth) 3 pack UNSCH PRN TOP HYGIENIC CARE; Start 05/31/16 at 23:00; Stop 06/05/16 at 22:46 Clonidine (Catapres) 0.1 mg ONCE PRN PO if BP>160/90 Last administered on 04:53; Start 06/01/16 at 04:45; Stop 06/01/16 at 09:05; Status DC Terazosin HCl (Hytrin) 5 mg HS PO ; Start 06/01/16 at 21:00 Heparin Sodium (Porcine) (Heparin Inj) 1,000 units WITH DIALYSIS PRN XX SEE LABEL COMMENTS; Start 06/01/16 at 09:30 Sodium Chloride (NS Flush) 10 ml UNSCH PRN IV FLUSH SEE LABEL COMMENTS; Start 06/01/16 at 09:30 A/P Assessment and Plan 20-year-old female with history of end-stage renal disease on peritoneal dialysis secondary to lupus nephritis, history of seizure, and history of migraines who presented with Intractable migraines -Patient stated that these of the same symptoms she gets when she has migraines. -No acute intracranial abnormality. Mild mucosal thickening within the right sphenoid sinus. -IMPROVED. pending recommendations from neurologist. Hypertensive urgency -Patient seems to have this problem multiple times in the past. -Resume home medication. Patient was put on the Cardene drip in the emergency department will continue with this. -Camera Supervisor ff. recommend to d/c clonidine and add terazosin. patient is still on cardene gtt. End-stage renal disease on peritoneal dialysis -pending recommendation from package checker. -continue to dialysis. GERD/seizure disorder -continue with home medication. DVT prophylaxis -SCDs. Discharge Planning patient continues to be on cardene gtt. still needs to remain in hospital for treatment. Anali Chavez MD Jun 01, 2016 10:39
--- NOTE | 2016-06-01 11:25 | PD.CONS ---
HPI Service Nephrology Consult Requested By Reason for Consult ESRD on PD Primary Care Physician Juventino Gibbs MD History of Present Illness his is a 20-year-old female pt with ESRD on PD who presents to the emergency department for headache, blurry vision,. She has a hx of migraines and the pain felt typical. Her BP was elevated in 200s systolic on arrival, she was started on Nicardipine gtt and admitted to [facility]. She has a hx of HTN, anemia, metabolic bone disorder, ESRD due to lupus nephritis, and also noncompliance. She has not had any trouble with PD lately. We were consulted for dialysis management. At this time her BP has improved, she is off the nicardipine this morning. (Kaylen Ireland) Review of Systems Constitutional: COMPLAINS OF: Fatigue Endocrine: DENIES: Abnorml menstrual pattern Eyes: COMPLAINS OF: Blurred vision Cardiovascular: DENIES: Chest pain, Dyspnea on Exertion, Lower Extremity Edema Neurologic: COMPLAINS OF: Headache, DENIES: Abnormal gait, Localized weakness (Kaylen Ireland) Past Family Social History Allergies: Coded Allergies: Hydralazine (Verified Allergy, Severe, Rash, 05/31/16) Vancomycin (Verified Allergy, Severe, Red man syndrome , 05/31/16) Metoprolol (Verified Allergy, Unknown, Patient does not know, 05/31/16) Past Medical History ESRD on PD due to Lupus nephritis Hypertension Anemia Compliance issues Metabolic bone disease Past Surgical History Tenckhoff catheter Permcath and removal Reported Medications Labetalol (Labetalol HCl) 300 Mg Tab 300 Mg PO Q12HR Keppra (Levetiracetam) 500 Mg Tab 500 Mg PO Q12HR 30 Days Calcium Acetate (Phosphate Binder) 667 Mg Cap 1,334 Mg PO TID Sodium Bicarbonate 650 Mg Tab 650 Mg PO BIDPC Protonix (Pantoprazole Sodium) 20 Mg Tab 20 Mg PO DAILY Norvasc (Amlodipine Besylate) 10 Mg Tab 10 Mg PO BID Cozaar (Losartan Potassium) 50 Mg Tab 50 Mg PO BID Hydroxychloroquine (Hydroxychloroquine Sulfate) 200 Mg Tab 200 Mg PO BID Takw with food Epogen Inj (Epoetin Diego) 2,000 Unit/Ml Inj 1,500 Units SQ 2XMONTH This list does not appear accurate; she also takes lisinopril, coreg, and clonidine Active Ordered Medications Current Medications Medications (Trade) Dose Ordered Sig/Leora Route Start Time Stop Time Status Last Admin (Norvasc) 10 mg BID PO 05/31/16 21:00 06/01/16 09:02 (Phoslo) 1,334 mg TID PO 05/31/16 18:00 06/01/16 09:02 (Plaquenil) 200 mg BID PO 05/31/16 21:00 06/01/16 09:02 (Trandate) 300 mg Q12HR PO 05/31/16 21:00 06/01/16 09:02 (Keppra) 500 mg Q12HR PO 05/31/16 21:00 06/01/16 09:02 (Cozaar) 50 mg BID PO 05/31/16 21:00 06/01/16 09:02 (Protonix) 20 mg DAILY PO 06/01/16 09:00 06/01/16 09:02 (Sodium Bicarbonate) 650 mg BIDPC PO 05/31/16 18:00 06/01/16 09:02 (NS Flush) 2 ml UNSCH PRN FLUSH 05/31/16 16:30 (NS Flush) 2 ml BID FLUSH 05/31/16 21:00 06/01/16 09:03 (Tylenol) 650 mg Q4H PRN PO 05/31/16 16:30 (Zofran Inj) 4 mg Q6H PRN IVP 05/31/16 16:30 (Colace) 100 mg Q12H PO 05/31/16 16:30 (Narcan Inj) 0.4 mg UNSCH PRN IV 05/31/16 16:30 (Morphine Inj) 2 mg Q4HR PRN IV PUSH 05/31/16 16:45 06/01/16 09:03 Miscellaneous Information Patient in critical care unit? Ass... Q361D XX 05/31/16 23:00 05/31/16 23:00 (Chlorhexidine 2% Cloth) 3 pack DAILY@04 TOP 06/01/16 04:00 06/05/16 04:01 06/01/16 04:00 (Chlorhexidine 2% Cloth) 3 pack UNSCH PRN TOP 05/31/16 23:00 06/05/16 22:46 (Hytrin) 5 mg HS PO 06/01/16 21:00 (NS Flush) 10 ml UNSCH PRN IV FLUSH 06/01/16 09:30 Family History no hx of renal disorders Social History former smoker no ETOH or drug use lives with daughter, has boyfriend independent full code (Kaylen Ireland) Physical Exam Vital Signs Vital Signs Date Time Temp Pulse Resp B/P Pulse Ox O2 Delivery O2 Flow Rate FiO2 06/01/16 10:00 86 06/01/16 08:00 98.8 84 18 166/113 98 06/01/16 08:00 83 06/01/16 06:00 86 06/01/16 04:00 99.0 85 14 146/97 97 06/01/16 04:00 85 06/01/16 02:00 81 06/01/16 00:00 98.6 93 11 124/71 96 06/01/16 00:00 93 05/31/16 22:00 89 05/31/16 21:00 98.7 95 9 148/110 98 05/31/16 18:42 82 18 134/84 97 Room Air 05/31/16 18:20 80 18 149/101 98 Room Air 05/31/16 18:05 80 18 144/95 97 Room Air 05/31/16 17:50 80 18 153/100 97 Room Air 05/31/16 17:40 78 18 141/95 97 Room Air 05/31/16 17:31 79 18 129/85 97 Room Air 05/31/16 17:30 78 18 134/92 98 Room Air 05/31/16 16:59 86 18 118/76 97 Room Air 05/31/16 16:50 86 18 122/78 96 Room Air 05/31/16 16:35 88 18 126/81 96 Room Air 05/31/16 16:15 92 18 175/119 96 Room Air 05/31/16 14:58 80 18 164/117 97 Room Air 05/31/16 14:08 86 18 196/137 98 Room Air 05/31/16 13:43 90 18 194/134 99 Room Air 05/31/16 13:13 98.7 20 193/136 05/31/16 12:56 97.9 92 24 193/141 100 Room Air Physical Exam Young female, awake/oriented no neuro deficit lungs clear S1/S2, normal rate/rhythm without murmurs or rubs abdomen soft, catheter in place, normal bowel sounds ext: no edema Laboratory Laboratory Tests Test 05/31/16 05/31/16 13:42 21:00 White Blood Count 5.5 Red Blood Count 3.54 Hemoglobin 10.1 Hematocrit 29.7 Mean Corpuscular Volume 83.8 Mean Corpuscular Hemoglobin 28.5 Mean Corpuscular Hemoglobin 34.0 Concent Red Cell Distribution Width 17.6 Platelet Count 86 Mean Platelet Volume 6.3 Neutrophils (%) (Auto) 61.8 Lymphocytes (%) (Auto) 22.9 Monocytes (%) (Auto) 4.3 Eosinophils (%) (Auto) 10.1 Basophils (%) (Auto) 0.9 Neutrophils # (Auto) 3.4 Lymphocytes # (Auto) 1.2 Monocytes # (Auto) 0.2 Eosinophils # (Auto) 0.5 Basophils # (Auto) 0.1 CBC Comment AUTO DIFF Differential Comment AUTO DIFF CONFIRMED Platelet Estimate LOW Platelet Morphology Comment NORMAL Ovalocytes 1+ Acanthocytes OCC Prothrombin Time 10.7 Prothromb Time International 1.0 Ratio Activated Partial 28.7 Thromboplast Time Sodium Level 139 Potassium Level 5.1 Chloride Level 101 Carbon Dioxide Level 26.7 Anion Gap 11 Blood Urea Nitrogen 49 Creatinine 10.86 Estimat Glomerular Filtration 4 Rate Random Glucose 82 Calcium Level 7.3 Protein Corrected Calcium 8.1 Total Protein 5.6 Nasal Screen MRSA (PCR) NEGATIVE (Kaylen Ireland) Result Diagram: 05/31/16 1342 05/31/16 1342 Imaging Last Impressions Head CT 05/31/16 0000 Signed Impressions: Service Date/Time: Tuesday, May 31, 2016 15:28 - CONCLUSION: No acute intracranial abnormality. Mild mucosal thickening within the right sphenoid sinus. Harry Decker MD (Kaylen Ireland) Assessment and Plan Problem List: (1) Hypertensive urgency Plan: BP has improved, she is no longer on Nicardipine BP 147/99 this am she is on terazosin (off clonidine), norvasc, labetalol, and losartan currently she states she also takes coreg and lisinopril at home some meds are duplicates, needs detailed list given to her at discharge (2) ESRD (end stage renal disease) on dialysis Plan: due to lupus nephritis, biopsy confirmed, non compliant with medications continue nightly PD she is using 1.5% solution; her regimen consists of 9 hrs, 6 cycles, no last fill electrolytes are unremarkable C02 26, stop oral bicarbonate no current dialysis concerns she still makes some urine avoid nephrotoxic drugs, she was given Toradol on admission (3) Metabolic bone disease Plan: on phoslo, intermittent phos level (4) Anemia Plan: Hb stable, receives Epogen monthly in PD clinic (5) Migraine Plan: has been evaluated by neurology symptoms improved (Kaylen Ireland) Assessment and Plan patient was seen and examined. Has history of migraine headaches. History of hypertension. ESRD due to lupus nephritis. There is some degree of non compliance. BP better at this time. Antihypertensive regimen needs to be clarified. She was apparently taking both Coreg and Labetalol. Also was on Lisinopril and Losartan. Continue PD. Monitor BP. Clonidine has been changed to Terazosin. (Jasbir Curry MD) Kaylen Ireland Jun 01, 2016 11:25 Jasbir Curry MD Jun 01, 2016 12:10
[2016-06-01 16:38] LABS: INDIRECT BILIRUBIN 0.4 MG/DL (0.0-0.8); TOTAL BILIRUBIN ADULT 0.5 MG/DL (0.2-1.0)
[2016-06-01] MEDS: DIVALPROEX SODIUM E.R. 250 MG TAB PO SCH (17:08)
--- NOTE | 2016-06-01 18:24 | MB ---
cc: BRITNI ISRAEL M.D. DATE OF CONSULTATION 06/01/2016 DATE OF 1995, 20 years old female. REASON FOR CONSULTATION Intractable migraine. HISTORY OF THE PRESENT ILLNESS The patient is a 20-year-old woman with a history of end-stage renal disease secondary to lupus on peritoneal dialysis with a history hypertension, migraines and history of seizures. She came in because she has a severe migraine. She cannot tell me how many she has monthly but states that she usually comes to the ER and to have an injection when they occur. Does not take anything for them at home, she usually just tries to rest. Apparently yesterday she was noted to have some emesis as well as some blurry vision. No fever, chills, neck rigidity. Found to have elevated blood pressure and placed on Cardene drip. She was also light and noise sensitive. Today she still states she has a mild headache but apparently looks better. PAST MEDICAL HISTORY As stated. MEDICATIONS At home are: 1. Labetalol. 2. Keppra. 3. Calcium acetate. 4. Sodium bicarb. 5. Protonix. 6. Norvasc. 7. Cozaar. 8. Hydroxychloroquine. 9. Epogen. ALLERGIES HYDRALAZINE, VANCOMYCIN AND POSSIBLE METOPROLOL. PHYSICAL EXAMINATION GENERAL: She is awake and alert. VITAL SIGNS: Temperature is 98.5, pulse is 80, respiratory rate is 15, blood pressure 130/85. NEUROLOGIC: Pupils are reactive. Her face is symmetrical. Tongue midline. Motor no lateralizing deficits. Deep tendon reflexes 1+. Gait is withheld. IMAGING Head CT scan no acute findings. Some sphenoid mucosal thickening on the right. IMPRESSION A 20-year-old woman with chronic migraines may be a dual component one due to her uncontrolled hypertension and the other certainly can be just her usual migraine. She is already on at home apparently on a beta dimas. I would recommend at this point in time adding a little bit of Depakote ER 250 mg at bedtime to see if that can decrease her headache frequency. Another option would be if she fails that, a low dose tricyclic such as nortriptyline 10 mg at bedtime. She already is dialyzed though a third option would be topiramate 50 mg at bedtime. I am going to go ahead and order the Depakote and hopefully she will be able to tolerate the medication and follow-up accordingly in the office. MD DEVIKA Mccormack/MICHELLE /3:21 PM /6:16 PM
[2016-06-01] MEDS ORDERED: TERAZOSIN HCL 5 MG CAP PO SCH (21:00)
[2016-06-02] VITALS: BP 128/80; PULSE 83; RESP 14; TEMP 98.7; O2SAT 96
[2016-06-02] MEDS: MORPHINE SULFATE 4 MG/ML INJ IV PUSH PRN ×2 (01:45→09:10)
[2016-06-02 02:00] VITALS: PULSE 95
[2016-06-02 04:00] VITALS: BP 138/88; PULSE 86; RESP 14; TEMP 98.5; O2SAT 95
[2016-06-02] MEDS: CHLORHEXIDINE GLUCONATE 2 % 1 PACK (2 CLOTHS)(taper/protocol) TOP SCH (04:00)
[2016-06-02 05:10] LABS: HEMATOCRIT 27.6 % (35.0-46.0); MEAN CELL VOLUME 83.6 FL (80.0-100.0); MEAN CORPUSCULAR HEMOGLOBIN 28.7 PG (27.0-34.0); MEAN CORPUSCULAR HGB CONC 34.4 % (32.0-36.0); PLATELET COUNT 92 TH/MM3 (150-450); RED CELL DISTRIBUTION WIDTH 17.6 % (11.6-17.2); WHITE BLOOD COUNT 5.5 TH/MM3 (4.0-11.0)
[2016-06-02 05:13] LABS: REVIEW FLAG FINAL
[2016-06-02 05:35] LABS: BICARBONATE 29.1 MEQ/L (21.0-32.0); POTASSIUM 4.7 MEQ/L (3.5-5.1)
[2016-06-02 06:00] VITALS: PULSE 83
[2016-06-02 08:00] VITALS: BP 140/86; PULSE 87; PULSE 88; RESP 12; TEMP 98.5; O2SAT 96
--- NOTE | 2016-06-02 08:10 | PD.CARD.PN ---
Subjective Subjective Remarks BP well controlled. Will sign off Objective Vital Signs / I&O Vital Signs Date Time Temp Pulse Resp B/P Pulse Ox O2 Delivery O2 Flow Rate FiO2 06/02/16 08:00 98.5 88 12 140/86 96 06/02/16 06:00 83 06/02/16 04:00 98.5 86 14 138/88 95 06/02/16 04:00 86 06/02/16 02:00 95 06/02/16 00:00 83 06/02/16 00:00 98.7 83 14 128/80 96 06/01/16 22:00 87 06/01/16 20:00 98.9 85 18 155/100 97 06/01/16 20:00 85 06/01/16 18:00 88 06/01/16 16:00 98.5 76 16 136/90 96 06/01/16 16:00 76 06/01/16 14:00 80 06/01/16 12:00 87 06/01/16 12:00 98.5 87 15 130/85 96 06/01/16 10:00 86 I/O 06/01/16 06/01/16 06/01/16 06/02/16 06/02/16 06/02/16 07:00 15:00 23:00 07:00 15:00 23:00 Intake Total 240 ml 410 ml 250 ml 250 ml Output Total 350 ml 1286 ml 300 ml Balance -110 ml -876 ml 250 ml -50 ml Intake Oral 240 ml 400 ml 240 ml 240 ml IV Total 0 ml 10 ml 10 ml 10 ml Output Urine Total 350 ml 350 ml 300 ml Stool Total 0 ml Hemodialysis 936 ml # Voids 0 Laboratory Laboratory Tests Test 06/02/16 04:18 White Blood Count 5.5 TH/MM3 Red Blood Count 3.30 MIL/MM3 Hemoglobin 9.5 GM/DL Hematocrit 27.6 % Mean Corpuscular Volume 83.6 FL Mean Corpuscular Hemoglobin 28.7 PG Mean Corpuscular Hemoglobin 34.4 % Concent Red Cell Distribution Width 17.6 % Platelet Count 92 TH/MM3 Mean Platelet Volume 6.3 FL Sodium Level 138 MEQ/L Potassium Level 4.7 MEQ/L Chloride Level 97 MEQ/L Carbon Dioxide Level 29.1 MEQ/L Anion Gap 12 MEQ/L Blood Urea Nitrogen 44 MG/DL Creatinine 11.00 MG/DL Estimat Glomerular Filtration 4 ML/MIN Rate Random Glucose 73 MG/DL Calcium Level 7.9 MG/DL Moy Tejada MD Jun 02, 2016 08:10
[2016-06-02] MEDS: CALCIUM ACETATE 667 MG CAP PO SCH (09:09)
[2016-06-02] MEDS: SODIUM CHLORIDE 0.9% FLUSH 5 ML FLUSH FLUSH SCH (09:09)
[2016-06-02] MEDS: SODIUM BICARBONATE 650 MG TAB PO SCH (09:09)
[2016-06-02] MEDS: DIVALPROEX SODIUM E.R. 250 MG TAB PO SCH (09:09)
[2016-06-02] MEDS: LABETALOL HCL 300 MG TAB PO SCH (09:09)
[2016-06-02] MEDS: levETIRAcetam 500 MG TAB PO SCH (09:09)
[2016-06-02] MEDS: LOSARTAN 50 MG TAB PO SCH (09:10)
[2016-06-02] MEDS: HYDROXYCHLOROQUINE SULFATE 200 MG TAB PO SCH (09:10)
[2016-06-02] MEDS: PANTOPRAZOLE SOD 20 MG DELAYED RELEASE TAB PO SCH (09:10)
[2016-06-02] MEDS ORDERED: DIVA250ER PO (09:12)
[2016-06-02] MEDS ORDERED: COZA50TA PO (09:12)
[2016-06-02] MEDS ORDERED: HYDR200T3 PO (09:12)
[2016-06-02] MEDS ORDERED: AMLO10 PO (09:12)
[2016-06-02] MEDS ORDERED: TERA5CAP3 PO (09:12)
--- NOTE | 2016-06-02 09:13 | HHI.DS ---
Discharge Summary Admission Date May 31, 2016 at 15:57 Discharge Date: Jun 02, 2016 Admitting Diagnosis Hypertensive urgency (1) Hypertensive urgency ICD Code: I10 Diagnosis: Principal (2) ESRD (end stage renal disease) on dialysis ICD Code: N18.6 Diagnosis: Secondary (3) Migraine ICD Code: G43.909 Diagnosis: Principal (4) Noncompliance ICD Code: Z91.19 Diagnosis: Secondary Procedures none Brief History - From Admission This is a 20-year-old female past medical history of end-stage renal disease secondary to lupus on peritoneal dialysis, history of hypertension, history of migraines, and history of seizure disorder who presented with severe migraines. Patient stated that her migraine started yesterday and which it has been constant since yesterday along with blurry vision. Patient stated that this is her normal symptoms when she has migraines. She stated then today she had some emesis describe yellowish in color. Patient stated that she does not take any medication at home and that when she usually has migraines she comes to the hospital and that's how was treated. Patient denies any fevers or chills. In the emergency department she was found to have uncontrolled blood pressure she was given multiple doses of IV antihypertensive medication but did not work so she is put on a Cardene drip. Patient stated that her migraine worsens with light so she preferred during the interview and examination to have the light off. Otherwise she has no complaints. Denies any focal neurological deficits. CBC/BMP: 06/02/16 0418 06/02/16 0418 Significant Findings Laboratory Tests Test 05/31/16 06/02/16 13:42 04:18 Red Blood Count 3.54 MIL/MM3 3.30 MIL/MM3 (4.00-5.30) (4.00-5.30) Hemoglobin 10.1 GM/DL 9.5 GM/DL (11.6-15.3) (11.6-15.3) Hematocrit 29.7 % 27.6 % (35.0-46.0) (35.0-46.0) Red Cell Distribution Width 17.6 % 17.6 % (11.6-17.2) (11.6-17.2) Platelet Count 86 TH/MM3 92 TH/MM3 (150-450) (150-450) Mean Platelet Volume 6.3 FL 6.3 FL (7.0-11.0) (7.0-11.0) Eosinophils (%) (Auto) 10.1 % (0.0-4.0) Eosinophils # (Auto) 0.5 TH/MM3 (0-0.4) Platelet Estimate LOW (NORMAL) Ovalocytes 1+ (NORMAL) Acanthocytes OCC (NORMAL) Blood Urea Nitrogen 49 MG/DL (7-18) 44 MG/DL (7-18) Creatinine 10.86 MG/DL 11.00 MG/DL (0.50-1.00) (0.50-1.00) Estimat Glomerular Filtration 4 ML/MIN (>89) 4 ML/MIN (>89) Rate Calcium Level 7.3 MG/DL 7.9 MG/DL (8.5-10.1) (8.5-10.1) Protein Corrected Calcium 8.1 MG/DL (8.5-10.1) Total Protein 5.6 GM/DL (6.4-8.2) Albumin 2.7 GM/DL (3.4-5.0) Chloride Level 97 MEQ/L (98-107) Random Glucose 73 MG/DL (74-106) Imaging Last Impressions Head CT 05/31/16 0000 Signed Impressions: Service Date/Time: Tuesday, May 31, 2016 15:28 - CONCLUSION: No acute intracranial abnormality. Mild mucosal thickening within the right sphenoid sinus. Harry Decker MD PE at Discharge GENERAL: in NAD CARDIOVASCULAR: Regular rate and rhythm without murmurs, gallops, or rubs. RESPIRATORY: Breath sounds equal bilaterally. No accessory muscle use. GASTROINTESTINAL: Abdomen soft, non-tender, nondistended. + cath in place. MUSCULOSKELETAL: No cyanosis, or edema. BACK: Nontender without obvious deformity. No CVA tenderness. Pt update on day of discharge f/u for HTN and migraine. patient stated migraines resolved and the medication worked well. She is off the gtt and bp controlled with oral medication. She denied any symptoms and asked to go home. She also stated she ran out of her lisinopril, amlodipine and Plaquenil and asked for a refilled. Hospital Course 20-year-old female with history of end-stage renal disease on peritoneal dialysis secondary to lupus nephritis, history of seizure, and history of migraines who presented with Intractable migraines -Patient stated that these of the same symptoms she gets when she has migraines. -Ct scan of head done showing No acute intracranial abnormality. Mild mucosal thickening within the right sphenoid sinus. -neurologist consulted and put patient on Depakote with resolution of MUNOZ. Hypertensive urgency -Patient seems to have this problem multiple times in the past. -Resume home medication. She was given multiple IV antihypertensive meds in ED with no improvement in BP. Patient was put on the Cardene drip in the emergency department so that was continued. consulted her sat act instructor and feller buncher operator. lisinopril d/c and cozar was continued. Vacuum Drier Operator d/c clonidine and put patient on terazosin which controlled her BP. She was weaned off gtt with success. . End-stage renal disease on peritoneal dialysis -sat act instructor consulted and stated patient is noncompliant. -continue to dialysis. GERD/seizure disorder -continue with home medication. Pt Condition on Discharge: Good Discharge Disposition: Discharge Home Discharge Time: <= 30 minutes Discharge Instructions DIET: Follow Instructions for: Heart Healthy Diet, Dialysis Diet Activities you can perform: Regular-No Restrictions Follow up Referrals: Nephrology - 2 Weeks Neurology - 1 Week with Amee Pulido MD PCP Follow-up - 1 Week New Medications: Divalproex ER (Depakote ER) 250 Mg Marilu 250 MG PO DAILY migraines #15 Ref 0 TAB Terazosin (Terazosin) 5 Mg Cap 5 MG PO HS hypertension #30 Ref 0 CAP Continued Medications: Amlodipine (Norvasc) 10 Mg Tab 10 MG PO BID Blood Pressure Management #30 Ref 0 TAB (This prescription has been renewed) Calcium Acetate (Phosphate Binder) (Calcium Acetate (Phosphate Binder)) 667 Mg Cap 1334 MG PO TID Hyperphosphatemia #180 Ref 0 CAP Epoetin Inj (Epogen Inj) 2,000 Unit/Ml Inj 1500 UNITS SQ 2XMONTH VIAL Hydroxychloroquine (Hydroxychloroquine) 200 Mg Tab 200 MG PO BID Takw with food lupus #60 Ref 0 TAB (This prescription has been renewed) Labetalol (Labetalol) 300 Mg Tab 300 MG PO Q12HR Blood Pressure Management #60 TAB Levetiracetam (Keppra) 500 Mg Tab 500 MG PO Q12HR seizures Days 30 TAB Losartan (Cozaar) 50 Mg Tab 50 MG PO BID Blood Pressure Management #30 Ref 0 TAB (This prescription has been renewed) Pantoprazole (Protonix) 20 Mg Tab 20 MG PO DAILY Reflux #30 Ref 0 TAB Sodium Bicarbonate (Sodium Bicarbonate) 650 Mg Tab 650 MG PO BIDPC #60 Ref 0 TAB Anali Chavez MD Jun 02, 2016 09:13
--- NOTE | 2016-06-02 09:13 | HHI.DCPOC ---
Discharge Care Plan Diagnosis: (1) Hypertensive urgency (2) ESRD (end stage renal disease) on dialysis (3) Migraine Goals to Promote Your Health * To prevent worsening of your condition and complications * To maintain your health at the optimal level Directions to Meet Your Goals Take your medications as prescribed Follow your dietary instruction Follow activity as directed Keep your appointments as scheduled Take your immunizations and boosters as scheduled If your symptoms worsen call your PCP, if no PCP go to Urgent Care Center or Emergency Room Smoking is Dangerous to Your Health. Avoid second hand smoke Call the 24-hour hour crisis hotline for domestic abuse at Anali Chavez MD Jun 02, 2016 09:13
[2016-06-02 10:00] VITALS: PULSE 85
--- NOTE | 2016-06-02 11:05 | HHI.NPPN ---
Subjective General Problems: Anemia Renal Failure: Chronic, End Stage Renal Disease Interval History Being prepared for discharge. BP is better, she feels better. (Kaylen Ireland) Objective Data Data 06/01/16 06/02/16 19:00 07:00 Intake Total 410 ml 500 ml Output Total 1286 ml 300 ml Balance -876 ml 200 ml Intake Oral 400 ml 480 ml IV Total 10 ml 20 ml Output Urine Total 350 ml 300 ml Hemodialysis 936 ml Vital Signs Date Time Temp Pulse Resp B/P Pulse Ox O2 Delivery O2 Flow Rate FiO2 06/02/16 10:00 85 06/02/16 08:00 87 06/02/16 08:00 98.5 88 12 140/86 96 06/02/16 06:00 83 06/02/16 04:00 98.5 86 14 138/88 95 06/02/16 04:00 86 06/02/16 02:00 95 06/02/16 00:00 83 06/02/16 00:00 98.7 83 14 128/80 96 06/01/16 22:00 87 06/01/16 20:00 98.9 85 18 155/100 97 06/01/16 20:00 85 06/01/16 18:00 88 06/01/16 16:00 98.5 76 16 136/90 96 06/01/16 16:00 76 06/01/16 14:00 80 06/01/16 12:00 87 06/01/16 12:00 98.5 87 15 130/85 96 (Kaylen Ireland) -: 06/02/16 0418 06/02/16 0418 Imaging Last Impressions Head CT 05/31/16 0000 Signed Impressions: Service Date/Time: Tuesday, May 31, 2016 15:28 - CONCLUSION: No acute intracranial abnormality. Mild mucosal thickening within the right sphenoid sinus. Harry Decker MD Tubes & Lines: Tenckhoff Catheter (Kaylen Ireland) Physical Exam General Appearance: Well Developed, Well Nourished, No Acute Distress, Comfortable ( Kaylen Ireland) Eyes Eye Exam: Pupils Equal, Pupils Reactive (Kaylen Ireland) Throat Throat Exam: Oral Mucosa [place] & Moist (Kaylen Ireland) Pulmonary Resp Exam: Clear Bilaterally, Breath Sounds Equal (Kaylen Ireland) Cardiology CV Exam: Regular, Good Perfusion (Kaylen Ireland) Gastrointestinal/Abdomen GI Exam: Soft, Non-Tender (Kaylen Ireland) Musculoskeletal MS Exam: Joints Intact, Normal Tone, Good Strength (Kaylen Ireland) Integumentary Skin Exam: Warm, Dry (Kaylen Ireland) Extremeties Extremities Exam: No Edema, Pedal Pulses Palpable (Kaylen Ireland) Neurologic Neuro Exam: Alert, Awake, Oriented, Speech Clear, Moving All Extremities, No Focal Deficits (Kaylen Ireland) Psychiatric Psych Exam: Appropriate Responses (Kaylen Ireland) Assessment/Plan Discussed Condition With: Patient Assessment Summary: Anemia of CKD, Hypertension, End Stage Renal Disease Problem List: (1) Hypertensive urgency Plan: BP has improved and remained stable she is on terazosin (off clonidine), norvasc, labetalol, and losartan at time of discharge we will see her in PD clinic tomorrow to review medications; we have asked her to stop lisinopril and clonidine at home we may change labetalol to coreg (2) ESRD (end stage renal disease) on dialysis Plan: due to lupus nephritis, biopsy confirmed, non compliant with medications continue nightly PD she is using 1.5% solution; her regimen consists of 9 hrs, 6 cycles, no last fill electrolytes are unremarkable C02 normal, off oral bicarbonate no current dialysis concerns she still makes some urine avoid nephrotoxic drugs stable from renal perspective (3) Metabolic bone disease Plan: on phoslo (4) Anemia Plan: Hb stable, receives Epogen monthly in PD clinic (5) Migraine Plan: has been evaluated by neurology symptoms improved discussion of Depakote, nortriptyline or Topamax use at discharge (Kaylen Ireland) Plan patient was seen and examined. Agree with above assessment and plan. BP is better. To be discharged today. (Jasbir Curry MD) Kaylen Ireland Jun 02, 2016 11:05 Jasbir Curry MD Jun 03, 2016 07:52
== END 2016-06-02 11:10 | disposition home or self-care (01) | DRG 102 ==
LOC: NEPA 12:54 → NEDA 15:57 → HIME 20:50
PROVIDERS: ADMIT Family Medicine; ATTEND Family Medicine
PROC: 3E1M39Z Irrigation of Peritoneal Cavity using Dialysate, Percutaneous Approach (ICD-10-PCS; principal; 2016-05-31)
DX: G43.919 Migraine, unspecified, intractable, without status migrainosus (principal); N18.6 End stage renal disease; E88.89 Other specified metabolic disorders; M32.14 Glomerular disease in systemic lupus erythematosus; I12.0 Hypertensive chronic kidney disease with stage 5 chronic kidney disease or end stage renal disease; I16.0 Hypertensive urgency; F41.9 Anxiety disorder, unspecified; D63.1 Anemia in chronic kidney disease; K21.9 Gastro-esophageal reflux disease without esophagitis; G40.909 Epilepsy, unspecified, not intractable, without status epilepticus; F12.90 Cannabis use, unspecified, uncomplicated; Z91.19 Patient's noncompliance with other medical treatment and regimen; Z99.2 Dependence on renal dialysis
CPT/HCPCS: 70450; 80048; 80076; 84155; 85025; 85027; 85610; 85730; 87641; 90935; 93005; 96374; 96375; J0610; J0780; J1885; J2270; J2405; J7050

== ENCOUNTER 2016-08-03 02:22 | Emergency (ER) | payer OTHER ==
[~2016-08-03] VITALS: Ht 162.6 cm; Wt 57.0 kg
[~2016-08-03 02:22] MED LIST changes: +DIVA250ER PO; +TERA5CAP3 PO
[2016-08-03 02:26] VITALS: BP 183/124; PULSE 96; RESP 16; TEMP 98.6; O2SAT 98
[2016-08-03] MEDS ORDERED: MAGNESIUM SULFATE 1 GM PREMIX 100 ML IV ONE (03:00)
[2016-08-03] MEDS ORDERED: DEXAMETHASONE SOD PHOS 20 MG/5 ML VIAL IV PUSH ONE (03:00)
[2016-08-03] MEDS ORDERED: SODIUM CHLORIDE 0.9% FLUSH 10 ML FLUSH IVF PRN (03:00)
[2016-08-03] MEDS ORDERED: diphenhydrAMINE HCL 50 MG/ML VIAL IVP ONE (03:00)
[2016-08-03] MEDS ORDERED: METOCLOPRAMIDE HCL 10 MG/2 ML VIAL IV PUSH ONE (03:00)
[2016-08-03] MEDS ORDERED: SENS90TA PO (03:03)
[2016-08-03 03:39] LABS: AUTOMATED NEUTROPHIL # 4.2 TH/MM3 (1.8-7.7); BASOPHIL # 0.1 TH/MM3 (0-0.2); BASOPHIL % 1.6 % (0.0-2.0); EOSINOPHIL # 0.4 TH/MM3 (0-0.4); EOSINOPHIL % 6.5 % (0.0-4.0); HEMATOCRIT 21.8 % (35.0-46.0); HEMO FLAGS DIFF FINAL; LYMPH % 24.3 % (9.0-44.0); LYMPHOCYTE # 1.6 TH/MM3 (1.0-4.8); MEAN CELL VOLUME 83.5 FL (80.0-100.0); MEAN CORPUSCULAR HEMOGLOBIN 28.7 PG (27.0-34.0); MEAN CORPUSCULAR HGB CONC 34.3 % (32.0-36.0); MONO % 4.7 % (0.0-8.0); NEUT % 62.9 % (16.0-70.0); PLATELET COUNT 182 TH/MM3 (150-450); RED BLOOD COUNT 2.61 MIL/MM3 (4.00-5.30); RED CELL DISTRIBUTION WIDTH 17.5 % (11.6-17.2); WHITE BLOOD COUNT 6.7 TH/MM3 (4.0-11.0)
[2016-08-03 03:44] LABS: ALT (GPT) 17 U/L (10-53); ANION GAP 13 MEQ/L (5-15); AST (GOT) 22 U/L (15-37); BICARBONATE 24.1 MEQ/L (21.0-32.0); BLOOD UREA NITROGEN 54 MG/DL (7-18); CHLORIDE 101 MEQ/L (98-107); GLOMERULAR FILTRATION RATE 3 ML/MIN (>89); SODIUM (NA) 138 MEQ/L (136-145)
[2016-08-03 03:46] LABS: ALKALINE PHOSPHATASE 52 U/L (45-117); TOTAL BILIRUBIN ADULT 0.4 MG/DL (0.2-1.0)
[2016-08-03 03:47] LABS: APTT (PATIENT) 27.8 SEC (24.3-30.1); PROTHROMBIN TIME - PATIENT 11.3 SEC (9.8-11.6)
--- NOTE | 2016-08-03 03:47 | RADRPT ---
EXAM DATE/TIME: 08/03/2016 03:34 [facility] COMPARISON: CT BRAIN W/O CONTRAST, May 31, 2016, 15:28. INDICATIONS : Cephalgia. RADIATION DOSE: 40.37 CTDIvol (mGy) MEDICAL HISTORY : Seizures. Hypertension. Lupus.Kidney failure, dialysis 3x week. SURGICAL HISTORY : Permacath. ENCOUNTER: Initial ACUITY: 1 day PAIN SCALE: 8/10 LOCATION: cranial TECHNIQUE: Multiple contiguous axial images were obtained of the head. Using automated exposure control and adj ustment of the mA and/or kV according to patient size, radiation dose was kept as low as reasonably a chievable to obtain optimal diagnostic quality images. FINDINGS: There is no evidence for intracranial hemorrhage, mass effect, mass lesions, edema, or extra-axial fl uid collections. The visualized bony structures appear intact. The ventricles are normal size for t he patient's age. There are no signs of acute infarction for technique. There is mild mucoperiosteal thickening within the right eithmoid air cells and right sphenoid sinus. CONCLUSION: Unremarkable study except for chronic sinusitis. Graeme Humphrey MD on August 03, 2016 at 3:44 Board Certified Radiologist. This report was verified electronically.
--- NOTE | 2016-08-03 04:44 | PD ---
HPI Chief Complaint: Hypertension Time Seen by Provider: 02:56 Travel History International Travel<30 days: No Contact w/Intl Traveler<30days: No Traveled to known affect area: No History of Present Illness HPI Patient is a 20-year-old female with history of lupus and kidney failure currently undergoing peritoneal dialysis by Dr. Ibarra, presents to ER with c/o of headache. Patient reports that she woke up around 2 AM and had diffuse headache. She reports that she has been feeling nauseous and has been vomiting , reports that her blood pressure is needed from her baseline blood pressure. Patient reports that she has had similar headaches in the past, reports that she usually needs IV medications to help with her symptoms and they usually resolve. She denies that this is the worst headache of her life, reports no trauma to her head, no fevers or chills. PFSH Past Medical History Arthritis: No Autoimmune Disease: Yes (LUPUS ) Anxiety: Yes Depression: No Heart Rhythm Problems: No Cancer: No Cardiovascular Problems: Yes (htn) High Cholesterol: No Chemotherapy: No Chest Pain: No Congestive Heart Failure: No Cerebrovascular Accident: Yes Diabetes: Yes Dialysis: Yes (DAILY) Diminished Hearing: No Endocrine: No Gastrointestinal Disorders: Yes (Nausea, low appetite) GERD: No Genitourinary: No Headaches: Yes (CLUSTER MUNOZ) Hepatitis: No Hiatal Hernia: No Heparin Induced Thrombocytopen: No Hypertension: Yes Immune Disorder: Yes (Lupus) Implanted Vascular Access Dvce: No Kidney Stones: No Musculoskeletal: No Neurologic: Yes (LUPUS) Psychiatric: No Reproductive: No Respiratory: No Immunizations Current: Yes Migraines: Yes (FROM HTN) Radiation Therapy: No Renal Failure: Yes Seizures: Yes (FROM HTN) Sickle Cell Disease: No Thyroid Disease: No Ulcer: No ?: Not LMP: 07/26/2046 : 1 Para: 1 Past Surgical History Abdominal Surgery: Yes (PERMACATH, PERITONEAL DIALYSIS) AICD: No Arteriovenous Shunt: No Body Medical Devices: ,PD catheter Cardiac Surgery: No Ear Surgery: No Endocrine Surgery: No Eye Surgery: No Genitourinary Surgery: No Gynecologic Surgery: No Insulin Pump: No Joint Replacement: No Neurologic Surgery: No Oral Surgery: No Pacemaker: No Thoracic Surgery: Yes (VAS CATH TO LEFT CHEST, removed) Other Surgery: Yes ((R) Permacath, PD catheter) Social History Alcohol Use: No Tobacco Use: No Substance Use: Yes (Marijuana every so often) Allergies-Medications (Allergen,Severity, Reaction): Coded Allergies: Hydralazine (Verified Allergy, Severe, Rash, 05/31/16) Vancomycin (Verified Allergy, Severe, Red man syndrome , 05/31/16) Metoprolol (Verified Allergy, Unknown, Patient does not know, 05/31/16) Reported Meds & Prescriptions Reported Meds & Active Scripts Active Terazosin (Terazosin HCl) 5 Mg Cap 5 Mg PO HS Norvasc (Amlodipine Besylate) 10 Mg Tab 10 Mg PO BID Cozaar (Losartan Potassium) 50 Mg Tab 50 Mg PO BID Hydroxychloroquine (Hydroxychloroquine Sulfate) 200 Mg Tab 200 Mg PO BID Takw with food Labetalol (Labetalol HCl) 300 Mg Tab 300 Mg PO Q12HR Keppra (Levetiracetam) 500 Mg Tab 500 Mg PO Q12HR 30 Days Reported Sensipar (Cinacalcet) 90 Mg Tab 180 Mg PO DAILY Calcium Acetate (Phosphate Binder) 667 Mg Cap 1,334 Mg PO TID Protonix (Pantoprazole Sodium) 20 Mg Tab 20 Mg PO DAILY Epogen Inj (Epoetin Diego) 2,000 Unit/Ml Inj 1,500 Units SQ 2XMONTH Review of Systems General / Constitutional: No: Fever Eyes: No: Visual changes HENT: Positive: Headaches Cardiovascular: No: Chest Pain or Discomfort Respiratory: No: Shortness of Breath Gastrointestinal: Positive: Nausea, Vomiting, No: Abdominal Pain Genitourinary: No: Dysuria Musculoskeletal: No: Pain Skin: No Rash Neurologic: No: Weakness Psychiatric: No: Depression Endocrine: No: Polydipsia Hematologic/Lymphatic: No: Easy Bruising Physical Exam Narrative GENERAL: Moderate distress SKIN: Focused skin assessment warm/dry. HEAD: Atraumatic. Normocephalic. EYES: Pupils equal and round. No scleral icterus. No injection or drainage. ENT: No nasal bleeding or discharge. Mucous membranes pink and moist. NECK: Trachea midline. No JVD. CARDIOVASCULAR: Regular rate and rhythm. No murmur appreciated. RESPIRATORY: No accessory muscle use. Clear to auscultation. Breath sounds equal bilaterally. GASTROINTESTINAL: Abdomen soft, non-tender, nondistended. Hepatic and splenic margins not palpable. Peritoneal dialysis catheter in place - no signs of infection MUSCULOSKELETAL: No obvious deformities. No clubbing. No cyanosis. No edema. NEUROLOGICAL: Awake and alert. No obvious cranial nerve deficits. Motor grossly within normal limits. Normal speech. PSYCHIATRIC: Appropriate mood and affect; insight and judgment normal. Data Data Last Documented VS Vital Signs Date Time Temp Pulse Resp B/P Pulse Ox O2 Delivery O2 Flow Rate FiO2 08/03/16 04:56 90 14 161/117 98 Room Air 08/03/16 02:26 98.6 Orders Complete Blood Count With Diff (08/03/16 02:56) Comprehensive Metabolic Panel (08/03/16 02:56) Prothrombin Time / Inr (Pt) (08/03/16 02:56) Act Partial Throm Time (Ptt) (08/03/16 02:56) Ct Brain W/O Iv Contrast(Rout) (08/03/16 02:56) Iv Access Insert/Monitor (08/03/16 02:56) Sodium Chloride 0.9% Flush (Ns Flush) (08/03/16 03:00) Diphenhydramine Inj (Benadryl Inj) (08/03/16 03:00) Dexamethasone Inj (Decadron Inj) (08/03/16 03:00) Metoclopramide Inj (Reglan Inj) (08/03/16 03:00) Magnesium Sulfate 1 Gm Premix (Magnesium (08/03/16 03:00) Clonidine (Catapres) (08/03/16 05:00) Labs Laboratory Tests Test 08/03/16 03:10 White Blood Count 6.7 TH/MM3 Red Blood Count 2.61 MIL/MM3 Hemoglobin 7.5 GM/DL Hematocrit 21.8 % Mean Corpuscular Volume 83.5 FL Mean Corpuscular Hemoglobin 28.7 PG Mean Corpuscular Hemoglobin 34.3 % Concent Red Cell Distribution Width 17.5 % Platelet Count 182 TH/MM3 Mean Platelet Volume 6.7 FL Neutrophils (%) (Auto) 62.9 % Lymphocytes (%) (Auto) 24.3 % Monocytes (%) (Auto) 4.7 % Eosinophils (%) (Auto) 6.5 % Basophils (%) (Auto) 1.6 % Neutrophils # (Auto) 4.2 TH/MM3 Lymphocytes # (Auto) 1.6 TH/MM3 Monocytes # (Auto) 0.3 TH/MM3 Eosinophils # (Auto) 0.4 TH/MM3 Basophils # (Auto) 0.1 TH/MM3 CBC Comment DIFF FINAL Differential Comment Prothrombin Time 11.3 SEC Prothromb Time International 1.0 RATIO Ratio Activated Partial 27.8 SEC Thromboplast Time Sodium Level 138 MEQ/L Potassium Level 4.0 MEQ/L Chloride Level 101 MEQ/L Carbon Dioxide Level 24.1 MEQ/L Anion Gap 13 MEQ/L Blood Urea Nitrogen 54 MG/DL Creatinine 13.96 MG/DL Estimat Glomerular Filtration 3 ML/MIN Rate Random Glucose 93 MG/DL Calcium Level 7.5 MG/DL Total Bilirubin 0.4 MG/DL Aspartate Amino Transf 22 U/L (AST/SGOT) Alanine Aminotransferase 17 U/L (ALT/SGPT) Alkaline Phosphatase 52 U/L Total Protein 6.2 GM/DL Albumin 2.9 GM/DL MDM Medical Decision Making Medical Screen Exam Complete: Yes Emergency Medical Condition: Yes Interpretation(s) Vital Signs Date Time Temp Pulse Resp B/P Pulse Ox O2 Delivery O2 Flow Rate FiO2 08/03/16 02:26 98.6 96 16 183/124 98 Room Air Laboratory Tests Test 08/03/16 03:10 White Blood Count 6.7 TH/MM3 (4.0-11.0) Red Blood Count 2.61 MIL/MM3 (4.00-5.30) Hemoglobin 7.5 GM/DL (11.6-15.3) Hematocrit 21.8 % (35.0-46.0) Mean Corpuscular Volume 83.5 FL (80.0-100.0) Mean Corpuscular Hemoglobin 28.7 PG (27.0-34.0) Mean Corpuscular Hemoglobin 34.3 % Concent (32.0-36.0) Red Cell Distribution Width 17.5 % (11.6-17.2) Platelet Count 182 TH/MM3 (150-450) Mean Platelet Volume 6.7 FL (7.0-11.0) Neutrophils (%) (Auto) 62.9 % (16.0-70.0) Lymphocytes (%) (Auto) 24.3 % (9.0-44.0) Monocytes (%) (Auto) 4.7 % (0.0-8.0) Eosinophils (%) (Auto) 6.5 % (0.0-4.0) Basophils (%) (Auto) 1.6 % (0.0-2.0) Neutrophils # (Auto) 4.2 TH/MM3 (1.8-7.7) Lymphocytes # (Auto) 1.6 TH/MM3 (1.0-4.8) Monocytes # (Auto) 0.3 TH/MM3 (0-0.9) Eosinophils # (Auto) 0.4 TH/MM3 (0-0.4) Basophils # (Auto) 0.1 TH/MM3 (0-0.2) CBC Comment DIFF FINAL Differential Comment Prothrombin Time 11.3 SEC (9.8-11.6) Prothromb Time International 1.0 RATIO Ratio Activated Partial 27.8 SEC Thromboplast Time (24.3-30.1) Sodium Level 138 MEQ/L (136-145) Potassium Level 4.0 MEQ/L (3.5-5.1) Chloride Level 101 MEQ/L (98-107) Carbon Dioxide Level 24.1 MEQ/L (21.0-32.0) Anion Gap 13 MEQ/L (5-15) Blood Urea Nitrogen 54 MG/DL (7-18) Creatinine 13.96 MG/DL (0.50-1.00) Estimat Glomerular Filtration 3 ML/MIN (>89) Rate Random Glucose 93 MG/DL (74-106) Calcium Level 7.5 MG/DL (8.5-10.1) Total Bilirubin 0.4 MG/DL (0.2-1.0) Aspartate Amino Transf 22 U/L (15-37) (AST/SGOT) Alanine Aminotransferase 17 U/L (10-53) (ALT/SGPT) Alkaline Phosphatase 52 U/L (45-117) Total Protein 6.2 GM/DL (6.4-8.2) Albumin 2.9 GM/DL (3.4-5.0) Last Impressions Head CT 08/03/16 0256 Signed Impressions: Service Date/Time: Wednesday, August 03, 2016 03:34 - CONCLUSION: Unremarkable study except for chronic sinusitis. Graeme Humphrey MD Differential Diagnosis Accelerated hypertension, hypertensive emergency, cephalgia, electrolyte abnormality Narrative Course Patient is a 20-year-old female who presents to emergency room with complaints of headache. Reports that she has end-stage renal disease and is currently undergoing peritoneal dialysis. She does follow with Dr. Ibarra in the office. Reports that her symptoms are similar to when she has had a headache in the past. CT of the head ordered, labwork ordered, patient was given migraine cocktail. Laboratory Tests Test 08/03/16 03:10 White Blood Count 6.7 TH/MM3 (4.0-11.0) Red Blood Count 2.61 MIL/MM3 (4.00-5.30) Hemoglobin 7.5 GM/DL (11.6-15.3) Hematocrit 21.8 % (35.0-46.0) Mean Corpuscular Volume 83.5 FL (80.0-100.0) Mean Corpuscular Hemoglobin 28.7 PG (27.0-34.0) Mean Corpuscular Hemoglobin 34.3 % Concent (32.0-36.0) Red Cell Distribution Width 17.5 % (11.6-17.2) Platelet Count 182 TH/MM3 (150-450) Mean Platelet Volume 6.7 FL (7.0-11.0) Neutrophils (%) (Auto) 62.9 % (16.0-70.0) Lymphocytes (%) (Auto) 24.3 % (9.0-44.0) Monocytes (%) (Auto) 4.7 % (0.0-8.0) Eosinophils (%) (Auto) 6.5 % (0.0-4.0) Basophils (%) (Auto) 1.6 % (0.0-2.0) Neutrophils # (Auto) 4.2 TH/MM3 (1.8-7.7) Lymphocytes # (Auto) 1.6 TH/MM3 (1.0-4.8) Monocytes # (Auto) 0.3 TH/MM3 (0-0.9) Eosinophils # (Auto) 0.4 TH/MM3 (0-0.4) Basophils # (Auto) 0.1 TH/MM3 (0-0.2) CBC Comment DIFF FINAL Differential Comment Prothrombin Time 11.3 SEC (9.8-11.6) Prothromb Time International 1.0 RATIO Ratio Activated Partial 27.8 SEC Thromboplast Time (24.3-30.1) Sodium Level 138 MEQ/L (136-145) Potassium Level 4.0 MEQ/L (3.5-5.1) Chloride Level 101 MEQ/L (98-107) Carbon Dioxide Level 24.1 MEQ/L (21.0-32.0) Anion Gap 13 MEQ/L (5-15) Blood Urea Nitrogen 54 MG/DL (7-18) Creatinine 13.96 MG/DL (0.50-1.00) Estimat Glomerular Filtration 3 ML/MIN (>89) Rate Random Glucose 93 MG/DL (74-106) Calcium Level 7.5 MG/DL (8.5-10.1) Total Bilirubin 0.4 MG/DL (0.2-1.0) Aspartate Amino Transf 22 U/L (15-37) (AST/SGOT) Alanine Aminotransferase 17 U/L (10-53) (ALT/SGPT) Alkaline Phosphatase 52 U/L (45-117) Total Protein 6.2 GM/DL (6.4-8.2) Albumin 2.9 GM/DL (3.4-5.0) Last Impressions Head CT 08/03/16 0256 Signed Impressions: Service Date/Time: Wednesday, August 03, 2016 03:34 - CONCLUSION: Unremarkable study except for chronic sinusitis. Graeme Humphrey MD Patient reevaluated, patient reports that she is feeling much better at this time, patient of headache. I did offer patient LP to further evaluate etiology of headache - patient refuses as she feels 100% better. I reviewed all signs and symptoms of when she should return to ER, patient will ultimately follow-up with her primary care doctor in 24-48 hours. I did review all her labs in detail, patient's hemoglobin is 7.5, patient with no abdominal pain, no obvious source of bleeding. She does report that she gets Epo shots every week. She will follow-up with her primary care doctor for her anemia. Patient's creatinine is 13.96 which is slightly above baseline for her, she will go home and finish her dialysis. Patient anxious to be discharged, signs and symptoms of when to return to ER reviewed with patient in detail Diagnosis Primary Impression: Cephalgia Qualified Code: R51 - Nonintractable headache, unspecified chronicity pattern , unspecified headache type Additional Impressions: Anemia Qualified Code: D64.9 - Anemia, unspecified type Hypertension Qualified Code: I10 - Essential hypertension Patient Instructions: General Instructions Additional Instructions: Please return to the emergency room if symptoms return Please follow up with your primary care doctor in 24-48 hours Please take all your medications as prescribed Return to the emergency room as needed Disposition: 01 DISCHARGE HOME Condition: Stable Hilary Taemz DO August 03, 2016 04:44
[2016-08-03 04:56] VITALS: BP 161/117; PULSE 90; RESP 14; O2SAT 98
[2016-08-03] MEDS ORDERED: cloNIDine HCL 0.1 MG TAB PO ONE (05:00)
== END 2016-08-03 05:51 | disposition home or self-care (01) ==
LOC: NEPE 02:22
DX: R51 Headache (principal); D64.9 Anemia, unspecified; I12.0 Hypertensive chronic kidney disease with stage 5 chronic kidney disease or end stage renal disease; R11.2 Nausea with vomiting, unspecified; N18.6 End stage renal disease; E11.9 Type 2 diabetes mellitus without complications; Z99.2 Dependence on renal dialysis; Z86.2 Personal history of diseases of the blood and blood-forming organs and certain disorders involving the immune mechanism; Z86.59 Personal history of other mental and behavioral disorders; Z86.79 Personal history of other diseases of the circulatory system
CPT/HCPCS: 70450; 80053; 85025; 85610; 85730; 96374; 96375; 99285; J1100; J1200; J2765; J3475

== ENCOUNTER 2016-08-18 03:43 | Inpatient (IN) | payer OTHER ==
[2016-08-18] VITALS (26 sets, daily range): BP systolic 126–240; BP diastolic 75–156; PULSE 92–122; RESP 16–22; TEMP 98.2–98.6; O2SAT 86–99
[~2016-08-18 03:43] MED LIST changes: -DIVA250ER PO; +SENS90TA PO; -SODI650T PO
[2016-08-18] MEDS ORDERED: NITROGLYCERIN-DEXTROSE INJ 250 ML IV ONE (04:15)
[2016-08-18] MEDS ORDERED: SODIUM CHLORIDE 0.9% FLUSH 10 ML FLUSH IVF PRN (04:15)
[2016-08-18] MEDS: NITROGLYCERIN 0.4 MG SL 25 TABS/BTL SL SCH ×3 (04:18→04:25)
[2016-08-18 04:20] LABS: AUTOMATED NEUTROPHIL # 9.9 TH/MM3 (1.8-7.7); BASOPHIL # 0.1 TH/MM3 (0-0.2); BASOPHIL % 0.6 % (0.0-2.0); EOSINOPHIL # 0.5 TH/MM3 (0-0.4); EOSINOPHIL % 4.1 % (0.0-4.0); HEMATOCRIT 29.7 % (35.0-46.0); HEMO FLAGS DIFF FINAL; LYMPH % 15.1 % (9.0-44.0); LYMPHOCYTE # 1.9 TH/MM3 (1.0-4.8); MEAN CELL VOLUME 87.3 FL (80.0-100.0); MEAN CORPUSCULAR HEMOGLOBIN 29.2 PG (27.0-34.0); MEAN CORPUSCULAR HGB CONC 33.5 % (32.0-36.0); MONO % 2.6 % (0.0-8.0); NEUT % 77.6 % (16.0-70.0); PLATELET COUNT 100 TH/MM3 (150-450); RED CELL DISTRIBUTION WIDTH 20.2 % (11.6-17.2); WHITE BLOOD COUNT 12.8 TH/MM3 (4.0-11.0)
[2016-08-18] MEDS ORDERED: LORazepam 2 MG/ML VIAL ONE (04:24)
[2016-08-18 04:29] LABS: APTT (PATIENT) 27.7 SEC (24.3-30.1); PROTHROMBIN TIME - PATIENT 10.6 SEC (9.8-11.6)
[2016-08-18] MEDS ORDERED: LORazepam 2 MG/ML VIAL IV PUSH ONE (04:30)
[2016-08-18 04:33] LABS: ANION GAP 14 MEQ/L (5-15); BICARBONATE 25.6 MEQ/L (21.0-32.0); BLOOD UREA NITROGEN 46 MG/DL (7-18); CHLORIDE 99 MEQ/L (98-107); GLOMERULAR FILTRATION RATE 4 ML/MIN (>89); MAGNESIUM 2.3 MG/DL (1.5-2.5); POTASSIUM 4.1 MEQ/L (3.5-5.1); SODIUM (NA) 139 MEQ/L (136-145)
[2016-08-18 04:36] LABS: CREATINE KINASE 126 U/L (26-192)
[2016-08-18] MEDS ORDERED: MORPHINE SULFATE 4 MG/ML INJ IV PUSH ONE (04:45)
--- NOTE | 2016-08-18 04:47 | RADRPT ---
EXAM DATE/TIME: 08/18/2016 04:04 [facility] COMPARISON: CHEST SINGLE AP, May 24, 2016, 15:56. INDICATIONS : Shortness of breath. MEDICAL HISTORY : Hypertension. Renal disease, end stage. Lupus. SURGICAL HISTORY : None. ENCOUNTER: Initial ACUITY: 1 day PAIN SCORE: 0/10 LOCATION: Bilateral chest FINDINGS: A single view of the chest demonstrates some bilateral lower lobe airspace disease and mild diffuse p ulmonary vascular prominence. The cardiomediastinal contours are unremarkable. Osseous structures a re intact. CONCLUSION: Question airspace disease both lung bases. Chavez Palacios MD on August 18, 2016 at 4:45 Board Certified Radiologist. This report was verified electronically.
[2016-08-18 04:55] LABS: CKMB 1.2 NG/ML (0.5-3.6)
[2016-08-18] MEDS ORDERED: AZITHROMYCIN 250 MG TAB PO ONE (05:00)
[2016-08-18] MEDS ORDERED: cefTRIAXone INJ 1,000 MG in SODIUM CHLORIDE 0.9% INJ 100 ML IV ONE (05:00)
[2016-08-18] MEDS ORDERED: PROCHLORPERAZINE INJ 10 MG/2 ML VIAL IV PUSH ONE (05:00)
[2016-08-18] MEDS ORDERED: ONDANSETRON HCL 4 MG/2 ML VIAL ONE (05:14)
--- NOTE | 2016-08-18 05:17 | PD ---
HPI Chief Complaint: Chest Pain Time Seen by Provider: 04:00 Travel History International Travel<30 days: No Contact w/Intl Traveler<30days: No Traveled to known affect area: No History of Present Illness HPI 20yo F with PMH of lupus, ESRD on peritoneal HD, HTN, migraine headache presents to the ED with c/o chest pain and sob since 1am today. +Cough and blood tingled sputum today. Denies any fever, n/v, abdominal pain, focal weakness. Pt has been here multiple times for hypertensive urgency. Pt was hypoxic in the mid 80s on RA and placed on 3L NC and saturating at 95%. + Coarse breath sounds and rales diffusely bilaterally. Pt placed on BIPAP but was not tolerating it. PFSH Past Medical History Arthritis: No Autoimmune Disease: Yes (LUPUS ) Anxiety: Yes Depression: No Heart Rhythm Problems: No Cancer: No Cardiovascular Problems: Yes (htn) High Cholesterol: No Chemotherapy: No Chest Pain: No Congestive Heart Failure: No Cerebrovascular Accident: Yes Diabetes: Yes Patient Takes Glucophage: No Dialysis: Yes (DAILY) Diminished Hearing: No Endocrine: No Gastrointestinal Disorders: Yes (Nausea, low appetite) GERD: No Genitourinary: No Headaches: Yes (CLUSTER MUNOZ) Hepatitis: No Hiatal Hernia: No Heparin Induced Thrombocytopen: No Hypertension: Yes Immune Disorder: Yes (Lupus) Implanted Vascular Access Dvce: No Kidney Stones: No Musculoskeletal: No Neurologic: Yes (LUPUS) Psychiatric: No Reproductive: No Respiratory: No Immunizations Current: Yes Migraines: Yes (FROM HTN) Radiation Therapy: No Renal Failure: Yes Seizures: Yes (FROM HTN) Sickle Cell Disease: No Thyroid Disease: No Ulcer: No ?: Not : 1 Para: 1 Past Surgical History Abdominal Surgery: Yes (PERMACATH, PERITONEAL DIALYSIS) AICD: No Arteriovenous Shunt: No Body Medical Devices: ,PD catheter Cardiac Surgery: No Ear Surgery: No Endocrine Surgery: No Eye Surgery: No Genitourinary Surgery: No Gynecologic Surgery: No Insulin Pump: No Joint Replacement: No Neurologic Surgery: No Oral Surgery: No Pacemaker: No Thoracic Surgery: Yes (VAS CATH TO LEFT CHEST, removed) Other Surgery: Yes ((R) Permacath, PD catheter) Social History Alcohol Use: No Tobacco Use: No Substance Use: Yes (Marijuana every so often) Allergies-Medications (Allergen,Severity, Reaction): Coded Allergies: Hydralazine (Verified Allergy, Severe, Rash, 08/18/16) Vancomycin (Verified Allergy, Severe, Red man syndrome , 08/18/16) Metoprolol (Verified Allergy, Unknown, Patient does not know, 08/18/16) Reported Meds & Prescriptions Reported Meds & Active Scripts Active Terazosin (Terazosin HCl) 5 Mg Cap 5 Mg PO HS Norvasc (Amlodipine Besylate) 10 Mg Tab 10 Mg PO BID Cozaar (Losartan Potassium) 50 Mg Tab 50 Mg PO BID Hydroxychloroquine (Hydroxychloroquine Sulfate) 200 Mg Tab 200 Mg PO BID Takw with food Labetalol (Labetalol HCl) 300 Mg Tab 300 Mg PO Q12HR Keppra (Levetiracetam) 500 Mg Tab 500 Mg PO Q12HR 30 Days Reported Sensipar (Cinacalcet) 90 Mg Tab 180 Mg PO DAILY Calcium Acetate (Phosphate Binder) 667 Mg Cap 1,334 Mg PO TID Protonix (Pantoprazole Sodium) 20 Mg Tab 20 Mg PO DAILY Epogen Inj (Epoetin Diego) 2,000 Unit/Ml Inj 1,500 Units SQ 2XMONTH Review of Systems Except as stated in HPI: all other systems reviewed are Neg Physical Exam Narrative GENERAL: 20yo F in moderate distress. SKIN: Focused skin assessment warm/dry. HEAD: Atraumatic. Normocephalic. EYES: Pupils equal and round. No scleral icterus. No injection or drainage. ENT: No nasal bleeding or discharge. Mucous membranes pink and moist. NECK: Trachea midline. No JVD. CARDIOVASCULAR: Regular rate and rhythm. No murmur appreciated. RESPIRATORY: + accessory muscle use. Coarse breath sounds bilaterally. GASTROINTESTINAL: Abdomen soft, non-tender, nondistended. Peritoneal dialysis catheter. MUSCULOSKELETAL: No obvious deformities. No clubbing. No cyanosis. No edema. NEUROLOGICAL: Awake and alert. No obvious cranial nerve deficits. Motor grossly within normal limits. Normal speech. PSYCHIATRIC: Anxious appearing. Data Data Last Documented VS Vital Signs Date Time Temp Pulse Resp B/P Pulse Ox O2 Delivery O2 Flow Rate FiO2 08/18/16 05:56 107 16 207/133 90 Nasal Cannula 4 08/18/16 04:21 30 08/18/16 03:55 98.4 Orders Basic Metabolic Panel (Bmp) (08/18/16 04:01) Ckmb (Isoenzyme) Profile (08/18/16 04:01) Complete Blood Count With Diff (08/18/16 04:01) Magnesium (Mg) (08/18/16 04:01) Prothrombin Time / Inr (Pt) (08/18/16 04:01) Act Partial Throm Time (Ptt) (08/18/16 04:01) Troponin I (08/18/16 04:01) Chest, Single Ap (08/18/16 04:01) Ecg Monitoring (08/18/16 04:01) Bilateral Bp Monitoring (08/18/16 04:01) Iv Access Insert/Monitor (08/18/16 04:01) Oximetry (08/18/16 04:01) Oxygen Administration (08/18/16 04:01) Nitroglycerin-Dextrose Inj (Nitroglyceri (08/18/16 04:15) Sodium Chloride 0.9% Flush (Ns Flush) (08/18/16 04:15) Nitroglycerin Sl (Nitrostat Sl) (08/18/16 04:15) Lorazepam Inj (Ativan Inj) (08/18/16 04:30) Lorazepam Inj (Ativan Inj) (08/18/16 04:24) Morphine Inj (Morphine Inj) (08/18/16 04:45) Blood Culture (08/18/16 04:42) Lactic Acid Sepsis Protocol (08/18/16 04:42) CKMB (08/18/16 04:00) CKMB% (08/18/16 04:00) Prochlorperazine Inj (Compazine Inj) (08/18/16 05:00) Ceftriaxone Inj (Rocephin Inj) (08/18/16 05:00) Azithromycin (Zithromax) (08/18/16 05:00) Ct Brain W/O Iv Contrast(Rout) (08/18/16 ) Bhcg Screen Qualitative (08/18/16 05:02) Ondansetron Inj (Zofran Inj) (08/18/16 05:14) B-Type Natriuretic Peptide (08/18/16 05:16) Ondansetron Inj (Zofran Inj) (08/18/16 05:30) Arterial Blood Gas (Abg) (08/18/16 ) Admit Order (Ed Use Only) (08/18/16 05:57) Labs Laboratory Tests Test 08/18/16 08/18/16 08/18/16 04:00 05:25 05:50 White Blood Count 12.8 TH/MM3 Red Blood Count 3.40 MIL/MM3 Hemoglobin 9.9 GM/DL Hematocrit 29.7 % Mean Corpuscular Volume 87.3 FL Mean Corpuscular Hemoglobin 29.2 PG Mean Corpuscular Hemoglobin 33.5 % Concent Red Cell Distribution Width 20.2 % Platelet Count 100 TH/MM3 Mean Platelet Volume 6.7 FL Neutrophils (%) (Auto) 77.6 % Lymphocytes (%) (Auto) 15.1 % Monocytes (%) (Auto) 2.6 % Eosinophils (%) (Auto) 4.1 % Basophils (%) (Auto) 0.6 % Neutrophils # (Auto) 9.9 TH/MM3 Lymphocytes # (Auto) 1.9 TH/MM3 Monocytes # (Auto) 0.3 TH/MM3 Eosinophils # (Auto) 0.5 TH/MM3 Basophils # (Auto) 0.1 TH/MM3 CBC Comment DIFF FINAL Differential Comment Prothrombin Time 10.6 SEC Prothromb Time International 1.0 RATIO Ratio Activated Partial 27.7 SEC Thromboplast Time Sodium Level 139 MEQ/L Potassium Level 4.1 MEQ/L Chloride Level 99 MEQ/L Carbon Dioxide Level 25.6 MEQ/L Anion Gap 14 MEQ/L Blood Urea Nitrogen 46 MG/DL Creatinine 12.92 MG/DL Estimat Glomerular Filtration 4 ML/MIN Rate Random Glucose 90 MG/DL Calcium Level 8.0 MG/DL Magnesium Level 2.3 MG/DL Total Creatine Kinase 126 U/L Creatine Kinase MB 1.2 NG/ML Troponin I 0.05 NG/ML B-Type Natriuretic Peptide 2330 PG/ML Beta HCG, Qualitative 2 MIU/ML Lactic Acid Level 1.0 mmol/L Blood Gas Puncture Site RT RADIAL Blood Gas Patient Temperature 98.6 Blood Gas HCO3 23 mmol/L Blood Gas Base Excess -1.5 mmol/L Blood Gas Oxygen Saturation 89 % Arterial Blood pH 7.37 Arterial Blood Partial 41 mmHg Pressure CO2 Arterial Blood Partial 72 mmHg Pressure O2 Arterial Blood Oxygen Content 9.4 Vol % Arterial Blood 3.1 % Carboxyhemoglobin Arterial Blood Methemoglobin 0.9 % Blood Gas Hemoglobin 7.4 G/DL Oxygen Delivery Device NASAL CANNULA Blood Gas Liter Flow 3 L/M MDM Medical Decision Making Medical Screen Exam Complete: Yes Emergency Medical Condition: Yes Interpretation(s) EKG: Sinus tachycardia at 120bpm. Normal axis. Differential Diagnosis Pulmonary edema vs. pneumonia vs. PE Narrative Course 20yo F with chest pain, sob and hypoxemia. Pt has bilateral rales and coarse breath sounds and pink/red sputum. I placed pt on BIPAP but she was not able to tolerate it after a few minutes. Pt is very anxious, ativan 1mg IV given. CXR showed bilateral lower lobe airspace disease and mild pulmonary vascular prominence. Cardiomediastinal contours are unremarkable. Question airspace disease both lung bases. Pt given sublingual nitro and placed on nitro drip. Pt reevaluated at bedside and states her chest pain has improved but she now has frontal headache that feels like her migraine. Pt given compazine and zofran. Labs reviewed, leukocytosis at 12.8. H/H low at 9.9/29.7 but better than baseline. Thrombocytopenic at 100,00 which is not new. Creatinine 12.92 at baseline. Troponin 0.05. CT brain negative. Discussed with Dr. Segura and accepted to her service. Critical Care Narrative Aggregate critical care time was 60 minutes. Time to perform other separately billable procedures was not included in the critical care time. My time did not include minutes spent treating any other patients simultaneously or on activities that did not directly contribute to the patient's treatment. The services I provided to this patient were to treat and/or prevent clinically significant deterioration that could result in: respiratory failure or . I provided critical care services requiring my management, as noted below: Chart data review, documentation time, medication orders and management, vital sign assessments/reviewing monitor data, ordering and reviewing lab tests, ordering and interpreting/reviewing x-rays and diagnostic studies, care of the patient and discussion of the patient with the admitting physicians. Diagnosis Primary Impression: Acute pulmonary edema Admitting Information Admitting Physician Requests: Darlene Calvo DO Aug 18, 2016 05:17
[2016-08-18] MEDS ORDERED: ONDANSETRON HCL 4 MG/2 ML VIAL IV PUSH ONE (05:30)
[2016-08-18] MEDS ORDERED: LABETALOL HCL 100 MG/20 ML VIAL IV PUSH PRN ×2 (06:00→08:00)
--- NOTE | 2016-08-18 06:01 | RADRPT ---
EXAM DATE/TIME: 08/18/2016 05:47 [place] COMPARISON: No previous studies available for comparison. INDICATIONS : Cephalgia. RADIATION DOSE: 41.09 CTDIvol (mGy) MEDICAL HISTORY : Cerebrovascular disease. Seizures. Hypertension. Lupus. Kidney failure. Dialysis daily. Diabetes. SURGICAL HISTORY : Permacath. ENCOUNTER: Initial ACUITY: 1 day PAIN SCALE: 8/10 LOCATION: cranial TECHNIQUE: Multiple contiguous axial images were obtained of the head. Using automated exposure control and adj ustment of the mA and/or kV according to patient size, radiation dose was kept as low as reasonably a chievable to obtain optimal diagnostic quality images. FINDINGS: CEREBRUM: The ventricles are normal for age. No evidence of midline shift, mass lesion, hemorrhage or acute in farction. No extra-axial fluid collections are seen. POSTERIOR FOSSA: The cerebellum and brainstem are intact. The 4th ventricle is midline. The cerebellopontine angle i s unremarkable. EXTRACRANIAL: The visualized portion of the orbits is intact. SKULL: The calvaria is intact. No evidence of skull fracture. CONCLUSION: Normal examination except for minimal stable ethmoidal sinus disease. Chavez Palacios MD on August 18, 2016 at 5:59 Board Certified Radiologist. This report was verified electronically.
[2016-08-18 06:07] LABS: BLOOD GAS BASE EXCESS -1.5 mmol/L (-2-2); BLOOD GAS CARBOXYHEMOGLOBIN 3.1 % (0-4); BLOOD GAS HCO3 23 mmol/L (22-26); BLOOD GAS METHEMOGLOBIN 0.9 % (0-2); BLOOD GAS O2 HGB SATURATION 89 % (90-100); BLOOD GAS OXYGEN CONTENT 9.4 Vol % (12.0-20.0); BLOOD GAS PCO2 41 mmHg (38-42); BLOOD GAS PO2 72 mmHg (61-120); BLOOD GAS TOTAL HGB 7.4 G/DL (12.0-16.0); TEMP CORR TO 98.6
[2016-08-18 06:08] LABS: CRITICAL VALUE YES; DRAW SITE RT RADIAL; LITER FLOW 3 L/M; NUMBER OF ARTERIAL PUNCTURES 1; OXYGEN DEVICE NASAL CANNULA; STAT YES; ULNAR PULSE PRESENT
[2016-08-18] MEDS ORDERED: MAGNESIUM HYDROXIDE SUSP 30 ML CUP PO PRN (06:15)
[2016-08-18] MEDS ORDERED: CHLORHEXIDINE GLUCONATE 2 % 1 PACK (2 CLOTHS) TOP PRN (06:15)
[2016-08-18] MEDS ORDERED: SODIUM CHLORIDE 0.9% FLUSH 10 ML FLUSH IV FLUSH PRN ×2 (06:15→10:45)
[2016-08-18] MEDS ORDERED: ACETAMINOPHEN 325 MG TAB PO PRN (06:15)
[2016-08-18] MEDS ORDERED: SENNOSIDES 8.6 MG TAB PO PRN (06:15)
[2016-08-18] MEDS ORDERED: BISACODYL 10 MG SUPP RECTAL PRN (06:15)
[2016-08-18] MEDS ORDERED: LACTULOSE SYRUP 20 GM/30 ML CUP PO PRN (06:15)
[2016-08-18] MEDS ORDERED: MISCELLANEOUS NURSING INFORMATION XX SCH (06:15)
[2016-08-18] MEDS ORDERED: RESP: ALBUTEROL 2.5 MG/3 ML NEB (PRN) INH (06:15)
[2016-08-18] MEDS: MORPHINE SULFATE 4 MG/ML INJ IV PRN ×2 (07:28→20:26)
[2016-08-18] MEDS: LOSARTAN 50 MG TAB PO SCH ×2 (07:28→20:22)
--- NOTE | 2016-08-18 07:37 | HHI.HP ---
HPI Service Critical Care Medicine Primary Care Physician Unknown Admission Diagnosis Acute pulmonary edema Diagnosis: (1) Hypertensive encephalopathy Diagnosis: Principal (2) Noncompliance Diagnosis: Principal (3) Hypertensive emergency Diagnosis: Principal (4) Chronic systolic heart failure Diagnosis: Principal (5) Secondary hypoparathyroidism Diagnosis: Principal (6) Hyperparathyroidism Diagnosis: Principal (7) Tetrahydrocannabinol (THC) use disorder, mild, abuse Diagnosis: Principal (8) Cluster headaches Diagnosis: Principal (9) Lupus nephritis Diagnosis: Principal (10) Anemia in chronic kidney disease Diagnosis: Principal (11) Acute pulmonary edema Diagnosis: Principal (12) Seizure (13) Lupus Diagnosis: Principal (14) CKD, patient preferred modality peritoneal dialysis Diagnosis: Principal (15) Leukocytosis Diagnosis: Principal (16) SIRS (systemic inflammatory response syndrome) Diagnosis: Principal (17) Thrombocytopenia Diagnosis: Principal Chief Complaint: Shortness of breath Travel History International Travel<30 Days: No Contact w/Intl Traveler <30 Da: No Traveled to Known Affected Are: No Sepsis Criteria SIRS Criteria (2 or more): RR > 20 or PaCO2 < 32, WBC > 33904, < 4000 or > 10 % bands Criteria Outcome: Meets SIRS criteria History of Present Illness 20-year-old AA female. Date of admission 08/18/2016. Past medical history includes lupus nephritis currently in end-stage renal disease requiring daily nocturnal peritoneal dialysis with Dr. Donavon syed, THC use, prior CVA, seizure disorder secondary hypertension, cluster/migraine headaches, anemia chronic kidney disease, SLE, chronic systolic heart failure ejection fraction 45 %, secondary hyperparathyroidism and medical noncompliance. She presents to [facility] ED with acute onset since his 1 AM on 08/18 of shortness of breath with blood-tingedpink frothy sputum. She was initially attempted on BiPAP insert initial saturations were 80s on room air presently into 3 L nasal cannula . She complaining of pain and nausea and was given 1 mg Ativan and 4 no grams IV morphine 1 by ED physician. Her blood pressure was noted be quite elevated with systolics in the 200s as placed on nitroglycerin drip. Chest x-ray showed possible atelectasis lower lobes. She is so Rocephin and Zithromax 1 dose for possible community acquired pneumonia. Head CT showed no acute intracranial findings. Currently complaining of headache likely secondary to nitroglycerin drip. Review of Systems Constitutional: COMPLAINS OF: Fatigue, DENIES: Fever, Weight gain, Weight loss Endocrine: DENIES: Polydipsia, Polyuria Eyes: DENIES: Blurred vision Ears, nose, mouth, throat: DENIES: Tinnitus, Odynophagia Respiratory: DENIES: Apneas Cardiovascular: DENIES: Chest pain Gastrointestinal: DENIES: Abdominal pain Musculoskeletal: DENIES: Joint pain, Stiffness Integumentary: DENIES: Abnormal pigmentation, Pruritus Hematologic/lymphatic: DENIES: Lymphadenopathy Immunologic/allergic: DENIES: Eczema Neurologic: COMPLAINS OF: Headache, DENIES: Abnormal gait, Localized weakness Psychiatric: COMPLAINS OF: Anxiety, Mood changes, DENIES: Confusion Past Family Social History Allergies: Coded Allergies: Hydralazine (Verified Allergy, Severe, Rash, 08/18/16) Vancomycin (Verified Allergy, Severe, Red man syndrome , 08/18/16) Metoprolol (Verified Allergy, Unknown, Patient does not know, 08/18/16) Past Medical History THC History of CVA Seizure disorder Cluster/migraine headaches SLE Anemia chronic kidney disease 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 Curry Hypertension Secondary hyperparathyroidism Chronic systolic heart failure Medical noncompliance Hyperphosphatemia Past Surgical History Tenckhoff catheter placement Left vascular hemodialysis catheter since removed Kidney biopsy Reported Medications Active Terazosin (Terazosin HCl) 5 Mg Cap 5 Mg PO HS Norvasc (Amlodipine Besylate) 10 Mg Tab 10 Mg PO BID Cozaar (Losartan Potassium) 50 Mg Tab 50 Mg PO BID Hydroxychloroquine (Hydroxychloroquine Sulfate) 200 Mg Tab 200 Mg PO BID Takw with food Labetalol (Labetalol HCl) 300 Mg Tab 300 Mg PO Q12HR Keppra (Levetiracetam) 500 Mg Tab 500 Mg PO Q12HR 30 Days Reported Sensipar (Cinacalcet) 90 Mg Tab 180 Mg PO DAILY Calcium Acetate (Phosphate Binder) 667 Mg Cap 1,334 Mg PO TID Protonix (Pantoprazole Sodium) 20 Mg Tab 20 Mg PO DAILY Epogen Inj (Epoetin Diego) 2,000 Unit/Ml Inj 1,500 Units SQ 2XMONTH Active Ordered Medications Reviewed in EMR Family History Mother and father is defined as noncontributory per review of prior records Social History Prior tobaccoism. Denies current. No alcohol use. Positive THC use. Physical Exam Vital Signs Vital Signs Date Time Temp Pulse Resp B/P Pulse Ox O2 Delivery O2 Flow Rate FiO2 08/18/16 06:34 94 16 168/110 94 Nasal Cannula 4 08/18/16 05:56 107 16 207/133 90 Nasal Cannula 4 08/18/16 05:33 103 16 189/125 96 Nasal Cannula 4 08/18/16 05:12 115 20 212/144 93 Nasal Cannula 4 08/18/16 05:01 118 18 200/130 95 Nasal Cannula 3 08/18/16 04:50 116 18 188/117 96 Nasal Cannula 4 08/18/16 04:46 112 22 194/128 94 Nasal Cannula 3 08/18/16 04:40 117 18 210/137 91 Nasal Cannula 3 08/18/16 04:35 120 18 212/139 95 Nasal Cannula 3 08/18/16 04:31 116 22 208/136 92 Nasal Cannula 3 08/18/16 04:28 95 Nasal Cannula 3 08/18/16 04:27 120 22 206/138 95 Nasal Cannula 3 08/18/16 04:21 122 22 222/153 99 BiPAP 30 08/18/16 04:05 99 BiPAP 30 08/18/16 04:04 97 Nasal Cannula 3 08/18/16 04:04 116 16 98 3 08/18/16 03:59 118 18 97 Nasal Cannula 2 08/18/16 03:55 98.4 121 20 240/156 86 08/18/16 03:55 99 30 Physical Exam GENERAL: 20-year-old a female, resting in bed in no acute distress SKIN: Warm and dry. No rash HEAD: Atraumatic. Normocephalic. EYES: Pupils equal and round about 3 mm bilaterally and reactive. No signs of papilledema. No scleral icterus. No injection or drainage. ENT: No nasal bleeding or discharge. Mucous membranes pink and moist. Oral pharynx without erythema or exudates NECK: Trachea midline. No JVD. No thyromegaly or lymphadenopathy CARDIOVASCULAR: Regular rate and rhythm. 1, S2. No S4. Without murmur or no rub RESPIRATORY: Few fine crackles patient bases bilaterally. No wheeze. Breath sounds equal bilaterally. GASTROINTESTINAL: Abdomen soft, non-tender, nondistended. Perineal dialysis catheter site is clean dry and intact without erythema MUSCULOSKELETAL: Extremities without noted in peripheral edema. No obvious deformities. NEUROLOGICAL: Awake and alert. No obvious cranial nerve deficits. Motor grossly within normal limits. Five out of 5 muscle strength in the arms and legs. Normal speech. Laboratory Laboratory Tests Test 08/18/16 08/18/16 08/18/16 04:00 05:25 05:50 White Blood Count 12.8 Red Blood Count 3.40 Hemoglobin 9.9 Hematocrit 29.7 Mean Corpuscular Volume 87.3 Mean Corpuscular Hemoglobin 29.2 Mean Corpuscular Hemoglobin 33.5 Concent Red Cell Distribution Width 20.2 Platelet Count 100 Mean Platelet Volume 6.7 Neutrophils (%) (Auto) 77.6 Lymphocytes (%) (Auto) 15.1 Monocytes (%) (Auto) 2.6 Eosinophils (%) (Auto) 4.1 Basophils (%) (Auto) 0.6 Neutrophils # (Auto) 9.9 Lymphocytes # (Auto) 1.9 Monocytes # (Auto) 0.3 Eosinophils # (Auto) 0.5 Basophils # (Auto) 0.1 CBC Comment DIFF FINAL Differential Comment Prothrombin Time 10.6 Prothromb Time International 1.0 Ratio Activated Partial 27.7 Thromboplast Time Sodium Level 139 Potassium Level 4.1 Chloride Level 99 Carbon Dioxide Level 25.6 Anion Gap 14 Blood Urea Nitrogen 46 Creatinine 12.92 Estimat Glomerular Filtration 4 Rate Random Glucose 90 Calcium Level 8.0 Magnesium Level 2.3 Total Creatine Kinase 126 Creatine Kinase MB 1.2 Troponin I 0.05 B-Type Natriuretic Peptide 2330 Beta HCG, Qualitative 2 Lactic Acid Level 1.0 Blood Gas Puncture Site RT RADIAL Blood Gas Patient Temperature 98.6 Blood Gas HCO3 23 Blood Gas Base Excess -1.5 Blood Gas Oxygen Saturation 89 Arterial Blood pH 7.37 Arterial Blood Partial 41 Pressure CO2 Arterial Blood Partial 72 Pressure O2 Arterial Blood Oxygen Content 9.4 Arterial Blood 3.1 Carboxyhemoglobin Arterial Blood Methemoglobin 0.9 Blood Gas Hemoglobin 7.4 Oxygen Delivery Device NASAL CANNULA Blood Gas Liter Flow 3 Date/Time Procedure Status Source Growth 08/18/16 05:25 Aerobic Blood Culture Received Blood Peripheral Pending 08/18/16 05:25 Anaerobic Blood Culture Received Blood Peripheral Pending Result Diagram: 08/18/[id number]/18/16399 Imaging Last Impressions Chest X-Ray 08/18/16400 Signed Impressions: Service Date/Time: Thursday, August 18, 2016 04:04 - CONCLUSION: Question airspace disease both lung bases. Chavez Palacios MD Head CT 08/18/16 0000 Signed Impressions: Service Date/Time: Thursday, August 18, 2016 05:47 - CONCLUSION: Normal examination except for minimal stable ethmoidal sinus disease. Chavez Palacios MD Assessment and Plan Assessment and Plan Neuro/Psych: THC History of CVA Seizure disorder - hypertensive Cluster/migraine headaches CT brain 08/18 revealed no acute intracranial findings Resume home medication of Keppra 500 mg twice a day for seizures Seizure precautions Acetaminophen for fever [place]/morphine for pain management CV: Hypertensive emergency - encephalopathy and pulmonary edema Hypertension Chronic systolic heart failure ejection fraction 45-50% History of pericardial effusion Initial troponin 0.05. EKG to be reviewed. Resume home medications of trazodone 5 mg at night, Cozaar 50 mg twice a day, labetalol 300 mg twice a day Norvasc 10 mg twice a day for hypertension We'll switch to Cleviprex and wean maintenance supple pressure less than 160 As needed labetalol/Nitropaste Resp: Acute hypoxic hypercapnic respiratory failure likely secondary to hypertensive emergency Possible community-acquired pneumonia Chest x-ray revealed possible lower lobe atelectasis versus infiltrate. No signs of pulmonary edema Initially received and by therapy with Rocephin/Zithromax As needed bronchodilator therapy. Nasal cannula to maintain saturations greater than equal to 92% Incentive spirometry while awake GI: Gastroesophageal reflux disease Nausea/vomiting We'll place on renal diet Protonix for GI prophylaxis. On Protonix 20 no grams daily at home Bowel regimen Tess-Colace twice a day Zofran for nausea/emesis. 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 Follow trends ID: Blood cultures 2, sputum and influenza were done in ED. Receive 1 dose of Rocephin and Zithromax for possible community-acquired pneumonia Monitor for infection MSK: PT evaluate and treat FEN: Hyperphosphatemia Resume PhosLo 1334 mg by mouth 3 times a day Access - Utilize peripheral IV. Central line if indicated Prophylaxis - GI - Protonix - DVT - SCD/heparin subcutaneous Level III admission Code Status Full code Discussed Condition With Patient. ED physician. Care plan discussed and all questions answered. Problem Qualifiers (1) Cluster headaches: Qualified Code: G44.009 - Cluster headache, not intractable, unspecified chronicity pattern (2) Lupus: Qualified Code: M32.9 - Systemic lupus erythematosus, unspecified SLE type, unspecified organ involvement status (3) Leukocytosis: Qualified Code: D72.829 - Leukocytosis, unspecified type Raheem Cole MD Aug 18, 2016 07:37
[2016-08-18] MEDS ORDERED: NITROGLYCERIN 2% OINT 1 GM PACKET TOPICAL PRN (08:00)
[2016-08-18] MEDS: CLEVIDIPINE INJ 50 ML IV SCH ×2 (08:43→11:12)
[2016-08-18] MEDS: PANTOPRAZOLE SODIUM 40 MG VIAL IV SCH (08:45)
[2016-08-18] MEDS: HYDROXYCHLOROQUINE SULFATE 200 MG TAB PO SCH ×2 (09:00→20:22)
[2016-08-18] MEDS: SODIUM CHLORIDE 0.9% FLUSH 10 ML FLUSH IV FLUSH SCH ×2 (09:00→20:23)
[2016-08-18] MEDS ORDERED: CINACALCET HYDROCHLORIDE 30 MG TAB PO SCH (09:00)
[2016-08-18] MEDS: CALCIUM ACETATE 667 MG CAP PO SCH ×3 (09:00→12:35)
[2016-08-18] MEDS ORDERED: LABETALOL HCL 300 MG TAB PO SCH (09:00)
[2016-08-18] MEDS ORDERED: HEPARIN SODIUM - IV 10,000 UNITS/10 ML VIAL XX PRN (10:45)
[2016-08-18 10:46] LABS: INDIRECT BILIRUBIN 0.3 MG/DL (0.0-0.8); TOTAL BILIRUBIN ADULT 0.5 MG/DL (0.2-1.0)
[2016-08-18] MEDS: DOCUSATE SODIUM 50 MG/SENNA 8.6 MG TAB PO SCH ×2 (11:08→20:26)
[2016-08-18] MEDS: levETIRAcetam 500 MG TAB PO SCH ×2 (11:08→20:22)
[2016-08-18] MEDS: CINACALCET HYDROCHLORIDE 30 MG TAB PO SCH (11:08)
--- NOTE | 2016-08-18 12:48 | PD.CONS ---
[facility] Service Nephrology Consult Requested By Kelsey Reason for Consult ESRD on PD Primary Care Physician Unknown History of Present Illness This is a 20 y/o patient well known to our service. She came to ER for evaluation of headache and vomiting blood. She has a hx of SLE and lupus nephritis, also HTN, anemia, metabolic bone disorder, and also noncompliance. She has not had any trouble with PD lately. We were consulted for dialysis management while hospitalized. On arrival she was hypoxic, attempted bipap but she did not tolerate. Her BP was over 200s systolic and she was placed on clevidipine gtt and her blood pressure has responded nicely. She is being treated for possible Pneumonia. Today she is groggy. There is a question as to whether she has been taking her BP medications as directed. She denies any cloudy fluid with PD, and is a full code. (Kaylen Ireland) Review of Systems Constitutional: COMPLAINS OF: Fatigue Eyes: COMPLAINS OF: Photosensitivity, DENIES: Blurred vision Respiratory: COMPLAINS OF: Cough Cardiovascular: DENIES: Chest pain, Dyspnea on Exertion, Lower Extremity Edema Gastrointestinal: DENIES: Abdominal pain Psychiatric: DENIES: Depression, Homicidal Ideation (Kaylen Ireland) Past Family Social History Allergies: Coded Allergies: Hydralazine (Verified Allergy, Severe, Rash, 08/18/16) Vancomycin (Verified Allergy, Severe, Red man syndrome , 08/18/16) Metoprolol (Verified Allergy, Unknown, Patient does not know, 08/18/16) Past Medical History ESRD on PD due to Lupus nephritis Hypertension Anemia Compliance issues Metabolic bone disease Past Surgical History Tenckhoff catheter Permcath and removal Reported Medications Terazosin (Terazosin HCl) 5 Mg Cap 5 Mg PO HS Norvasc (Amlodipine Besylate) 10 Mg Tab 10 Mg PO BID Cozaar (Losartan Potassium) 50 Mg Tab 50 Mg PO BID Hydroxychloroquine (Hydroxychloroquine Sulfate) 200 Mg Tab 200 Mg PO BID Takw with food Labetalol (Labetalol HCl) 300 Mg Tab 300 Mg PO Q12HR Keppra (Levetiracetam) 500 Mg Tab 500 Mg PO Q12HR 30 Days Sensipar (Cinacalcet) 90 Mg Tab 180 Mg PO DAILY Calcium Acetate (Phosphate Binder) 667 Mg Cap 1,334 Mg PO TID Protonix (Pantoprazole Sodium) 20 Mg Tab 20 Mg PO DAILY Epogen Inj (Epoetin Diego) 2,000 Unit/Ml Inj 1,500 Units SQ 2XMONTH Active Ordered Medications Current Medications Medications (Trade) Dose Ordered Sig/Leora Route Start Time Stop Time Status Last Admin (Trandate Inj) 20 mg Q4H PRN IV PUSH 08/18/16 06:00 08/18/16 06:17 (NS Flush) 2 ml UNSCH PRN IV FLUSH 08/18/16 06:15 (NS Flush) 2 ml BID IV FLUSH 08/18/16 09:00 (Tylenol) 650 mg Q6H PRN PO 08/18/16 06:15 ([place] 5-325 Mg) 1 tab Q4H PRN PO 08/18/16 06:15 (Morphine Inj) 2 mg Q2H PRN IV 08/18/16 06:15 08/18/16 07:28 (Protonix Inj) 40 mg DAILY IV 08/18/16 09:00 08/18/16 08:45 (Zofran Inj) 4 mg Q6H PRN IV 08/18/16 06:15 Miscellaneous Information 1 Q361D XX 08/18/16 06:15 (Chlorhexidine 2% Cloth) 3 pack Taper DAILY@04 TOP 08/19/16 04:00 08/15/17 03:59 (Chlorhexidine 2% Cloth) 3 pack UNSCH PRN TOP 08/18/16 06:15 (Tess-Colace) 1 tab BID PO 08/18/16 09:00 08/18/16 11:08 (Milk Of Magnesia Liq) 30 ml Q12H PRN PO 08/18/16 06:15 (Senokot) 17.2 mg Q12H PRN PO 08/18/16 06:15 (Dulcolax Supp) 10 mg DAILY PRN RECTAL 08/18/16 06:15 (Lactulose Liq) 30 ml DAILY PRN PO 08/18/16 06:15 (Keppra) 500 mg Q12HR PO 08/18/16 09:00 08/18/16 11:08 (Hytrin) 5 mg HS PO 08/18/16 21:00 (Cozaar) 50 mg Q12HR PO 08/18/16 09:00 08/18/16 07:28 (Plaquenil) 200 mg Q12HR PO 08/18/16 09:00 Calcium Acetate 1334 mg 1,334 mg TID PO 08/18/16 09:00 08/18/16 11:08 (Cleviprex Inj) 50 ml @ 0 mls/hr TITRATE IV 08/18/16 08:00 08/18/16 11:12 (Nitroglycerin 2% Oint) 2 inch Q6HR PRN TOPICAL 08/18/16 08:00 (Trandate Inj) 10 mg Q1HR PRN IV PUSH 08/18/16 08:00 (Sensipar) 180 mg DAILY PO 08/18/16 09:30 08/18/16 11:08 (NS Flush) 10 ml UNSCH PRN IV FLUSH 08/18/16 10:45 (Trandate) 300 mg TID PO 08/18/16 13:00 Azithromycin 250 mg 250 mg DAILY PO 08/19/16 09:00 (Rocephin Inj/NS Inj) 100 ml @ 200 mls/hr Q24H IV 08/19/16 06:00 (Norvasc) 10 mg BID PO 08/18/16 21:00 UNV Family History no hx of renal disorders Social History occasional smoker no ETOH or drug use lives with daughter, has boyfriend independent full code (Kaylen Ireland) Physical Exam Vital Signs Vital Signs Date Time Temp Pulse Resp B/P Pulse Ox O2 Delivery O2 Flow Rate FiO2 08/18/16 10:33 96 Nasal Cannula 2.00 08/18/16 08:00 98.2 92 21 164/103 96 08/18/16 08:00 107 08/18/16 07:00 96 Nasal Cannula 4.00 08/18/16 07:00 97 08/18/16 06:34 94 16 168/110 94 Nasal Cannula 4 08/18/16 05:56 107 16 207/133 90 Nasal Cannula 4 08/18/16 05:33 103 16 189/125 96 Nasal Cannula 4 08/18/16 05:12 115 20 212/144 93 Nasal Cannula 4 08/18/16 05:01 118 18 200/130 95 Nasal Cannula 3 08/18/16 04:50 116 18 188/117 96 Nasal Cannula 4 08/18/16 04:46 112 22 194/128 94 Nasal Cannula 3 08/18/16 04:40 117 18 210/137 91 Nasal Cannula 3 08/18/16 04:35 120 18 212/139 95 Nasal Cannula 3 08/18/16 04:31 116 22 208/136 92 Nasal Cannula 3 08/18/16 04:28 95 Nasal Cannula 3 08/18/16 04:27 120 22 206/138 95 Nasal Cannula 3 08/18/16 04:21 122 22 222/153 99 BiPAP 30 08/18/16 04:05 99 BiPAP 30 08/18/16 04:04 97 Nasal Cannula 3 08/18/16 04:04 116 16 98 3 08/18/16 03:59 118 18 97 Nasal Cannula 2 08/18/16 03:55 98.4 121 20 240/156 86 08/18/16 03:55 99 30 Physical Exam Young female, sleeping, lethargic and falls asleep while talking no neuro deficit, has some jerking movements lungs clear S1/S2, normal rate/rhythm without murmurs or rubs abdomen soft, catheter in place, normal bowel sounds ext: no edema, distal pulses intact Laboratory Laboratory Tests Test 08/18/16 08/18/16 08/18/16 08/18/16 04:00 05:25 05:50 10:12 White Blood Count 12.8 Red Blood Count 3.40 Hemoglobin 9.9 Hematocrit 29.7 Mean Corpuscular Volume 87.3 Mean Corpuscular Hemoglobin 29.2 Mean Corpuscular Hemoglobin 33.5 Concent Red Cell Distribution Width 20.2 Platelet Count 100 Mean Platelet Volume 6.7 Neutrophils (%) (Auto) 77.6 Lymphocytes (%) (Auto) 15.1 Monocytes (%) (Auto) 2.6 Eosinophils (%) (Auto) 4.1 Basophils (%) (Auto) 0.6 Neutrophils # (Auto) 9.9 Lymphocytes # (Auto) 1.9 Monocytes # (Auto) 0.3 Eosinophils # (Auto) 0.5 Basophils # (Auto) 0.1 CBC Comment DIFF FINAL Differential Comment Prothrombin Time 10.6 Prothromb Time International 1.0 Ratio Activated Partial 27.7 Thromboplast Time Sodium Level 139 Potassium Level 4.1 Chloride Level 99 Carbon Dioxide Level 25.6 Anion Gap 14 Blood Urea Nitrogen 46 Creatinine 12.92 Estimat Glomerular Filtration 4 Rate Random Glucose 90 Calcium Level 8.0 Magnesium Level 2.3 Total Creatine Kinase 126 Creatine Kinase MB 1.2 Troponin I 0.05 B-Type Natriuretic Peptide 2330 Beta HCG, Qualitative 2 Lactic Acid Level 1.0 Blood Gas Puncture Site RT RADIAL Blood Gas Patient Temperature 98.6 Blood Gas HCO3 23 Blood Gas Base Excess -1.5 Blood Gas Oxygen Saturation 89 Arterial Blood pH 7.37 Arterial Blood Partial 41 Pressure CO2 Arterial Blood Partial 72 Pressure O2 Arterial Blood Oxygen Content 9.4 Arterial Blood 3.1 Carboxyhemoglobin Arterial Blood Methemoglobin 0.9 Blood Gas Hemoglobin 7.4 Oxygen Delivery Device NASAL CANNULA Blood Gas Liter Flow 3 Fibrinogen 402 Phosphorus Level 8.3 Total Bilirubin 0.5 Direct Bilirubin 0.2 Indirect Bilirubin 0.3 Aspartate Amino Transf 30 (AST/SGOT) Alanine Aminotransferase 28 (ALT/SGPT) Alkaline Phosphatase 63 Total Protein 6.1 Albumin 3.0 Lipase 121 Date/Time Procedure Status Source Growth 08/18/16 05:25 Aerobic Blood Culture Received Blood Peripheral Pending 08/18/16 05:25 Anaerobic Blood Culture Received Blood Peripheral Pending (Kaylen Irleand) Result Diagram: 08/18/16 0400 08/18/16 0400 Imaging Last Impressions Chest X-Ray 08/18/16 0401 Signed Impressions: Service Date/Time: Thursday, August 18, 2016 04:04 - CONCLUSION: Question airspace disease both lung bases. Chavez Palacios MD Head CT 08/18/16 0000 Signed Impressions: Service Date/Time: Thursday, August 18, 2016 05:47 - CONCLUSION: Normal examination except for minimal stable ethmoidal sinus disease. Chavez Palacios MD (Kaylen Ireland) Assessment and Plan Problem List: (1) ESRD (end stage renal disease) on dialysis Plan: resume nightly PD no acute dialysis concerns catheter appears benign (2) HTN (hypertension) Plan: BP has improved she is on Clevidipine infusion home medications include terazosin, amlodipine, labetalol, losartan (3) Headache Plan: she has a hx of migraines, which are made worse by hypertensive urgency episodes (4) Acute pulmonary edema Plan: with suspected community acquired PNA on Zithromax and Rocephin monitor clinically (5) Anemia in chronic kidney disease Plan: avoid epogen due to hypertension (6) Metabolic bone disease Plan: resume calcium acetate (7) Noncompliance (8) Hyperparathyroidism Plan: secondary, continue Sensipar (Kaylen Ireland) Problem List: (1) ESRD (end stage renal disease) on dialysis Plan: resume nightly PD no acute dialysis concerns catheter appears benign (2) HTN (hypertension) Plan: BP has improved she is on Clevidipine infusion home medications include terazosin, amlodipine, labetalol, losartan (3) Headache Plan: she has a hx of migraines, which are made worse by hypertensive urgency episodes (4) Acute pulmonary edema Plan: with suspected community acquired PNA on Zithromax and Rocephin monitor clinically (5) Anemia in chronic kidney disease Plan: avoid epogen due to hypertension (6) Metabolic bone disease Plan: resume calcium acetate (7) Noncompliance (8) Hyperparathyroidism Plan: secondary, continue Sensipar Assessment and Plan patient was seen and examined. Agree with above assessment and plan. (Jasbir Curry MD) Kaylen Ireland Aug 18, 2016 12:48 Jasbir Curry MD Aug 18, 2016 21:15
[2016-08-18] MEDS: LABETALOL HCL 300 MG TAB PO SCH ×2 (13:00→18:25)
[2016-08-18] MEDS: TERAZOSIN HCL 5 MG CAP PO SCH (20:22)
[2016-08-19] VITALS (14 sets, daily range): BP systolic 114–162; BP diastolic 73–96; PULSE 60–104; RESP 13–23; TEMP 97.9–98.6; O2SAT 97–100
[2016-08-19] MEDS: MORPHINE SULFATE 4 MG/ML INJ IV PRN ×4 (03:11→20:41)
[2016-08-19] MEDS: CHLORHEXIDINE GLUCONATE 2 % 1 PACK (2 CLOTHS) TOP SCH (04:00)
[2016-08-19 04:15] LABS: AUTOMATED NEUTROPHIL # 2.7 TH/MM3 (1.8-7.7); BASOPHIL % 0.9 % (0.0-2.0); EOSINOPHIL # 0.3 TH/MM3 (0-0.4); EOSINOPHIL % 7.3 % (0.0-4.0); HEMATOCRIT 21.4 % (35.0-46.0); LYMPH % 27.7 % (9.0-44.0); LYMPHOCYTE # 1.2 TH/MM3 (1.0-4.8); MEAN CELL VOLUME 86.3 FL (80.0-100.0); MEAN CORPUSCULAR HEMOGLOBIN 29.5 PG (27.0-34.0); MEAN CORPUSCULAR HGB CONC 34.2 % (32.0-36.0); MONO % 3.8 % (0.0-8.0); NEUT % 60.3 % (16.0-70.0); PLATELET COUNT 68 TH/MM3 (150-450); RED BLOOD COUNT 2.49 MIL/MM3 (4.00-5.30); RED CELL DISTRIBUTION WIDTH 18.6 % (11.6-17.2); WHITE BLOOD COUNT 4.5 TH/MM3 (4.0-11.0)
[2016-08-19 04:21] LABS: APTT (PATIENT) 27.7 SEC (24.3-30.1); PROTHROMBIN TIME - PATIENT 11.4 SEC (9.8-11.6)
[2016-08-19 04:23] LABS: HEMO FLAGS AUTO DIFF
[2016-08-19 04:49] LABS: ALT (GPT) 22 U/L (10-53); ANION GAP 13 MEQ/L (5-15); AST (GOT) 20 U/L (15-37); BICARBONATE 26.6 MEQ/L (21.0-32.0); BLOOD UREA NITROGEN 46 MG/DL (7-18); CHLORIDE 100 MEQ/L (98-107); GLOMERULAR FILTRATION RATE 4 ML/MIN (>89); MAGNESIUM 2.1 MG/DL (1.5-2.5); POTASSIUM 3.9 MEQ/L (3.5-5.1); SODIUM (NA) 140 MEQ/L (136-145)
[2016-08-19 04:51] LABS: ALKALINE PHOSPHATASE 54 U/L (45-117); TOTAL BILIRUBIN ADULT 0.6 MG/DL (0.2-1.0)
[2016-08-19] MEDS: cefTRIAXone INJ 1,000 MG in SODIUM CHLORIDE 0.9% INJ 100 ML IV SCH (05:11)
[2016-08-19 06:01] LABS: ACANTHOCYTES OCC (NORMAL); OVALOCYTES 1+ (NORMAL); PLATELET ESTIMATE SMEAR LOW (NORMAL); PLATELET MORPHOLOGY NORMAL (NORMAL); SCAN/DIFF AUTO DIFF CONFIRMED
--- NOTE | 2016-08-19 08:04 | HHI.CCPN ---
Subjective Remarks/Hospital Course 20-year-old AA female. Date of admission 08/18/2016. Past medical history includes lupus nephritis currently in end-stage renal disease requiring daily nocturnal peritoneal dialysis with Dr. Donavon syed, THC use, prior CVA, seizure disorder secondary hypertension, cluster/migraine headaches, anemia chronic kidney disease, SLE, chronic systolic heart failure ejection fraction 45 %, secondary hyperparathyroidism and medical noncompliance. She presents to [place] ED with acute onset since his 1 AM on 08/18 of shortness of breath with blood-tingedpink frothy sputum. She was initially attempted on BiPAP insert initial saturations were 80s on room air presently into 3 L nasal cannula . She complaining of pain and nausea and was given 1 mg Ativan and 4 no grams IV morphine 1 by ED physician. Her blood pressure was noted be quite elevated with systolics in the 200s as placed on nitroglycerin drip. Chest x-ray showed possible atelectasis lower lobes. She is so Rocephin and Zithromax 1 dose for possible community acquired pneumonia. Head CT showed no acute intracranial findings. Currently complaining of headache likely secondary to nitroglycerin drip. Subjective 08/19: cLEVIPREX gtt currently at 1. Labetalol increased to 300 mg 3 times a day. Complaining of chest congestion and sore throat. Pleuritic chest pain. Maintain on nasal cannula. Objective Vital Signs Date Time Temp Pulse Resp B/P Pulse Ox O2 Delivery O2 Flow Rate FiO2 08/19/16 06:00 92 08/19/16 04:00 98.3 16 122/75 97 08/18/16 21:07 Nasal Cannula 2.00 08/18/16 04:21 30 Intake and Output 08/18/16 08/18/16 08/19/16 08:00 16:00 00:00 Intake Total 355 ml 296 ml Output Total 0 ml Balance 355 ml 296 ml Result Diagram: 08/19/16 0358 08/19/16 0358 Other Results Microbiology Date/Time Procedure Status Source Growth 08/18/16 05:25 Aerobic Blood Culture Received Blood Peripheral Pending 08/18/16 05:25 Anaerobic Blood Culture Received Blood Peripheral Pending Imaging Last Impressions Chest X-Ray 08/18/16 0401 Signed Impressions: Service Date/Time: Thursday, August 18, 2016 04:04 - CONCLUSION: Question airspace disease both lung bases. Chavez Palacios MD Head CT 08/18/16 0000 Signed Impressions: Service Date/Time: Thursday, August 18, 2016 05:47 - CONCLUSION: Normal examination except for minimal stable ethmoidal sinus disease. Chavez Palacios MD Objective Remarks GENERAL: 20-year-old a female, resting in bed in no acute distress on nasal cannula SKIN: Warm and dry. No rash HEAD: Atraumatic. Normocephalic. EYES: Pupils equal and round about 3 mm bilaterally and reactive. No signs of papilledema. No scleral icterus. No injection or drainage. ENT: No nasal bleeding or discharge. Mucous membranes pink and moist. Oral pharynx without erythema or exudates NECK: Trachea midline. No JVD. No thyromegaly or lymphadenopathy CARDIOVASCULAR: Regular rate and rhythm. 1, S2. No S4. Without murmur or no rub RESPIRATORY: Few fine crackles patient bases bilaterally. No wheeze. Breath sounds equal bilaterally. GASTROINTESTINAL: Abdomen soft, non-tender, nondistended. Perineal dialysis catheter site is clean dry and intact without erythema MUSCULOSKELETAL: Extremities without noted in peripheral edema. No obvious deformities. NEUROLOGICAL: Awake and alert. No obvious cranial nerve deficits. Motor grossly within normal limits. Five out of 5 muscle strength in the arms and legs. Normal speech. A/P Assessment and Plan Neuro/Psych: THC History of CVA Seizure disorder - hypertensive Cluster/migraine headaches CT brain 08/18 revealed no acute intracranial findings Resume home medication of Keppra 500 mg twice a day for seizures Seizure precautions Acetaminophen for fever [place]/morphine for pain management CV: Hypertensive emergency - encephalopathy and pulmonary edema Hypertension Chronic systolic heart failure ejection fraction 45-50% History of pericardial effusion Initial troponin 0.05. EKG shows no signs of ischemia Resume home medications of trazodone 5 mg at night, Cozaar 50 mg twice a day, labetalol 300 mg twice a day increased to 400 mg 3 times a day Norvasc 10 mg twice a day for hypertension Currently on Cleviprex and wean to maintain systolic blood pressure less than 160 As needed labetalol/Nitropaste Resp: Acute hypoxic hypercapnic respiratory failure likely secondary to hypertensive emergency Possible community-acquired pneumonia Chest x-ray revealed possible lower lobe atelectasis versus infiltrate. No signs of pulmonary edema Initially received and by therapy with Rocephin/Zithromax As needed bronchodilator therapy. Nasal cannula to maintain saturations greater than equal to 92% Incentive spirometry while awake GI: Gastroesophageal reflux disease Nausea/vomiting We'll place on renal diet Protonix for GI prophylaxis. On Protonix 20 no grams daily at home Bowel regimen Tess-Colace twice a day Zofran for nausea/emesis. : No indication for Shaffer catheter Endo/Rheum: History of SLE Secondary hyperparathyroidism Resume Sensipar home dosage 180 mg daily Resume Plaquenil 200 mg twice a day/home medication Sliding-scale insulin if indicated Renal: End-stage renal disease secondary to lupus nephritis - on peritoneal dialysis - nightly 1.5% 9 hour/6 cycles Consult nephrology for peritoneal dialysis Creatinine currently around 13 which is close to her baseline Heme: Leukocytosis - neutrophil predominant Normocytic anemia - consistent with anemia of chronic kidney disease - Thrombocytopenia Monitor CBC daily. Follow trends ID: Blood cultures 2 NGTD sputum and influenza were not done in ED and still not done 24 hours later. Receive 1 dose of Rocephin and Zithromax for possible community-acquired pneumonia. Continued DAy #2 Monitor for infection MSK: PT evaluate and treat FEN: Hyperphosphatemia Resume PhosLo 1334 mg by mouth 3 times a day Access - Utilize peripheral IV. Central line if indicated Prophylaxis - GI - Protonix - DVT - SCD/heparin subcutaneous d/c with low platelets Level II Raheem Cole MD Aug 19, 2016 08:04
[2016-08-19] MEDS: PANTOPRAZOLE SODIUM 40 MG VIAL IV SCH (08:16)
[2016-08-19] MEDS: SODIUM CHLORIDE 0.9% FLUSH 10 ML FLUSH IV FLUSH SCH ×2 (08:16→20:42)
[2016-08-19] MEDS: LOSARTAN 50 MG TAB PO SCH ×2 (08:17→20:41)
[2016-08-19] MEDS: AZITHROMYCIN 250 MG TAB PO SCH (08:17)
[2016-08-19] MEDS: CINACALCET HYDROCHLORIDE 30 MG TAB PO SCH (08:19)
[2016-08-19] MEDS: DOCUSATE SODIUM 50 MG/SENNA 8.6 MG TAB PO SCH ×2 (08:20→20:41)
[2016-08-19] MEDS: levETIRAcetam 500 MG TAB PO SCH ×2 (08:20→20:41)
[2016-08-19] MEDS: HYDROXYCHLOROQUINE SULFATE 200 MG TAB PO SCH ×2 (08:20→20:41)
[2016-08-19] MEDS: CALCIUM ACETATE 667 MG CAP PO SCH ×4 (08:21→17:52)
[2016-08-19] MEDS ORDERED: EPOETIN ALFA 40,000 UNITS/ML VIAL SQ ONE (12:00)
--- NOTE | 2016-08-19 12:18 | HHI.NPPN ---
Subjective Renal Failure: Chronic, End Stage Renal Disease Interval History doing better. She is more alert today. BP improved. (Kaylen Ireland) Objective Data Data 08/18/16 08/19/16 19:00 07:00 Intake Total 355 ml 296 ml Output Total 0 ml Balance 355 ml 296 ml Intake Oral 120 ml 240 ml IV Total 235 ml 56 ml Output Urine Total 0 ml # Voids 0 1 Vital Signs Date Time Temp Pulse Resp B/P Pulse Ox O2 Delivery O2 Flow Rate FiO2 08/19/16 12:04 100 Nasal Cannula 2.00 08/19/16 06:00 92 08/19/16 04:00 104 08/19/16 04:00 98.3 104 16 122/75 97 08/19/16 02:00 60 08/19/16 00:00 98.5 92 18 129/76 97 08/19/16 00:00 98 08/18/16 22:00 96 08/18/16 21:07 97 Nasal Cannula 2.00 08/18/16 20:00 98 08/18/16 20:00 98.6 98 19 131/77 98 08/18/16 20:00 98 08/18/16 19:00 96 Nasal Cannula 2.00 08/18/16 18:00 112 08/18/16 16:00 98.4 117 20 137/86 99 08/18/16 16:00 112 08/18/16 14:00 103 (Kaylen Ireland) -: 08/19/16 0358 08/19/16 0358 Microbiology 08/19/16 Influenza Types A,B Antigen (GIOVANNI) - Final, Complete NEGATIVE FOR FLU A AND B ANTIGEN.... Imaging Last 72 hours Impressions Chest X-Ray 08/18/16 0401 Signed Impressions: Service Date/Time: Thursday, August 18, 2016 04:04 - CONCLUSION: Question airspace disease both lung bases. Chavez Palacios MD Head CT 08/18/16 0000 Signed Impressions: Service Date/Time: Thursday, August 18, 2016 05:47 - CONCLUSION: Normal examination except for minimal stable ethmoidal sinus disease. Chavez Palacios MD Tubes & Lines: Tenckhoff Catheter (Kaylen Ireland) Physical Exam General Appearance: Well Developed, Well Nourished, No Acute Distress (Kaylen Ireland) Throat Throat Exam: Oral Mucosa [place] & Moist (Kaylen Ireland) Pulmonary Resp Exam: Breath Sounds Equal, No Distress, Crackles Resp Remarks right lower lobe (Kaylen Ireland) Cardiology CV Exam: Regular, Normal Sinus Rhythm, Good Perfusion (Kaylen Ireland) Gastrointestinal/Abdomen GI Exam: Soft, Non-Tender, Bowel Sounds Present (Kaylen Ireland) Musculoskeletal MS Exam: Joints Intact, Normal Gait, Normal Tone (Kaylen Ireland) Integumentary Skin Exam: Clear, Warm, Dry, Intact (Kaylen Ireland) Extremeties Extremities Exam: No Edema, Pedal Pulses Palpable (Kaylen Ireland) Neurologic Neuro Exam: Alert, Awake, Oriented, Speech Clear, Moving All Extremities ( Kaylen Ireland) Psychiatric Psych Exam: Appropriate Responses (Kaylen Ireland) Assessment/Plan Discussed Condition With: Patient Assessment Summary: Anemia of CKD, Fluid/Volume Overload, Hypertension, End Stage Renal Disease Problem List: (1) ESRD (end stage renal disease) on dialysis Plan: continue nightly PD use 2.5% solution tonight no acute dialysis concerns catheter appears benign renal panel tomorrow (2) HTN (hypertension) Plan: BP has improved taper off Clevidipine infusion today home medications include terazosin, amlodipine, labetalol, losartan (3) Headache Plan: she has a hx of migraines, which are made worse by hypertensive urgency episodes (4) Acute pulmonary edema Plan: with suspected community acquired PNA on Zithromax and Rocephin monitor clinically (5) Anemia in chronic kidney disease Plan: Hb lower, given epogen (6) Metabolic bone disease Plan: resume calcium acetate (7) Hyperparathyroidism Plan: secondary, continue Sensipar (8) Noncompliance (Kaylen Ireland) Plan patient was seen and examined. To use 2.5 % dextrose PD solution for some fluid removal. BP control has improved. (Jasbir Curry MD) Kaylen Ireland Aug 19, 2016 12:18 Jasbir Curry MD Aug 20, 2016 16:57
[2016-08-19] MEDS: LABETALOL HCL 200 MG TAB PO SCH ×3 (12:19→17:52)
[2016-08-19] MEDS: TERAZOSIN HCL 5 MG CAP PO SCH (20:41)
[2016-08-19] MEDS: ACETAMINOPHEN/HYDROcodone 325 MG/5 MG TAB PO PRN (20:41)
[2016-08-19] MEDS: MUPIROCIN 2% OINT 1 APPLIC/GM SYR EACH NARE SCH (21:10)
[2016-08-19] MEDS: ONDANSETRON HCL 4 MG/2 ML VIAL IV PRN (21:10)
[2016-08-20] VITALS (9 sets, daily range): BP systolic 119–136; BP diastolic 77–94; PULSE 83–96; RESP 10–16; TEMP 97.5–98.2; O2SAT 95–100
[2016-08-20] MEDS: MORPHINE SULFATE 4 MG/ML INJ IV PRN ×2 (01:58→06:41)
[2016-08-20] MEDS: CHLORHEXIDINE GLUCONATE 2 % 1 PACK (2 CLOTHS) TOP SCH (04:00)
[2016-08-20 05:30] LABS: AUTOMATED NEUTROPHIL # 4.7 TH/MM3 (1.8-7.7); BASOPHIL % 0.4 % (0.0-2.0); EOSINOPHIL # 0.4 TH/MM3 (0-0.4); EOSINOPHIL % 6.8 % (0.0-4.0); HEMATOCRIT 22.5 % (35.0-46.0); LYMPHOCYTE # 1.1 TH/MM3 (1.0-4.8); MEAN CELL VOLUME 86.1 FL (80.0-100.0); MEAN CORPUSCULAR HEMOGLOBIN 28.9 PG (27.0-34.0); MEAN CORPUSCULAR HGB CONC 33.5 % (32.0-36.0); MONO % 3.3 % (0.0-8.0); NEUT % 72.5 % (16.0-70.0); PLATELET COUNT 71 TH/MM3 (150-450); RED BLOOD COUNT 2.62 MIL/MM3 (4.00-5.30); RED CELL DISTRIBUTION WIDTH 18.7 % (11.6-17.2); WHITE BLOOD COUNT 6.5 TH/MM3 (4.0-11.0)
[2016-08-20 05:33] LABS: HEMO FLAGS AUTO DIFF
[2016-08-20 05:50] LABS: BICARBONATE 26.2 MEQ/L (21.0-32.0); POTASSIUM 4.3 MEQ/L (3.5-5.1)
--- NOTE | 2016-08-20 05:57 | HHI.CCPN ---
Subjective Remarks/Hospital Course 20-year-old AA female. Date of admission 08/18/2016. Past medical history includes lupus nephritis currently in end-stage renal disease requiring daily nocturnal peritoneal dialysis with Dr. Donavon syed, THC use, prior CVA, seizure disorder secondary hypertension, cluster/migraine headaches, anemia chronic kidney disease, SLE, chronic systolic heart failure ejection fraction 45 %, secondary hyperparathyroidism and medical noncompliance. She presents to [place] ED with acute onset since his 1 AM on 08/18 of shortness of breath with blood-tingedpink frothy sputum. She was initially attempted on BiPAP insert initial saturations were 80s on room air presently into 3 L nasal cannula . She complaining of pain and nausea and was given 1 mg Ativan and 4 no grams IV morphine 1 by ED physician. Her blood pressure was noted be quite elevated with systolics in the 200s as placed on nitroglycerin drip. Chest x-ray showed possible atelectasis lower lobes. She is so Rocephin and Zithromax 1 dose for possible community acquired pneumonia. Head CT showed no acute intracranial findings. Currently complaining of headache likely secondary to nitroglycerin drip. 08/19: cLEVIPREX gtt currently at 1. Labetalol increased to 300 mg 3 times a day. Complaining of chest congestion and sore throat. Pleuritic chest pain. Maintain on nasal cannula. Subjective 08/20: Cleviprex currently off. On isolation for MRSA nares. [place] protocol initiated last night with muroporin swabs. Sore throat and chest pain persists. Ambulating adequately. Objective Vital Signs Date Time Temp Pulse Resp B/P Pulse Ox O2 Delivery O2 Flow Rate FiO2 08/20/16 04:00 94 08/20/16 04:00 97.8 14 133/82 95 08/19/16 21:56 Nasal Cannula 2.00 08/18/16 04:21 30 Intake and Output 08/19/16 08/19/16 08/20/16 08:00 16:00 00:00 Intake Total 220 ml 130 ml Output Total 1456 ml Balance -1456 ml 220 ml 130 ml Result Diagram: 08/20/16 0511 08/19/16 0358 Other Results Microbiology Date/Time Procedure Status Source Growth 08/19/16 10:35 Influenza Types A,B Antigen (GIOVANNI) - Final Complete Nasal Aspirate NEGATIVE FOR FLU A AND B ANTIGEN.... 08/18/16 05:25 Aerobic Blood Culture - Preliminary Resulted Blood Peripheral NO GROWTH IN 1 DAY 08/18/16 05:25 Anaerobic Blood Culture - Preliminary Resulted Blood Peripheral NO GROWTH IN 1 DAY Imaging Last Impressions Chest X-Ray 08/18/16 0401 Signed Impressions: Service Date/Time: Thursday, August 18, 2016 04:04 - CONCLUSION: Question airspace disease both lung bases. Chavez Palacios MD Head CT 08/18/16 0000 Signed Impressions: Service Date/Time: Thursday, August 18, 2016 05:47 - CONCLUSION: Normal examination except for minimal stable ethmoidal sinus disease. Chavez Palacios MD Objective Remarks GENERAL: 20-year-old a female, resting in bed in no acute distress on nasal cannula SKIN: Warm and dry. No rash HEAD: Atraumatic. Normocephalic. EYES: Pupils equal and round about 3 mm bilaterally and reactive. No signs of papilledema. No scleral icterus. No injection or drainage. ENT: No nasal bleeding or discharge. Mucous membranes pink and moist. Oral pharynx without erythema or exudates NECK: Trachea midline. No JVD. No thyromegaly or lymphadenopathy CARDIOVASCULAR: Regular rate and rhythm. 1, S2. No S4. Without murmur or no rub RESPIRATORY: Few fine crackles patient bases bilaterally. No wheeze. Breath sounds equal bilaterally. GASTROINTESTINAL: Abdomen soft, non-tender, nondistended. Perineal dialysis catheter site is clean dry and intact without erythema MUSCULOSKELETAL: Extremities without noted in peripheral edema. No obvious deformities. NEUROLOGICAL: Awake and alert. No obvious cranial nerve deficits. Motor grossly within normal limits. Five out of 5 muscle strength in the arms and legs. Normal speech. A/P Assessment and Plan Neuro/Psych: THC History of CVA Seizure disorder - hypertensive Cluster/migraine headaches CT brain 08/18 revealed no acute intracranial findings Resume home medication of Keppra 500 mg twice a day for seizures Seizure precautions Acetaminophen for fever [place]/morphine for pain management CV: Hypertensive emergency - encephalopathy and pulmonary edema Hypertension Chronic systolic heart failure ejection fraction 45-50% History of pericardial effusion Initial troponin 0.05. EKG shows no signs of ischemia Resume home medications of trazodone 5 mg at night, Cozaar 50 mg twice a day, labetalol 300 mg twice a day increased to 400 mg 3 times a day Norvasc 10 mg twice a day for hypertension Currently on Cleviprex and wean to maintain systolic blood pressure less than 160 As needed labetalol/Nitropaste Resp: Acute hypoxic hypercapnic respiratory failure likely secondary to hypertensive emergency Possible community-acquired pneumonia Chest x-ray revealed possible lower lobe atelectasis versus infiltrate. No signs of pulmonary edema Initially received and by therapy with Rocephin/Zithromax As needed bronchodilator therapy. Nasal cannula to maintain saturations greater than equal to 92% Incentive spirometry while awake GI: Gastroesophageal reflux disease Nausea/vomiting We'll place on renal diet Protonix for GI prophylaxis. On Protonix 20 no grams daily at home Bowel regimen Tess-Colace twice a day Zofran for nausea/emesis. : No indication for Shaffer catheter Endo/Rheum: History of SLE Secondary hyperparathyroidism Resume Sensipar home dosage 180 mg daily Resume Plaquenil 200 mg twice a day/home medication Sliding-scale insulin if indicated Renal: End-stage renal disease secondary to lupus nephritis - on peritoneal dialysis - nightly 1.5% 9 hour/6 cycles Consult nephrology for peritoneal dialysis Creatinine currently around 13 which is close to her baseline Heme: Leukocytosis - neutrophil predominant Normocytic anemia - consistent with anemia of chronic kidney disease - Thrombocytopenia Monitor CBC daily. Follow trends ID: Blood cultures 2 NGTD Influenza negative Receive 1 dose of Rocephin and Zithromax for possible community-acquired pneumonia. Continued DAy #3 Monitor for infection MSK: PT evaluate and treat FEN: Hyperphosphatemia Resume PhosLo 1334 mg by mouth 3 times a day Access - Utilize peripheral IV. Central line if indicated Prophylaxis - GI - Protonix - DVT - SCD/heparin subcutaneous d/c with low platelets Level II Patient is stable from critical care medicine standpoint. Assign care to hospitalist in a.m. 08/21. Okay to transfer the floor Raheem Cole MD Aug 20, 2016 05:57
[2016-08-20] MEDS: cefTRIAXone INJ 1,000 MG in SODIUM CHLORIDE 0.9% INJ 100 ML IV SCH (06:41)
[2016-08-20 07:02] LABS: ACANTHOCYTES OCC (NORMAL); OVALOCYTES 1+ (NORMAL)
[2016-08-20 07:03] LABS: PLATELET ESTIMATE SMEAR LOW (NORMAL); PLATELET MORPHOLOGY NORMAL (NORMAL); SCAN/DIFF AUTO DIFF CONFIRMED
[2016-08-20] MEDS: PANTOPRAZOLE SODIUM 40 MG VIAL IV SCH (08:35)
[2016-08-20] MEDS: CALCIUM ACETATE 667 MG CAP PO SCH ×3 (08:35→18:00)
[2016-08-20] MEDS: CINACALCET HYDROCHLORIDE 30 MG TAB PO SCH (08:35)
[2016-08-20] MEDS: MUPIROCIN 2% OINT 1 APPLIC/GM SYR EACH NARE SCH ×2 (08:35→21:00)
[2016-08-20] MEDS: LABETALOL HCL 200 MG TAB PO SCH ×3 (08:35→21:00)
[2016-08-20] MEDS: LOSARTAN 50 MG TAB PO SCH ×2 (08:36→21:00)
[2016-08-20] MEDS: AZITHROMYCIN 250 MG TAB PO SCH (08:36)
[2016-08-20] MEDS: levETIRAcetam 500 MG TAB PO SCH ×2 (08:36→21:00)
[2016-08-20] MEDS: DOCUSATE SODIUM 50 MG/SENNA 8.6 MG TAB PO SCH ×2 (08:36→21:00)
[2016-08-20] MEDS: HYDROXYCHLOROQUINE SULFATE 200 MG TAB PO SCH ×2 (08:36→21:00)
[2016-08-20] MEDS: SODIUM CHLORIDE 0.9% FLUSH 10 ML FLUSH IV FLUSH SCH ×2 (09:00→21:00)
[2016-08-20 09:55] LABS: TRANSFERRIN IRON PROFILE 130 MG/DL (200-360)
--- NOTE | 2016-08-20 10:56 | HHI.NPPN ---
Subjective Renal Failure: Chronic, End Stage Renal Disease Interval History BP is stable, she is off Clevidipine. PD going well. (Kaylen Ireland) Objective Data Data 08/19/16 08/20/16 19:00 07:00 Intake Total 220 ml 130 ml Output Total 1456 ml Balance -1236 ml 130 ml Intake Oral 200 ml 120 ml IV Total 20 ml 10 ml Peritoneal Fluid 1456 ml # Voids 2 1 # Bowel Movements 0 Vital Signs Date Time Temp Pulse Resp B/P Pulse Ox O2 Delivery O2 Flow Rate FiO2 08/20/16 08:00 98.0 83 10 134/89 100 08/20/16 08:00 83 08/20/16 07:00 100 Nasal Cannula 3.00 08/20/16 06:00 96 08/20/16 04:00 94 08/20/16 04:00 97.8 96 14 133/82 95 08/20/16 02:03 14 08/20/16 02:00 93 08/20/16 00:00 97.7 91 12 136/94 100 08/20/16 00:00 91 08/19/16 22:00 97 08/19/16 21:56 100 Nasal Cannula 2.00 08/19/16 21:41 17 08/19/16 20:00 90 08/19/16 20:00 98.0 88 20 145/92 100 08/19/16 19:00 99 Nasal Cannula 3.00 08/19/16 18:00 94 08/19/16 16:00 94 08/19/16 16:00 98.4 92 23 114/73 100 08/19/16 14:00 94 08/19/16 12:04 100 Nasal Cannula 2.00 08/19/16 12:00 98.6 92 19 159/91 100 08/19/16 12:00 92 (Kaylen Ireland) -: 08/20/16 0511 08/20/16 0511 Tubes & Lines: Tenckhoff Catheter (Kaylen Ireland) Physical Exam General Appearance: Well Developed, Well Nourished, No Acute Distress, Comfortable ( Kaylen Ireland) Throat Throat Exam: Oral Mucosa [place] & Moist (Kaylen Ireland) Pulmonary Resp Exam: Breath Sounds Equal, No Distress, Crackles Resp Remarks right lower lobe (Kaylen Ireland) Cardiology CV Exam: Regular, Normal Sinus Rhythm, Good Perfusion (Kaylen Ireland) Gastrointestinal/Abdomen GI Exam: Soft, Non-Tender, Bowel Sounds Present (Kaylen Ireland) Musculoskeletal MS Exam: Joints Intact, Normal Gait, Normal Tone (Kaylen Ireland) Integumentary Skin Exam: Clear, Warm, Dry, Intact (Kaylen Ireland) Extremeties Extremities Exam: No Edema, Pedal Pulses Palpable (Kaylen Ireland) Neurologic Neuro Exam: Alert, Awake, Oriented, Speech Clear, Moving All Extremities ( Kaylen Ireland) Psychiatric Psych Exam: Appropriate Responses (Kaylen Ireland) Assessment/Plan Discussed Condition With: Patient Assessment Summary: Anemia of CKD, Fluid/Volume Overload, Hypertension, End Stage Renal Disease Problem List: (1) ESRD (end stage renal disease) on dialysis Plan: continue nightly PD resume 1.5% solution tonight good UF with PD no acute dialysis concerns catheter appears benign renal panel tomorrow (2) HTN (hypertension) Plan: BP has improved off Clevidipine infusion home medications include terazosin, amlodipine, labetalol, losartan (3) Headache Plan: she has a hx of migraines, which are made worse by hypertensive urgency episodes (4) Acute pulmonary edema Plan: with suspected community acquired PNA on Zithromax and Rocephin monitor clinically (5) Anemia in chronic kidney disease Plan: Hb is low, she was given epogen 40K units iron slightly low, begin oral iron she may benefit from blood transfusion (6) Metabolic bone disease Plan: on calcium acetate (7) Hyperparathyroidism Plan: secondary, continue Sensipar (8) Noncompliance (Kaylen Ireland) Plan patient was seen and examined. Continue PD. Order 1 unit of PRBC today. She can be discharged from renal standpoint. (Jasbir Curry MD) Kaylen Ireland Aug 20, 2016 10:56 Jasbir Curry MD Aug 20, 2016 17:24
[2016-08-20] MEDS: ACETAMINOPHEN/HYDROcodone 325 MG/5 MG TAB PO PRN (10:57)
[2016-08-20] MEDS: FERROUS SULFATE 325 MG (65 MG ELEMENTAL IRON) TAB PO SCH (13:08)
[2016-08-20] MEDS: ONDANSETRON HCL 4 MG/2 ML VIAL IV PRN (14:32)
[2016-08-20] MEDS ORDERED: SODIUM CHLORID 0.9% 500 ML INJ 500 ML IV ONE (15:30)
[2016-08-20] MEDS ORDERED: PROMETHAZINE HCL 25 MG SUPP RECTAL PRN (15:30)
[2016-08-20] MEDS ORDERED: PROCHLORPERAZINE INJ 10 MG/2 ML VIAL IV PUSH PRN (15:30)
--- NOTE | 2016-08-20 16:25 | RADRPT ---
EXAM DATE/TIME: 08/20/2016 15:33 [facility] COMPARISON: No previous studies available for comparison. INDICATIONS : Nausea. MEDICAL HISTORY : Hypertension. Lupus. Seizures, kidney failure, dialysis 3 times a week. SURGICAL HISTORY : Perma cath ENCOUNTER: Initial ACUITY: 2 days PAIN SCORE: 0/10 LOCATION: Bilateral abdomen FINDINGS: Peritoneal dialysis catheter is noted. Solid stool is seen scattered throughout the colon. There is no free air or obstruction. Portion of bony skeleton visualized is unremarkable. CONCLUSION: 1. Peritoneal dialysis catheter. 2. Scattered stool throughout the colon. Ricardo Matos MD FACR on August 20, 2016 at 16:16 Board Certified Radiologist. This report was verified electronically.
[2016-08-20] MEDS ORDERED: LACTULOSE SYRUP 20 GM/30 ML CUP PO ONE (17:00)
[2016-08-20] MEDS ORDERED: PILL SPLITTER OTHER PRN (17:15)
[2016-08-20] MEDS ORDERED: SODIUM CHLOR 0.9% 250 ML INJ 250 ML IV ONE (17:45)
[2016-08-20 18:30] LABS: INDIRECT BILIRUBIN 0.3 MG/DL (0.0-0.8); TOTAL BILIRUBIN ADULT 0.4 MG/DL (0.2-1.0)
[2016-08-20] MEDS: TERAZOSIN HCL 5 MG CAP PO SCH (21:00)
[2016-08-21] VITALS: PULSE 90
[2016-08-21] MEDS: ONDANSETRON HCL 4 MG/2 ML VIAL IV PRN (01:00)
[2016-08-21] MEDS: MORPHINE SULFATE 4 MG/ML INJ IV PRN (01:00)
[2016-08-21 04:00] VITALS: BP 134/86; PULSE 90; RESP 24; TEMP 98.4; O2SAT 98
[2016-08-21] MEDS: CHLORHEXIDINE GLUCONATE 2 % 1 PACK (2 CLOTHS) TOP SCH (04:00)
[2016-08-21 04:29] LABS: HEMATOCRIT 24.8 % (35.0-46.0); MEAN CELL VOLUME 87.5 FL (80.0-100.0); MEAN CORPUSCULAR HEMOGLOBIN 28.8 PG (27.0-34.0); MEAN CORPUSCULAR HGB CONC 32.9 % (32.0-36.0); PLATELET COUNT 90 TH/MM3 (150-450); RED BLOOD COUNT 2.83 MIL/MM3 (4.00-5.30); RED CELL DISTRIBUTION WIDTH 18.5 % (11.6-17.2); WHITE BLOOD COUNT 6.9 TH/MM3 (4.0-11.0)
[2016-08-21 04:34] LABS: REVIEW FLAG FINAL
--- NOTE | 2016-08-21 04:48 | RADRPT ---
EXAM DATE/TIME: 08/21/2016 02:39 [facility] COMPARISON: CHEST SINGLE AP, August 18, 2016, 4:04. INDICATIONS : Shortness of breath, possible pulmonary disease. MEDICAL HISTORY : Hypertension. Lupus. Renal disease, end stage. SURGICAL HISTORY : None. ENCOUNTER: Subsequent ACUITY: 4 - 6 days PAIN SCORE: 0/10 LOCATION: Bilateral chest FINDINGS: A single view of the chest demonstrates the lungs to be symmetrically aerated without evidence of mas s, infiltrate or effusion. The cardiomediastinal contours are unremarkable. Osseous structures are intact. CONCLUSION: No acute disease. Andi Everett MD on August 21, 2016 at 4:47 Board Certified Radiologist. This report was verified electronically.
[2016-08-21] MEDS: cefTRIAXone INJ 1,000 MG in SODIUM CHLORIDE 0.9% INJ 100 ML IV SCH (06:00)
[2016-08-21 06:02] LABS: BICARBONATE 27.9 MEQ/L (21.0-32.0); MAGNESIUM 2.2 MG/DL (1.5-2.5); POTASSIUM 3.8 MEQ/L (3.5-5.1)
[2016-08-21 07:58] LABS: CALCIUM-PROTEIN CORRECTED 7.3 MG/DL (8.5-10.1)
[2016-08-21 08:00] VITALS: BP 127/73; PULSE 90; RESP 16; TEMP 98.3; O2SAT 97
[2016-08-21] MEDS: PANTOPRAZOLE SODIUM 40 MG VIAL IV SCH (08:16)
[2016-08-21] MEDS: AZITHROMYCIN 250 MG TAB PO SCH (08:17)
[2016-08-21] MEDS: LABETALOL HCL 200 MG TAB PO SCH (08:17)
[2016-08-21] MEDS: levETIRAcetam 500 MG TAB PO SCH (08:17)
[2016-08-21] MEDS: LOSARTAN 50 MG TAB PO SCH (08:17)
[2016-08-21] MEDS: HYDROXYCHLOROQUINE SULFATE 200 MG TAB PO SCH (08:17)
[2016-08-21] MEDS: CALCIUM ACETATE 667 MG CAP PO SCH ×2 (08:17→13:05)
[2016-08-21] MEDS: DOCUSATE SODIUM 50 MG/SENNA 8.6 MG TAB PO SCH (08:17)
[2016-08-21] MEDS: FERROUS SULFATE 325 MG (65 MG ELEMENTAL IRON) TAB PO SCH (08:17)
[2016-08-21] MEDS: MUPIROCIN 2% OINT 1 APPLIC/GM SYR EACH NARE SCH (08:17)
[2016-08-21] MEDS: ACETAMINOPHEN/HYDROcodone 325 MG/5 MG TAB PO PRN (09:08)
[2016-08-21 09:33] VITALS: O2SAT 94
[2016-08-21] MEDS ORDERED: SENN1TAB PO (10:44)
[2016-08-21] MEDS ORDERED: HYDR-3516 PO (10:44)
[2016-08-21] MEDS ORDERED: AZIT250T3 PO (10:44)
[2016-08-21] MEDS ORDERED: AMLO10 PO (10:44)
[2016-08-21] MEDS ORDERED: FERR325T20 PO (10:44)
[2016-08-21] MEDS ORDERED: COZA50TA PO (10:44)
[2016-08-21] MEDS ORDERED: TERA5CAP3 PO (10:44)
[2016-08-21] MEDS ORDERED: LEVE500 PO (10:44)
[2016-08-21] MEDS ORDERED: LABE200T2 PO (10:44)
[2016-08-21] MEDS ORDERED: HYDR200T3 PO (10:44)
--- NOTE | 2016-08-21 10:45 | HHI.DS ---
Discharge Summary Admission Date Aug 18, 2016 at 05:59 Discharge Date: Aug 21, 2016 Admitting Diagnosis Acute pulmonary edema (1) Hypertensive encephalopathy ICD Code: I67.4 Diagnosis: Principal (2) Noncompliance ICD Code: Z91.19 Diagnosis: Principal (3) Hypertensive emergency ICD Code: I16.1 Diagnosis: Principal (4) Chronic systolic heart failure ICD Code: I50.22 Diagnosis: Principal (5) Secondary hypoparathyroidism ICD Code: E20.8 Diagnosis: Principal (6) Hyperparathyroidism ICD Code: E21.3 Diagnosis: Principal (7) Tetrahydrocannabinol (THC) use disorder, mild, abuse ICD Code: F12.10 Diagnosis: Principal (8) Cluster headaches ICD Code: G44.009 Diagnosis: Principal (9) Lupus nephritis ICD Code: M32.14 Diagnosis: Principal (10) Anemia in chronic kidney disease ICD Code: N18.9 Diagnosis: Principal (11) Acute pulmonary edema ICD Code: J81.0 Diagnosis: Principal (12) Seizure ICD Code: R56.9 (13) Lupus ICD Code: M32.9 Diagnosis: Principal (14) CKD, patient preferred modality peritoneal dialysis ICD Code: N18.9 Diagnosis: Principal (15) Leukocytosis ICD Code: D72.829 Diagnosis: Principal (16) SIRS (systemic inflammatory response syndrome) ICD Code: R65.10 Diagnosis: Principal (17) Thrombocytopenia ICD Code: D69.6 Diagnosis: Principal Procedures none Brief History - From Admission 20-year-old AA female. Date of admission 08/18/2016. Past medical history includes lupus nephritis currently in end-stage renal disease requiring daily nocturnal peritoneal dialysis with Dr. Donavon syed, THC use, prior CVA, seizure disorder secondary hypertension, cluster/migraine headaches, anemia chronic kidney disease, SLE, chronic systolic heart failure ejection fraction 45 %, secondary hyperparathyroidism and medical noncompliance. She presents to [facility] ED with acute onset since his 1 AM on 08/18 of shortness of breath with blood-tingedpink frothy sputum. She was initially attempted on BiPAP insert initial saturations were 80s on room air presently into 3 L nasal cannula . She complaining of pain and nausea and was given 1 mg Ativan and 4 no grams IV morphine 1 by ED physician. Her blood pressure was noted be quite elevated with systolics in the 200s as placed on nitroglycerin drip. Chest x-ray showed possible atelectasis lower lobes. She is so Rocephin and Zithromax 1 dose for possible community acquired pneumonia. Head CT showed no acute intracranial findings. Currently complaining of headache likely secondary to nitroglycerin drip. CBC/BMP: 08/21/16 0338 08/21/16 0338 Significant Findings Laboratory Tests Test 08/19/16 08/20/16 08/20/16 08/21/16 03:58 05:11 17:49 03:38 Red Blood Count 2.49 MIL/MM3 2.62 MIL/MM3 2.83 MIL/MM3 (4.00-5.30) (4.00-5.30) (4.00-5.30) Hemoglobin 7.3 GM/DL 7.6 GM/DL 8.2 GM/DL (11.6-15.3) (11.6-15.3) (11.6-15.3) Hematocrit 21.4 % 22.5 % 24.8 % (35.0-46.0) (35.0-46.0) (35.0-46.0) Red Cell Distribution Width 18.6 % 18.7 % 18.5 % (11.6-17.2) (11.6-17.2) (11.6-17.2) Platelet Count 68 TH/MM3 71 TH/MM3 90 TH/MM3 (150-450) (150-450) (150-450) Mean Platelet Volume 6.7 FL 6.6 FL 6.8 FL (7.0-11.0) (7.0-11.0) (7.0-11.0) Eosinophils (%) (Auto) 7.3 % (0.0-4.0) 6.8 % (0.0-4.0) Platelet Estimate LOW (NORMAL) LOW (NORMAL) Basophilic Stippling FAINT (NORMAL) FAINT (NORMAL) Ovalocytes 1+ (NORMAL) 1+ (NORMAL) Acanthocytes OCC (NORMAL) OCC (NORMAL) Blood Urea Nitrogen 46 MG/DL (7-18) 46 MG/DL (7-18) 44 MG/DL (7-18) Creatinine 13.16 MG/DL 13.72 MG/DL 13.92 MG/DL (0.50-1.00) (0.50-1.00) (0.50-1.00) Estimat Glomerular Filtration 4 ML/MIN (>89) 3 ML/MIN (>89) 3 ML/MIN (>89) Rate Calcium Level 7.5 MG/DL 7.7 MG/DL 6.7 MG/DL (8.5-10.1) (8.5-10.1) (8.5-10.1) Phosphorus Level 8.8 MG/DL 9.8 MG/DL 8.8 MG/DL (2.5-4.9) (2.5-4.9) (2.5-4.9) Total Protein 5.3 GM/DL 5.6 GM/DL 5.8 GM/DL (6.4-8.2) (6.4-8.2) (6.4-8.2) Albumin 2.5 GM/DL 2.6 GM/DL 2.7 GM/DL (3.4-5.0) (3.4-5.0) (3.4-5.0) Neutrophils (%) (Auto) 72.5 % (16.0-70.0) Iron Level 43 MCG/DL (50-170) Total Iron Binding Capacity 182 MCG/DL (250-450) Protein Corrected Calcium 7.3 MG/DL (8.5-10.1) Imaging Last Impressions Chest X-Ray 08/21/16 0600 Signed Impressions: Service Date/Time: Sunday, August 21, 2016 02:39 - CONCLUSION: No acute disease. Andi Everett MD Abdomen X-Ray 08/20/16 0000 Signed Impressions: Service Date/Time: Saturday, August 20, 2016 15:33 - CONCLUSION: 1. Peritoneal dialysis catheter. 2. Scattered stool throughout the colon. Ricardo Matos MD FACR Head CT 08/18/16 0000 Signed Impressions: Service Date/Time: Thursday, August 18, 2016 05:47 - CONCLUSION: Normal examination except for minimal stable ethmoidal sinus disease. Chavez Palacios MD PE at Discharge GENERAL: 20-year-old a female, resting in bed in no acute distress SKIN: Warm and dry. No rash HEAD: Atraumatic. Normocephalic. EYES: Pupils equal and round about 3 mm bilaterally and reactive. No signs of papilledema. No scleral icterus. No injection or drainage. ENT: No nasal bleeding or discharge. Mucous membranes pink and moist. Oral pharynx without erythema or exudates NECK: Trachea midline. No JVD. No thyromegaly or lymphadenopathy CARDIOVASCULAR: Regular rate and rhythm. 1, S2. No S4. Without murmur or no rub RESPIRATORY: No wheeze. Breath sounds equal bilaterally. Breathing well on room air. GASTROINTESTINAL: Abdomen soft, non-tender, nondistended. Perineal dialysis catheter site is clean dry and intact without erythema MUSCULOSKELETAL: Extremities without noted in peripheral edema. No obvious deformities. NEUROLOGICAL: Awake and alert. No obvious cranial nerve deficits. Motor grossly within normal limits. Five out of 5 muscle strength in the arms and legs. Normal speech. Hospital Course Neuro/Psych: THC History of CVA Seizure disorder - hypertensive Cluster/migraine headaches CT brain 08/18 revealed no acute intracranial findings Continue home medication of Keppra 500 mg twice a day for seizures Seizure precautions Acetaminophen for fever [place]/morphine for pain management CV: Hypertensive emergency - encephalopathy and pulmonary edema. Resolving. Hypertension Chronic systolic heart failure ejection fraction 45-50% History of pericardial effusion Initial troponin 0.05. EKG shows no signs of ischemia Resume home medications of trazodone 5 mg at night, Cozaar 50 mg twice a day, labetalol 300 mg twice a day increased to 400 mg 3 times a day Norvasc 10 mg twice a day for hypertension OFF Cleviprex. BP has been stable. As needed labetalol/Nitropaste Resp: Acute hypoxic hypercapnic respiratory failure likely secondary to hypertensive emergency Possible community-acquired pneumonia Chest x-ray revealed possible lower lobe atelectasis versus infiltrate. No signs of pulmonary edema Initially received and by therapy with Rocephin/Zithromax As needed bronchodilator therapy. Nasal cannula to maintain saturations greater than equal to 92% Incentive spirometry while awake GI: Gastroesophageal reflux disease Nausea/vomiting Renal diet Protonix for GI prophylaxis. On Protonix 20 no grams daily at home Bowel regimen Tess-Colace twice a day Zofran for nausea/emesis. : No indication for Shaffer catheter Endo/Rheum: History of SLE Secondary hyperparathyroidism Resume Sensipar home dosage 180 mg daily Resume Plaquenil 200 mg twice a day/home medication Sliding-scale insulin if indicated Renal: End-stage renal disease secondary to lupus nephritis - on peritoneal dialysis - nightly 1.5% 9 hour/6 cycles Consult nephrology for peritoneal dialysis Creatinine currently around 13 which is close to her baseline Heme: Leukocytosis - neutrophil predominant Normocytic anemia - consistent with anemia of chronic kidney disease - Thrombocytopenia Monitor CBC daily. Follow trends ID: Blood cultures 2 NGTD Influenza negative Receive 1 dose of Rocephin and Zithromax for possible community-acquired pneumonia. Continued DAy #3 Monitor for infection MSK: PT evaluate and treat FEN: Hyperphosphatemia Resume PhosLo 1334 mg by mouth 3 times a day Access - Utilize peripheral IV. Central line if indicated Prophylaxis - GI - Protonix - DVT - SCD/heparin subcutaneous d/c with low platelets Improved.BP better controlled. DC home to follow up as OP with PCP and consultants. Pt Condition on Discharge: Stable Discharge Disposition: Discharge Home Discharge Time: > 30 minutes Discharge Instructions DIET: Follow Instructions for: Heart Healthy Diet, Renal Failure Diet Activities you can perform: Regular-No Restrictions Follow up Referrals: Nephrology - 2-3 Days PCP Follow-up - 3-5 Days New Medications: Amlodipine (Norvasc) 10 Mg Tab 10 MG PO BID Blood Pressure Management #60 TAB Azithromycin (Azithromycin) 250 Mg Tab 250 MG PO DAILY infection #3 TAB Ferrous Sulfate (Ferosul) 325 Mg Tablet 325 MG PO DAILY anemia #30 TAB Hydrocodone-Acetaminophen (Hydrocodone-Acetaminophen) 5-325 mg Tab 1 TAB PO Q4H PRN pain management #20 TAB Hydroxychloroquine (Hydroxychloroquine) 200 Mg Tab 200 MG PO Q12HR esrd/sle #60 TAB Labetalol (Labetalol) 200 Mg Tab 300 MG PO BID Blood Pressure Management #90 TAB Levetiracetam (Keppra) 500 Mg Tab 500 MG PO Q12HR seizures #60 TAB Losartan (Cozaar) 50 Mg Tab 50 MG PO Q12HR Blood Pressure Management #60 TAB Sennosides-Docusate Sodium (Senna Plus 8.6-50 mg) 1 Tab Tab 1 TAB PO BID Constipation #60 TAB Continued Medications: Calcium Acetate (Phosphate Binder) (Calcium Acetate (Phosphate Binder)) 667 Mg Cap 1334 MG PO TID Hyperphosphatemia #180 Ref 0 CAP Cinacalcet (Sensipar) 90 Mg Tab 180 MG PO DAILY #60 Ref 0 TAB Epoetin Inj (Epogen Inj) 2,000 Unit/Ml Inj 1500 UNITS SQ 2XMONTH VIAL Pantoprazole (Protonix) 20 Mg Tab 20 MG PO DAILY Reflux #30 Ref 0 TAB Terazosin (Terazosin) 5 Mg Cap 5 MG PO HS hypertension #30 Ref 0 CAP (This prescription has been renewed) Discontinued Medications: Amlodipine (Norvasc) 10 Mg Tab 10 MG PO BID Blood Pressure Management #30 Ref 0 TAB Hydroxychloroquine (Hydroxychloroquine) 200 Mg Tab 200 MG PO BID Takw with food lupus #60 Ref 0 TAB Labetalol (Labetalol) 300 Mg Tab 300 MG PO Q12HR Blood Pressure Management #60 TAB Levetiracetam (Keppra) 500 Mg Tab 500 MG PO Q12HR seizures Days 30 TAB Losartan (Cozaar) 50 Mg Tab 50 MG PO BID Blood Pressure Management #30 Ref 0 TAB Maame Sal MD Aug 21, 2016 10:45
--- NOTE | 2016-08-21 10:48 | HHI.PR ---
Subjective Remarks Complaints of headache, improved. No change ion vision or motor deficit. No n/v/ d/c. Eating well. Feel improved wants to go home. Says she needs refills on some of her meds. Objective Vitals Vital Signs Date Time Temp Pulse Resp B/P Pulse Ox O2 Delivery O2 Flow Rate FiO2 08/21/16 09:33 94 21 08/21/16 04:00 90 08/21/16 04:00 98.4 90 24 134/86 98 08/21/16 00:00 90 08/20/16 20:00 98.2 92 12 119/78 95 08/20/16 20:00 90 08/20/16 19:54 97 3.00 08/20/16 19:00 96 Nasal Cannula 2.00 08/20/16 16:00 89 08/20/16 16:00 97.5 86 16 129/77 100 08/20/16 12:00 97.5 86 16 129/77 100 08/20/16 12:00 83 08/20/16 11:10 Nasal Cannula 3.00 I/O 08/20/16 08/20/16 08/20/16 08/21/16 08/21/16 08/21/16 07:00 15:00 23:00 07:00 15:00 23:00 Intake Total 350 ml 122 ml 120 ml Output Total 1765 ml 1 ml 1 ml 1381 ml Balance -1415 ml 121 ml 119 ml -1381 ml Intake Oral 250 ml 122 ml 120 ml IV Total 100 ml 0 ml 0 ml Output Urine Total 1 ml 1 ml Peritoneal Fluid 1765 ml 1381 ml # Voids 1 0 # Bowel Movements 0 0 0 Result Diagram: 08/21/16 0338 08/21/16 0338 Imaging Last Impressions Chest X-Ray 08/21/16 0600 Signed Impressions: Service Date/Time: Sunday, August 21, 2016 02:39 - CONCLUSION: No acute disease. Andi Everett MD Abdomen X-Ray 08/20/16 0000 Signed Impressions: Service Date/Time: Saturday, August 20, 2016 15:33 - CONCLUSION: 1. Peritoneal dialysis catheter. 2. Scattered stool throughout the colon. Ricardo Matos MD FACR Head CT 08/18/16 0000 Signed Impressions: Service Date/Time: Thursday, August 18, 2016 05:47 - CONCLUSION: Normal examination except for minimal stable ethmoidal sinus disease. Chavez Palacios MD Objective Remarks GENERAL: 20-year-old a female, resting in bed in no acute distress SKIN: Warm and dry. No rash HEAD: Atraumatic. Normocephalic. EYES: Pupils equal and round about 3 mm bilaterally and reactive. No signs of papilledema. No scleral icterus. No injection or drainage. ENT: No nasal bleeding or discharge. Mucous membranes pink and moist. Oral pharynx without erythema or exudates NECK: Trachea midline. No JVD. No thyromegaly or lymphadenopathy CARDIOVASCULAR: Regular rate and rhythm. 1, S2. No S4. Without murmur or no rub RESPIRATORY: No wheeze. Breath sounds equal bilaterally. Breathing well on room air. GASTROINTESTINAL: Abdomen soft, non-tender, nondistended. Perineal dialysis catheter site is clean dry and intact without erythema MUSCULOSKELETAL: Extremities without noted in peripheral edema. No obvious deformities. NEUROLOGICAL: Awake and alert. No obvious cranial nerve deficits. Motor grossly within normal limits. Five out of 5 muscle strength in the arms and legs. Normal speech. A/P Problem List: (1) Hypertensive encephalopathy ICD Code: I67.4 Status: Acute (2) Noncompliance ICD Code: Z91.19 Status: Acute (3) Hypertensive emergency ICD Code: I16.1 Status: Acute (4) Chronic systolic heart failure ICD Code: I50.22 Status: Acute (5) Secondary hypoparathyroidism ICD Code: E20.8 Status: Acute (6) Hyperparathyroidism ICD Code: E21.3 Status: Acute (7) Tetrahydrocannabinol (THC) use disorder, mild, abuse ICD Code: F12.10 Status: Acute (8) Cluster headaches ICD Code: G44.009 Status: Acute (9) Lupus nephritis ICD Code: M32.14 Status: Acute (10) Anemia in chronic kidney disease ICD Code: N18.9 Status: Acute (11) Acute pulmonary edema ICD Code: J81.0 Status: Acute (12) Seizure ICD Code: R56.9 Status: Chronic (13) Lupus ICD Code: M32.9 Status: Chronic (14) CKD, patient preferred modality peritoneal dialysis ICD Code: N18.9 Status: Acute (15) Leukocytosis ICD Code: D72.829 Status: Acute (16) SIRS (systemic inflammatory response syndrome) ICD Code: R65.10 Status: Acute (17) Thrombocytopenia ICD Code: D69.6 Status: Acute Assessment and Plan Neuro/Psych: THC History of CVA Seizure disorder - hypertensive Cluster/migraine headaches CT brain 08/18 revealed no acute intracranial findings Continue home medication of Keppra 500 mg twice a day for seizures Seizure precautions Acetaminophen for fever [place]/morphine for pain management CV: Hypertensive emergency - encephalopathy and pulmonary edema. Resolving. Hypertension Chronic systolic heart failure ejection fraction 45-50% History of pericardial effusion Initial troponin 0.05. EKG shows no signs of ischemia Resume home medications of trazodone 5 mg at night, Cozaar 50 mg twice a day, labetalol 300 mg twice a day increased to 400 mg 3 times a day Norvasc 10 mg twice a day for hypertension OFF Cleviprex. BP has been stable. As needed labetalol/Nitropaste Resp: Acute hypoxic hypercapnic respiratory failure likely secondary to hypertensive emergency Possible community-acquired pneumonia Chest x-ray revealed possible lower lobe atelectasis versus infiltrate. No signs of pulmonary edema Initially received and by therapy with Rocephin/Zithromax As needed bronchodilator therapy. Nasal cannula to maintain saturations greater than equal to 92% Incentive spirometry while awake GI: Gastroesophageal reflux disease Nausea/vomiting Renal diet Protonix for GI prophylaxis. On Protonix 20 no grams daily at home Bowel regimen Tess-Colace twice a day Zofran for nausea/emesis. : No indication for Shaffer catheter Endo/Rheum: History of SLE Secondary hyperparathyroidism Resume Sensipar home dosage 180 mg daily Resume Plaquenil 200 mg twice a day/home medication Sliding-scale insulin if indicated Renal: End-stage renal disease secondary to lupus nephritis - on peritoneal dialysis - nightly 1.5% 9 hour/6 cycles Consult nephrology for peritoneal dialysis Creatinine currently around 13 which is close to her baseline Heme: Leukocytosis - neutrophil predominant Normocytic anemia - consistent with anemia of chronic kidney disease - Thrombocytopenia Monitor CBC daily. Follow trends ID: Blood cultures 2 NGTD Influenza negative Receive 1 dose of Rocephin and Zithromax for possible community-acquired pneumonia. Continued DAy #3 Monitor for infection MSK: PT evaluate and treat FEN: Hyperphosphatemia Resume PhosLo 1334 mg by mouth 3 times a day Access - Utilize peripheral IV. Central line if indicated Prophylaxis - GI - Protonix - DVT - SCD/heparin subcutaneous d/c with low platelets Discussed with the patient, nurse, Dr Clark axle turner DC when cleared by nephrology. BP better controlled. off drip. Improved. Problem Qualifiers (1) Cluster headaches: Qualified Code: G44.009 - Cluster headache, not intractable, unspecified chronicity pattern (2) Lupus: Qualified Code: M32.9 - Systemic lupus erythematosus, unspecified SLE type, unspecified organ involvement status (3) Leukocytosis: Qualified Code: D72.829 - Leukocytosis, unspecified type Maame Sal MD Aug 21, 2016 10:48 Maame Sal MD Aug 21, 2016 10:48 Maame Sal MD Aug 21, 2016 10:48
[2016-08-21 12:00] VITALS: BP 117/74; PULSE 87; RESP 12; TEMP 98.5; O2SAT 94
--- NOTE | 2016-08-21 13:11 | HHI.NPPN ---
Subjective General Problems: Anemia, Hypertension Renal Failure: Chronic, End Stage Renal Disease Additional Remarks Patient is alert, no SOB, no abd. pain. Objective Data Data 08/20/16 08/21/16 19:00 07:00 Intake Total 350 ml 242 ml Output Total 1765 ml 2 ml Balance -1415 ml 240 ml Intake Oral 250 ml 242 ml IV Total 100 ml 0 ml Output Urine Total 2 ml Peritoneal Fluid 1765 ml # Voids 1 0 # Bowel Movements 0 0 Vital Signs Date Time Temp Pulse Resp B/P Pulse Ox O2 Delivery O2 Flow Rate FiO2 08/21/16 09:33 94 21 08/21/16 08:00 97 Room Air 08/21/16 08:00 90 08/21/16 08:00 98.3 90 16 127/73 97 08/21/16 04:00 90 08/21/16 04:00 98.4 90 24 134/86 98 08/21/16 00:00 90 08/20/16 20:00 98.2 92 12 119/78 95 08/20/16 20:00 90 08/20/16 19:54 97 3.00 08/20/16 19:00 96 Nasal Cannula 2.00 08/20/16 16:00 89 08/20/16 16:00 97.5 86 16 129/77 100 -: 08/21/16 0338 08/21/16 0338 Tubes & Lines: Tenckhoff Catheter Physical Exam General Appearance: Well Developed, Well Nourished, No Acute Distress, Comfortable Throat Throat Exam: Oral Mucosa [place] & Moist Pulmonary Resp Exam: Breath Sounds Equal, No Distress, Crackles Cardiology CV Exam: Regular, Normal Sinus Rhythm, Good Perfusion Gastrointestinal/Abdomen GI Exam: Soft, Non-Tender, Bowel Sounds Present Musculoskeletal MS Exam: Joints Intact, Normal Gait, Normal Tone Integumentary Skin Exam: Clear, Warm, Dry, Intact Extremeties Extremities Exam: No Edema Neurologic Neuro Exam: Alert, Awake, Oriented, Speech Clear, Moving All Extremities Psychiatric Psych Exam: Appropriate Responses Assessment/Plan Discussed Condition With: Patient Assessment Summary: Anemia of CKD, Fluid/Volume Overload, Hypertension, End Stage Renal Disease Problem List: (1) ESRD (end stage renal disease) on dialysis Plan: continue nightly PD resume 1.5% solution tonight good UF with PD no acute dialysis concerns catheter appears benign Calcium is low, will replace IV. Increase Phoslo, her Po4 is also elevated. On Sensipar also. Can be discharged, to follow with Dr. Curry. (2) HTN (hypertension) Plan: BP has improved off Clevidipine infusion home medications include terazosin, amlodipine, labetalol, losartan (3) Headache Plan: she has a hx of migraines, which are made worse by hypertensive urgency episodes (4) Acute pulmonary edema Plan: with suspected community acquired PNA on Zithromax and Rocephin monitor clinically (5) Anemia in chronic kidney disease Plan: Hb is low, she was given epogen 40K units iron slightly low, begin oral iron she may benefit from blood transfusion (6) Metabolic bone disease Plan: on calcium acetate (7) Hyperparathyroidism Plan: secondary, continue Sensipar (8) Noncompliance Je Kothari MD Aug 21, 2016 13:10
[2016-08-21] MEDS ORDERED: CALCIUM GLUCONATE INJ 1 GM in SODIUM CHLORIDE 0.9% INJ 100 ML IV ONE (13:15)
[2016-08-21] MEDS ORDERED: CALCIUM ACETATE 667 MG CAP PO SCH (18:00)
== END 2016-08-21 15:13 | disposition home or self-care (01) | DRG 291 ==
LOC: NEPC 03:43 → NEDA 05:59 → N03B 07:18
PROVIDERS: ADMIT Hospitalist; ATTEND Hospitalist
PROC: 3E1M39Z Irrigation of Peritoneal Cavity using Dialysate, Percutaneous Approach (ICD-10-PCS; principal; 2016-08-18)
DX: I13.2 Hypertensive heart and chronic kidney disease with heart failure and with stage 5 chronic kidney disease, or end stage renal disease (principal); N18.6 End stage renal disease; J96.01 Acute respiratory failure with hypoxia; I67.4 Hypertensive encephalopathy; J18.9 Pneumonia, unspecified organism; J96.02 Acute respiratory failure with hypercapnia; I50.22 Chronic systolic (congestive) heart failure; N25.81 Secondary hyperparathyroidism of renal origin; E88.89 Other specified metabolic disorders; R65.10 Systemic inflammatory response syndrome (SIRS) of non-infectious origin without acute organ dysfunction; I16.1 Hypertensive emergency; D69.6 Thrombocytopenia, unspecified; M32.14 Glomerular disease in systemic lupus erythematosus; D63.1 Anemia in chronic kidney disease; Z99.2 Dependence on renal dialysis; Z91.19 Patient's noncompliance with other medical treatment and regimen; F12.90 Cannabis use, unspecified, uncomplicated; G44.009 Cluster headache syndrome, unspecified, not intractable; G43.909 Migraine, unspecified, not intractable, without status migrainosus; Z86.73 Personal history of transient ischemic attack (TIA), and cerebral infarction without residual deficits; K21.9 Gastro-esophageal reflux disease without esophagitis; E83.39 Other disorders of phosphorus metabolism
CPT/HCPCS: 36600; 70450; 71010; 74000; 80048; 80053; 80069; 80076; 82550; 82552; 82805; 83540; 83550; 83605; 83690; 83735; 83880; 84100; 84155; 84484; 84702; 84703; 85025; 85027; 85384; 85610; 85730; 86850; 86900; 86901; 86920; 87040; 87641; 87804; 90935; 94002; 94150; 96365; 96375; C9113; C9248; J0610; J0696; J0780; J2060; J2270; J2405; J7040; Q4081

== ENCOUNTER 2016-09-15 10:23 | Emergency (ER) | payer OTHER ==
[~2016-09-15] VITALS: Ht 162.6 cm; Wt 59.0 kg
[~2016-09-15 10:23] MED LIST changes: +AZIT250T3 PO; +FERR325T20 PO; +HYDR-3516 PO; +LABE200T2 PO; -LABE300T PO; +SENN1TAB PO
[2016-09-15 10:25] VITALS: BP 180/129; PULSE 114; RESP 20; TEMP 99.3; O2SAT 97
[2016-09-15 11:08] VITALS: BP 173/111; PULSE 109; RESP 17; O2SAT 98
[2016-09-15] MEDS ORDERED: MORPHINE SULFATE 4 MG/ML INJ IV PUSH ONE (11:15)
[2016-09-15] MEDS ORDERED: SODIUM CHLORIDE 0.9% FLUSH 10 ML FLUSH IVF PRN (11:15)
--- NOTE | 2016-09-15 11:21 | PD ---
HPI Chief Complaint: GI Complaint Time Seen by Provider: 11:10 Travel History International Travel<30 days: No Contact w/Intl Traveler<30days: No Traveled to known affect area: No History of Present Illness HPI 20-year-old female with history of end-stage renal disease, lupus, peritoneal dialysis daily, anemia, hypertension who presents for evaluation of nausea, vomiting, epigastric/lower chest pain and pressure. Symptoms started yesterday evening while during her lifetime peritoneal dialysis. Pain is a pressure type pain which is constant, no aggravating or alleviating factors. Denies fevers or chills, cough, dietary indiscretions, dysuria, flank pain. She does note that she missed dialysis on September 11, she has not missed dialysis since then. Her master control operator is Dr. Howard. Primary care physician is Dr. Gibbs. She has no other complaints at this time. PFSH Past Medical History Arthritis: No Autoimmune Disease: Yes (LUPUS ) Anxiety: Yes Depression: No Heart Rhythm Problems: No Cancer: No Cardiovascular Problems: Yes (htn) High Cholesterol: No Chemotherapy: Yes (2015) Chest Pain: No Congestive Heart Failure: No Cerebrovascular Accident: Yes Diabetes: Yes Dialysis: Yes (DAILY) Diminished Hearing: No Endocrine: No Gastrointestinal Disorders: Yes (Nausea, low appetite) GERD: No Genitourinary: No Headaches: Yes (CLUSTER MUNOZ) Hepatitis: No Hiatal Hernia: No Heparin Induced Thrombocytopen: No Hypertension: Yes Immune Disorder: Yes (Lupus) Implanted Vascular Access Dvce: No Kidney Stones: No Musculoskeletal: No Neurologic: Yes (LUPUS) Psychiatric: No Reproductive: No Respiratory: Yes Immunizations Current: Yes Migraines: Yes (FROM HTN) Radiation Therapy: No Renal Failure: Yes Seizures: Yes (FROM HTN) Sickle Cell Disease: No Thyroid Disease: No Ulcer: No Tetanus Vaccination: > 5 Years Influenza Vaccination: Yes ?: Not LMP: 09/15/16 : 1 Para: 1 Past Surgical History Abdominal Surgery: Yes (PERMACATH, PERITONEAL DIALYSIS) AICD: No Arteriovenous Shunt: No Body Medical Devices: ,PD catheter Cardiac Surgery: No Ear Surgery: No Endocrine Surgery: No Eye Surgery: No Genitourinary Surgery: No Gynecologic Surgery: No Insulin Pump: No Joint Replacement: No Neurologic Surgery: No Oral Surgery: No Pacemaker: No Thoracic Surgery: Yes (VAS CATH TO LEFT CHEST, removed) Other Surgery: Yes ((R) Permacath, PD catheter) Social History Alcohol Use: No Tobacco Use: Yes (OCASSIONALLY) Substance Use: Yes (Marijuana every so often) Allergies-Medications (Allergen,Severity, Reaction): Coded Allergies: Hydralazine (Verified Allergy, Severe, Rash, 09/15/16) Vancomycin (Verified Allergy, Severe, RASH, 09/15/16) Metoprolol (Verified Allergy, Unknown, Patient does not know, 09/15/16) *MDRO Multi-Drug Resistant Organism (Verified Adverse Reaction, Unknown, MRSA, 09/15/16) MRSA PCR (nares) POSITIVE - 08/18/16 Reported Meds & Prescriptions Reported Meds & Active Scripts Active Zofran Odt (Ondansetron Odt) 4 Mg Tab 4 Mg SL Q8HR PRN Norvasc (Amlodipine Besylate) 10 Mg Tab 10 Mg PO BID Cozaar (Losartan Potassium) 50 Mg Tab 50 Mg PO Q12HR Keppra (Levetiracetam) 500 Mg Tab 500 Mg PO Q12HR Labetalol (Labetalol HCl) 200 Mg Tab 300 Mg PO BID Hydroxychloroquine (Hydroxychloroquine Sulfate) 200 Mg Tab 200 Mg PO Q12HR Ferosul (Ferrous Sulfate) 325 Mg Tablet 325 Mg PO DAILY Terazosin (Terazosin HCl) 5 Mg Cap 5 Mg PO HS Reported Sensipar (Cinacalcet) 90 Mg Tab 180 Mg PO DAILY Calcium Acetate (Phosphate Binder) 667 Mg Cap 1,334 Mg PO TID Protonix (Pantoprazole Sodium) 20 Mg Tab 20 Mg PO DAILY Epogen Inj (Epoetin Diego) 2,000 Unit/Ml Inj 1,500 Units SQ 2XMONTH Review of Systems Except as stated in HPI: all other systems reviewed are Neg Physical Exam Narrative GENERAL: Well-developed well-nourished female in no acute distress. Vital signs reviewed. SKIN: Warm and dry. HEAD: Atraumatic. Normocephalic. EYES: Pupils equal and round. No scleral icterus. No injection or drainage. ENT: No nasal bleeding or discharge. Mucous membranes pink and moist. NECK: Trachea midline. No JVD. CARDIOVASCULAR: Regular rate and rhythm. No murmur appreciated. Tachycardic with a heart rate in the low 100s. RESPIRATORY: No accessory muscle use. Clear to auscultation. Breath sounds equal bilaterally. No crackles no wheezing or rhonchi. GASTROINTESTINAL: Abdomen soft, mild epigastric/upper quadrant tenderness and no guarding. There is no abdominal distention. Peritoneal dialysis catheter in place. MUSCULOSKELETAL: No obvious deformities. No clubbing. No cyanosis. No edema. NEUROLOGICAL: Awake and alert. No obvious cranial nerve deficits. Motor grossly within normal limits. Normal speech. PSYCHIATRIC: Appropriate mood and affect; insight and judgment normal. Data Data Last Documented VS Vital Signs Date Time Temp Pulse Resp B/P Pulse Ox O2 Delivery O2 Flow Rate FiO2 09/15/16 12:35 95 17 157/100 98 Room Air 09/15/16 10:25 99.3 Orders Electrocardiogram (09/15/16 ) Complete Blood Count With Diff (09/15/16 11:12) Comprehensive Metabolic Panel (09/15/16 11:12) Magnesium (Mg) (09/15/16 11:12) Ckmb (Isoenzyme) Profile (09/15/16 11:12) Troponin I (09/15/16 11:12) Urinalysis - C+S If Indicated (09/15/16 11:12) Iv Access Insert/Monitor (09/15/16 11:12) Ecg Monitoring (09/15/16 11:12) Oximetry (09/15/16 11:12) Oxygen Administration (09/15/16 11:12) Chest, Single Ap (09/15/16 11:12) Sodium Chloride 0.9% Flush (Ns Flush) (09/15/16 11:15) Ed Urine Pregnancytest Poc (09/15/16 11:12) Us Abdomen Gallbladder (09/15/16 ) Morphine Inj (Morphine Inj) (09/15/16 11:15) Phosphorus (Po4) (09/15/16 11:12) Lipase (09/15/16 11:16) Ct Abd/Pel W/O Iv Contrast (09/15/16 11:34) Beta Hcg (Quant/Titer) (09/15/16 11:15) CKMB (09/15/16 11:15) CKMB% (09/15/16 11:15) Urine Culture (09/15/16 11:50) Labs Laboratory Tests Test 09/15/16 09/15/16 11:15 11:50 White Blood Count 6.5 TH/MM3 Red Blood Count 3.23 MIL/MM3 Hemoglobin 9.3 GM/DL Hematocrit 28.1 % Mean Corpuscular Volume 87.0 FL Mean Corpuscular Hemoglobin 28.8 PG Mean Corpuscular Hemoglobin 33.1 % Concent Red Cell Distribution Width 16.2 % Platelet Count 55 TH/MM3 Mean Platelet Volume 6.5 FL Neutrophils (%) (Auto) 74.8 % Lymphocytes (%) (Auto) 11.4 % Monocytes (%) (Auto) 6.4 % Eosinophils (%) (Auto) 6.6 % Basophils (%) (Auto) 0.8 % Neutrophils # (Auto) 4.9 TH/MM3 Lymphocytes # (Auto) 0.7 TH/MM3 Monocytes # (Auto) 0.4 TH/MM3 Eosinophils # (Auto) 0.4 TH/MM3 Basophils # (Auto) 0.1 TH/MM3 CBC Comment AUTO DIFF Differential Comment AUTO DIFF CONFIRMED Platelet Estimate LOW Platelet Morphology Comment NORMAL Red Cell Morphology Comment NORMAL Sodium Level 138 MEQ/L Potassium Level 4.8 MEQ/L Chloride Level 101 MEQ/L Carbon Dioxide Level 21.8 MEQ/L Anion Gap 15 MEQ/L Blood Urea Nitrogen 68 MG/DL Creatinine 13.13 MG/DL Estimat Glomerular Filtration 4 ML/MIN Rate Random Glucose 82 MG/DL Calcium Level 7.3 MG/DL Protein Corrected Calcium 7.8 MG/DL Phosphorus Level 8.1 MG/DL Magnesium Level 1.9 MG/DL Total Bilirubin 0.7 MG/DL Aspartate Amino Transf 35 U/L (AST/SGOT) Alanine Aminotransferase 25 U/L (ALT/SGPT) Alkaline Phosphatase 62 U/L Total Creatine Kinase 302 U/L Creatine Kinase MB 2.0 NG/ML Creatine Kinase MB % 0.7 % Troponin I 0.05 NG/ML Total Protein 6.1 GM/DL Albumin 3.0 GM/DL Lipase 230 U/L Human Chorionic Gonadotropin, LESS THAN 1 Quant MIU/ML Urine Color LIGHT-RED Urine Turbidity CLOUDY Urine pH 8.5 Urine Specific [place] 1.009 Urine Protein 300 mg/dL Urine Glucose (UA) 70 mg/dL Urine Ketones NEG mg/dL Urine Occult Blood LARGE Urine Nitrite NEG Urine Bilirubin NEG Urine Urobilinogen LESS THAN 2.0 MG/DL Urine Leukocyte Esterase NEG Urine RBC /hpf Urine WBC 31 /hpf Microscopic Urinalysis Comment CULTURE INDICATED MDM Medical Decision Making Medical Screen Exam Complete: Yes Emergency Medical Condition: Yes Medical Record Reviewed: Yes Interpretation(s) EKG sinus tachycardia rate 111 CT abdomen and pelvis CONCLUSION: 1. Mild bilateral interstitial infiltrates with small bilateral pleural effusions. 2. Small amount of fluid in the pelvis most likely related to peritoneal dialysis. 3. No acute pathology. No significant changes compared to the prior exam. CONCLUSION: 1. Mild hepatomegaly. 2. Small amount of sludge in the gallbladder. No definite sonographic evidence for acute cholecystitis. 3. End-stage appearing right kidney. Differential Diagnosis Electrolyte abnormality, gastroenteritis, biliary colic, cholecystitis, pancreatitis, acute coronary syndrome, pulmonary edema, spontaneous bacterial peritonitis Narrative Course 20-year-old female with history of anemia, lupus, end-stage renal disease on peritoneal dialysis daily, presents for evaluation of nausea, vomiting, shortness of breath and epigastric/lower chest pain which started during dialysis yesterday evening. On initial examination she is mild tenderness to palpation epigastrium/upper quadrants of the abdomen without guarding abdominal distention. Her lungs sound clear. She does have low-grade tachycardia. Plan is for basic lab work, chest x-ray, ultrasound of the gallbladder, the patient will be placed on ECG monitoring and pulse oximetry. She'll be given Zofran and 2 mg morphine. She will be monitored closely. Ultrasound reveals a small amount of sludge in the gallbladder with no sonographic evidence for cholecystitis. Chest x-ray reveals no pulmonary edema. The CT the abdomen and pelvis does reveal mild bilateral interstitial infiltrates with small pleural effusions. Small amount of free fluid in the pelvis. She has no clinical evidence of SBP. Her hemoglobin is 9.3 which is improved from previous records. Urinalysis reveals hematuria and pyuria which is likely contaminant, she is currently men straining. At this point in time the plan would be to discharge the patient follow-up with her master control operator. She is stable for discharge. Procedures EKG Prior to Arrival: Yes Diagnosis Primary Impression: Nausea and vomiting Qualified Code: R11.2 - Non-intractable vomiting with nausea, unspecified vomiting type Additional Impressions: Abdominal pain Qualified Code: R10.9 - Abdominal pain, unspecified location Chest pain Qualified Code: R07.9 - Chest pain, unspecified type Additional Instructions: Medication as needed for nausea. Follow-up closely with your master control operator and primary care physician. Return for any acutely new or worsening symptoms. Med/Other Pt SpecificInfo: Prescription(s) given Scripts Ondansetron Odt (Zofran Odt)4 Mg Tab4 Mg SL Q8HR PRN (Nausea/Vomiting) #10 TAB Ref 0 Prov:Darlene Lee 09/15/16 Disposition: 01 DISCHARGE HOME Condition: Stable Hakan Faith Sep 15, 2016 11:21
[2016-09-15 11:23] VITALS: RESP 18; O2SAT 97
--- NOTE | 2016-09-15 11:46 | RADRPT ---
EXAM DATE/TIME: 09/15/2016 11:24 [facility] COMPARISON: CHEST SINGLE AP, August 21, 2016, 2:39. INDICATIONS : Short of breath, chest pain. MEDICAL HISTORY : Lupus. Renal failure. SURGICAL HISTORY : None. ENCOUNTER: Initial ACUITY: 1 day PAIN SCORE: 9/10 LOCATION: Bilateral chest FINDINGS: A single view of the chest demonstrates the lungs to be symmetrically aerated without evidence of mas s, infiltrate or effusion. The cardiomediastinal contours are unremarkable. Osseous structures are intact. CONCLUSION: No acute disease. Ricardo Matos MD FACR on September 15, 2016 at 11:43 Board Certified Radiologist. This report was verified electronically.
[2016-09-15 11:50] LABS: AUTOMATED NEUTROPHIL # 4.9 TH/MM3 (1.8-7.7); BASOPHIL # 0.1 TH/MM3 (0-0.2); BASOPHIL % 0.8 % (0.0-2.0); EOSINOPHIL # 0.4 TH/MM3 (0-0.4); EOSINOPHIL % 6.6 % (0.0-4.0); HEMATOCRIT 28.1 % (35.0-46.0); LYMPH % 11.4 % (9.0-44.0); LYMPHOCYTE # 0.7 TH/MM3 (1.0-4.8); MEAN CORPUSCULAR HEMOGLOBIN 28.8 PG (27.0-34.0); MEAN CORPUSCULAR HGB CONC 33.1 % (32.0-36.0); MONO % 6.4 % (0.0-8.0); NEUT % 74.8 % (16.0-70.0); PLATELET COUNT 55 TH/MM3 (150-450); RED BLOOD COUNT 3.23 MIL/MM3 (4.00-5.30); RED CELL DISTRIBUTION WIDTH 16.2 % (11.6-17.2); WHITE BLOOD COUNT 6.5 TH/MM3 (4.0-11.0)
[2016-09-15 11:55] LABS: HEMO FLAGS AUTO DIFF
[2016-09-15 12:12] LABS: ALT (GPT) 25 U/L (10-53); ANION GAP 15 MEQ/L (5-15); AST (GOT) 35 U/L (15-37); BICARBONATE 21.8 MEQ/L (21.0-32.0); BLOOD UREA NITROGEN 68 MG/DL (7-18); CHLORIDE 101 MEQ/L (98-107); GLOMERULAR FILTRATION RATE 4 ML/MIN (>89); MAGNESIUM 1.9 MG/DL (1.5-2.5); POTASSIUM 4.8 MEQ/L (3.5-5.1); SODIUM (NA) 138 MEQ/L (136-145)
[2016-09-15 12:16] LABS: ALKALINE PHOSPHATASE 62 U/L (45-117); BETA HCG QUANT LESS THAN 1 MIU/ML (0-5); CALCIUM-PROTEIN CORRECTED 7.8 MG/DL (8.5-10.1); CREATINE KINASE 302 U/L (26-192); TOTAL BILIRUBIN ADULT 0.7 MG/DL (0.2-1.0)
[2016-09-15 12:33] LABS: PLATELET ESTIMATE SMEAR LOW (NORMAL); PLATELET MORPHOLOGY NORMAL (NORMAL); SCAN/DIFF AUTO DIFF CONFIRMED
[2016-09-15 12:35] VITALS: BP 157/100; PULSE 95; RESP 17; O2SAT 98
[2016-09-15 13:19] LABS: BLOOD, URINE LARGE (NEG); GLUCOSE,URINE 70 mg/dL (NEG); KETONE, URINE NEG (NEG); NITRITE,URINE NEG (NEG); PH, URINE 8.5 (5.0-8.5)
[2016-09-15 13:20] LABS: COMMENT (UR) CULTURE INDICATED; CULTURE IF INDICATED CULTURE INDICATED; URINE COLOR LIGHT-RED (YELLW/STRAW)
--- NOTE | 2016-09-15 13:32 | RADRPT ---
EXAM DATE/TIME: 09/15/2016 13:01 [facility] COMPARISON: CT ABDOMEN & PELVIS W/O CONTRAST, May 08, 2016, 15:26. INDICATIONS : Evaluate for diffuse abdomen pain with chest pains. ORAL CONTRAST: No oral contrast ingested. RADIATION DOSE: 4.72 CTDIvol (mGy) MEDICAL HISTORY : Hypertension. Renal insufficiency. Lupus SURGICAL HISTORY : Permacath, Peritoneal dialysis. ENCOUNTER: Initial ACUITY: 2 days PAIN SCALE: 7/10 LOCATION: Bilateral upper quadrant TECHNIQUE: Volumetric scanning of the abdomen and pelvis was performed. Using automated exposure control and ad justment of the mA and/or kV according to patient size, radiation dose was kept as low as reasonably achievable to obtain optimal diagnostic quality images. DICOM format image data is available electro nically for review and comparison. The lack of IV contrast limits the diagnosis for certain organ pat hology. FINDINGS: LOWER LUNGS: Small bilateral pleural effusions. Mild bibasilar scattered interstitial infiltrates. LIVER: Homogeneous density without lesion. There is no dilation of the biliary tree. No calcified gallston es. SPLEEN: Normal size without lesion. PANCREAS: Within normal limits. KIDNEYS: The kidneys are small and atrophic. No hydronephrosis. The [place] kidneys are stable compared to the prior exam. ADRENAL GLANDS: Within normal limits. VASCULAR: There is no aortic aneurysm. BOWEL/MESENTERY: The stomach, small bowel, and colon demonstrate no acute abnormality. There is no free intraperitone al air. There is a small amount of fluid in the pelvis. There is a peritoneal dialysis catheter in pl ayanna. The catheter is positioned low in the pelvis on the left side. ABDOMINAL WALL: Within normal limits. RETROPERITONEUM: There is no lymphadenopathy. BLADDER: No wall thickening or mass. REPRODUCTIVE: Within normal limits. INGUINAL: There is no lymphadenopathy or hernia. MUSCULOSKELETAL: Within normal limits for patient age. CONCLUSION: 1. Mild bilateral interstitial infiltrates with small bilateral pleural effusions. 2. Small amount of fluid in the pelvis most likely related to peritoneal dialysis. 3. No acute pathology. No significant changes compared to the prior exam. Maninder Montenegro MD on September 15, 2016 at 13:27 Board Certified Radiologist. This report was verified electronically.
--- NOTE | 2016-09-15 14:02 | RADRPT ---
EXAM DATE/TIME: 09/15/2016 12:09 [facility] COMPARISON: US ABDOMEN - GALLBLADDER, March 26, 2016, 19:39. INDICATIONS : Right upper quandrant pain. Diarrhea. MEDICAL HISTORY : Lupus. CVA. Seizures. Hypertension. Syncope. Migraines. Peritonel dialysis. Kidney failure. Diabetes. MRSA. SURGICAL HISTORY : Vas cath to left chest. Permacath. ENCOUNTER: Initial ACUITY: 1 day PAIN SCORE: 6/10 LOCATION: Right upper quadrant MEASUREMENTS: LIVER: 17.7 cm length COMMON DUCT: 4 mm RIGHT KIDNEY: 8.5 x 2.8 x 3.1 cm FINDINGS: LIVER: Liver is mildly enlarged but demonstrates diffusely normal echogenicity without focal mass or in trahepatic ductal dilatation. COMMON DUCT: No intraluminal mass or stone visualized. GALLBLADDER: Small amount of sludge in the gallbladder. No gallbladder wall thickening. Redemo nstration of a trace pericholecystic fluid similar to prior exam. No sonographic Jing y's sign. PANCREAS: The visualized portions are within normal limits. RIGHT KIDNEY: Right kidney appears diffusely echogenic with diffuse cortical thinning. No significant hydronephrosi s. CONCLUSION: 1. Mild hepatomegaly. 2. Small amount of sludge in the gallbladder. No definite sonographic evidence for acute cholecystiti s. 3. End-stage appearing right kidney. Kirit Ball MD on September 15, 2016 at 13:55 Board Certified Radiologist. This report was verified electronically.
[2016-09-15] MEDS ORDERED: ZOFR4TAB3 SL (14:06)
[2016-09-15 14:10] VITALS: BP 148/96; TEMP 97.8
--- NOTE | 2016-09-16 19:37 | EKG ---
Date Performed: 09/15/2016 Time Performed: 11:06:36 PTAGE: 20 years EKG: Sinus tachycardia NONSPECIFIC T-WAVE ABNORMALITY Voltage criteria for Left ventricular hype rtrophy Compared to previous tracing, the sinus tachycardia is new. The lateral T wave flattening is new. ABNORMAL RHYTHM ECG PREVIOUS TRACING : 05/31/2016 13.03 DOCTOR: Stephanie Murdock Interpretating Date/Time 09/16/2016 19:36:12
== END 2016-09-15 14:10 | disposition home or self-care (01) ==
LOC: NEPC 10:23
DX: J90 Pleural effusion, not elsewhere classified (principal); R11.2 Nausea with vomiting, unspecified; R10.13 Epigastric pain; R06.02 Shortness of breath; R07.9 Chest pain, unspecified; R10.11 Right upper quadrant pain; R19.7 Diarrhea, unspecified; R16.0 Hepatomegaly, not elsewhere classified; R00.0 Tachycardia, unspecified; M32.9 Systemic lupus erythematosus, unspecified; E11.22 Type 2 diabetes mellitus with diabetic chronic kidney disease; I12.0 Hypertensive chronic kidney disease with stage 5 chronic kidney disease or end stage renal disease; Z99.2 Dependence on renal dialysis; Z72.0 Tobacco use
CPT/HCPCS: 71010; 74176; 76705; 80053; 81001; 82550; 82552; 83690; 83735; 84100; 84484; 84702; 84703; 85025; 87086; 93005; 96374; 99285; J2270

== ENCOUNTER 2016-11-30 03:45 | Inpatient (IN) | payer OTHER ==
[2016-11-30] VITALS (14 sets, daily range): BP systolic 146–204; BP diastolic 99–144; PULSE 68–98; RESP 15–24; TEMP 97.6–98.9; O2SAT 95–99
[~2016-11-30] VITALS: Ht 162.6 cm; Wt 64.5 kg
[~2016-11-30 03:45] MED LIST changes: -AZIT250T3 PO; -HYDR-3516 PO; -SENN1TAB PO; +ZOFR4TAB3 SL
--- NOTE | 2016-11-30 04:33 | PD ---
HPI Chief Complaint: Hypertension Time Seen by Provider: 04:21 Travel History International Travel<30 days: No Contact w/Intl Traveler<30days: No Traveled to known affect area: No History of Present Illness HPI The patient is a 20 year old female who presents to the [facility] emergency department with a history of a headache that began at 10 PM last night. She took her Coreg and amlodipine last night at 9 PM. She ran out of her Losartan 2 days ago. She is on peritoneal dialysis. She completed 06/17 this evening prior to calling ambulance services for her headache. She took herself off of the dialysis when she called the ambulance for her hypertension and headache. She has had n/v x3. She has had a cough productive of yellow mucus for the last 3 days. Her headache is located over her forehead, temples, and top of her head bilaterally. She has had headaches in the past that are similar to this. She denies any diarrhea. On review of systems, the patient denies any recent known fevers, neck pain, chest pain, shortness of breath, abdominal pain , one-sided weakness, slurred speech, dizziness, facial droop, or difficulty with word finding ability. LMP ended a few days ago. [facility] Past Medical History Narrative Medical The patient's past medical history is significant for renal failure, anemia, SLE , hypertension, seizures, history of migraine munoz, and cluster munoz, history of a prior stroke Arthritis: No Autoimmune Disease: Yes (LUPUS ) Anxiety: Yes Depression: No Heart Rhythm Problems: No Cancer: No Cardiovascular Problems: Yes (htn) High Cholesterol: No Chemotherapy: Yes (2014) Chest Pain: No Congestive Heart Failure: No Cerebrovascular Accident: Yes Diabetes: Yes Patient Takes Glucophage: No Dialysis: Yes (DAILY) Diminished Hearing: No Endocrine: No Gastrointestinal Disorders: Yes (Nausea, low appetite) GERD: No Genitourinary: No Headaches: Yes (CLUSTER MUNOZ) Hepatitis: No Hiatal Hernia: No Heparin Induced Thrombocytopen: No Hypertension: Yes Immune Disorder: Yes (Lupus) Implanted Vascular Access Dvce: No Kidney Stones: No Musculoskeletal: No Neurologic: Yes (LUPUS) Psychiatric: No Reproductive: No Respiratory: Yes Immunizations Current: Yes Migraines: Yes (FROM HTN) Radiation Therapy: No Renal Failure: Yes Seizures: Yes (FROM HTN) Sickle Cell Disease: No Thyroid Disease: No Ulcer: No ?: Not LMP: 11/23/16 : 1 Para: 1 Past Surgical History Narrative Surgical The patient's past surgical history is significant for PERMACATH, PERITONEAL DIALYSIS Abdominal Surgery: Yes (PERMACATH, PERITONEAL DIALYSIS) AICD: No Arteriovenous Shunt: No Body Medical Devices: ,PD catheter Cardiac Surgery: No Ear Surgery: No Endocrine Surgery: No Eye Surgery: No Genitourinary Surgery: No Gynecologic Surgery: No Insulin Pump: No Joint Replacement: No Neurologic Surgery: No Oral Surgery: No Pacemaker: No Thoracic Surgery: Yes (VAS CATH TO LEFT CHEST, removed) Other Surgery: Yes ((R) Permacath, PD catheter) Social History Alcohol Use: No Tobacco Use: No Substance Use: Yes (Marijuana every so often) Allergies-Medications (Allergen,Severity, Reaction): Coded Allergies: hydralazine (Unverified Allergy, Severe, Rash, 10/26/16) vancomycin (Unverified Allergy, Severe, RASH, 10/26/16) metoprolol (Unverified Allergy, Unknown, Patient does not know, 10/26/16) *MDRO Multi-Drug Resistant Organism (Verified Adverse Reaction, Unknown, MRSA, 09/15/16) MRSA PCR (nares) POSITIVE - 08/18/16 Reported Meds & Prescriptions Reported Meds & Active Scripts Active Norvasc (Amlodipine Besylate) 10 Mg Tab 10 Mg PO BID Cozaar (Losartan Potassium) 50 Mg Tab 50 Mg PO Q12HR Keppra (Levetiracetam) 500 Mg Tab 500 Mg PO Q12HR Labetalol (Labetalol HCl) 200 Mg Tab 300 Mg PO BID Hydroxychloroquine (Hydroxychloroquine Sulfate) 200 Mg Tab 200 Mg PO Q12HR Terazosin (Terazosin HCl) 5 Mg Cap 5 Mg PO HS Reported Sensipar (Cinacalcet) 90 Mg Tab 180 Mg PO DAILY Calcium Acetate (Phosphate Binder) 667 Mg Cap 1,334 Mg PO TID Epogen Inj (Epoetin Diego) 2,000 Unit/Ml Inj 1,500 Units SQ 2XMONTH Review of Systems General / Constitutional: No: Fever Eyes: No: Visual changes HENT: Positive: Rhinitis, Congestion, No: Headaches, Rhinorrhea Cardiovascular: Positive: Dyspnea on exertion, No: Chest Pain or Discomfort Respiratory: Positive: Cough, No: Shortness of Breath Gastrointestinal: Positive: Nausea, Vomiting, No: Abdominal Pain Genitourinary: No: Dysuria Musculoskeletal: No: Pain Skin: No Rash Neurologic: No: Weakness Psychiatric: No: Depression Endocrine: No: Polydipsia Hematologic/Lymphatic: No: Easy Bruising Physical Exam Narrative General: The patient is a well-developed well-nourished female, uncomfortable appearing on examination, holding her head. Head and Neck exam: Head is normocephalic atraumatic. Eyes: EOMI, pupils are equal round and reactive to light. Nose: Midline septum with pink mucous membranes Mouth: Dentition unremarkable. Moist mucus membranes. Posterior oropharynx is not erythematous. No tonsillar hypertrophy. Uvula midline. Airway patent. Neck: No palpable lymphadenopathy. No nuchal rigidity. No thyromegaly. Cardiovascular: Regular rate and rhythm without murmurs, gallops, or rubs. Lungs: Clear to auscultation bilaterally. No wheezes, rhonchi, or rales. Abdomen: Soft, without tenderness to palpation in all 4 quadrants of the abdomen. No guarding, rebound, or rigidity. Normal bowel sounds are audible. No tenderness on palpation of McBurney's point. The patient has appeared to heal dialysis catheter in place with a bandage overlying this. There is no surrounding erythema, edema, or drainage to suggest infection. Extremities: No clubbing, cyanosis, or edema. 2+ pulses in all 4 extremities. No calf tenderness on palpation. Back: No costovertebral angle tenderness to palpation. Neurologic Exam: Cranial nerves 2-12 were intact on exam. Strength is 5/5 in all 4 extremities. No sensory deficits noted. Skin Exam: No rash noted. Intact skin that is warm and dry. Data Data Last Documented VS Vital Signs Date Time Temp Pulse Resp B/P (MAP) Pulse Ox O2 Delivery O2 Flow Rate FiO2 11/30/16 06:38 85 18 176/124 (141) 98 Room Air 11/30/16 03:57 98.7 Orders Orders Electrocardiogram (11/30/16 04:33) Complete Blood Count With Diff (11/30/16 04:33) Comprehensive Metabolic Panel (11/30/16 04:33) Troponin I (11/30/16 04:33) B-Type Natriuretic Peptide (11/30/16 04:33) Prothrombin Time / Inr (Pt) (11/30/16 04:33) Act Partial Throm Time (Ptt) (11/30/16 04:33) C-Reactive Protein (Crp) (11/30/16 04:33) Magnesium (Mg) (11/30/16 04:33) Chest, Single Ap (11/30/16 04:33) Ct Brain W/O Iv Contrast(Rout) (11/30/16 04:33) Iv Access Insert/Monitor (11/30/16 04:33) Ecg Monitoring (11/30/16 04:33) Oximetry (11/30/16 04:33) Ed Urine Pregnancytest Poc (11/30/16 04:33) Clonidine (Catapres) (11/30/16 04:45) Morphine Inj (Morphine Inj) (11/30/16 04:45) Ondansetron Inj (Zofran Inj) (11/30/16 04:45) Labetalol Inj (Trandate Inj) (11/30/16 06:00) Admit Order (Ed Use Only) (11/30/16 07:17) Admit To Inpatient (11/30/16 ) Vital Signs (Adult) Q4H (11/30/16 07:20) Activity Oob With Assistance (11/30/16 07:20) Children'S Counselor / Telemetry .CONTINUOUS (11/30/16 07:20) Intake + Output JESSI.QSHIFT (11/30/16 07:20) Diet Renal (11/30/16 Breakfast) Sodium Chloride 0.9% Flush (Ns Flush) (11/30/16 07:30) Sodium Chloride 0.9% Flush (Ns Flush) (11/30/16 09:00) Basic Metabolic Panel (Bmp) (12/01/16 06:00) Complete Blood Count With Diff (12/01/16 06:00) Case Management Consult (11/30/16 07:20) Naloxone Inj (Narcan Inj) (11/30/16 07:30) Inpatient Certification (11/30/16 ) Labetalol Inj (Trandate Inj) (11/30/16 07:30) Labs Laboratory Tests Test 11/30/16 04:30 White Blood Count 6.9 TH/MM3 Red Blood Count 3.28 MIL/MM3 Hemoglobin 9.6 GM/DL Hematocrit 28.8 % Mean Corpuscular Volume 88.0 FL Mean Corpuscular Hemoglobin 29.4 PG Mean Corpuscular Hemoglobin Concent 33.4 % Red Cell Distribution Width 15.7 % Platelet Count 197 TH/MM3 Mean Platelet Volume 7.9 FL Neutrophils (%) (Auto) 65.5 % Lymphocytes (%) (Auto) 20.5 % Monocytes (%) (Auto) 4.4 % Eosinophils (%) (Auto) 8.2 % Basophils (%) (Auto) 1.4 % Neutrophils # (Auto) 4.5 TH/MM3 Lymphocytes # (Auto) 1.4 TH/MM3 Monocytes # (Auto) 0.3 TH/MM3 Eosinophils # (Auto) 0.6 TH/MM3 Basophils # (Auto) 0.1 TH/MM3 CBC Comment DIFF FINAL Differential Comment Prothrombin Time 11.1 SEC Prothromb Time International Ratio 1.0 RATIO Activated Partial Thromboplast Time 27.7 SEC Blood Urea Nitrogen 64 MG/DL Creatinine 15.75 MG/DL Random Glucose 83 MG/DL Total Protein 6.4 GM/DL Albumin 3.2 GM/DL Calcium Level 7.5 MG/DL Magnesium Level 2.3 MG/DL Alkaline Phosphatase 65 U/L Aspartate Amino Transf (AST/SGOT) 13 U/L Alanine Aminotransferase (ALT/SGPT) 17 U/L Total Bilirubin 0.4 MG/DL Sodium Level 137 MEQ/L Potassium Level 4.1 MEQ/L Chloride Level 99 MEQ/L Carbon Dioxide Level 25.1 MEQ/L Anion Gap 13 MEQ/L Estimat Glomerular Filtration Rate 3 ML/MIN Troponin I 0.08 NG/ML C-Reactive Protein LESS THAN 0.29 MG/DL B-Type Natriuretic Peptide 2596 PG/ML MDM Medical Decision Making Medical Screen Exam Complete: Yes Emergency Medical Condition: Yes Medical Record Reviewed: Yes Interpretation(s) Last Impressions Head CT 11/30/16432 Signed Impressions: Service Date/Time: Wednesday, November 30, 2016 06:21 - CONCLUSION: Normal examination. Sai Pringle Jr., MD Chest X-Ray 11/30/16432 Signed Impressions: Service Date/Time: Wednesday, November 30, 2016 04:43 - CONCLUSION: Normal examination. Sai Pringle Jr., MD Differential Diagnosis Intracranial hemorrhage, versus hypertensive emergency, versus hypertensive urgency, versus medication noncompliance, versus cluster headache, versus migraine headache Narrative Course During the course of the patients emergency department visit, the patients history, examination, and differential diagnosis were reviewed with the patient. The patient had IV access obtained and blood work sent for analysis. The patient was placed on a staple cutter with oximetry and blood pressure monitoring. The patient had an ECG done on arrival that shows a sinus rhythm heart rate of 88, left atrial enlargement, QRS duration is 86 ms, QTC [address] segment elevation or depression is noted, T waves are inverted in lead 1, aVL, V6. The patient was initially provided clonidine 0.2 by mouth 1. The patient was also given morphine for headache, Zofran for nausea. The patient's blood pressure began to improve. The patient was given an additional labetalol IV milligrams IV. The patients laboratory studies were reviewed and remarkable for a white count of 6.9, hemoglobin 9.6, platelets 197 with 8.2 eosinophils, the patient has a history of anemia with hemoglobin of 9, CMP is remarkable for BUN of 64, creatinine 15.75 with otherwise normal electrolytes, calcium 7.5, AST 13, troponin I 0.08, C-reactive protein less than 0.29, BNP is 2596, PT PTT within normal limits. The patient's elevated troponin is increased compared to previously at 0.05. This may be related to the patient's renal insufficiency and strain from her poorly controlled blood pressure. Given this finding, the patient will be admitted for better blood pressure control and a repeat of her troponin. The patient was agreeable with this plan. The patient was given nitroglycerin 1 inch of paste the chest wall. She continues to deny having any chest pain. Radiology studies were reviewed and remarkable for a chest x-ray and CT scan of the brain showed no acute abnormality. The patients results were discussed with the patient, including the plan of care. I explained that further testing and/ or monitoring is indicated based on the patients history, examination, and/ or laboratory findings. Therefore, I recommended admission for additional evaluation. The patient expressed understanding and was agreeable with this plan. The patient was admitted to the hospital in stable condition and [facility] Phys[facility] Communication Physician Communication the patient's case was discussed with Dr. Campos who did agree to admit the patient for further evaluation and treatment at this time. Diagnosis Primary Impression: Hypertensive urgency Additional Impressions: Headache Qualified Codes: R51 - Headache Elevated troponin Admitting Information Admitting Physician Requests: Admit Kadi Porter MD Nov 30, 2016 04:33
[2016-11-30] MEDS ORDERED: ONDANSETRON HCL 4 MG/2 ML VIAL IV PUSH ONE (04:45)
[2016-11-30] MEDS ORDERED: MORPHINE SULFATE 4 MG/ML INJ IV PUSH ONE (04:45)
[2016-11-30] MEDS ORDERED: cloNIDine HCL 0.2 MG TAB PO ONE ×2 (04:45→18:45)
[2016-11-30 05:06] LABS: AUTOMATED NEUTROPHIL # 4.5 TH/MM3 (1.8-7.7); BASOPHIL # 0.1 TH/MM3 (0-0.2); BASOPHIL % 1.4 % (0.0-2.0); EOSINOPHIL # 0.6 TH/MM3 (0-0.4); EOSINOPHIL % 8.2 % (0.0-4.0); HEMATOCRIT 28.8 % (35.0-46.0); HEMO FLAGS DIFF FINAL; LYMPH % 20.5 % (9.0-44.0); LYMPHOCYTE # 1.4 TH/MM3 (1.0-4.8); MEAN CORPUSCULAR HEMOGLOBIN 29.4 PG (27.0-34.0); MEAN CORPUSCULAR HGB CONC 33.4 % (32.0-36.0); MONO % 4.4 % (0.0-8.0); NEUT % 65.5 % (16.0-70.0); PLATELET COUNT 197 TH/MM3 (150-450); RED BLOOD COUNT 3.28 MIL/MM3 (4.00-5.30); RED CELL DISTRIBUTION WIDTH 15.7 % (11.6-17.2); WHITE BLOOD COUNT 6.9 TH/MM3 (4.0-11.0)
[2016-11-30 05:18] LABS: APTT (PATIENT) 27.7 SEC (24.3-30.1); PROTHROMBIN TIME - PATIENT 11.1 SEC (9.8-11.6)
[2016-11-30 05:37] LABS: ALT (GPT) 17 U/L (10-53); ANION GAP 13 MEQ/L (5-15); AST (GOT) 13 U/L (15-37); BICARBONATE 25.1 MEQ/L (21.0-32.0); BLOOD UREA NITROGEN 64 MG/DL (7-18); CHLORIDE 99 MEQ/L (98-107); GLOMERULAR FILTRATION RATE 3 ML/MIN (>89); MAGNESIUM 2.3 MG/DL (1.5-2.5); POTASSIUM 4.1 MEQ/L (3.5-5.1); SODIUM (NA) 137 MEQ/L (136-145)
[2016-11-30 05:41] LABS: ALKALINE PHOSPHATASE 65 U/L (45-117); TOTAL BILIRUBIN ADULT 0.4 MG/DL (0.2-1.0)
--- NOTE | 2016-11-30 05:50 | RADRPT ---
EXAM DATE/TIME: 11/30/2016 04:43 [facility] COMPARISON: CHEST SINGLE AP, September 15, 2016, 11:24. INDICATIONS : Cough. MEDICAL HISTORY : Lupus. CVA. Seizures. Hypertension. Kidney failure. Diabetes. SURGICAL HISTORY : None. ENCOUNTER: Initial ACUITY: 1 day PAIN SCORE: 0/10 LOCATION: Bilateral chest FINDINGS: A single view of the chest demonstrates the lungs to be symmetrically aerated without evidence of mas s, infiltrate or effusion. The cardiomediastinal contours are unremarkable. Osseous structures are intact. CONCLUSION: Normal examination. Sai Pringle Jr., MD on November 30, 2016 at 5:48 Board Certified Radiologist. This report was verified electronically.
[2016-11-30] MEDS ORDERED: LABETALOL HCL 100 MG/20 ML VIAL IV PUSH ONE (06:00)
--- NOTE | 2016-11-30 06:40 | RADRPT ---
EXAM DATE/TIME: 11/30/2016 06:21 [facility] COMPARISON: CT BRAIN W/O CONTRAST, August 18, 2016, 5:47. INDICATIONS : Cephalgia. RADIATION DOSE: 56.35 CTDIvol (mGy) MEDICAL HISTORY : Lupus. Cerebrovascular disease. Diabetes, renal failure SURGICAL HISTORY : None. ENCOUNTER: Initial ACUITY: 2 days PAIN SCALE: 5/10 LOCATION: Bilateral cranial TECHNIQUE: Multiple contiguous axial images were obtained of the head. Using automated exposure control and adj ustment of the mA and/or kV according to patient size, radiation dose was kept as low as reasonably a chievable to obtain optimal diagnostic quality images. DICOM format image data is available electro nically for review and comparison. FINDINGS: CEREBRUM: The ventricles are normal for age. No evidence of midline shift, mass lesion, hemorrhage or acute in farction. No extra-axial fluid collections are seen. POSTERIOR FOSSA: The cerebellum and brainstem are intact. The 4th ventricle is midline. The cerebellopontine angle i s unremarkable. EXTRACRANIAL: The visualized portion of the orbits is intact. SKULL: The calvaria is intact. No evidence of skull fracture. CONCLUSION: Normal examination. Sai Pringle Jr., MD on November 30, 2016 at 6:38 Board Certified Radiologist. This report was verified electronically.
[2016-11-30] MEDS ORDERED: NALOXONE HCL 0.4 MG/ML AMP IV PUSH PRN (07:30)
[2016-11-30] MEDS ORDERED: SODIUM CHLORIDE 0.9% FLUSH 10 ML FLUSH IV FLUSH PRN (07:30)
[2016-11-30] MEDS: SODIUM CHLORIDE 0.9% FLUSH 10 ML FLUSH IV FLUSH SCH ×2 (09:44→20:25)
[2016-11-30] MEDS: LABETALOL HCL 100 MG/20 ML VIAL IV PUSH PRN ×6 (10:51→20:25)
--- NOTE | 2016-11-30 11:04 | PD.CONS ---
HPI Service Nephrology Consult Requested By Reason for Consult ESRD Primary Care Physician Unknown History of Present Illness Ms. Sullivan is a 20 year old with lupus nephritis, ESRD, hypertension, anemia of CKD and some degree of non compliance. Apparently ran out of Losartan about 2 days ago. Patient has been admitted with headache and hypertension. CT negative for acute pathology. Review of Systems Constitutional: COMPLAINS OF: Fatigue Cardiovascular: DENIES: Chest pain, Palpitations Gastrointestinal: DENIES: Black stools Integumentary: DENIES: Abnormal pigmentation Hematologic/lymphatic: DENIES: Bruising Immunologic/allergic: DENIES: Eczema Neurologic: COMPLAINS OF: Headache Past Family Social History Allergies: Coded Allergies: hydralazine (Unverified Allergy, Severe, Rash, 10/26/16) vancomycin (Unverified Allergy, Severe, RASH, 10/26/16) metoprolol (Unverified Allergy, Unknown, Patient does not know, 10/26/16) *MDRO Multi-Drug Resistant Organism (Verified Adverse Reaction, Unknown, MRSA, 09/15/16) MRSA PCR (nares) POSITIVE - 08/18/16 Past Medical History Seizure disorder. Hypertension Anemia Lupus nephritis. Past Surgical History PD catheter placement. Reported Medications Reported Meds & Active Scripts Active Norvasc (Amlodipine Besylate) 10 Mg Tab 10 Mg PO BID Cozaar (Losartan Potassium) 50 Mg Tab 50 Mg PO Q12HR Keppra (Levetiracetam) 500 Mg Tab 500 Mg PO Q12HR Labetalol (Labetalol HCl) 200 Mg Tab 300 Mg PO BID Hydroxychloroquine (Hydroxychloroquine Sulfate) 200 Mg Tab 200 Mg PO Q12HR Terazosin (Terazosin HCl) 5 Mg Cap 5 Mg PO HS Reported Sensipar (Cinacalcet) 90 Mg Tab 180 Mg PO DAILY Calcium Acetate (Phosphate Binder) 667 Mg Cap 1,334 Mg PO TID Epogen Inj (Epoetin Diego) 2,000 Unit/Ml Inj 1,500 Units SQ 2XMONTH Active Ordered Medications Current Medications Medications (Trade) Dose Ordered Sig/Leora Route Start Time Stop Time Status Last Admin (NS Flush) 2 ml UNSCH PRN IV FLUSH 11/30/16 07:30 11/30/16 10:51 (NS Flush) 2 ml BID IV FLUSH 11/30/16 09:00 11/30/16 09:44 (Narcan Inj) 0.4 mg UNSCH PRN IV PUSH 11/30/16 07:30 (Trandate Inj) 10 mg Q20M PRN IV PUSH 11/30/16 07:30 11/30/16 10:51 (Norvasc) 10 mg BID PO 11/30/16 21:00 UNV (Phoslo) 1,334 mg TID PO 11/30/16 13:00 UNV (Plaquenil) 200 mg Q12HR PO 11/30/16 21:00 UNV (Trandate) 300 mg BID PO 11/30/16 21:00 UNV (Keppra) 500 mg Q12HR PO 11/30/16 21:00 UNV (Cozaar) 50 mg Q12HR PO 11/30/16 21:00 UNV (Hytrin) 5 mg HS PO 11/30/16 21:00 UNV Non-Formulary Medication 180 mg DAILY PO 12/01/16 09:00 UNV Family History non contributory Social History history of tobacco use No ETOH history of marijuana Physical Exam Vital Signs Vital Signs Date Time Temp Pulse Resp B/P (MAP) Pulse Ox O2 Delivery O2 Flow Rate FiO2 11/30/16 09:00 77 20 146/102 (117) 99 Room Air 11/30/16 07:53 79 18 147/99 (115) 98 Room Air 11/30/16 07:05 97 Room Air 11/30/16 06:38 85 18 176/124 (141) 98 Room Air 11/30/16 06:00 98 171/125 (140) 11/30/16 04:05 89 195/142 (159) Room Air 11/30/16 03:57 98.7 89 204/144 (164) 99 Room Air 11/30/16 03:57 98 Room Air 11/30/16 03:53 98.9 88 24 204/144 (164) 98 Physical Exam GENERAL: patient is comfortable, alert and oriented. SKIN: Warm and dry. HEAD: Normocephalic. EYES: No scleral icterus. No injection or drainage. NECK: Supple, trachea midline. No JVD or lymphadenopathy. CARDIOVASCULAR: Regular rate and rhythm without murmurs, gallops, or rubs. RESPIRATORY: Breath sounds equal bilaterally. No accessory muscle use. GASTROINTESTINAL: Abdomen soft, non-tender, nondistended. PD catheter in place. MUSCULOSKELETAL: No cyanosis, or edema. BACK: Nontender without obvious deformity. No CVA tenderness. Laboratory Laboratory Tests Test 11/30/16 04:30 White Blood Count 6.9 Red Blood Count 3.28 Hemoglobin 9.6 Hematocrit 28.8 Mean Corpuscular Volume 88.0 Mean Corpuscular Hemoglobin 29.4 Mean Corpuscular Hemoglobin Concent 33.4 Red Cell Distribution Width 15.7 Platelet Count 197 Mean Platelet Volume 7.9 Neutrophils (%) (Auto) 65.5 Lymphocytes (%) (Auto) 20.5 Monocytes (%) (Auto) 4.4 Eosinophils (%) (Auto) 8.2 Basophils (%) (Auto) 1.4 Neutrophils # (Auto) 4.5 Lymphocytes # (Auto) 1.4 Monocytes # (Auto) 0.3 Eosinophils # (Auto) 0.6 Basophils # (Auto) 0.1 CBC Comment DIFF FINAL Differential Comment Prothrombin Time 11.1 Prothromb Time International Ratio 1.0 Activated Partial Thromboplast Time 27.7 Blood Urea Nitrogen 64 Creatinine 15.75 Random Glucose 83 Total Protein 6.4 Albumin 3.2 Calcium Level 7.5 Magnesium Level 2.3 Alkaline Phosphatase 65 Aspartate Amino Transf (AST/SGOT) 13 Alanine Aminotransferase (ALT/SGPT) 17 Total Bilirubin 0.4 Sodium Level 137 Potassium Level 4.1 Chloride Level 99 Carbon Dioxide Level 25.1 Anion Gap 13 Estimat Glomerular Filtration Rate 3 Troponin I 0.08 C-Reactive Protein LESS THAN 0.29 B-Type Natriuretic Peptide 2596 Result Diagram: 11/30/16 04311/30/16 0430 Assessment and Plan Problem List: (1) ESRD (end stage renal disease) on dialysis ICD Codes: N18.6 - End stage renal disease; Z99.2 - Dependence on renal dialysis Status: Chronic Plan: Restart PD. Orders were reviewed. Monitor fluid and electrolyte status. Gadolinium is contraindicated. (2) Headache ICD Codes: R51 - Headache Status: Acute Plan: Could be due to uncontrolled hypertension. She does have history of migraine/cluster headache. CT negative for bleeding. (3) HTN (hypertension) ICD Codes: I10 - Essential (primary) hypertension Status: Acute Plan: Restart medications. Education regarding compliance. Monitor. (4) Anemia ICD Codes: D64.9 - Anemia, unspecified Status: Acute Plan: Avoid Epogen due to poorly controlled hypertension. (5) Lupus nephritis ICD Codes: M32.14 - Glomerular disease in systemic lupus erythematosus Status: Acute Plan: Not an active issue. She has reached ESRD. She is on Plaquenil which can be continued. (6) Metabolic bone disease ICD Codes: E88.9 - Metabolic disorder, unspecified; M90.80 - Osteopathy in diseases classified elsewhere, unspecified site Plan: continue phosphorus binder, and Sensipar. Assessment and Plan Thanks for the consult. Problem Qualifiers (1) Headache: Qualified Codes: R51 - Headache Jasbir Curry MD Nov 30, 2016 11:04
--- NOTE | 2016-11-30 12:17 | HHI.HP ---
HPI Service [facility] Hospitalists Primary Care Physician Unknown Admission Diagnosis Hypertensive emergency, elevated trop, Headache Diagnoses: Travel History International Travel<30 Days: No Contact w/Intl Traveler <30 Da: No Traveled to Known Affected Are: No History of Present Illness Pleasant 20 year old female with PMH of HTN, lupus, ESRD on PD who presents to the [facility] emergency department with a history of a headache that began last night. She took her Coreg and amlodipine last night at 9 PM. She ran out of her Losartan 2 days ago. She is on peritoneal dialysis. She completed 06/17 this evening prior to calling ambulance services for her headache. She took herself off of the dialysis when she called the ambulance for her hypertension and headache. She has had n/v x3. She has had a cough productive of yellow mucus for the last 3 days. Her headache is located over her forehead, temples, and top of her head bilaterally. She has had headaches in the past that are similar to this. She denies any diarrhea. On review of systems, the patient denies any recent known fevers, neck pain, chest pain, shortness of breath, abdominal pain, one-sided weakness, slurred speech, dizziness, facial droop, or difficulty with word finding ability. LMP ended a few days ago. 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 Curry Hypertension Secondary hyperparathyroidism Chronic systolic heart failure Medical noncompliance Hyperphosphatemia Past Surgical History Tenckhoff catheter placement Left vascular hemodialysis catheter since removed Kidney biopsy Reported Medications Reported Meds & Active Scripts Active Norvasc (Amlodipine Besylate) 10 Mg Tab 10 Mg PO BID Cozaar (Losartan Potassium) 50 Mg Tab 50 Mg PO Q12HR Keppra (Levetiracetam) 500 Mg Tab 500 Mg PO Q12HR Labetalol (Labetalol HCl) 200 Mg Tab 300 Mg PO BID Hydroxychloroquine (Hydroxychloroquine Sulfate) 200 Mg Tab 200 Mg PO Q12HR Terazosin (Terazosin HCl) 5 Mg Cap 5 Mg PO HS Reported Sensipar (Cinacalcet) 90 Mg Tab 180 Mg PO DAILY Calcium Acetate (Phosphate Binder) 667 Mg Cap 1,334 Mg PO TID Epogen Inj (Epoetin Diego) 2,000 Unit/Ml Inj 1,500 Units SQ 2XMONTH Allergies: Coded Allergies: hydralazine (Unverified Allergy, Severe, Rash, 10/26/16) vancomycin (Unverified Allergy, Severe, RASH, 10/26/16) metoprolol (Unverified Allergy, Unknown, Patient does not know, 10/26/16) *MDRO Multi-Drug Resistant Organism (Verified Adverse Reaction, Unknown, MRSA, 09/15/16) MRSA PCR (nares) POSITIVE - 08/18/16 Family History Mother and father healthy Social History Prior tobaccoism. Denies current. No alcohol use. H/o THC use. Physical Exam Vital Signs Vital Signs Date Time Temp Pulse Resp B/P (MAP) Pulse Ox O2 Delivery O2 Flow Rate FiO2 11/30/16 09:00 77 20 146/102 (117) 99 Room Air 11/30/16 07:53 79 18 147/99 (115) 98 Room Air 11/30/16 07:05 97 Room Air 11/30/16 06:38 85 18 176/124 (141) 98 Room Air 11/30/16 06:00 98 171/125 (140) 11/30/16 04:05 89 195/142 (159) Room Air 11/30/16 03:57 98.7 89 204/144 (164) 99 Room Air 11/30/16 03:57 98 Room Air 11/30/16 03:53 98.9 88 24 204/144 (164) 98 Physical Exam GENERAL: This is a well-nourished, well-developed patient, in no apparent distress. SKIN: No rashes, ecchymoses or lesions. Cool and dry. HEAD: Atraumatic. Normocephalic. No temporal or scalp tenderness. EYES: Pupils equal round and reactive. Extraocular motions intact. No scleral icterus. No injection or drainage. ENT: Nose without bleeding, purulent drainage or septal hematoma. Throat without erythema, tonsillar hypertrophy or exudate. Uvula midline. Airway patent. NECK: Trachea midline. No JVD or lymphadenopathy. Supple, nontender, no meningeal signs. CARDIOVASCULAR: Regular rate and rhythm without murmurs, gallops, or rubs. RESPIRATORY: Clear to auscultation. Breath sounds equal bilaterally. No wheezes , rales, or rhonchi. GASTROINTESTINAL: Abdomen soft, non-tender, nondistended. No hepato-splenomegaly , or palpable masses. No guarding. MUSCULOSKELETAL: Extremities without clubbing, cyanosis, or edema. No joint tenderness, effusion, or edema noted. No calf tenderness. Negative Homans sign bilaterally. NEUROLOGICAL: Awake and alert. Cranial nerves II through XII intact. Motor and sensory grossly within normal limits. Five out of 5 muscle strength in all muscle groups. Normal speech. Laboratory Laboratory Tests Test 11/30/16 04:30 White Blood Count 6.9 Red Blood Count 3.28 Hemoglobin 9.6 Hematocrit 28.8 Mean Corpuscular Volume 88.0 Mean Corpuscular Hemoglobin 29.4 Mean Corpuscular Hemoglobin Concent 33.4 Red Cell Distribution Width 15.7 Platelet Count 197 Mean Platelet Volume 7.9 Neutrophils (%) (Auto) 65.5 Lymphocytes (%) (Auto) 20.5 Monocytes (%) (Auto) 4.4 Eosinophils (%) (Auto) 8.2 Basophils (%) (Auto) 1.4 Neutrophils # (Auto) 4.5 Lymphocytes # (Auto) 1.4 Monocytes # (Auto) 0.3 Eosinophils # (Auto) 0.6 Basophils # (Auto) 0.1 CBC Comment DIFF FINAL Differential Comment Prothrombin Time 11.1 Prothromb Time International Ratio 1.0 Activated Partial Thromboplast Time 27.7 Blood Urea Nitrogen 64 Creatinine 15.75 Random Glucose 83 Total Protein 6.4 Albumin 3.2 Calcium Level 7.5 Magnesium Level 2.3 Alkaline Phosphatase 65 Aspartate Amino Transf (AST/SGOT) 13 Alanine Aminotransferase (ALT/SGPT) 17 Total Bilirubin 0.4 Sodium Level 137 Potassium Level 4.1 Chloride Level 99 Carbon Dioxide Level 25.1 Anion Gap 13 Estimat Glomerular Filtration Rate 3 Troponin I 0.08 C-Reactive Protein LESS THAN 0.29 B-Type Natriuretic Peptide 2596 Result Diagram: 11/30/1642911/30/16429 Imaging Last Impressions Head CT 11/30/16432 Signed Impressions: Service Date/Time: Wednesday, November 30, 2016 06:21 - CONCLUSION: Normal examination. Sai Pringle Jr., MD Chest X-Ray 11/30/16 0433 Signed Impressions: Service Date/Time: Wednesday, November 30, 2016 04:43 - CONCLUSION: Normal examination. MD Riccardo Ch Jr. VTE Risk Assessment Capharsha VTE Risk Assessment: Mod/High Risk (score >= 2) Caprini Risk Assessment Model Point Value = 1 Point Value = 2 Point Value = 3 Point Value = 5 Age 41-60 Minor surgery BMI > 25 kg/m2 Swollen legs Varicose veins or History of unexplained or recurrent spontaneous Oral contraceptives or hormone replacement Sepsis (< 1 month) Serious lung disease, including pneumonia (< 1 month) Abnormal pulmonary function Acute myocardial infarction Congestive heart failure (< 1 month) History of inflammatory bowel disease Medical patient at bed rest Age 61-74 Arthroscopic surgery Major open surgery (> 45 min) Laparoscopic surgery (> 45 min) Malignancy Confined to bed (> 72 hours) Immobilizing plaster cast Central venous access Age >= 75 History of VTE Family history of VTE Factor V Leiden Prothrombin [id number] Lupus anticoagulant Anticardiolipin antibodies Elevated serum homocysteine Heparin-induced thrombocytopenia Other congenital or acquired thrombophilia Stroke (< 1 month) Elective arthroplasty Hip, pelvis, or leg fracture Acute spinal cord injury (< 1 month) Prophylaxis Regimen Total Risk Factor Score Risk Level Prophylaxis Regimen 0-1 Low Early ambulation 2 Moderate Order ONE of the following: *Sequential Compression Device (SCD) *Heparin 5000 units SQ BID 3-4 Higher Order ONE of the following medications: *Heparin 5000 units SQ TID *Enoxaparin/Lovenox 40 mg SQ daily (WT < 150 kg, CrCl > 30 mL/min) *Enoxaparin/Lovenox 30 mg SQ daily (WT < 150 kg, CrCl > 10-29 mL/min) *Enoxaparin/Lovenox 30 mg SQ BID (WT < 150 kg, CrCl > 30 mL/min) AND/OR *Sequential Compression Device (SCD) 5 or more Highest Order ONE of the following medications: *Heparin 5000 units SQ TID (Preferred with Epidurals) *Enoxaparin/Lovenox 40 mg SQ daily (WT < 150 kg, CrCl > 30 mL/min) *Enoxaparin/Lovenox 30 mg SQ daily (WT < 150 kg, CrCl > 10-29 mL/min) *Enoxaparin/Lovenox 30 mg SQ BID (WT < 150 kg, CrCl > 30 mL/min) AND *Sequential Compression Device (SCD) Assessment and Plan Assessment and Plan CV: Hypertensive emergency 2/2 run out of meds Hypertension Chronic systolic heart failure ejection fraction 45-50% History of pericardial effusion Initial troponin 0.05. EKG to be reviewed. Resume home medications of trazodone 5 mg at night, Cozaar 50 mg twice a day, labetalol 300 mg twice a day Norvasc 10 mg twice a day, losartan 50 g po bid for hypertension As needed labetalol/Nitropaste IV Neuro/Psych: History of CVA Seizure disorder - hypertensive Cluster/migraine headaches. Headache likely related to HTN emergency. CT head reviewed and negative for acute findings Resume home medication of Keppra 500 mg twice a day for seizures Seizure precautions Acetaminophen for fever Pain management GI: Gastroesophageal reflux disease Nausea/vomiting We'll place on renal diet Protonix for GI prophylaxis. Bowel regimen Tess-Colace twice a day Zofran for nausea/emesis. 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 Follow trends MSK: PT evaluate and treat FEN: Hyperphosphatemia Resume PhosLo 1334 mg by mouth 3 times a day Access - Utilize peripheral IV. Central line if indicated Prophylaxis - GI - Protonix - DVT - SCD/heparin subcutaneous Code Status Full code Discussed Condition With Patient, ICU nurse Physician Certification 2 Midnight Certification Type: Admission for Inpatient Services Order for Inpatient Services The services are ordered in accordance with Medicare regulations or non- Medicare payer requirements, as applicable. In the case of services not specified as inpatient-only, they are appropriately provided as inpatient services in accordance with the 2-midnight benchmark. Estimated LOS (days): 3 days is the estimated time the patient will need to remain in the hospital, assuming treatment plan goals are met and no additional complications. Post-Hospital Plan: Home Health Maame Sal MD Nov 30, 2016 12:17
[2016-11-30] MEDS: CALCIUM ACETATE 667 MG CAP PO SCH ×2 (13:13→17:49)
--- NOTE | 2016-11-30 13:55 | EKG ---
Date Performed: 11/30/2016 Time Performed: 04:56:54 PTAGE: 20 years EKG: Sinus rhythm LEFT ATRIAL ENLARGEMENT NONSPECIFIC T-WAVE ABNORMALITY ABNORMAL ECG Compared to prior tracing no sig nificant change PREVIOUS TRACING : 09/15/2016 11.06 DOCTOR: Eusebio Robledo Interpretating Date/Time 11/30/2016 13:54:02
[2016-11-30] MEDS ORDERED: hydrALAZINE HCL 20 MG/ML VIAL IV PUSH PRN (14:15)
[2016-11-30] MEDS ORDERED: hydrALAZINE HCL 10 MG TAB PO PRN (14:15)
[2016-11-30] MEDS ORDERED: cloNIDine HCL 0.1 MG TAB PO PRN (14:15)
[2016-11-30] MEDS ORDERED: CHLORHEXIDINE GLUCONATE 2 % 1 PACK (2 CLOTHS)(extra cloths) TOPICAL PRN (14:30)
[2016-11-30] MEDS: ACETAMINOPHEN 500 MG CPLT PO PRN ×2 (14:58→20:45)
[2016-11-30] MEDS: ACETAMINOPHEN/HYDROcodone 325 MG/5 MG TAB PO PRN (16:35)
[2016-11-30] MEDS ORDERED: LOSARTAN 50 MG TAB PO ONE (17:15)
[2016-11-30] MEDS: LABETALOL HCL 300 MG TAB PO SCH (20:24)
[2016-11-30] MEDS: LOSARTAN 50 MG TAB PO SCH (20:24)
[2016-11-30] MEDS: TERAZOSIN HCL 5 MG CAP PO SCH (20:24)
[2016-11-30] MEDS: HYDROXYCHLOROQUINE SULFATE 200 MG TAB PO SCH (20:24)
[2016-11-30] MEDS: levETIRAcetam 500 MG TAB PO SCH (20:24)
[2016-11-30] MEDS ORDERED: TERAZOSIN HCL 5 MG CAP PO SCH (21:00)
[2016-12-01] VITALS: BP 146/103; PULSE 69; PULSE 71; RESP 15; TEMP 97.5; O2SAT 98
[2016-12-01 02:00] VITALS: PULSE 69
[2016-12-01 04:00] VITALS: BP 118/84; PULSE 76; RESP 28; TEMP 97.6; O2SAT 97
[2016-12-01] MEDS ORDERED: CHLORHEXIDINE GLUCONATE 2 % 1 PACK (2 CLOTHS)(taper/protocol) TOPICAL SCH (04:00)
[2016-12-01] MEDS: ACETAMINOPHEN/HYDROcodone 325 MG/5 MG TAB PO PRN (04:36)
[2016-12-01 06:00] VITALS: PULSE 73
[2016-12-01 08:00] VITALS: BP 136/97; PULSE 71; RESP 15; TEMP 98.6
[2016-12-01] MEDS: CALCIUM ACETATE 667 MG CAP PO SCH (08:41)
[2016-12-01] MEDS: TERAZOSIN HCL 5 MG CAP PO SCH (08:41)
[2016-12-01] MEDS: levETIRAcetam 500 MG TAB PO SCH (08:41)
[2016-12-01] MEDS: HYDROXYCHLOROQUINE SULFATE 200 MG TAB PO SCH (08:41)
[2016-12-01] MEDS: LOSARTAN 50 MG TAB PO SCH (08:41)
[2016-12-01] MEDS: LABETALOL HCL 300 MG TAB PO SCH (08:42)
[2016-12-01] MEDS: SODIUM CHLORIDE 0.9% FLUSH 10 ML FLUSH IV FLUSH SCH (08:42)
[2016-12-01] MEDS: ACETAMINOPHEN 500 MG CPLT PO PRN (08:50)
[2016-12-01] MEDS ORDERED: CINACALCET HYDROCHLORIDE 30 MG TAB PO SCH (09:00)
--- NOTE | 2016-12-01 09:02 | HHI.PR ---
Subjective Remarks In bed, feels improved, headache improved, however still with pain. No fever or chills. breathing better, satting well on room air. Says she needs her BP meds refilled and also norco for breakthrough pain . Feels comfortable to go home today. Objective Vitals Vital Signs Date Time Temp Pulse Resp B/P (MAP) Pulse Ox O2 Delivery O2 Flow Rate FiO2 12/01/16 06:00 73 12/01/16 04:00 76 12/01/16 04:00 97.6 76 28 118/84 (95) 97 12/01/16 02:00 69 12/01/16 00:00 69 12/01/16 00:00 97.5 71 15 146/103 (117) 98 11/30/16 22:00 69 11/30/16 20:00 68 11/30/16 20:00 97.6 68 15 180/121 (140) 95 11/30/16 18:00 75 11/30/16 16:00 71 11/30/16 16:00 98.4 71 18 186/125 (145) 99 11/30/16 14:00 75 11/30/16 12:00 77 11/30/16 12:00 98.2 77 21 152/113 (126) 98 11/30/16 10:00 75 11/30/16 09:00 77 20 146/102 (117) 99 Room Air I/O 11/30/16 11/30/16 11/30/16 12/01/16 12/01/16 12/01/16 07:00 15:00 23:00 07:00 15:00 23:00 Intake Total 700 ml 450 ml Output Total 150 ml 900 ml Balance 550 ml -450 ml Intake Oral 700 ml 450 ml Output Urine Total 150 ml 900 ml # Voids 1 # Bowel Movements 0 Result Diagram: 11/30/1642911/30/16429 Imaging Last Impressions Head CT 11/30/16432 Signed Impressions: Service Date/Time: Wednesday, November 30, 2016 06:21 - CONCLUSION: Normal examination. Sai Pringle Jr., MD Chest X-Ray 11/30/16432 Signed Impressions: Service Date/Time: Wednesday, November 30, 2016 04:43 - CONCLUSION: Normal examination. Sai Pringle Jr., MD Objective Remarks GENERAL: This is a well-nourished, well-developed patient, in no apparent distress. SKIN: No rashes, ecchymoses or lesions. Cool and dry. HEAD: Atraumatic. Normocephalic. No temporal or scalp tenderness. EYES: Pupils equal round and reactive. Extraocular motions intact. No scleral icterus. No injection or drainage. ENT: Nose without bleeding, purulent drainage or septal hematoma. Throat without erythema, tonsillar hypertrophy or exudate. Uvula midline. Airway patent. NECK: Trachea midline. No JVD or lymphadenopathy. Supple, nontender, no meningeal signs. CARDIOVASCULAR: Regular rate and rhythm without murmurs, gallops, or rubs. RESPIRATORY: Clear to auscultation. Breath sounds equal bilaterally. No wheezes , rales, or rhonchi. GASTROINTESTINAL: Abdomen soft, non-tender, nondistended. No hepato-splenomegaly , or palpable masses. No guarding. MUSCULOSKELETAL: Extremities without clubbing, cyanosis, or edema. No joint tenderness, effusion, or edema noted. No calf tenderness. Negative Homans sign bilaterally. NEUROLOGICAL: Awake and alert. Cranial nerves II through XII intact. Motor and sensory grossly within normal limits. Five out of 5 muscle strength in all muscle groups. Normal speech. A/P Assessment and Plan CV: Hypertensive emergency 2/2 run out of meds. Resolved . Will give prescription at DC of all her BP meds. Hypertension Chronic systolic heart failure ejection fraction 45-50% History of pericardial effusion Initial troponin 0.05. EKG to be reviewed. Resume home medications of trazodone 5 mg at night, Cozaar 50 mg twice a day, labetalol 300 mg twice a day Norvasc 10 mg twice a day, losartan 50 g po bid for hypertension As needed labetalol/Nitropaste IV Neuro/Psych: History of CVA Seizure disorder - hypertensive Cluster/migraine headaches. Headache likely related to HTN emergency. CT head reviewed and negative for acute findings Resume home medication of Keppra 500 mg twice a day for seizures Seizure precautions Acetaminophen for fever Pain management GI: Gastroesophageal reflux disease Nausea/vomiting We'll place on renal diet Protonix for GI prophylaxis. Bowel regimen Tess-Colace twice a day Zofran for nausea/emesis. 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 Follow trends MSK: PT evaluate and treat FEN: Hyperphosphatemia Resume PhosLo 1334 mg by mouth 3 times a day Access - Utilize peripheral IV. Central line if indicated Prophylaxis - GI - Protonix - DVT - SCD/heparin subcutaneous Code Status Full code Discussed Condition With Patient, ICU nurse Dr Curry nephrology Discharge Planning Improved, cleared by nephrology for DC DC home in stable condition to follow up as OP with PCP and consultants Diet healthy heart, renal diet Activity ad zacarias as sheyla Meds per med reconciliations. Refills for BP meds provided Maame Sal MD Dec 01, 2016 09:02
[2016-12-01] MEDS ORDERED: LABE200T2 PO (09:04)
[2016-12-01] MEDS ORDERED: NORC5TAB PO (09:04)
[2016-12-01] MEDS ORDERED: TERA5CAP3 PO (09:04)
[2016-12-01] MEDS ORDERED: AMLO10 PO (09:04)
[2016-12-01] MEDS ORDERED: COZA50TA PO (09:04)
--- NOTE | 2016-12-01 09:06 | HHI.DCPOC ---
Discharge Care Plan Goals to Promote Your Health * To prevent worsening of your condition and complications * To maintain your health at the optimal level Directions to Meet Your Goals Take your medications as prescribed Follow your dietary instruction Follow activity as directed Keep your appointments as scheduled Take your immunizations and boosters as scheduled If your symptoms worsen call your PCP, if no PCP go to Urgent Care Center or Emergency Room Smoking is Dangerous to Your Health. Avoid second hand smoke Call the 24-hour hour crisis hotline for domestic abuse at Maame Sal MD Dec 01, 2016 09:06
--- NOTE | 2016-12-01 09:36 | HHI.FF ---
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 My clinical findings support the need for the requested home health care services because: Ltd mobility - disease progression Deconditioned w/ increased weakness I certify that my clinical findings support that this patient is homebound because: Post-op weakness Maame Sal MD Dec 01, 2016 09:36
[2016-12-01 10:00] VITALS: PULSE 70
--- NOTE | 2016-12-01 10:33 | HHI.NPPN ---
Subjective General Problems: Anemia Renal Failure: Chronic, End Stage Renal Disease Interval History Blood pressure has improved. PD going well. (Kaylen Ireland) Objective Data Data Vital Signs Date Time Temp Pulse Resp B/P (MAP) Pulse Ox O2 Delivery O2 Flow Rate FiO2 12/01/16 06:00 73 12/01/16 04:00 76 12/01/16 04:00 97.6 76 28 118/84 (95) 97 12/01/16 02:00 69 12/01/16 00:00 69 12/01/16 00:00 97.5 71 15 146/103 (117) 98 11/30/16 22:00 69 11/30/16 20:00 68 11/30/16 20:00 97.6 68 15 180/121 (140) 95 11/30/16 18:00 75 11/30/16 16:00 71 11/30/16 16:00 98.4 71 18 186/125 (145) 99 11/30/16 14:00 75 11/30/16 12:00 77 11/30/16 12:00 98.2 77 21 152/113 (126) 98 (Kaylen Ireland) -: 11/30/16 0430 11/30/16 0430 Imaging Last [address] 11/30/16432 Signed Impressions: Service Date/Time: Wednesday, November 30, 2016 06:21 - CONCLUSION: Normal examination. Sai Pringle Jr., MD Chest X-Ray 11/30/16432 Signed Impressions: Service Date/Time: Wednesday, November 30, 2016 04:43 - CONCLUSION: Normal examination. Sai Pringle Jr., MD Tubes & Lines: Tenckhoff Catheter (Kaylen Ireland) Physical Exam General Appearance: Well Developed, No Acute Distress, Comfortable, Sleeping (Kaylen Ireland) Throat Throat Exam: Oral Mucosa [place] & Moist (Kaylen Ireland) Pulmonary Resp Exam: Clear Bilaterally, Breath Sounds Equal (Kaylen Ireland) Cardiology CV Exam: Regular, Normal Sinus Rhythm (Kaylen Ireland) Gastrointestinal/Abdomen GI Exam: Soft, Non-Tender, Bowel Sounds Present (Kaylen Ireland) Musculoskeletal MS Exam: Joints Intact, Normal Gait, Normal Tone, Good Strength (Kaylen Ireland) Integumentary Skin Exam: Clear, Warm, Dry (Kaylen Ireland) Extremeties Extremities Exam: No Edema, Pedal Pulses Palpable (Kaylen Ireland) Neurologic Neuro Exam: Alert, Awake, Oriented, Speech Clear, Moving All Extremities (Kaylen Ireland) Psychiatric Psych Exam: Appropriate Responses (Kaylen Irleand) Assessment/Plan Discussed Condition With: Patient Assessment Summary: Anemia of CKD, Hypertension, End Stage Renal Disease Problem List: (1) ESRD (end stage renal disease) on dialysis ICD Codes: N18.6 - End stage renal disease; Z99.2 - Dependence on renal dialysis Status: Chronic Plan: PD nightly, 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 Gadolinium is contraindicated. Stable from renal perspective (2) Headache ICD Codes: R51 - Headache Status: Acute Plan: Improved, may be due to uncontrolled hypertension. She does have history of migraine/cluster headache. CT negative for bleeding. (3) HTN (hypertension) ICD Codes: I10 - Essential (primary) hypertension Status: Acute Plan: Educated regarding compliance. She can take labetalol instead of carvedilol terazosin changed to BID other medications continued We have asked her to bring the list and bottles of medications to our meeting tomorrow AM (4) Anemia ICD Codes: D64.9 - Anemia, unspecified Status: Acute Plan: Avoid Epogen due to poorly controlled hypertension. (5) Lupus nephritis ICD Codes: M32.14 - Glomerular disease in systemic lupus erythematosus Status: Acute Plan: Not an active issue. She has reached ESRD. She is on Plaquenil which can be continued. (6) Metabolic bone disease ICD Codes: E88.9 - Metabolic disorder, unspecified; M90.80 - Osteopathy in diseases classified elsewhere, unspecified site Plan: continue phosphorus binder, and Sensipar. Plan cleared for discharge from renal perspective. We will see her in PD clinic tomorrow AM. (Kaylen Ireland) Plan patient was seen and examined. Agree with above assessment and plan. (Jasbir Curry MD) Problem Qualifiers (1) Headache: Qualified Codes: R51 - Headache Kaylen Ireland Dec 01, 2016 10:33 Jasbir Curry MD Dec 03, 2016 14:31
== END 2016-12-01 11:00 | disposition home health service (06) | DRG 304 ==
LOC: NEPC 03:45 → NEDA 07:18 → HIMW 09:45
PROVIDERS: ADMIT Hospitalist; ATTEND Hospitalist
PROC: 3E1M39Z Irrigation of Peritoneal Cavity using Dialysate, Percutaneous Approach (ICD-10-PCS; principal; 2016-11-30)
DX: I16.0 Hypertensive urgency (principal); N18.6 End stage renal disease; I50.22 Chronic systolic (congestive) heart failure; D69.6 Thrombocytopenia, unspecified; E88.89 Other specified metabolic disorders; E11.22 Type 2 diabetes mellitus with diabetic chronic kidney disease; I13.2 Hypertensive heart and chronic kidney disease with heart failure and with stage 5 chronic kidney disease, or end stage renal disease; M32.14 Glomerular disease in systemic lupus erythematosus; Z99.2 Dependence on renal dialysis; Z86.73 Personal history of transient ischemic attack (TIA), and cerebral infarction without residual deficits; G43.909 Migraine, unspecified, not intractable, without status migrainosus; Z91.19 Patient's noncompliance with other medical treatment and regimen; G40.909 Epilepsy, unspecified, not intractable, without status epilepticus; Z87.891 Personal history of nicotine dependence; Z86.14 Personal history of Methicillin resistant Staphylococcus aureus infection; K21.9 Gastro-esophageal reflux disease without esophagitis; R11.2 Nausea with vomiting, unspecified; D63.1 Anemia in chronic kidney disease
CPT/HCPCS: 70450; 71010; 80053; 83735; 83880; 84484; 84703; 85025; 85610; 85730; 86140; 87641; 90935; 93005; 96374; 96375; J2270; J2405

== ENCOUNTER 2017-03-09 11:34 | Inpatient (IN) | payer MEDICARE, OTHER ==
[2017-03-09] VITALS (15 sets, daily range): BP systolic 115–139; BP diastolic 67–81; PULSE 77–111; RESP 16–20; TEMP 97.7–99.5; O2SAT 98–100
[~2017-03-09] VITALS: Ht 162.6 cm; Wt 66.0 kg
[~2017-03-09 11:34] MED LIST changes: -FERR325T20 PO; +NORC5TAB PO; -PANT20 PO; -ZOFR4TAB3 SL
[2017-03-09] MEDS ORDERED: SODIUM CHLORIDE 0.9% FLUSH 10 ML FLUSH IV FLUSH PRN ×2 (12:00→17:00)
[2017-03-09] MEDS ORDERED: ONDANSETRON HCL 4 MG/2 ML VIAL IVP ONE (12:00)
--- NOTE | 2017-03-09 12:07 | PD ---
HPI Chief Complaint: Abnormal Results Time Seen by Provider: 11:55 Travel History International Travel<30 days: No Contact w/Intl Traveler<30days: No Traveled to known affect area: No History of Present Illness HPI 21-year-old female with PMH of lupus presents to the ED for evaluation after abnormal lab on an outpatient basis today. She states that she saw her home nurse today to receive her Epogen injection. She states that that hemoglobin at that time was 6.3. The patient states that she's been feeling weak and dizzy for the last 3 days. She also complains of dyspnea on exertion. Patient states that she can't even walk across the room without being short of breath. She denies fever, chills, cough, palpitations. She also complains of 3 day history of intermittent, stabbing lower quadrant abdominal pain. Patient can identify no alleviating or exacerbating factors. Pain comes on suddenly and resolves spontaneously. She states that she's had nausea with a few episodes of nonbloody vomiting. She denies melena, hematochezia, BRBPR, vaginal odor, vaginal discharge. She denies risk of . She states that she just finished her menstrual period 2 days ago. She endorses colonoscopy in the "last few years." She is followed by Dr. Rebeca Gibbs, PCP and Dr. Curry, nephrology. [facility] Past Medical History Arthritis: No Autoimmune Disease: Yes (LUPUS ) Anxiety: Yes Depression: No Heart Rhythm Problems: No Cancer: No Cardiovascular Problems: Yes (HTN) High Cholesterol: No Chemotherapy: Yes (2015) Chest Pain: No Congestive Heart Failure: No Cerebrovascular Accident: Yes Diabetes: No Dialysis: Yes (DAILY) Diminished Hearing: No Endocrine: No Gastrointestinal Disorders: Yes (Nausea, low appetite) GERD: No Genitourinary: No Headaches: Yes (CLUSTER MUNOZ) Hepatitis: No Hiatal Hernia: No Heparin Induced Thrombocytopen: No Hypertension: Yes Immune Disorder: Yes (Lupus) Implanted Vascular Access Dvce: No Kidney Stones: No Musculoskeletal: No Neurologic: Yes (LUPUS) Psychiatric: No Reproductive: No Respiratory: Yes Immunizations Current: Yes Migraines: Yes (FROM HTN) Radiation Therapy: No Renal Failure: Yes Seizures: Yes (FROM HTN) Sickle Cell Disease: No Thyroid Disease: No Ulcer: No : 1 Para: 1 Past Surgical History Abdominal Surgery: Yes (PERMACATH, PERITONEAL DIALYSIS) AICD: No Arteriovenous Shunt: No Body Medical Devices: PD catheter Cardiac Surgery: No Ear Surgery: No Endocrine Surgery: No Eye Surgery: No Genitourinary Surgery: No Gynecologic Surgery: No Insulin Pump: No Joint Replacement: No Neurologic Surgery: No Oral Surgery: No Pacemaker: No Thoracic Surgery: Yes (VAS CATH TO LEFT CHEST, removed) Other Surgery: Yes ((R) Permacath, PD catheter) Social History Alcohol Use: No Tobacco Use: No Substance Use: Yes (Marijuana every so often) Allergies-Medications (Allergen,Severity, Reaction): Coded Allergies: hydralazine (Unverified Allergy, Severe, Rash, 03/09/17) vancomycin (Unverified Allergy, Severe, RASH, 03/09/17) metoprolol (Unverified Allergy, Unknown, Patient does not know, 03/09/17) *MDRO Multi-Drug Resistant Organism (Verified Adverse Reaction, Unknown, MRSA, 03/09/17) MRSA PCR (nares) POSITIVE - 08/18/16 Reported Meds & Prescriptions Reported Meds & Active Scripts Active Huntley (Hydrocodone-Acetaminophen) 5-325 mg Tab 1 Tab PO Q6H PRN Norvasc (Amlodipine Besylate) 10 Mg Tab 10 Mg PO BID Cozaar (Losartan Potassium) 50 Mg Tab 50 Mg PO Q12HR Labetalol (Labetalol HCl) 200 Mg Tab 300 Mg PO BID Terazosin (Terazosin HCl) 5 Mg Cap 5 Mg PO HS Keppra (Levetiracetam) 500 Mg Tab 500 Mg PO Q12HR Hydroxychloroquine (Hydroxychloroquine Sulfate) 200 Mg Tab 200 Mg PO Q12HR Reported Sensipar (Cinacalcet) 90 Mg Tab 180 Mg PO DAILY Calcium Acetate (Phosphate Binder) 667 Mg Cap 1,334 Mg PO TID Epogen Inj (Epoetin Diego) 2,000 Unit/Ml Inj 1,500 Units SQ 2XMONTH Review of Systems Except as stated in HPI: all other systems reviewed are Neg Physical Exam Narrative GENERAL: Well-nourished, well-developed, pale, chronically ill-appearing white female in no acute distress. SKIN: Focused skin assessment warm/dry. Peritoneal dialysis catheter emanating from the left lower quadrant of the abdomen. Well-healed, without signs of infection. HEAD: Normocephalic. EYES: No scleral icterus. No injection or drainage. NECK: Supple, trachea midline. No JVD or lymphadenopathy. CARDIOVASCULAR: Regular rate and rhythm without murmurs, gallops, or rubs. RESPIRATORY: Breath sounds clear and equal bilaterally. No accessory muscle use. GASTROINTESTINAL: Abdomen soft, nondistended. Tender to palpation in bilateral lower quadrants. Active bowel sounds. MUSCULOSKELETAL: No cyanosis, or edema. Equal DP pulses bilaterally. BACK: Nontender without obvious deformity. No CVA tenderness. Data Data Last Documented VS Vital Signs Date Time Temp Pulse Resp B/P (MAP) Pulse Ox O2 Delivery O2 Flow Rate FiO2 03/09/17 14:05 98.0 77 16 116/73 98 03/09/17 12:35 Room Air Orders Orders Complete Blood Count With Diff (03/09/17 11:57) Comprehensive Metabolic Panel (03/09/17 11:57) Prothrombin Time / Inr (Pt) (03/09/17 11:57) Act Partial Throm Time (Ptt) (03/09/17 11:57) Urinalysis - C+S If Indicated (03/09/17 11:57) Iv Access Insert/Monitor (03/09/17 11:57) Ecg Monitoring (03/09/17 11:57) Oximetry (03/09/17 11:57) Ondansetron Inj (Zofran Inj) (03/09/17 12:00) Sodium Chloride 0.9% Flush (Ns Flush) (03/09/17 12:00) Electrocardiogram (03/09/17 11:57) Type And Screen (03/09/17 12:07) Red Blood Cells (Rbc) (03/09/17 12:07) Sodium Chlor 0.9% 250 Ml Inj (Ns 250 Ml (03/09/17 12:15) Ct Abd/Pel W/O Iv Contrast (03/09/17 12:08) Ed Urine Pregnancytest Poc (03/09/17 12:08) Blood Product Administration (03/09/17 12:50) Urine Culture (03/09/17 12:45) Ceftriaxone Inj (Rocephin Inj) (03/09/17 13:30) Morphine Inj (Morphine Inj) (03/09/17 14:15) Labs Laboratory Tests Test 03/09/17 12:10 03/09/17 12:45 White Blood Count 6.2 TH/MM3 Red Blood Count 1.96 MIL/MM3 Hemoglobin 5.7 GM/DL Hematocrit 16.6 % Mean Corpuscular Volume 84.6 FL Mean Corpuscular Hemoglobin 29.1 PG Mean Corpuscular Hemoglobin Concent 34.4 % Red Cell Distribution Width 14.1 % Platelet Count 126 TH/MM3 Mean Platelet Volume 6.7 FL Neutrophils (%) (Auto) 68.2 % Lymphocytes (%) (Auto) 17.1 % Monocytes (%) (Auto) 4.3 % Eosinophils (%) (Auto) 9.2 % Basophils (%) (Auto) 1.2 % Neutrophils # (Auto) 4.3 TH/MM3 Lymphocytes # (Auto) 1.1 TH/MM3 Monocytes # (Auto) 0.3 TH/MM3 Eosinophils # (Auto) 0.6 TH/MM3 Basophils # (Auto) 0.1 TH/MM3 CBC Comment DIFF FINAL Differential Comment Prothrombin Time 10.8 SEC Prothromb Time International Ratio 1.1 RATIO Activated Partial Thromboplast Time 28.9 SEC Blood Urea Nitrogen 76 MG/DL Creatinine 19.96 MG/DL Random Glucose 108 MG/DL Total Protein 6.6 GM/DL Albumin 3.0 GM/DL Calcium Level 8.1 MG/DL Alkaline Phosphatase 62 U/L Aspartate Amino Transf (AST/SGOT) 12 U/L Alanine Aminotransferase (ALT/SGPT) 18 U/L Total Bilirubin 0.5 MG/DL Sodium Level 135 MEQ/L Potassium Level 4.9 MEQ/L Chloride Level 98 MEQ/L Carbon Dioxide Level 23.3 MEQ/L Anion Gap 14 MEQ/L Estimat Glomerular Filtration Rate 2 ML/MIN Urine Color LIGHT-YELLOW Urine Turbidity HAZY Urine pH 7.0 Urine Specific [place] 1.009 Urine Protein 100 mg/dL Urine Glucose (UA) TRACE mg/dL Urine Ketones NEG mg/dL Urine Occult Blood SMALL Urine Nitrite NEG Urine Bilirubin NEG Urine Urobilinogen LESS THAN 2.0 MG/DL Urine Leukocyte Esterase LARGE Urine RBC 13 /hpf Urine WBC 15 /hpf Urine Squamous Epithelial Cells 14 /hpf Urine Transitional Epithelial Cells <1 /hpf Urine Bacteria RARE /hpf Urine Mucus FEW /lpf Microscopic Urinalysis Comment CULTURE INDICATED MDM Medical Decision Making Medical Screen Exam Complete: Yes Emergency Medical Condition: Yes Differential Diagnosis symptomatic anemia versus metabolic derangement versus appendicitis versus SBP versus other Narrative Course 21-year-old female with PMH of lupus presents to the ED for evaluation after abnormal lab on an outpatient basis today. She states that she saw her home nurse today and hemoglobin was at that time was 6.3. The patient states that she's been feeling weak and dizzy for the last 3 days. She also complains of dyspnea on exertion. She also complains of 3 day history of intermittent, stabbing lower quadrant abdominal pain. She states that she's had nausea with a few episodes of nonbloody vomiting. She states that she just finished her menstrual period 2 days ago. She endorses colonoscopy in the "last few years." She states that she's had multiple rectal exams and has never had any GI bleeding. She is followed by Dr. Rebeca Gibbs, PCP and Dr. Curry, nephrology. Vitals reviewed. Physical exam reveals chronically ill-appearing pale white female in no acute distress. Lung sounds are clear bilaterally. She has tenderness to palpation of bilateral lower abdominal quadrants. Rectal deferred by the patient. IV was established. Patient was administered 4 mg Zofran IV. EKG rate 81, sinus rhythm. Normal intervals. Normal axis. No acute ST changes. Reviewed by Dr. Clemente. Hemoglobin 5.7. Hematocrit 16.6. Platelets 126. INR 1.1. BUN 76. Creatinine 19.96. Review of the record reveals patient's creatinine has been 15+ in the past. UA: Leukocyte esterase, 15 WBCs, occasional bacteria. Culture pending. She was administered 1 g Rocephin IV. 2 units PRBCs ordered, pending type and screen. I discussed the results of the workup with the patient as well as the need for admission. She is agreeable. I spoke with Dr. Fontanez who agrees to accept the patient to the medicine service. Please see medicine notes for disposition. Joelle Farias Mar 09, 2017 12:07
[2017-03-09] MEDS ORDERED: SODIUM CHLOR 0.9% 250 ML INJ 250 ML IV ONE ×2 (12:15→17:30)
[2017-03-09 12:36] LABS: AUTOMATED NEUTROPHIL # 4.3 TH/MM3 (1.8-7.7); BASOPHIL # 0.1 TH/MM3 (0-0.2); BASOPHIL % 1.2 % (0.0-2.0); EOSINOPHIL # 0.6 TH/MM3 (0-0.4); EOSINOPHIL % 9.2 % (0.0-4.0); LYMPH % 17.1 % (9.0-44.0); LYMPHOCYTE # 1.1 TH/MM3 (1.0-4.8); MEAN CELL VOLUME 84.6 FL (80.0-100.0); MEAN CORPUSCULAR HEMOGLOBIN 29.1 PG (27.0-34.0); MEAN CORPUSCULAR HGB CONC 34.4 % (32.0-36.0); MEAN PLATELET VOLUME 6.7 FL (7.0-11.0); MONO % 4.3 % (0.0-8.0); MONOCYTE # 0.3 TH/MM3 (0-0.9); NEUT % 68.2 % (16.0-70.0); PLATELET COUNT 126 TH/MM3 (150-450); RED BLOOD COUNT 1.96 MIL/MM3 (4.00-5.30); RED CELL DISTRIBUTION WIDTH 14.1 % (11.6-17.2); WHITE BLOOD COUNT 6.2 TH/MM3 (4.0-11.0)
[2017-03-09 12:42] LABS: HEMATOCRIT 16.6 % (35.0-46.0); HEMOGLOBIN 5.7 GM/DL (11.6-15.3)
[2017-03-09 12:49] LABS: INTERNATIONAL NORMALIZED RATIO 1.1 RATIO; PROTHROMBIN TIME - PATIENT 10.8 SEC (9.8-11.6)
[2017-03-09 12:53] LABS: ALT (GPT) 18 U/L (10-53); AST (GOT) 12 U/L (15-37); BICARBONATE 23.3 MEQ/L (21.0-32.0); BLOOD UREA NITROGEN 76 MG/DL (7-18); CALCIUM 8.1 MG/DL (8.5-10.1); CHLORIDE 98 MEQ/L (98-107); GLUCOSE,RANDOM 108 MG/DL (74-106); SODIUM (NA) 135 MEQ/L (136-145)
[2017-03-09 13:00] LABS: ALKALINE PHOSPHATASE 62 U/L (45-117); GLOMERULAR FILTRATION RATE 2 ML/MIN (>89); TOTAL BILIRUBIN ADULT 0.5 MG/DL (0.2-1.0); TOTAL PROTEIN 6.6 GM/DL (6.4-8.2)
[2017-03-09 13:05] LABS: CREATININE 19.96 MG/DL (0.50-1.00)
[2017-03-09 13:10] LABS: BACTERIA, URINE RARE /hpf; BILIRUBIN, URINE NEG (NEG); BLOOD, URINE SMALL (NEG); GLUCOSE,URINE TRACE mg/dL (NEG); KETONE, URINE NEG (NEG); MUCUS URINE FEW /lpf (OCC); NITRITE,URINE NEG (NEG); SQUAMOUS EPITHELIAL CELL URINE 14 /hpf (0-5); TRANSITIONAL EPI CELLS, URINE <1 /hpf; URINE COLOR LIGHT-YELLOW (YELLW/STRAW); URINE LEUKOCYTE ESTERASE LARGE (NEG)
[2017-03-09] MEDS ORDERED: cefTRIAXone INJ 1,000 MG in SODIUM CHLORIDE 0.9% INJ 100 ML IV ONE (13:30)
--- NOTE | 2017-03-09 13:30 | PD ---
Physical Exam Date Seen by Provider: Mar 09, 2017 Time Seen by Provider: 13:30 Narrative I am seeing this patient with Joelle Farias PA-C. This is a 21-year-old female with a history of lupus disease. 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 She presents here with report that she has hemoglobin of 6.2. The patient reports she's been feeling weak and extremely tired. She denies any chest pain. There is exertional shortness of breath. Data Data Last Documented VS Vital Signs Date Time Temp Pulse Resp B/P (MAP) Pulse Ox O2 Delivery O2 Flow Rate FiO2 03/09/17 13:42 97.7 86 18 115/71 100 03/09/17 12:35 Room Air Orders Orders Complete Blood Count With Diff (03/09/17 11:57) Comprehensive Metabolic Panel (03/09/17 11:57) Prothrombin Time / Inr (Pt) (03/09/17 11:57) Act Partial Throm Time (Ptt) (03/09/17 11:57) Urinalysis - C+S If Indicated (03/09/17 11:57) Iv Access Insert/Monitor (03/09/17 11:57) Ecg Monitoring (03/09/17 11:57) Oximetry (03/09/17 11:57) Ondansetron Inj (Zofran Inj) (03/09/17 12:00) Sodium Chloride 0.9% Flush (Ns Flush) (03/09/17 12:00) Electrocardiogram (03/09/17 11:57) Type And Screen (03/09/17 12:07) Red Blood Cells (Rbc) (03/09/17 12:07) Sodium Chlor 0.9% 250 Ml Inj (Ns 250 Ml (03/09/17 12:15) Ct Abd/Pel W/O Iv Contrast (03/09/17 12:08) Ed Urine Pregnancytest Poc (03/09/17 12:08) Blood Product Administration (03/09/17 12:50) Urine Culture (03/09/17 12:45) Ceftriaxone Inj (Rocephin Inj) (03/09/17 13:30) Labs Laboratory Tests Test 03/09/17 12:10 03/09/17 12:45 White Blood Count 6.2 TH/MM3 Red Blood Count 1.96 MIL/MM3 Hemoglobin 5.7 GM/DL Hematocrit 16.6 % Mean Corpuscular Volume 84.6 FL Mean Corpuscular Hemoglobin 29.1 PG Mean Corpuscular Hemoglobin Concent 34.4 % Red Cell Distribution Width 14.1 % Platelet Count 126 TH/MM3 Mean Platelet Volume 6.7 FL Neutrophils (%) (Auto) 68.2 % Lymphocytes (%) (Auto) 17.1 % Monocytes (%) (Auto) 4.3 % Eosinophils (%) (Auto) 9.2 % Basophils (%) (Auto) 1.2 % Neutrophils # (Auto) 4.3 TH/MM3 Lymphocytes # (Auto) 1.1 TH/MM3 Monocytes # (Auto) 0.3 TH/MM3 Eosinophils # (Auto) 0.6 TH/MM3 Basophils # (Auto) 0.1 TH/MM3 CBC Comment DIFF FINAL Differential Comment Prothrombin Time 10.8 SEC Prothromb Time International Ratio 1.1 RATIO Activated Partial Thromboplast Time 28.9 SEC Blood Urea Nitrogen 76 MG/DL Creatinine 19.96 MG/DL Random Glucose 108 MG/DL Total Protein 6.6 GM/DL Albumin 3.0 GM/DL Calcium Level 8.1 MG/DL Alkaline Phosphatase 62 U/L Aspartate Amino Transf (AST/SGOT) 12 U/L Alanine Aminotransferase (ALT/SGPT) 18 U/L Total Bilirubin 0.5 MG/DL Sodium Level 135 MEQ/L Potassium Level 4.9 MEQ/L Chloride Level 98 MEQ/L Carbon Dioxide Level 23.3 MEQ/L Anion Gap 14 MEQ/L Estimat Glomerular Filtration Rate 2 ML/MIN Urine Color LIGHT-YELLOW Urine Turbidity HAZY Urine pH 7.0 Urine Specific [place] 1.009 Urine Protein 100 mg/dL Urine Glucose (UA) TRACE mg/dL Urine Ketones NEG mg/dL Urine Occult Blood SMALL Urine Nitrite NEG Urine Bilirubin NEG Urine Urobilinogen LESS THAN 2.0 MG/DL Urine Leukocyte Esterase LARGE Urine RBC 13 /hpf Urine WBC 15 /hpf Urine Squamous Epithelial Cells 14 /hpf Urine Transitional Epithelial Cells <1 /hpf Urine Bacteria RARE /hpf Urine Mucus FEW /lpf Microscopic Urinalysis Comment CULTURE INDICATED MDM Medical Record Reviewed: Yes Supervised Visit with RILEY: Yes Narrative Course 21-year-old female history of SLE with associated lupus nephritis, presents here with a report that her hemoglobin was 6.2. Repeat hemoglobin here is 5.7. Patient also has a urinary tract infection. She's been typed and crossed for 2 units pressure be admitted for a transfusion. There is a call out to the [facility] for admission. Diagnosis Primary Impression: Symptomatic anemia Additional Impressions: Lupus nephritis CKD, patient preferred modality peritoneal dialysis UTI (urinary tract infection) Admitting Information Admitting Physician Requests: Admit Agustin Clemente MD Mar 09, 2017 13:30
[2017-03-09] MEDS ORDERED: MORPHINE SULFATE 2 MG/ML INJ IV PUSH ONE (14:15)
--- NOTE | 2017-03-09 15:25 | RADRPT ---
EXAM DATE/TIME: 03/09/2017 13:33 [facility] COMPARISON: CT ABDOMEN & PELVIS W/O CONTRAST, September 15, 2016, 13:01. INDICATIONS : Peritoneal dialysis patient with left lower quadrant pain and HGB 6.3 ORAL CONTRAST: No oral contrast ingested. RADIATION DOSE: 4.76 CTDIvol (mGy) MEDICAL HISTORY : Hypertension. Seizures. Renal failure, chronic. SURGICAL HISTORY : None. ENCOUNTER: Initial ACUITY: 1 day PAIN SCALE: 8/10 LOCATION: Left lower quadrant TECHNIQUE: Volumetric scanning of the abdomen and pelvis was performed. Using automated exposure control and ad justment of the mA and/or kV according to patient size, radiation dose was kept as low as reasonably achievable to obtain optimal diagnostic quality images. DICOM format image data is available electro nically for review and comparison. FINDINGS: LOWER LUNGS: Minimal bibasilar groundglass opacities, likely atelectasis. LIVER: Homogeneous density without lesion. There is no dilation of the biliary tree. No calcified gallston es. SPLEEN: Borderline in size without significant focal lesion. PANCREAS: Within normal limits. KIDNEYS: End-stage atrophic kidneys bilaterally. No gross mass. ADRENAL GLANDS: Within normal limits. VASCULAR: There is no aortic aneurysm. BOWEL/MESENTERY: The stomach, small bowel, and colon demonstrate no acute abnormality. Left lower quadrant peritoneal dialysis catheter in place. Trace fluid primarily surrounding the catheter and in the deep pelvis li rosalee related to peritoneal dialysis. There is no free intraperitoneal air or focal drainable fluid co llections. Appendix is visualized and normal. ABDOMINAL WALL: Within normal limits. RETROPERITONEUM: There is no lymphadenopathy. BLADDER: No wall thickening or mass. REPRODUCTIVE: Within normal limits. INGUINAL: There is no lymphadenopathy or hernia. MUSCULOSKELETAL: Within normal limits for patient age. CONCLUSION: 1. Left lower quadrant peritoneal dialysis catheter in place with trace adjacent free fluid likely re lated to peritoneal dialysis. 2. No acute abnormality in the abdomen or pelvis. Specifically, no evidence of significant abdominal hematoma. 3. Minimal bibasilar groundglass opacities, likely atelectasis. Kirit Ball MD on March 09, 2017 at 15:18 Board Certified Radiologist. This report was verified electronically.
[2017-03-09] MEDS ORDERED: BISACODYL 10 MG SUPP RECTAL PRN (17:00)
[2017-03-09] MEDS ORDERED: SENNOSIDES 8.6 MG TAB PO PRN (17:00)
[2017-03-09] MEDS ORDERED: MAGNESIUM HYDROXIDE SUSP 30 ML CUP PO PRN (17:00)
[2017-03-09] MEDS ORDERED: LACTULOSE SYRUP 20 GM/30 ML CUP PO PRN (17:00)
[2017-03-09] MEDS ORDERED: NALOXONE HCL 0.4 MG/ML AMP IV PUSH PRN (17:00)
[2017-03-09] MEDS ORDERED: ACETAMINOPHEN 325 MG TAB PO PRN ×2 (17:00→17:30)
--- NOTE | 2017-03-09 17:28 | HHI.HP ---
HPI Service [facility] Hospitalists Primary Care Physician Juventino Gibbs MD Admission Diagnosis symptomatic anemia, UTI Diagnoses: Chief Complaint: "I was feeling very tired, fatigued and looks pale " Travel History International Travel<30 Days: No Contact w/Intl Traveler <30 Da: No Traveled to Known Affected Are: No History of Present Illness This is a 21-year-old female with past medical history significant for end- stage renal disease on hemodialysis, chronic anemia on it region, lupus nephritis who presents to [facility] after she was sent from the dialysis center because she had a very low hemoglobin. The patient states that on the past few days she has been feeling very tired, fatigued, pale. The patient states that when she walked from her house to the car she got very short of breath. The patient states that she was also feeling very dizzy especially today when she got out of bed. The patient came to the emergency department and was found to have a very low hemoglobin of 5.4. Patient has been transfused 2 units of packed red blood cells. The patient currently denies any dizziness, chest pain, denies shortness of breath at rest. Patient also denies fevers, chills, cough, diarrhea. The patient states she has been feeling nauseous and has vomited several times after Nadine. Patient also denies melena or hematochezia. Review of Systems As per history of present illness, other systems reviewed by me and negative Past Family Social History Past Medical History THC History of CVA Seizure disorder Cluster/migraine headaches SLE Anemia chronic kidney disease 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 Curry Hypertension Secondary hyperparathyroidism Chronic systolic heart failure Medical noncompliance Hyperphosphatemia Past Surgical History Tenckhoff catheter placement Left vascular hemodialysis catheter since removed Kidney biopsy Reported Medications Reported Meds & Active Scripts Active Burney (Hydrocodone-Acetaminophen) 5-325 mg Tab 1 Tab PO Q6H PRN Norvasc (Amlodipine Besylate) 10 Mg Tab 10 Mg PO BID Cozaar (Losartan Potassium) 50 Mg Tab 50 Mg PO Q12HR Labetalol (Labetalol HCl) 200 Mg Tab 300 Mg PO BID Terazosin (Terazosin HCl) 5 Mg Cap 5 Mg PO HS Keppra (Levetiracetam) 500 Mg Tab 500 Mg PO Q12HR Hydroxychloroquine (Hydroxychloroquine Sulfate) 200 Mg Tab 200 Mg PO Q12HR Reported Sensipar (Cinacalcet) 90 Mg Tab 180 Mg PO DAILY Calcium Acetate (Phosphate Binder) 667 Mg Cap 1,334 Mg PO TID Epogen Inj (Epoetin Diego) 2,000 Unit/Ml Inj 1,500 Units SQ 2XMONTH Allergies: Coded Allergies: hydralazine (Unverified Allergy, Severe, Rash, 03/09/17) vancomycin (Unverified Allergy, Severe, RASH, 03/09/17) metoprolol (Unverified Allergy, Unknown, Patient does not know, 03/09/17) *MDRO Multi-Drug Resistant Organism (Verified Adverse Reaction, Unknown, MRSA, 03/09/17) MRSA PCR (nares) POSITIVE - 08/18/16 Active Ordered Medications Current Medications Medications (Trade) Dose Ordered Sig/Leora Route Start Time Stop Time Status Last Admin (NS Flush) 2 ml UNSCH PRN IV FLUSH 03/09/17 12:00 Sodium Chloride 250 ml @ 15 mls/hr ONCE ONCE IV 03/09/17 12:15 03/10/17 04:54 03/09/17 13:56 Family History Patient's father has diabetes mellitus. There is no family history of bleeding diathesis. Patient also denies history of autoimmune disorders other than diabetes in her family. Social History The patient denies smoking cigarettes, denies drinking alcohol, occasionally smokes marijuana. The patient is a single mom and has one child. She lives by herself. Physical Exam Vital Signs Vital Signs Date Time Temp Pulse Resp B/P (MAP) Pulse Ox O2 Delivery O2 Flow Rate FiO2 03/09/17 16:45 98.5 93 18 124/77 100 03/09/17 16:44 98.2 92 18 124/77 99 03/09/17 15:20 20 98 Room Air 03/09/17 15:20 84 20 126/73 (90) 99 Room Air 03/09/17 15:17 88 18 126/73 99 03/09/17 14:05 98.0 77 16 116/73 98 03/09/17 13:42 97.7 86 18 115/71 100 03/09/17 12:35 90 18 119/73 (88) 100 Room Air 03/09/17 12:35 88 18 119/73 (88) 100 Room Air Physical Exam GENERAL: This is a well-nourished, well-developed patient, in no apparent distress. SKIN: No rashes, ecchymoses or lesions. Cool and dry. Pale skin. HEAD: Atraumatic. Normocephalic. No temporal or scalp tenderness. EYES: Pupils equal round and reactive. Extraocular motions intact. No scleral icterus. No injection or drainage. ENT: Nose without bleeding, purulent drainage or septal hematoma. Throat without erythema, tonsillar hypertrophy or exudate. Uvula midline. Airway patent. NECK: Trachea midline. No JVD or lymphadenopathy. Supple, nontender, no meningeal signs. CARDIOVASCULAR: Regular rate and rhythm without murmurs, gallops, or rubs. RESPIRATORY: Clear to auscultation. Breath sounds equal bilaterally but decreased at the bases. No wheezes, rales, or rhonchi. GASTROINTESTINAL: Abdomen soft, non-tender, nondistended. No hepato-splenomegaly , or palpable masses. No guarding. MUSCULOSKELETAL: Extremities without clubbing, cyanosis, or edema. No joint tenderness, effusion, or edema noted. No calf tenderness. Negative Homans sign bilaterally. NEUROLOGICAL: Awake and alert. Cranial nerves II through XII intact. Motor and sensory grossly within normal limits. Five out of 5 muscle strength in all muscle groups. Normal speech. Laboratory Laboratory Tests Test 03/09/17 12:10 03/09/17 12:45 White Blood Count 6.2 Red Blood Count 1.96 Hemoglobin 5.7 Hematocrit 16.6 Mean Corpuscular Volume 84.6 Mean Corpuscular Hemoglobin 29.1 Mean Corpuscular Hemoglobin Concent 34.4 Red Cell Distribution Width 14.1 Platelet Count 126 Mean Platelet Volume 6.7 Neutrophils (%) (Auto) 68.2 Lymphocytes (%) (Auto) 17.1 Monocytes (%) (Auto) 4.3 Eosinophils (%) (Auto) 9.2 Basophils (%) (Auto) 1.2 Neutrophils # (Auto) 4.3 Lymphocytes # (Auto) 1.1 Monocytes # (Auto) 0.3 Eosinophils # (Auto) 0.6 Basophils # (Auto) 0.1 CBC Comment DIFF FINAL Differential Comment Prothrombin Time 10.8 Prothromb Time International Ratio 1.1 Activated Partial Thromboplast Time 28.9 Blood Urea Nitrogen 76 Creatinine 19.96 Random Glucose 108 Total Protein 6.6 Albumin 3.0 Calcium Level 8.1 Alkaline Phosphatase 62 Aspartate Amino Transf (AST/SGOT) 12 Alanine Aminotransferase (ALT/SGPT) 18 Total Bilirubin 0.5 Sodium Level 135 Potassium Level 4.9 Chloride Level 98 Carbon Dioxide Level 23.3 Anion Gap 14 Estimat Glomerular Filtration Rate 2 Urine Color LIGHT-YELLOW Urine Turbidity HAZY Urine pH 7.0 Urine Specific [place] 1.009 Urine Protein 100 Urine Glucose (UA) TRACE Urine Ketones NEG Urine Occult Blood SMALL Urine Nitrite NEG Urine Bilirubin NEG Urine Urobilinogen LESS THAN 2.0 Urine Leukocyte Esterase LARGE Urine RBC 13 Urine WBC 15 Urine Squamous Epithelial Cells 14 Urine Transitional Epithelial Cells <1 Urine Bacteria RARE Urine Mucus FEW Microscopic Urinalysis Comment CULTURE INDICATED Date/Time Source Procedure Growth Status 03/09/17 12:45 Urine Clean Catch Urine Culture Pending Received Result Diagram: 03/09/17 1210 03/09/17 1210 Imaging Last Impressions Abdomen/Pelvis CT 03/09/17 1208 Signed Impressions: Service Date/Time: Thursday, March 09, 2017 13:33 - CONCLUSION: 1. Left lower quadrant peritoneal dialysis catheter in place with trace adjacent free fluid likely related to peritoneal dialysis. 2. No acute abnormality in the abdomen or pelvis. Specifically, no evidence of significant abdominal hematoma. 3. Minimal bibasilar groundglass opacities, likely atelectasis. Kirit Ball MD CT abdomen and pelvis reviewed by me. Caprini VTE Risk Assessment Caprini VTE Risk Assessment: No/Low Risk (score <= 1) VTE Pharm Contraindication: Documented Caprini Risk Assessment Model Point Value = 1 Point Value = 2 Point Value = 3 Point Value = 5 Age 41-60 Minor surgery BMI > 25 kg/m2 Swollen legs Varicose veins or History of unexplained or recurrent spontaneous Oral contraceptives or hormone replacement Sepsis (< 1 month) Serious lung disease, including pneumonia (< 1 month) Abnormal pulmonary function Acute myocardial infarction Congestive heart failure (< 1 month) History of inflammatory bowel disease Medical patient at bed rest Age 61-74 Arthroscopic surgery Major open surgery (> 45 min) Laparoscopic surgery (> 45 min) Malignancy Confined to bed (> 72 hours) Immobilizing plaster cast Central venous access Age >= 75 History of VTE Family history of VTE Factor V Leiden Prothrombin [id number] Lupus anticoagulant Anticardiolipin antibodies Elevated serum homocysteine Heparin-induced thrombocytopenia Other congenital or acquired thrombophilia Stroke (< 1 month) Elective arthroplasty Hip, pelvis, or leg fracture Acute spinal cord injury (< 1 month) Prophylaxis Regimen Total Risk Factor Score Risk Level Prophylaxis Regimen 0-1 Low Early ambulation 2 Moderate Order ONE of the following: *Sequential Compression Device (SCD) *Heparin 5000 units SQ BID 3-4 Higher Order ONE of the following medications: *Heparin 5000 units SQ TID *Enoxaparin/Lovenox 40 mg SQ daily (WT < 150 kg, CrCl > 30 mL/min) *Enoxaparin/Lovenox 30 mg SQ daily (WT < 150 kg, CrCl > 10-29 mL/min) *Enoxaparin/Lovenox 30 mg SQ BID (WT < 150 kg, CrCl > 30 mL/min) AND/OR *Sequential Compression Device (SCD) 5 or more Highest Order ONE of the following medications: *Heparin 5000 units SQ TID (Preferred with Epidurals) *Enoxaparin/Lovenox 40 mg SQ daily (WT < 150 kg, CrCl > 30 mL/min) *Enoxaparin/Lovenox 30 mg SQ daily (WT < 150 kg, CrCl > 10-29 mL/min) *Enoxaparin/Lovenox 30 mg SQ BID (WT < 150 kg, CrCl > 30 mL/min) AND *Sequential Compression Device (SCD) Assessment and Plan Problem List: (1) Severe anemia ICD Code: D64.9 - Anemia, unspecified Status: Acute Plan: This 21-year-old female who presented with signs and symptoms of severe anemia with a hemoglobin of 5.7. Blood confusion ordered in the emergency department. CT abdomen and pelvis to rule out hematoma showed a left lower quadrant peritoneal dialysis catheter in place with trace adjacent free fluid likely related to peritoneal dialysis. No acute abnormality in the abdomen or pelvis. Minimal basilar groundglass opacities likely atelectasis. The patient to the medical floor, monitor vital signs, place on telemetry. Monitor hemoglobin and transfuse as needed for hemoglobin less than 7 or symptomatic anemia. PT, PTT and INR normal. (2) Acute blood loss anemia ICD Code: D62 - Acute posthemorrhagic anemia Status: Acute Plan: The patient has acute on chronic anemia. Acute anemia likely secondary to menorrhagia given that the patient states she has been having heavy periods, especially the current period. Patient states she wears 6 bouts in a day and has clots. Continue to monitor CBC and hemoglobin. Transfuse as needed. (3) Menorrhagia ICD Code: N92.0 - Excessive and frequent menstruation with regular cycle Plan: We'll consult SOAKER HELPER as patient states she has not have seen one yet. She is currently being evaluated for transplant on the transplant center at this institution. She states she has been told to follow-up with a earth observations chief scientist however she has not been able to do so yet. I will also order a pelvic ultrasound. 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 We'll continue. (5) UTI (urinary tract infection) ICD Code: N39.0 - Urinary tract infection, site not specified Status: Acute Plan: Urinalysis positive for urinary tract infection. Patient was given IV Rocephin in the emergency department. I will continue IV Rocephin and follow- up urine cultures. (6) ESRD (end stage renal disease) on dialysis ICD Code: N18.6 - End stage renal disease; Z99.2 - Dependence on renal dialysis Status: Chronic Plan: We'll consult nephrology to manage peritoneal dialysis. B urine on admission 76 and creatinine 19.96. (7) Hypertension ICD Code: I10 - Essential (primary) hypertension Status: Acute Plan: Auto sensing to be stable. Continue home antihypertensive medications with holding parameters. (8) Seizure disorder ICD Code: G40.909 - Epilepsy, unspecified, not intractable, without status epilepticus Status: Chronic Plan: I will continue on Keppra. No evidence of seizure activity. (9) Atelectasis ICD Code: J98.11 - Atelectasis Status: Acute Plan: Will place on incentive spirometry. Assessment and Plan DVT prophylaxis: SCDs, chemoprophylaxis contraindicated given severe anemia and current menorrhagia. Code Status Full code Discussed Condition With Patient, ED physician. Physician Certification 2 Midnight Certification Type: Admission for Inpatient Services Order for Inpatient Services The services are ordered in accordance with Medicare regulations or non- Medicare payer requirements, as applicable. In the case of services not specified as inpatient-only, they are appropriately provided as inpatient services in accordance with the 2-midnight benchmark. Estimated LOS (days): 2 days is the estimated time the patient will need to remain in the hospital, assuming treatment plan goals are met and no additional complications. Post-Hospital Plan: Not yet determined Problem Qualifiers (1) Hypertension: Qualified Codes: I10 - Essential (primary) hypertension Lowell Summers MD Mar 09, 2017 17:27
[2017-03-09] MEDS ORDERED: diphenhydrAMINE HCL 25 MG CAP PO PRN (17:30)
[2017-03-09] MEDS ORDERED: FUROSEMIDE 20 MG/2 ML VIAL IV PUSH ONE (17:30)
[2017-03-09] MEDS ORDERED: LABE300T PO (17:36)
[2017-03-09] MEDS: CALCIUM ACETATE 667 MG CAP PO SCH (18:34)
[2017-03-09] MEDS: DOCUSATE SODIUM 50 MG/SENNA 8.6 MG TAB PO SCH (20:31)
[2017-03-09] MEDS: levETIRAcetam 500 MG TAB PO SCH (20:31)
[2017-03-09] MEDS: LOSARTAN 50 MG TAB PO SCH (20:31)
[2017-03-09] MEDS: SODIUM CHLORIDE 0.9% FLUSH 10 ML FLUSH IV FLUSH SCH (20:32)
[2017-03-09] MEDS: cefTRIAXone INJ 2,000 MG in SODIUM CHLORIDE 0.9% INJ 100 ML IV SCH (20:42)
--- NOTE | 2017-03-09 20:59 | RADRPT ---
EXAM DATE/TIME: 03/09/2017 19:49 [place] COMPARISON: No previous studies available for comparison. INDICATIONS : Low hemoglobin. MEDICAL HISTORY : Hypertension. Cerebrovascular accident. Lupus. Renal disease. Dialysis. Chemotherapy. MRSA. SURGICAL HISTORY : Vas cath to left chest. Permacath. Peritoneal dialysis. ENCOUNTER: Initial ACUITY: 1 day PAIN SCORE: 2/10 LOCATION: pelvis MEASUREMENTS: UTERUS: 8.1 x 4.3 x 3.8 cm ENDOMETRIAL STRIPE: 5 mm RIGHT OVARY: 3.7 x 4.0 x 2.8 cm LEFT OVARY: 5.0 x 3.5 x 3.3 cm FINDINGS: UTERUS: The myometrium has homogeneous echotexture without mass. Small 8 mm cyst in the lower uterine segmen t may reflect a small nabothian cyst. RIGHT OVARY: Ovary contains no mass or significant cystic lesion. LEFT OVARY: Left ovary is enlarged with slightly decreased vascularity in comparison to the right. There is a sma ll 2.3 x 2.0 x 2.1 cm cyst. MISCELLANEOUS: Trace free fluid in the pelvis. CONCLUSION: 1. Slightly asymmetrical ovarian size with slightly enlarged left ovary. Suspect this is due to inclu moises of small 2.3 cm cyst in the left ovary. There is also slightly asymmetrical flow noted in the ov david with slightly decreased flow in the left ovary. These findings are very nonspecific and somewha t atypical. Recent brief ovarian torsion cannot be entirely excluded in the appropriate clinical sett ing. 2. Trace free fluid in the pelvis. Kirit Ball MD on March 09, 2017 at 20:53 Board Certified Radiologist. This report was verified electronically.
[2017-03-09] MEDS: HYDROXYCHLOROQUINE SULFATE 200 MG TAB PO SCH (22:23)
[2017-03-09] MEDS: ONDANSETRON HCL 4 MG/2 ML VIAL IVP PRN (22:36)
[2017-03-09] MEDS: TEMAZEPAM 15 MG CAP PO PRN (23:43)
[2017-03-10] VITALS (9 sets, daily range): BP systolic 119–141; BP diastolic 67–84; PULSE 87–111; RESP 16–22; TEMP 97.9–98.7; O2SAT 94–98
[2017-03-10 07:10] LABS: AUTOMATED NEUTROPHIL # 5.2 TH/MM3 (1.8-7.7); BASOPHIL # 0.1 TH/MM3 (0-0.2); BASOPHIL % 0.9 % (0.0-2.0); EOSINOPHIL # 0.7 TH/MM3 (0-0.4); EOSINOPHIL % 8.8 % (0.0-4.0); HEMOGLOBIN 9.9 GM/DL (11.6-15.3); LYMPH % 16.6 % (9.0-44.0); LYMPHOCYTE # 1.3 TH/MM3 (1.0-4.8); MEAN CORPUSCULAR HEMOGLOBIN 29.8 PG (27.0-34.0); MEAN CORPUSCULAR HGB CONC 35.5 % (32.0-36.0); MONO % 5.7 % (0.0-8.0); MONOCYTE # 0.4 TH/MM3 (0-0.9); PLATELET COUNT 137 TH/MM3 (150-450); RED BLOOD COUNT 3.33 MIL/MM3 (4.00-5.30); RED CELL DISTRIBUTION WIDTH 14.9 % (11.6-17.2); WHITE BLOOD COUNT 7.6 TH/MM3 (4.0-11.0)
[2017-03-10 07:43] LABS: ALBUMIN 2.8 GM/DL (3.4-5.0); AST (GOT) 15 U/L (15-37); BICARBONATE 21.6 MEQ/L (21.0-32.0); BLOOD UREA NITROGEN 86 MG/DL (7-18); CALCIUM 7.7 MG/DL (8.5-10.1); CHLORIDE 100 MEQ/L (98-107); GLUCOSE,RANDOM 84 MG/DL (74-106); SODIUM (NA) 135 MEQ/L (136-145)
[2017-03-10 07:50] LABS: ALKALINE PHOSPHATASE 66 U/L (45-117); ALT (GPT) 22 U/L (10-53); GLOMERULAR FILTRATION RATE 2 ML/MIN (>89); TOTAL BILIRUBIN ADULT 0.7 MG/DL (0.2-1.0); TOTAL PROTEIN 6.8 GM/DL (6.4-8.2)
[2017-03-10 07:55] LABS: CREATININE 19.73 MG/DL (0.50-1.00)
--- NOTE | 2017-03-10 08:16 | PD.CONS ---
HPI Chief Complaint TICKET WORKER consult for Chronic anemia compounded by menorrhagia Travel History International Travel<30 Days: No Contact w/Intl Traveler<30Days: No Known Affected Area: No History of Present Illness HPI Pt is a 21 yo P1, admitted through ER. Pt reports 2 weeks of worsening fatigue, weakness. Pt has ESRF and was [facility] and was noted to be pale and SOB, and Hg was 5.4g/dL and patient sent here. Pt states that over the past year, her periods has been progressively heavier. She soaks through 4 pads at peak. Large blood clots.Bleeding lasts from 5-6 days Associated dysmenorrhea. LMP was around 02-25-2017 Bleeding ended about 1 week ago. Denies any current vaginal bleeding. No melena stools. Pt states she had nausea and vomiting past cuple of weeks. No fever or chills. Denies dysuria. Normal BM Pt has not seen a TICKET WORKER since of her child 4 years ago. She is not currently sexually active Pt is not using any contraception at the moment. She does not plan to have any more children. Pt is trying to get on transplant list. Currently on daily peritoneal dialysis Pt has significant co-mordility. 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 Patient receives EPOGEN for anemia of chronic dideaes/dialysis. She has had a CVA, HTN on medication, seizure dsorder and secondary hyperparathyroidism. History Past Medical History Narrative Medical Essential Hypertension SLE, with lupus nephritis h/o CVA Seizure disorder Chronic Anemia Secondary Hyperparathyroidism Obstetric History Obstetric History 4 years ago Has not seen TICKET WORKER in 4 years Not currently sexually active, and not on contraception. Does not plan any more children. Past Surgical History Narrative Surgical Tenchkoff catheter placement Vascular hemodialysis insertion and removal. Social History Alcohol Use: No Tobacco Use: No Substance Abuse: Yes (Marijuana use intermittently) Allergies-Medications (Allergen,Severity, Reaction): Coded Allergies: hydralazine (Unverified Allergy, Severe, Rash, 03/09/17) vancomycin (Unverified Allergy, Severe, RASH, 03/09/17) metoprolol (Unverified Allergy, Unknown, Patient does not know, 03/09/17) *MDRO Multi-Drug Resistant Organism (Verified Adverse Reaction, Unknown, MRSA, 03/09/17) MRSA PCR (nares) POSITIVE - 08/18/16 Home Meds Active Scripts Amlodipine (Norvasc) 10 Mg Tab, 10 MG PO BID for Blood Pressure Management, #60 TAB Prov:Maame Sal MD 12/01/16 Losartan (Cozaar) 50 Mg Tab, 50 MG PO Q12HR for Blood Pressure Management, #60 TAB Prov:Maame Sal MD 12/01/16 Terazosin (Terazosin) 5 Mg Cap, 5 MG PO HS for hypertension, #30 CAP 0 Refills Prov:Maame Sal MD 12/01/16 Levetiracetam (Keppra) 500 Mg Tab, 500 MG PO Q12HR for seizures, #60 TAB Prov:Maame Sal MD 08/21/16 Hydroxychloroquine (Hydroxychloroquine) 200 Mg Tab, 200 MG PO Q12HR for esrd/sle , #60 TAB Prov:Maame Sal MD 08/21/16 Reported Medications Labetalol (Labetalol) 300 Mg Tab, 300 MG PO BID for Blood Pressure Management, TAB 0 Refills 03/09/17 Calcium Acetate (Phosphate Binder) (Calcium Acetate (Phosphate Binder)) 667 Mg Cap, 1334 MG PO TID for Hyperphosphatemia, #180 CAP 0 Refills 05/08/16 Epoetin Inj (Epogen Inj) 2,000 Unit/Ml Inj, 1500 UNITS SQ 2XMONTH, VIAL 03/23/16 Discontinued Reported Medications Cinacalcet (Sensipar) 90 Mg Tab, 180 MG PO DAILY, #60 TAB 0 Refills 08/03/16 Discontinued Scripts Hydrocodone-Acetaminophen ([place]) 5-325 mg Tab, 1 TAB PO Q6H Y for PAIN, #10 TAB 0 Refills Prov:Maame Sal MD 12/01/16 Review of Systems Except as stated in HPI: all other systems reviewed are Neg Physical Exam Vital Signs Date Time Temp Pulse Resp B/P (MAP) Pulse Ox O2 Delivery O2 Flow Rate FiO2 03/10/17 04:00 98.3 87 20 119/76 (90) 95 03/10/17 03:45 87 03/10/17 01:45 98.7 96 16 122/67 94 03/10/17 00:00 Room Air 03/09/17 23:47 99.5 111 16 122/76 100 03/09/17 23:45 104 03/09/17 22:55 98.9 99 16 116/67 03/09/17 20:27 99.5 100 16 129/81 (97) 99 03/09/17 20:00 98.1 80 19 136/70 (92) 98 03/09/17 20:00 Room Air 03/09/17 20:00 98.1 80 19 136/70 (92) 98 03/09/17 18:44 98.5 90 18 132/79 98 03/09/17 18:42 90 18 132/79 (96) 98 03/09/17 18:41 18 03/09/17 17:00 98.4 90 18 139/81 99 03/09/17 16:45 98.5 93 18 124/77 100 03/09/17 16:44 98.2 92 18 124/77 99 03/09/17 15:20 20 98 Room Air 03/09/17 15:20 84 20 126/73 (90) 99 Room Air 03/09/17 15:17 88 18 126/73 99 03/09/17 14:05 98.0 77 16 116/73 98 03/09/17 13:42 97.7 86 18 115/71 100 03/09/17 12:35 90 18 119/73 (88) 100 Room Air 03/09/17 12:35 88 18 119/73 (88) 100 Room Air Narrative GENERAL: Well-nourished, well-developed patient. SKIN: Warm and dry. HEAD: Normocephalic and atraumatic. EYES: No scleral icterus. No injection or drainage. ENT: No nasal drainage noted. Mucous membranes pink. Airway patent. NECK: Supple, trachea midline. No JVD. CARDIOVASCULAR: Regular rate and rhythm without murmurs, gallops, or rubs. RESPIRATORY: Breath sounds equal bilaterally. No accessory muscle use. BREASTS: Bilateral exam showed no masses , no retractions, no nipple discharge. ABDOMEN/GI: Abdomen soft, non-tender, bowel sounds present, no rebound, no guarding No palpable masses No abdominal tenderness Peritoneal dialysis catheter noted. GENITOURINARY: External Genitalia: intact and normal in appearance BUS glands: [wnl] Normal sized AV uterus, no adnexal tenderness or palpable masses Normal cervix. No vaginal bleeding noted. EXTREMITIES: No cyanosis or edema. BACK: Nontender without obvious deformity. No CVA tenderness. NEUROLOGICAL: Awake and alert. Motor and sensory grossly within normal limits. Five out of 5 muscle strength in all muscle groups. Normal speech. Data Data Vital Signs Reviewed: Yes Orders Orders Complete Blood Count With Diff (03/09/17 11:57) Comprehensive Metabolic Panel (03/09/17 11:57) Prothrombin Time / Inr (Pt) (03/09/17 11:57) Act Partial Throm Time (Ptt) (03/09/17 11:57) Urinalysis - C+S If Indicated (03/09/17 11:57) Iv Access Insert/Monitor (03/09/17 11:57) Ecg Monitoring (03/09/17 11:57) Oximetry (03/09/17 11:57) Ondansetron Inj (Zofran Inj) (03/09/17 12:00) Sodium Chloride 0.9% Flush (Ns Flush) (03/09/17 12:00) Electrocardiogram (03/09/17 11:57) Type And Screen (03/09/17 12:07) Red Blood Cells (Rbc) (03/09/17 12:07) Sodium Chlor 0.9% 250 Ml Inj (Ns 250 Ml (03/09/17 12:15) Ct Abd/Pel W/O Iv Contrast (03/09/17 12:08) Ed Urine Pregnancytest Poc (03/09/17 12:08) Blood Product Administration (03/09/17 12:50) Urine Culture (03/09/17 12:45) Ceftriaxone Inj (Rocephin Inj) (03/09/17 13:30) Morphine Inj (Morphine Inj) (03/09/17 14:15) Admit Order (Ed Use Only) (03/09/17 14:54) Admit To Inpatient (03/09/17 ) Vital Signs (Adult) Q4H (03/09/17 16:58) Activity Bed Rest With Brp (03/09/17 16:58) Welder Apprentice Gas / Telemetry .CONTINUOUS (03/09/17 16:58) Intake + Output JESSI.QSHIFT (03/09/17 16:58) Diet Regular Basic (03/09/17 Dinner) Sodium Chloride 0.9% Flush (Ns Flush) (03/09/17 17:00) Sodium Chloride 0.9% Flush (Ns Flush) (03/09/17 21:00) Acetaminophen (Tylenol) (03/09/17 17:00) Ondansetron Inj (Zofran Inj) (03/09/17 17:00) Temazepam (Restoril) (03/09/17 17:00) Comprehensive Metabolic Panel (03/10/17 06:00) Complete Blood Count With Diff (03/10/17 06:00) Scd Bilateral/Knee High JESSI.BID (03/09/17 16:58) Pharmacologic Contraindication (03/09/17 16:58) Naloxone Inj (Narcan Inj) (03/09/17 17:00) Docusate Sodium-Senna (Tess-Colace) (03/09/17 21:00) Magnesium Hydroxide Liq (Milk Of Magnesi (03/09/17 17:00) Sennosides (Senokot) (03/09/17 17:00) Bisacodyl Supp (Dulcolax Supp) (03/09/17 17:00) Lactulose Liq (Lactulose Liq) (03/09/17 17:00) Inpatient Certification (03/09/17 ) Resp Incentive Spirometry (03/09/17 ) Consult Pt Eval & Treat (03/09/17 17:20) Red Blood Cells (Rbc) (03/09/17 17:28) Blood Product Administration .UPON TRANSFUSION (03/09/17 17:28) Sodium Chlor 0.9% 250 Ml Inj (Ns 250 Ml (03/09/17 17:30) Acetaminophen (Tylenol) (03/09/17 17:30) Diphenhydramine (Benadryl) (03/09/17 17:30) Furosemide Inj (Lasix Inj) (03/09/17 17:30) Amlodipine (Norvasc) (03/09/17 21:00) Calcium Acetate (Phoslo) (03/09/17 18:00) Hydroxychloroquine (Plaquenil) (03/09/17 21:00) Levetiracetam (Keppra) (03/09/17 21:00) Losartan (Cozaar) (03/09/17 21:00) Cinacalcet (Sensipar) (03/10/17 09:00) Consult Gynecology (03/09/17 ) Ceftriaxone Inj (Rocephin Inj) (03/09/17 18:00) (Hub Use Only)Inp Phy Cons/Ref (03/09/17 ) Us Pelvis Comp W Doppler (03/09/17 ) Labs Laboratory Tests Test 03/09/17 12:10 03/09/17 12:45 03/10/17 06:08 White Blood Count 6.2 7.6 Red Blood Count 1.96 3.33 Hemoglobin 5.7 9.9 Hematocrit 16.6 28.0 Mean Corpuscular Volume 84.6 84.0 Mean Corpuscular Hemoglobin 29.1 29.8 Mean Corpuscular Hemoglobin Concent 34.4 35.5 Red Cell Distribution Width 14.1 14.9 Platelet Count 126 137 Mean Platelet Volume 6.7 7.0 Neutrophils (%) (Auto) 68.2 68.0 Lymphocytes (%) (Auto) 17.1 16.6 Monocytes (%) (Auto) 4.3 5.7 Eosinophils (%) (Auto) 9.2 8.8 Basophils (%) (Auto) 1.2 0.9 Neutrophils # (Auto) 4.3 5.2 Lymphocytes # (Auto) 1.1 1.3 Monocytes # (Auto) 0.3 0.4 Eosinophils # (Auto) 0.6 0.7 Basophils # (Auto) 0.1 0.1 CBC Comment DIFF FINAL DIFF FINAL Differential Comment Prothrombin Time 10.8 Prothromb Time International Ratio 1.1 Activated Partial Thromboplast Time 28.9 Blood Urea Nitrogen 76 86 Creatinine 19.96 Random Glucose 108 84 Total Protein 6.6 Albumin 3.0 2.8 Calcium Level 8.1 7.7 Alkaline Phosphatase 62 Aspartate Amino Transf (AST/SGOT) 12 15 Alanine Aminotransferase (ALT/SGPT) 18 Total Bilirubin 0.5 Sodium Level 135 135 Potassium Level 4.9 5.6 Chloride Level 98 100 Carbon Dioxide Level 23.3 21.6 Anion Gap 14 13 Estimat Glomerular Filtration Rate 2 Urine Color LIGHT-YELLOW Urine Turbidity HAZY Urine pH 7.0 Urine Specific [place] 1.009 Urine Protein 100 Urine Glucose (UA) TRACE Urine Ketones NEG Urine Occult Blood SMALL Urine Nitrite NEG Urine Bilirubin NEG Urine Urobilinogen LESS THAN 2.0 Urine Leukocyte Esterase LARGE Urine RBC 13 Urine WBC 15 Urine Squamous Epithelial Cells 14 Urine Transitional Epithelial Cells <1 Urine Bacteria RARE Urine Mucus FEW Microscopic Urinalysis Comment CULTURE INDICATED Date/Time Source Procedure Growth Status 03/09/17 12:45 Urine Clean Catch Urine Culture Pending Received MDM Plan Pt is a 21 yo P1 admitted with symptomatic anemia. Hg was 5.4 on admission. Pt has ESRF on dialy peritoneal dialysis, and SLE among her co-morbidities. Pt has been transfused 4 units PRBC and Hg this am is 9.9g/dL. Pt reports feeling much better post transfusion. She is being treated for possible UTI and atelectasis. Pt likely has chronic anemia from renal disease/ SLE but menorrhagia compounds her anemia. Pt receives EPOGEN injections Periods are regular but heavy. Ultrasound and pelvic exam do not reveal any uterine structural abnormality. There is currently no vaginal bleeding. Pt needs a full TICKET WORKER evaluation with PAP as part of criteria for getting on transplant list. She is hypertensive on medication and not a candidate for estrogen contraception. She may benefit from the Levonogesterol IUD ( Mirena IUD) She has no desire for future childbearing so endometrial ablation may be another option. Labs as well as CT images and pelvic ultrasound have been reviewed. Patient needs to be seen as an outpatient for further TICKET WORKER evaluation and management of her menorrhagia. Thank you for this consult. Admitting diagnosis: symptomatic anemia, UTI CoMorbid Conditions Menorrhagia Carlos Craven MD Mar 10, 2017 08:16
[2017-03-10] MEDS: LOSARTAN 50 MG TAB PO SCH ×2 (08:30→20:38)
[2017-03-10] MEDS: CINACALCET HYDROCHLORIDE 30 MG TAB PO SCH (08:30)
[2017-03-10] MEDS: levETIRAcetam 500 MG TAB PO SCH ×2 (08:30→20:38)
[2017-03-10] MEDS: CALCIUM ACETATE 667 MG CAP PO SCH ×3 (08:30→16:58)
[2017-03-10] MEDS: DOCUSATE SODIUM 50 MG/SENNA 8.6 MG TAB PO SCH ×2 (08:31→20:38)
[2017-03-10] MEDS: HYDROXYCHLOROQUINE SULFATE 200 MG TAB PO SCH ×2 (08:31→20:38)
[2017-03-10] MEDS: SODIUM CHLORIDE 0.9% FLUSH 10 ML FLUSH IV FLUSH SCH ×2 (08:33→20:43)
[2017-03-10] MEDS: ONDANSETRON HCL 4 MG/2 ML VIAL IVP PRN ×2 (10:14→16:19)
[2017-03-10] MEDS ORDERED: SODIUM POLYSTYRENE SULFONATE SUSP 15 GM/60 ML CUP PO ONE (10:30)
[2017-03-10] MEDS ORDERED: HEPARIN SODIUM - IV 10,000 UNITS/10 ML VIAL XX PRN (10:30)
[2017-03-10] MEDS ORDERED: SODIUM CHLORIDE 0.9% FLUSH 10 ML FLUSH IV FLUSH PRN (10:30)
--- NOTE | 2017-03-10 11:08 | PD.CONS ---
HPI Service Nephrology Consult Requested By Reason for Consult ESRD on PD Primary Care Physician Juventino Gibbs MD History of Present Illness This is a 21 y/o female with ESRD on PD secondary to lupus nephritis. She went to PD clinic for weekly Epogen injection. At that time her hemoglobin was 6.3, she was advised to go to ER for treatment. She just finished her menstrual period, per patient it has been extremely heavy. On arrival her hemoglobin measured 5.7, she received 3 units PRBC and rechecked Hb is 9.9. Her last PD was on Tuesday, she ran out of supplies and did not inform the clinic per staff. He rK is 5.6 today, no evidence of fluid overload. Other PMH of anemia, lupus, metabolic bone disease, migraines, and secondary hyperparathyroidism We were consulted for dialysis management. She is a full code, currently in distress reporting abdominal pain, nausea. She is afebrile without leukocytosis. PD catheter site is benign. (Kaylen Ireland) Review of Systems Constitutional: COMPLAINS OF: Fatigue, Change in appetite, DENIES: Fever Cardiovascular: DENIES: Chest pain Gastrointestinal: COMPLAINS OF: Abdominal pain, Nausea, Vomiting, DENIES: Constipation, Diarrhea Genitourinary: COMPLAINS OF: Abnormal vaginal bleeding, Dysmenorrhea Psychiatric: COMPLAINS OF: Anxiety (Kaylen Ireland) Past Family Social History Allergies: Coded Allergies: hydralazine (Unverified Allergy, Severe, Rash, 03/09/17) vancomycin (Unverified Allergy, Severe, RASH, 03/09/17) metoprolol (Unverified Allergy, Unknown, Patient does not know, 03/09/17) *MDRO Multi-Drug Resistant Organism (Verified Adverse Reaction, Unknown, MRSA, 03/09/17) MRSA PCR (nares) POSITIVE - 08/18/16 Past Medical History ESRD on PD due to Lupus nephritis Hypertension with frequent episodes of hypertensive urgency Anemia of chronic disease Compliance issues Metabolic bone disease Secondary hyperparathyroidism Migraines Seizures Past Surgical History Tenckhoff catheter Permcath and removal Reported Medications [place] (Hydrocodone-Acetaminophen) 5-325 mg Tab 1 Tab PO Q6H PRN Norvasc (Amlodipine Besylate) 10 Mg Tab 10 Mg PO BID Cozaar (Losartan Potassium) 50 Mg Tab 50 Mg PO Q12HR Labetalol (Labetalol HCl) 200 Mg Tab 300 Mg PO BID Terazosin (Terazosin HCl) 5 Mg Cap 5 Mg PO HS Keppra (Levetiracetam) 500 Mg Tab 500 Mg PO Q12HR Hydroxychloroquine (Hydroxychloroquine Sulfate) 200 Mg Tab 200 Mg PO Q12HR Sensipar (Cinacalcet) 90 Mg Tab 180 Mg PO DAILY Calcium Acetate (Phosphate Binder) 667 Mg Cap 1,334 Mg PO TID Epogen Inj (Epoetin [place]) 2,000 Unit/Ml Inj 1,500 Units SQ 2XMONTH Active Ordered Medications Current Medications Medications (Trade) Dose Ordered Sig/Leora Route Start Time Stop Time Status Last Admin (NS Flush) 2 ml UNSCH PRN IV FLUSH 03/09/17 17:00 03/09/17 22:36 (NS Flush) 2 ml BID IV FLUSH 03/09/17 21:00 03/10/17 08:33 (Tylenol) 650 mg Q4H PRN PO 03/09/17 17:00 03/09/17 22:25 (Zofran Inj) 4 mg Q6H PRN IVP 03/09/17 17:00 03/10/17 10:14 (Restoril) 15 mg HS PRN PO 03/09/17 17:00 03/09/17 23:43 (Narcan Inj) 0.4 mg UNSCH PRN IV PUSH 03/09/17 17:00 (Tess-Colace) 1 tab BID PO 03/09/17 21:00 (Milk Of Magnesia Liq) 30 ml Q12H PRN PO 03/09/17 17:00 (Senokot) 17.2 mg Q12H PRN PO 03/09/17 17:00 (Dulcolax Supp) 10 mg DAILY PRN RECTAL 03/09/17 17:00 (Lactulose Liq) 30 ml DAILY PRN PO 03/09/17 17:00 (Tylenol) 650 mg Q4H PRN PO 03/09/17 17:30 (Benadryl) 25 mg Q4H PRN PO 03/09/17 17:30 (Norvasc) 10 mg BID PO 03/09/17 21:00 03/10/17 08:30 (Phoslo) 1,334 mg TIDAC PO 12/27/17 18:00 03/10/17 08:30 (Plaquenil) 200 mg Q12HR PO 03/09/17 21:00 03/10/17 08:31 (Keppra) 500 mg Q12HR PO 03/09/17 21:00 03/10/17 08:30 (Cozaar) 50 mg Q12HR PO 03/09/17 21:00 03/10/17 08:30 (Sensipar) 180 mg DAILY PO 03/10/17 09:00 03/10/17 08:30 Ceftriaxone Sodium 2000 mg/ Sodium Chloride 100 ml @ 200 mls/hr Q24H IV 03/09/17 18:00 03/09/17 20:42 (Heparin Inj) 1,000 units WITH DIALYSIS PRN XX 03/10/17 10:30 (NS Flush) 10 ml UNSCH PRN IV FLUSH 03/10/17 10:30 Family History Non contributory Social History occasional smoker no ETOH or drug use lives with daughter, has boyfriend independent full code (Kaylen Ireland) Physical Exam Vital Signs Vital Signs Date Time Temp Pulse Resp B/P (MAP) Pulse Ox O2 Delivery O2 Flow Rate FiO2 03/10/17 08:02 97.9 89 17 129/75 (93) 95 03/10/17 08:00 Room Air 03/10/17 08:00 89 03/10/17 04:00 98.3 87 20 119/76 (90) 95 03/10/17 03:45 87 03/10/17 01:45 98.7 96 16 122/67 94 03/10/17 00:00 Room Air 03/09/17 23:47 99.5 111 16 122/76 100 03/09/17 23:45 104 03/09/17 22:55 98.9 99 16 116/67 03/09/17 20:27 99.5 100 16 129/81 (97) 99 03/09/17 20:00 98.1 80 19 136/70 (92) 98 03/09/17 20:00 Room Air 03/09/17 20:00 98.1 80 19 136/70 (92) 98 03/09/17 18:44 98.5 90 18 132/79 98 03/09/17 18:42 90 18 132/79 (96) 98 03/09/17 18:41 18 03/09/17 17:00 98.4 90 18 139/81 99 03/09/17 16:45 98.5 93 18 124/77 100 03/09/17 16:44 98.2 92 18 124/77 99 03/09/17 15:20 20 98 Room Air 03/09/17 15:20 84 20 126/73 (90) 99 Room Air 03/09/17 15:17 88 18 126/73 99 03/09/17 14:05 98.0 77 16 116/73 98 03/09/17 13:42 97.7 86 18 115/71 100 03/09/17 12:35 90 18 119/73 (88) 100 Room Air 03/09/17 12:35 88 18 119/73 (88) 100 Room Air Physical Exam Young female, awake, appears in pain, tearful, anxious Actively dry heaving no neuro deficit, follows commands and is ambulatory lungs clear S1/S2, normal rate/rhythm without murmurs or rubs abdomen soft, catheter in place, normal bowel sounds ext: no edema, distal pulses intact Laboratory Laboratory Tests Test 03/09/17 12:10 03/09/17 12:45 03/10/17 06:08 White Blood Count 6.2 7.6 Red Blood Count 1.96 3.33 Hemoglobin 5.7 9.9 Hematocrit 16.6 28.0 Mean Corpuscular Volume 84.6 84.0 Mean Corpuscular Hemoglobin 29.1 29.8 Mean Corpuscular Hemoglobin Concent 34.4 35.5 Red Cell Distribution Width 14.1 14.9 Platelet Count 126 137 Mean Platelet Volume 6.7 7.0 Neutrophils (%) (Auto) 68.2 68.0 Lymphocytes (%) (Auto) 17.1 16.6 Monocytes (%) (Auto) 4.3 5.7 Eosinophils (%) (Auto) 9.2 8.8 Basophils (%) (Auto) 1.2 0.9 Neutrophils # (Auto) 4.3 5.2 Lymphocytes # (Auto) 1.1 1.3 Monocytes # (Auto) 0.3 0.4 Eosinophils # (Auto) 0.6 0.7 Basophils # (Auto) 0.1 0.1 CBC Comment DIFF FINAL DIFF FINAL Differential Comment Prothrombin Time 10.8 Prothromb Time International Ratio 1.1 Activated Partial Thromboplast Time 28.9 Blood Urea Nitrogen 76 86 Creatinine 19.96 19.73 Random Glucose 108 84 Total Protein 6.6 6.8 Albumin 3.0 2.8 Calcium Level 8.1 7.7 Alkaline Phosphatase 62 66 Aspartate Amino Transf (AST/SGOT) 12 15 Alanine Aminotransferase (ALT/SGPT) 18 22 Total Bilirubin 0.5 0.7 Sodium Level 135 135 Potassium Level 4.9 5.6 Chloride Level 98 100 Carbon Dioxide Level 23.3 21.6 Anion Gap 14 13 Estimat Glomerular Filtration Rate 2 2 Urine Color LIGHT-YELLOW Urine Turbidity HAZY Urine pH 7.0 Urine Specific [place] 1.009 Urine Protein 100 Urine Glucose (UA) TRACE Urine Ketones NEG Urine Occult Blood SMALL Urine Nitrite NEG Urine Bilirubin NEG Urine Urobilinogen LESS THAN 2.0 Urine Leukocyte Esterase LARGE Urine RBC 13 Urine WBC 15 Urine Squamous Epithelial Cells 14 Urine Transitional Epithelial Cells <1 Urine Bacteria RARE Urine Mucus FEW Microscopic Urinalysis Comment CULTURE INDICATED Date/Time Source Procedure Growth Status 03/09/17 12:45 Urine Clean Catch Urine Culture Pending Received (Kaylen IrelandP) Result Diagram: 03/10/17 0608 03/10/17 0608 Imaging Last Impressions Abdomen/Pelvis CT 03/09/17 1208 Signed Impressions: Service Date/Time: Thursday, March 09, 2017 13:33 - CONCLUSION: 1. Left lower quadrant peritoneal dialysis catheter in place with trace adjacent free fluid likely related to peritoneal dialysis. 2. No acute abnormality in the abdomen or pelvis. Specifically, no evidence of significant abdominal hematoma. 3. Minimal bibasilar groundglass opacities, likely atelectasis. Kirit Ball MD Pelvis Ultrasound 03/09/17 0000 Signed Impressions: Service Date/Time: Thursday, March 09, 2017 19:49 - CONCLUSION: 1. Slightly asymmetrical ovarian size with slightly enlarged left ovary. Suspect this is due to inclusion of small 2.3 cm cyst in the left ovary. There is also slightly asymmetrical flow noted in the ovaries with slightly decreased flow in the left ovary. These findings are very nonspecific and somewhat atypical. Recent brief ovarian torsion cannot be entirely excluded in the appropriate clinical setting. 2. Trace free fluid in the pelvis. Kirit Ball MD (Kaylen Ireland) Assessment and Plan Problem List: (1) ESRD (end stage renal disease) on dialysis ICD Codes: N18.6 - End stage renal disease; Z99.2 - Dependence on renal dialysis Status: Chronic Plan: Resume PD nightly. Her regimen consists of 6 cycles, 2L fill volume, 9 hrs, no last fill. 1.5% solution to be used tonight. Give a dose of Kayexalate for hyperkalemia. Low K high protein diet has been ordered. Renally dose medications appropriate to renal status. Avoid IVF. Repeat labs in AM. On calcium acetate for metabolic bone disorder. (2) Severe anemia ICD Codes: D64.9 - Anemia, unspecified Status: Acute Plan: Hb improved s/p 3 units transfusion. Receiving 28,000 units Epogen weekly, last dose 03/09 Follow CBC Needs work up for dysmenorrhea (3) Hypertension ICD Codes: I10 - Essential (primary) hypertension Status: Acute Plan: Blood pressure is currently stable Continue medications as ordered (4) Menorrhagia ICD Codes: N92.0 - Excessive and frequent menstruation with regular cycle Plan: PRESTIDIGITATOR has been consulted. Recommends outpatient follow up. Imaging reviewed. (5) Hyperparathyroidism ICD Codes: E21.3 - Hyperparathyroidism, unspecified Status: Acute Plan: Continue Sensipar (Kaylen Ireland) Code Status patient was seen and examined. Agree with above assessment and plan. Continue PD. Monitor Hemoglobin. Start Renvela for hyperphosphatemia. Patient is noncompliant. (Jasbir Curry MD) Problem Qualifiers (1) Hypertension: Qualified Codes: I10 - Essential (primary) hypertension Kaylen Ireland Mar 10, 2017 11:08 Jasbir Curry MD Mar 10, 2017 14:46
[2017-03-10] MEDS ORDERED: MORPHINE SULFATE 2 MG/ML INJ IV PUSH ONE (11:45)
--- NOTE | 2017-03-10 14:24 | HHI.PR ---
Subjective Remarks Deferred entry - patient seen at 11:30 am Patient c/o severe diffuser abdominal pain and states she threw up earlier. Denies fevers or chills. stable vital signs. Denies cp/sob. Objective Vitals Vital Signs Date Time Temp Pulse Resp B/P (MAP) Pulse Ox O2 Delivery O2 Flow Rate FiO2 03/10/17 12:05 98.6 111 18 132/74 (93) 95 03/10/17 08:02 97.9 89 17 129/75 (93) 95 03/10/17 08:00 Room Air 03/10/17 08:00 89 03/10/17 04:00 98.3 87 20 119/76 (90) 95 03/10/17 03:45 87 03/10/17 01:45 98.7 96 16 122/67 94 03/10/17 00:00 Room Air 03/09/17 23:47 99.5 111 16 122/76 100 03/09/17 23:45 104 03/09/17 22:55 98.9 99 16 116/67 03/09/17 20:27 99.5 100 16 129/81 (97) 99 03/09/17 20:00 98.1 80 19 136/70 (92) 98 03/09/17 20:00 Room Air 03/09/17 20:00 98.1 80 19 136/70 (92) 98 03/09/17 18:44 98.5 90 18 132/79 98 03/09/17 18:42 90 18 132/79 (96) 98 03/09/17 18:41 18 03/09/17 17:00 98.4 90 18 139/81 99 03/09/17 16:45 98.5 93 18 124/77 100 03/09/17 16:44 98.2 92 18 124/77 99 03/09/17 15:20 20 98 Room Air 03/09/17 15:20 84 20 126/73 (90) 99 Room Air 03/09/17 15:17 88 18 126/73 99 I/O 03/09/17 03/09/17 03/09/17 03/10/17 03/10/17 03/10/17 07:00 15:00 23:00 07:00 15:00 23:00 Intake Total 1250 ml 700 ml Balance 1250 ml 700 ml Intake Oral 0 ml IV Total 450 ml Packed Cells 800 ml 400 ml Blood Product IV Normal Saline Flush 300 ml # Voids 4 # Bowel Movements 0 Result Diagram: 03/10/17 0608 03/10/17 0608 Imaging Last Impressions Abdomen/Pelvis CT 03/09/17 1208 Signed Impressions: Service Date/Time: Thursday, March 09, 2017 13:33 - CONCLUSION: 1. Left lower quadrant peritoneal dialysis catheter in place with trace adjacent free fluid likely related to peritoneal dialysis. 2. No acute abnormality in the abdomen or pelvis. Specifically, no evidence of significant abdominal hematoma. 3. Minimal bibasilar groundglass opacities, likely atelectasis. Kirit Ball MD Pelvis Ultrasound 03/09/17 0000 Signed Impressions: Service Date/Time: Thursday, March 09, 2017 19:49 - CONCLUSION: 1. Slightly asymmetrical ovarian size with slightly enlarged left ovary. Suspect this is due to inclusion of small 2.3 cm cyst in the left ovary. There is also slightly asymmetrical flow noted in the ovaries with slightly decreased flow in the left ovary. These findings are very nonspecific and somewhat atypical. Recent brief ovarian torsion cannot be entirely excluded in the appropriate clinical setting. 2. Trace free fluid in the pelvis. Kirit Ball MD Objective Remarks AAOx3, crying with severe distress due to pain Clear lungs BL S1S2 RRR abdomen soft, BS (+), diffuse tenderness to palpation in all quadrants. No edema in lower extremities. Medications and IVs Current Medications Medications (Trade) Dose Ordered Sig/Leora Route Start Time Stop Time Status Last Admin (NS Flush) 2 ml UNSCH PRN IV FLUSH 03/09/17 17:00 03/09/17 22:36 (NS Flush) 2 ml BID IV FLUSH 03/09/17 21:00 03/10/17 08:33 (Tylenol) 650 mg Q4H PRN PO 03/09/17 17:00 03/09/17 22:25 (Zofran Inj) 4 mg Q6H PRN IVP 03/09/17 17:00 03/10/17 10:14 (Restoril) 15 mg HS PRN PO 03/09/17 17:00 03/09/17 23:43 (Narcan Inj) 0.4 mg UNSCH PRN IV PUSH 03/09/17 17:00 (Tess-Colace) 1 tab BID PO 03/09/17 21:00 (Milk Of Magnesia Liq) 30 ml Q12H PRN PO 03/09/17 17:00 (Senokot) 17.2 mg Q12H PRN PO 03/09/17 17:00 (Dulcolax Supp) 10 mg DAILY PRN RECTAL 03/09/17 17:00 (Lactulose Liq) 30 ml DAILY PRN PO 03/09/17 17:00 (Tylenol) 650 mg Q4H PRN PO 03/09/17 17:30 (Benadryl) 25 mg Q4H PRN PO 03/09/17 17:30 (Norvasc) 10 mg BID PO 03/09/17 21:00 03/10/17 08:30 (Phoslo) 1,334 mg TIDAC PO 03/09/17 18:00 03/10/17 11:53 (Plaquenil) 200 mg Q12HR PO 03/09/17 21:00 03/10/17 08:31 (Keppra) 500 mg Q12HR PO 03/09/17 21:00 03/10/17 08:30 (Cozaar) 50 mg Q12HR PO 03/09/17 21:00 03/10/17 08:30 (Sensipar) 180 mg DAILY PO 03/10/17 09:00 03/10/17 08:30 Ceftriaxone Sodium 2000 mg/ Sodium Chloride 100 ml @ 200 mls/hr Q24H IV 03/09/17 18:00 03/09/17 20:42 (Heparin Inj) 1,000 units WITH DIALYSIS PRN XX 03/10/17 10:30 (NS Flush) 10 ml UNSCH PRN IV FLUSH 03/10/17 10:30 A/P Problem List: (1) Severe anemia ICD Code: D64.9 - Anemia, unspecified Status: Acute Plan: This 21-year-old female who presented with signs and symptoms of severe anemia with a hemoglobin of 5.7. Blood confusion ordered in the emergency department. CT abdomen and pelvis to rule out hematoma showed a left lower quadrant peritoneal dialysis catheter in place with trace adjacent free fluid likely related to peritoneal dialysis. No acute abnormality in the abdomen or pelvis. Minimal basilar groundglass opacities likely atelectasis. Patient was admitted to the medical floor, placed on telemetry. Monitor hemoglobin and transfuse as needed for hemoglobin less than 7 or symptomatic anemia. PT, PTT and INR normal. 03/10 patient is status post total of 3 units of packed red blood cells with appropriate hemoglobin response. Due to monitor CBC. (2) Acute blood loss anemia ICD Code: D62 - Acute posthemorrhagic anemia Status: Acute Plan: The patient has acute on chronic anemia. Acute anemia likely secondary to menorrhagia given that the patient states she has been having heavy periods, especially the current period. Patient states she wears 6 bouts in a day and has clots. Continue to monitor CBC and hemoglobin. Transfuse as needed. (3) Menorrhagia ICD Code: N92.0 - Excessive and frequent menstruation with regular cycle Plan: We'll consult SHIPMASTER as patient states she has not have seen one yet. She is currently being evaluated for transplant on the transplant center at this institution. She states she has been told to follow-up with a central office trouble shooter however she has not been able to do so yet. 03/10 appreciate gynecology consultation recommendations. As per SHIPMASTER recommendations the patient will need a full SHIPMASTER evaluation with Pap smear as part of criteria for getting on a transplant list. Patient is hypertensive on medications and not a candidate for estrogen-containing contraception. Pelvic ultrasound showed a slightly asymmetrical ovarian size with slightly enlarged left ovary. Recent brief ovarian torsion cannot be entirely excluded. SHIPMASTER recommended outpatient follow-up for further evaluation and management of menorrhagia. 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 Continue. (5) UTI (urinary tract infection) ICD Code: N39.0 - Urinary tract infection, site not specified Status: Acute Plan: Urinalysis positive for urinary tract infection. Started on IV Rocephin. Urine culture showed immature growth. Culture reincubated. (6) ESRD (end stage renal disease) on dialysis ICD Code: N18.6 - End stage renal disease; Z99.2 - Dependence on renal dialysis Status: Chronic Plan: Nephrology consulted BUN on admission 76 and creatinine 19.96. Peritoneal data analysis to be resumed nightly. Kayexalate prescribed for hyperkalemia. Placed on low K high protein diet. Avoid IV fluid administration, renally dose adjust all medications, monitor BUN/ creatinine. Continue calcium acetate for metabolic bone disorder. (7) Hypertension ICD Code: I10 - Essential (primary) hypertension Status: Acute Plan: BP stable. Patient currently continued on Losartan and amlodipine. (8) Seizure disorder ICD Code: G40.909 - Epilepsy, unspecified, not intractable, without status epilepticus Status: Chronic Plan: Continue Keppra. No evidence of seizures. (9) Atelectasis ICD Code: J98.11 - Atelectasis Status: Acute Plan: Continue incentive spirometry. (10) Hyperkalemia ICD Code: E87.5 - Hyperkalemia Status: Acute Plan: k 5.6. Kayexalate ordered. (11) Abdominal pain ICD Code: R10.9 - Unspecified abdominal pain Plan: Unclear etiology. The patient is afebrile. CT abdomen and pelvis showed peritoneal dialysis catheter in place with trace adjacent free fluid heartbeat related to peritoneal dialysis. No acute abnormality in the abdomen or pelvis. I will give 2 mg of IV morphine and start the patient on oral Percocet as needed for pain. Add PPI. Assessment and Plan GI prophylaxis: Add PPI DVT prophylaxis: Continue SCD's. Discharge Planning DC pending nephrology clearance and resolution of abdominal pain. Problem Qualifiers (1) Hypertension: Qualified Codes: I10 - Essential (primary) hypertension (2) Abdominal pain: Qualified Codes: R10.84 - Generalized abdominal pain Lowell Summers MD Mar 10, 2017 14:24
[2017-03-10] MEDS ORDERED: oxyCODONE/ACETAMINOPHEN 5 MG/325 MG TAB PO PRN ×3 (14:45→16:45)
[2017-03-10] MEDS: oxyCODONE/ACETAMINOPHEN 5 MG/325 MG TAB PO PRN ×2 (16:18→20:38)
[2017-03-10] MEDS: SEVELAMER CARBONATE 800 MG TAB PO SCH (16:57)
[2017-03-10] MEDS: cefTRIAXone INJ 2,000 MG in SODIUM CHLORIDE 0.9% INJ 100 ML IV SCH (16:58)
[2017-03-10] MEDS: TEMAZEPAM 15 MG CAP PO PRN (20:38)
--- NOTE | 2017-03-10 23:29 | EKG ---
Date Performed: 03/09/2017 Time Performed: 12:28:44 PTAGE: 21 years EKG: Sinus rhythm NONSPECIFIC T-WAVE ABNORMALITY BORDERLINE ECG PREVIOUS TRACING : 11/30/2016 04.56 DOCTOR: Herrera Nieto Interpretating Date/Time 03/10/2017 23:28:23
[2017-03-11] VITALS: BP 134/78; PULSE 99; RESP 19; TEMP 98.7; O2SAT 96
[2017-03-11 04:00] VITALS: BP 128/72; PULSE 103; PULSE 98; RESP 20; TEMP 98.6; O2SAT 98
[2017-03-11 08:22] VITALS: BP 118/72; PULSE 104; RESP 24; TEMP 97.9; O2SAT 95
[2017-03-11] MEDS: DOCUSATE SODIUM 50 MG/SENNA 8.6 MG TAB PO SCH (08:44)
[2017-03-11] MEDS: LOSARTAN 50 MG TAB PO SCH (08:44)
[2017-03-11] MEDS: CINACALCET HYDROCHLORIDE 30 MG TAB PO SCH (08:44)
[2017-03-11] MEDS: SODIUM CHLORIDE 0.9% FLUSH 10 ML FLUSH IV FLUSH SCH (08:45)
[2017-03-11] MEDS: levETIRAcetam 500 MG TAB PO SCH (08:45)
[2017-03-11] MEDS: SEVELAMER CARBONATE 800 MG TAB PO SCH (08:45)
[2017-03-11] MEDS: CALCIUM ACETATE 667 MG CAP PO SCH (08:45)
[2017-03-11] MEDS: HYDROXYCHLOROQUINE SULFATE 200 MG TAB PO SCH (08:45)
[2017-03-11 09:35] LABS: ALBUMIN 2.8 GM/DL (3.4-5.0); BICARBONATE 22.7 MEQ/L (21.0-32.0); CALCIUM 7.6 MG/DL (8.5-10.1); PHOSPHORUS 8.9 MG/DL (2.5-4.9)
[2017-03-11 09:39] LABS: CREATININE 19.33 MG/DL (0.50-1.00)
--- NOTE | 2017-03-11 09:53 | HHI.NPPN ---
Subjective Complaints: Abdominal Pain General Problems: Anemia Renal Failure: Chronic, End Stage Renal Disease Interval History Feels better. PD went well, excellent UF this morning. Pain, nausea/vomiting has resolved. Tolerating diet. (Kaylen Ireland) Review of Systems General Constitutional: Fatigue (Kaylen Ireland) Gastrointestinal Gastrointestinal: Nausea & Vomiting (Kaylen Ireland) Objective Data Data Vital Signs Date Time Temp Pulse Resp B/P (MAP) Pulse Ox O2 Delivery O2 Flow Rate FiO2 03/11/17 08:22 97.9 104 24 118/72 (87) 95 03/11/17 04:00 98.6 98 20 128/72 (90) 98 03/11/17 04:00 103 03/11/17 00:00 98.7 99 19 134/78 (96) 96 03/10/17 23:58 104 03/10/17 20:40 Room Air 03/10/17 20:00 100 03/10/17 20:00 98.2 104 22 141/84 (103) 94 03/10/17 16:07 98.5 97 18 121/73 (89) 98 03/10/17 12:05 98.6 111 18 132/74 (93) 95 (Kaylen Ireland) -: 03/10/17 0608 03/11/17 0832 Imaging Last 72 hours Impressions Abdomen/Pelvis CT 03/09/17 1208 Signed Impressions: Service Date/Time: Thursday, March 09, 2017 13:33 - CONCLUSION: 1. Left lower quadrant peritoneal dialysis catheter in place with trace adjacent free fluid likely related to peritoneal dialysis. 2. No acute abnormality in the abdomen or pelvis. Specifically, no evidence of significant abdominal hematoma. 3. Minimal bibasilar groundglass opacities, likely atelectasis. Kirit Ball MD Pelvis Ultrasound 03/09/17 0000 Signed Impressions: Service Date/Time: Thursday, March 09, 2017 19:49 - CONCLUSION: 1. Slightly asymmetrical ovarian size with slightly enlarged left ovary. Suspect this is due to inclusion of small 2.3 cm cyst in the left ovary. There is also slightly asymmetrical flow noted in the ovaries with slightly decreased flow in the left ovary. These findings are very nonspecific and somewhat atypical. Recent brief ovarian torsion cannot be entirely excluded in the appropriate clinical setting. 2. Trace free fluid in the pelvis. Kirit Ball MD (Kaylen Ireland B. INDUSTRIAL CHEMICALS SUPERVISOR) Physical Exam General Appearance: Well Developed, No Acute Distress, Comfortable (Kaylen Ireland B. INDUSTRIAL [employer]MIC[employer] SUPERVISOR) Eyes Eye Exam: Pupils Equal (Kaylen Ireland B. INDUSTRIAL [employer]MIC[employer] SUPERVISOR) Throat Throat Exam: Oral Mucosa [place] & Moist (Kaylen Ireland B. INDUSTRIAL [employer]MIC[employer] SUPERVISOR) Neck Neck Exam: Neck Supple (Kaylen Ireland B. INDUST[employer]MIC[employer] SUPERVISOR) Pulmonary Resp Exam: Clear Bilaterally, Breath Sounds Equal (Kaylen Ireland B. INDUSTRIAL [employer]MIC[employer] SUPERVISOR) Cardiology CV Exam: Normal Sinus Rhythm, Tachycardia (Kaylen Ireland B. INDUSTRI[employer]MICALS SUPERVISOR) Gastrointestinal/Abdomen GI Exam: Soft, Non-Tender, Bowel Sounds Present GI Remarks PD catheter site without erythema. (Kaylen Ireland B. INDUSTRIAL [employer]MICALS SUPERVISOR) Musculoskeletal MS Exam: Joints Intact, Normal Tone (Kaylen Ireland B. INDUSTRIAL [employer]MICALS SUPERVISOR) Integumentary Skin Exam: Clear, Warm, Dry, Intact (Kaylen Ireland B. INDUSTRIAL CHEMICALS SUPERVISOR) Extremeties Extremities Exam: No Edema, Pedal Pulses Palpable (Kaylen Ireland B. INDUSTRIAL [employer]MICALS SUPERVISOR) Neurologic Neuro Exam: Alert, Awake, Oriented, Speech Clear, Moving All Extremities (Kaylen Ireland B. INDUSTRIAL [employer]MICALS SUPERVISOR) Psychiatric Psych Exam: Appropriate Responses (Kaylen Ireland B. INDUSTRI[employer]MIC[employer] SUPERVISOR) Assessment/Plan Discussed Condition With: Patient Assessment Summary: Anemia of CKD, Proteinuria, Hypertension, End Stage Renal Disease Problem List: (1) ESRD (end stage renal disease) on dialysis ICD Codes: N18.6 - End stage renal disease; Z99.2 - Dependence on renal dialysis Status: Chronic Plan: Resume PD nightly if discharged. Her regimen consists of 6 cycles, 2L fill volume, 9 hrs, no last fill. 1.5 and 2.5% solution. UF 1600 ml last night. Refused Kayexalate yesterday for hyperkalemia. Repeat K is normal. Low K high protein diet discussed. Renally dose medications appropriate to renal status. Avoid IVF. Repeat labs in AM. Continue calcium acetate and Renvela for metabolic bone disorder. (2) Severe anemia ICD Codes: D64.9 - Anemia, unspecified Status: Resolved Plan: Hb improved s/p 3 units transfusion. Receiving 28,000 units Epogen weekly, last dose 03/09 Follow CBC Needs work up for dysmenorrhea outpatient (3) Hypertension ICD Codes: I10 - Essential (primary) hypertension Status: Chronic Plan: Blood pressure is currently stable Continue medications as ordered (4) Menorrhagia ICD Codes: N92.0 - Excessive and frequent menstruation with regular cycle Status: Resolved Plan: CHIMNEY BUILDER has evaluated. Recommends outpatient follow up. Imaging reviewed. (5) Hyperparathyroidism ICD Codes: E21.3 - Hyperparathyroidism, unspecified Status: Acute Plan: Continue Sensipar (6) Abdominal pain ICD Codes: R10.9 - Unspecified abdominal pain Status: Acute Plan: Abdominal pain subsided. Lipase is normal. PD fluid is clear, site without erythema On Rocephin for UTI, however culture is negative, will be stopped at discharge. Plan Stable for discharge from renal perspective. (Kaylen Ireland) Plan patient was seen and examined. Agree with above assessment and plan. (Jasbir Curry MD) Problem Qualifiers (1) Hypertension: Qualified Codes: I10 - Essential (primary) hypertension (2) Menorrhagia: Qualified Codes: N92.0 - Excessive and frequent menstruation with regular cycle Kaylen Ireland Mar 11, 2017 09:53 Jasbir Curry MD Mar 11, 2017 13:50
[2017-03-11] MEDS ORDERED: CINA30 PO (10:19)
--- NOTE | 2017-03-11 10:21 | HHI.DCPOC ---
Discharge Care Plan Diagnosis: (1) Acute blood loss anemia (2) Menorrhagia (3) Atelectasis (4) ESRD (end stage renal disease) on dialysis (5) Hyperparathyroidism (6) Severe anemia Goals to Promote Your Health * To prevent worsening of your condition and complications * To maintain your health at the optimal level Directions to Meet Your Goals Take your medications as prescribed Follow your dietary instruction Follow activity as directed Keep your appointments as scheduled Take your immunizations and boosters as scheduled If your symptoms worsen call your PCP, if no PCP go to Urgent Care Center or Emergency Room Smoking is Dangerous to Your Health. Avoid second hand smoke Call the 24-hour hour crisis hotline for domestic abuse at Lowell Summers MD Mar 11, 2017 10:21
--- NOTE | 2017-03-11 10:34 | HHI.DS ---
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 - Glomerular disease in systemic lupus erythematosus Diagnosis: Secondary Status: Acute (5) UTI (urinary tract infection) ICD Code: N39.0 - Urinary tract infection, site not specified Diagnosis: Principal Status: Resolved (6) ESRD (end stage renal disease) on dialysis ICD Code: N18.6 - End stage renal disease; Z99.2 - Dependence on renal dialysis Status: Chronic (7) Hypertension ICD Code: I10 - Essential (primary) hypertension Diagnosis: Principal Status: Chronic (8) Seizure disorder ICD Code: G40.909 - Epilepsy, unspecified, not intractable, without status epilepticus Diagnosis: Secondary Status: Chronic (9) Atelectasis ICD Code: J98.11 - Atelectasis Diagnosis: Principal Status: Acute (10) Hyperkalemia ICD Code: E87.5 - Hyperkalemia Diagnosis: Principal Status: Resolved (11) Abdominal pain ICD Code: R10.9 - Unspecified abdominal pain Diagnosis: Principal Status: Resolved Procedures none Brief History - From Admission This is a 21-year-old female with past medical history significant for end- stage renal disease on hemodialysis, chronic anemia on it region, lupus nephritis who presents to [facility] after she was sent from the dialysis center because she had a very low hemoglobin. The patient states that on the past few days she has been feeling very tired, fatigued, pale. The patient states that when she walked from her house to the car she got very short of breath. The patient states that she was also feeling very dizzy especially today when she got out of bed. The patient came to the emergency department and was found to have a very low hemoglobin of 5.4. Patient has been transfused 2 units of packed red blood cells. The patient currently denies any dizziness, chest pain, denies shortness of breath at rest. Patient also denies fevers, chills, cough, diarrhea. The patient states she has been feeling nauseous and has vomited several times after [place]. Patient also denies melena or hematochezia. CBC/BMP: 03/10/17 0608 03/11/17 0832 Significant Findings Laboratory Tests Test 03/09/17 12:10 03/09/17 12:45 03/10/17 06:08 03/10/17 15:20 Red Blood Count 1.96 MIL/MM3 (4.00-5.30) 3.33 MIL/MM3 (4.00-5.30) Hemoglobin 5.7 GM/DL (11.6-15.3) 9.9 GM/DL (11.6-15.3) Hematocrit 16.6 % (35.0-46.0) 28.0 % (35.0-46.0) Platelet Count 126 TH/MM3 (150-450) 137 TH/MM3 (150-450) Mean Platelet Volume 6.7 FL (7.0-11.0) Eosinophils (%) (Auto) 9.2 % (0.0-4.0) 8.8 % (0.0-4.0) Eosinophils # (Auto) 0.6 TH/MM3 (0-0.4) 0.7 TH/MM3 (0-0.4) Blood Urea Nitrogen 76 MG/DL (7-18) 86 MG/DL (7-18) Creatinine 19.96 MG/DL (0.50-1.00) 19.73 MG/DL (0.50-1.00) Random Glucose 108 MG/DL (74-106) Albumin 3.0 GM/DL (3.4-5.0) 2.8 GM/DL (3.4-5.0) Calcium Level 8.1 MG/DL (8.5-10.1) 7.7 MG/DL (8.5-10.1) Aspartate Amino Transf (AST/SGOT) 12 U/L (15-37) Sodium Level 135 MEQ/L (136-145) 135 MEQ/L (136-145) Estimat Glomerular Filtration Rate 2 ML/MIN (>89) 2 ML/MIN (>89) Urine Turbidity HAZY (CLEAR) Urine Protein 100 mg/dL (NEG-TRACE) Urine Occult Blood SMALL (NEG) Urine Leukocyte Esterase LARGE (NEG) Urine RBC 13 /hpf (0-3) Urine WBC 15 /hpf (0-5) Urine Bacteria RARE /hpf (NONE) Urine Mucus FEW /lpf (OCC) Potassium Level 5.6 MEQ/L (3.5-5.1) Phosphorus Level 9.3 MG/DL (2.5-4.9) Test 03/11/17 08:32 Blood Urea Nitrogen 70 MG/DL (7-18) Creatinine 19.33 MG/DL (0.50-1.00) Albumin 2.8 GM/DL (3.4-5.0) Calcium Level 7.6 MG/DL (8.5-10.1) Phosphorus Level 8.9 MG/DL (2.5-4.9) Chloride Level 97 MEQ/L (98-107) Anion Gap 16 MEQ/L (5-15) Estimat Glomerular Filtration Rate 2 ML/MIN (>89) Imaging Last Impressions Abdomen/Pelvis CT 03/09/17 1208 Signed Impressions: Service Date/Time: Thursday, March 09, 2017 13:33 - CONCLUSION: 1. Left lower quadrant peritoneal dialysis catheter in place with trace adjacent free fluid likely related to peritoneal dialysis. 2. No acute abnormality in the abdomen or pelvis. Specifically, no evidence of significant abdominal hematoma. 3. Minimal bibasilar groundglass opacities, likely atelectasis. Kirit Ball MD Pelvis Ultrasound 03/09/17 0000 Signed Impressions: Service Date/Time: Thursday, March 09, 2017 19:49 - CONCLUSION: 1. Slightly asymmetrical ovarian size with slightly enlarged left ovary. Suspect this is due to inclusion of small 2.3 cm cyst in the left ovary. There is also slightly asymmetrical flow noted in the ovaries with slightly decreased flow in the left ovary. These findings are very nonspecific and somewhat atypical. Recent brief ovarian torsion cannot be entirely excluded in the appropriate clinical setting. 2. Trace free fluid in the pelvis. Kirit Ball MD PE at Discharge AAOx3, crying with severe distress due to pain Clear lungs BL S1S2 RRR abdomen soft, BS (+), diffuse tenderness to palpation in all quadrants. No edema in lower extremities. Pt update on day of discharge Denies cp/sob. Abdominal pain resolved. Denies nausea, vomiting or diarrhea. Hospital Course (1) Severe anemia This 21-year-old female who presented with signs and symptoms of severe anemia with a hemoglobin of 5.7. Blood confusion ordered in the emergency department. CT abdomen and pelvis to rule out hematoma showed a left lower quadrant peritoneal dialysis catheter in place with trace adjacent free fluid likely related to peritoneal dialysis. No acute abnormality in the abdomen or pelvis. Minimal basilar groundglass opacities likely atelectasis. Patient was admitted to the medical floor, placed on telemetry. The patient was transfused 3 units of packed blood cells with appropriate hemoglobin response. Patient with severe anemia due to acute blood loss secondary to menorrhagia. DISINTEGRATOR OPERATOR consulted. PT, PTT and INR were normal. (2) Acute blood loss anemia The patient has acute on chronic anemia. Acute anemia likely secondary to menorrhagia given that the patient states she has been having heavy periods, especially the current period. Patient states she wears 6 bouts in a day and had clots. Hemoglobin was monitored throughout hospital stay. (3) Menorrhagia DISINTEGRATOR OPERATOR was consulted. As per DISINTEGRATOR OPERATOR recommendations the patient will need a full DISINTEGRATOR OPERATOR evaluation with Pap smear as part of criteria for getting on a transplant list. Patient is hypertensive on medications and not a candidate for estrogen- containing contraception. Pelvic ultrasound showed a slightly asymmetrical ovarian size with slightly enlarged left ovary. Recent brief ovarian torsion cannot be entirely excluded. (4) Lupus nephritis Hydroxychloroquine continued. (5) UTI (urinary tract infection) Urinalysis abnormal. Started on IV Rocephin. Urine culture concurrent with contamination. (6) ESRD (end stage renal disease) on dialysis Plan: Nephrology consulted. BUN on admission 76 and creatinine 19.96. Peritoneal data analysis to be resumed nightly. Kayexalate prescribed for hyperkalemia. Placed on low K high protein diet. Avoid IV fluid administration , renally dose adjust all medications, monitor BUN/creatinine. Calcium acetate for metabolic bone disorde ordered. (7) Hypertension Blood pressure remained stable. Home antihypertensive medications which included amlodipine and valsartan were continued during hospital stay. (8) Seizure disorder Keppra continued. There was no evidence of seizures during patient's hospital stay. (9) Atelectasis Treated with incentive spirometry. (10) Hyperkalemia Plan: k 5.6. Kayexalate ordered. Potassium back to normal levels prior to discharge. (11) Abdominal painpain Unclear etiology. The patient is afebrile. CT abdomen and pelvis showed peritoneal dialysis catheter in place with trace adjacent free fluid heartbeat related to peritoneal dialysis. No acute abnormality in the abdomen or pelvis. Pain control provided with 1 dose of 2 mg of IV morphine and oral Percocet as needed. PPI added to the treatment. GI prophylaxis: Add PPI DVT prophylaxis: Continue SCD's. 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 PCP Follow-up - 2 Weeks New Medications: Cinacalcet (Sensipar) 30 Mg Tab 180 MG PO DAILY for metabolic bone disease, #30 TAB Continued Medications: Amlodipine (Norvasc) 10 Mg Tab 10 MG PO BID for Blood Pressure Management, #60 TAB Calcium Acetate (Phosphate Binder) (Calcium Acetate (Phosphate Binder)) 667 Mg Cap 1334 MG PO TID for Hyperphosphatemia, #180 CAP 0 Refills Epoetin Inj (Epogen Inj) 2,000 Unit/Ml Inj 1500 UNITS SQ 2XMONTH, VIAL Hydroxychloroquine (Hydroxychloroquine) 200 Mg Tab 200 MG PO Q12HR for esrd/sle, #60 TAB Labetalol (Labetalol) 300 Mg Tab 300 MG PO BID for Blood Pressure Management, TAB 0 Refills Levetiracetam (Keppra) 500 Mg Tab 500 MG PO Q12HR for seizures, #60 TAB Losartan (Cozaar) 50 Mg Tab 50 MG PO Q12HR for Blood Pressure Management, #60 TAB Terazosin (Terazosin) 5 Mg Cap 5 MG PO HS for hypertension, #30 CAP 0 Refills Lowell Summers MD Mar 11, 2017 10:33
== END 2017-03-11 12:49 | disposition home or self-care (01) | DRG 811 ==
LOC: NEPC 11:34 → NEDA 14:56 → N04A 18:45
PROVIDERS: ADMIT Hospitalist; ATTEND Hospitalist
PROC: 30233N1 Transfusion of Nonautologous Red Blood Cells into Peripheral Vein, Percutaneous Approach (ICD-10-PCS; principal; 2017-03-09)
PROC: 3E1M39Z Irrigation of Peritoneal Cavity using Dialysate, Percutaneous Approach (ICD-10-PCS; 2017-03-09)
DX: D62 Acute posthemorrhagic anemia (principal); N18.6 End stage renal disease; Z76.82 Awaiting organ transplant status; M32.14 Glomerular disease in systemic lupus erythematosus; N25.81 Secondary hyperparathyroidism of renal origin; I50.22 Chronic systolic (congestive) heart failure; I11.0 Hypertensive heart disease with heart failure; E83.39 Other disorders of phosphorus metabolism; J98.11 Atelectasis; D63.1 Anemia in chronic kidney disease; N92.0 Excessive and frequent menstruation with regular cycle; E87.5 Hyperkalemia; N25.0 Renal osteodystrophy; F17.210 Nicotine dependence, cigarettes, uncomplicated; G40.909 Epilepsy, unspecified, not intractable, without status epilepticus; F41.9 Anxiety disorder, unspecified; Z91.19 Patient's noncompliance with other medical treatment and regimen; Z99.2 Dependence on renal dialysis; Z86.73 Personal history of transient ischemic attack (TIA), and cerebral infarction without residual deficits
CPT/HCPCS: 36430; 74176; 76856; 80053; 80069; 81001; 83690; 84100; 84703; 85025; 85610; 85730; 86850; 86900; 86901; 86920; 87086; 90935; 93005; 93975; 94150; 96361; 96374; 96375; J0696; J1940; J2270; J2405; J7050; P9016

== ENCOUNTER 2017-04-18 13:40 | Emergency (ER) | payer MEDICARE, OTHER ==
[~2017-04-18 13:40] MED LIST changes: +CINA30 PO; -LABE200T2 PO; +LABE300T PO; -NORC5TAB PO; -SENS90TA PO
[2017-04-18 13:42] VITALS: BP 124/74; PULSE 89; RESP 18; TEMP 98.3; O2SAT 100
[2017-04-18] MEDS ORDERED: PENI500T PO (15:10)
[2017-04-18] MEDS ORDERED: IBUP1TAB7 PO (15:10)
--- NOTE | 2017-04-18 15:17 | PD ---
HPI Chief Complaint: Oral / Dental Pain or Problem Time Seen by Provider: 14:59 Travel History International Travel<30 days: No Contact w/Intl Traveler<30days: No Traveled to known affect area: No History of Present Illness HPI 21-year-old female presents the ED for evaluation of 3 day history of right- sided lower dental pain and right-sided facial swelling. Pain rated 10/10, radiating into the right ear. No alleviating or exacerbating factors reported. Patient states that she is unable to eat secondary to pain. She denies fever , chills, nausea, vomiting, difficulty swallowing her own secretions, sore throat. She denies known dental caries, states that she has not had her wisdom teeth removed. She's had one previous similar episode that resolved with antibiotics. She states that she has an appointment with the dentist next week. PFSH Past Medical History Arthritis: No Autoimmune Disease: Yes (LUPUS ) Anxiety: Yes Depression: No Heart Rhythm Problems: No Cancer: No Cardiovascular Problems: Yes (HTN) High Cholesterol: No Chemotherapy: Yes (2014) Chest Pain: No Congestive Heart Failure: No Cerebrovascular Accident: Yes Diabetes: No Dialysis: Yes (DAILY) Diminished Hearing: No Endocrine: No Gastrointestinal Disorders: Yes (Nausea, low appetite) GERD: No Genitourinary: Yes Headaches: Yes (CLUSTER MUNOZ) Hepatitis: No Hiatal Hernia: No Heparin Induced Thrombocytopen: No Hypertension: Yes Immune Disorder: Yes (Lupus) Implanted Vascular Access Dvce: No Kidney Stones: No Musculoskeletal: No Neurologic: Yes (LUPUS) Psychiatric: Yes Reproductive: No Respiratory: Yes Immunizations Current: Yes Migraines: Yes (FROM HTN) Radiation Therapy: No Renal Failure: Yes Seizures: Yes (FROM HTN) Sickle Cell Disease: No Thyroid Disease: No Ulcer: No LMP: 04/13/2017 : 1 Para: 1 Past Surgical History Abdominal Surgery: Yes (PERMACATH, PERITONEAL DIALYSIS) AICD: No Arteriovenous Shunt: No Body Medical Devices: PD catheter Cardiac Surgery: No Ear Surgery: No Endocrine Surgery: No Eye Surgery: No Genitourinary Surgery: No Gynecologic Surgery: No Insulin Pump: No Joint Replacement: No Neurologic Surgery: No Oral Surgery: No Pacemaker: No Thoracic Surgery: Yes (VAS CATH TO LEFT CHEST, removed) Other Surgery: Yes ((R) Permacath, PD catheter) Social History Alcohol Use: No Tobacco Use: No Substance Use: Yes (Marijuana every so often) Allergies-Medications (Allergen,Severity, Reaction): Coded Allergies: hydralazine (Unverified Allergy, Severe, Rash, 04/18/17) vancomycin (Unverified Allergy, Severe, RASH, 04/18/17) metoprolol (Unverified Allergy, Unknown, Patient does not know, 04/18/17) *MDRO Multi-Drug Resistant Organism (Verified Adverse Reaction, Unknown, MRSA, 04/18/17) MRSA PCR (nares) POSITIVE - 08/18/16 Reported Meds & Prescriptions Reported Meds & Active Scripts Active Ibuprofen 800 Mg Tab 800 Mg PO Q8H PRN Penicillin V Potassium 500 Mg Tab 500 Mg PO Q6H 7 Days Sensipar (Cinacalcet) 30 Mg Tab 180 Mg PO DAILY Norvasc (Amlodipine Besylate) 10 Mg Tab 10 Mg PO BID Cozaar (Losartan Potassium) 50 Mg Tab 50 Mg PO Q12HR Terazosin (Terazosin HCl) 5 Mg Cap 5 Mg PO HS Keppra (Levetiracetam) 500 Mg Tab 500 Mg PO Q12HR Hydroxychloroquine (Hydroxychloroquine Sulfate) 200 Mg Tab 200 Mg PO Q12HR Reported Labetalol (Labetalol HCl) 300 Mg Tab 300 Mg PO BID Calcium Acetate (Phosphate Binder) 667 Mg Cap 1,334 Mg PO TID Epogen Inj (Epoetin Diego) 2,000 Unit/Ml Inj 1,500 Units SQ 2XMONTH Review of Systems Except as stated in HPI: all other systems reviewed are Neg Physical Exam Narrative GENERAL: Well-nourished, well-developed white female in no acute distress. SKIN: Warm and dry. HEAD: Normocephalic. Atraumatic. EYES: No scleral icterus. No injection or drainage. PERRLA. EOMI. ENT: Pearly mckay tympanic membranes bilaterally. Nasal mucosa is moist. Oropharynx without erythema, edema or exudate. DENTAL: No loose or chipped teeth. No malocclusion. Tooth #32 is impacted. The surrounding mucosa is erythematous, edematous, tender. No drainable abscess visible. NECK: Supple, trachea midline. No JVD. Positive right-sided submandibular tender lymphadenopathy. CARDIOVASCULAR: Regular rate and rhythm without murmurs, gallops, or rubs. RESPIRATORY: Breath sounds clear and equal bilaterally. No accessory muscle use. GASTROINTESTINAL: Abdomen soft, non-tender, nondistended. + Bowel sounds MUSCULOSKELETAL: No cyanosis, or edema. Full, active range of motion. Strength 5/5. Neurovascularly intact. BACK: Nontender without obvious deformity. No CVA tenderness. Data Data Last Documented VS Vital Signs Date Time Temp Pulse Resp B/P (MAP) Pulse Ox O2 Delivery O2 Flow Rate FiO2 04/18/17 13:42 98.3 89 18 124/74 (91) 100 MDM Medical Decision Making Medical Screen Exam Complete: Yes Emergency Medical Condition: Yes Differential Diagnosis Dental fracture versus dental caries versus dental abscess versus other Narrative Course 21-year-old female presents the ED for evaluation of 3 day history of right- sided lower dental pain and right-sided facial swelling. She denies fever, chills, nausea, vomiting, difficulty swallowing her own secretions, sore throat. She endorses one previous similar episode that resolved with antibiotics. She states that she has an appointment with the dentist next week. Vitals reviewed. Physical exam reveals impacted tooth #32 with edema, erythema and tenderness of the surrounding gingiva. There is positive submandibular lymphadenopathy on the right side and right sided facial swelling. ENT exam is otherwise unremarkable. This was dental abscess. Patient is prescribed penicillin VK as a course of anti-inflammatories. She is instructed to take every dose of the medication as prescribed, follow up with the dentist as planned, return for worsening symptoms. She is stable and discharged home. Diagnosis Primary Impression: Dental abscess Referrals: Dentist Patient Instructions: Dental Abscess (ED), General Instructions Additional Instructions: Rest, hydrate. Take every dose of antibiotic as its prescribed until the last pill is gone. 800 mg ibuprofen up to 3 times a day as needed for pain. Follow-up with the dentist as planned. Return to the ED for worsening symptoms or any urgent or emergent medical condition. Med/Other Pt SpecificInfo: Prescription(s) given Scripts Ibuprofen (Ibuprofen) 800 Mg Tab 800 MG PO Q8H Y for Pain/Inflammation, #15 TAB 0 Refills Prov: Agustin Clemente MD 04/18/17 Penicillin V Potassium (Penicillin V Potassium) 500 Mg Tab 500 MG PO Q6H for Infection for 7 Days, #28 TAB 0 Refills Prov: Agustin Clemente MD 04/18/17 Disposition: 01 DISCHARGE HOME Condition: Stable Joelle Farias Apr 18, 2017 15:17
== END 2017-04-18 15:28 | disposition home or self-care (01) ==
LOC: NEPK 13:40
DX: K04.7 Periapical abscess without sinus (principal)
CPT/HCPCS: 99283

== ENCOUNTER → 2017-07-14 | Outpatient (CLI) | payer MEDICARE, OTHER ==
[~2017-07-14] MED LIST changes: +IBUP1TAB7 PO; +PENI500T PO
[2017-07-14 10:51] LABS: HEMATOCRIT 28.5 % (35.0-46.0); HEMOGLOBIN 9.6 GM/DL (11.6-15.3)
== END ==
LOC: CLAB 10:31
PROVIDERS: ATTEND Obstetrics & Gynecology
DX: N93.8 Other specified abnormal uterine and vaginal bleeding (principal)
CPT/HCPCS: 36415; 84702; 85014; 85018

== ENCOUNTER 2017-07-18 09:24 | Emergency (ER) | payer MEDICARE, OTHER ==
[~2017-07-18] VITALS: Ht 162.6 cm; Wt 60.0 kg
[2017-07-18 09:37] VITALS: BP 122/81; PULSE 91; RESP 18; TEMP 98.4; O2SAT 99
[2017-07-18 10:05] VITALS: BP 120/75; RESP 18
[2017-07-18 10:07] VITALS: BP 106/65; RESP 18
--- NOTE | 2017-07-18 10:20 | PD ---
HPI . Dizziness Chief Complaint: Dizziness Time Seen by Provider: 09:40 Travel History International Travel<30 days: No Contact w/Intl Traveler<30days: No Traveled to known affect area: No History of Present Illness HPI This is a patient with a past medical history significant for lupus, renal failure, hypertension and profound anemia who presents complaining with feeling weak and dizzy. She states that she has been on her menstrual cycle for a month. She was seen as an outpatient by gynecology last week and started on hormone therapy. Her bleeding has persisted despite this. She has subsequently started feeling weak and dizzy. She is concerned about possible anemia requiring transfusions. She has had to have transfusions in the past. Onset: One week Progression: Getting progressively worse Associated symptoms: Heavy menstrual bleeding 1 month Context: History of renal failure and anemia Modifying factors: Hormone therapy has not helped PFSH Past Medical History Anemia: Yes (BLOOD TRANSFUSION ) Arthritis: No Autoimmune Disease: Yes (LUPUS ) Anxiety: Yes Depression: No Heart Rhythm Problems: No Cancer: No Cardiovascular Problems: Yes (HTN ) High Cholesterol: No Chemotherapy: Yes (2014) Chest Pain: No Congestive Heart Failure: No Cerebrovascular Accident: Yes Diabetes: No Dialysis: Yes (PERITONEAL DIALYSIS DAILY) Diminished Hearing: No Endocrine: No Gastrointestinal Disorders: Yes (Nausea, low appetite) GERD: No Genitourinary: Yes Headaches: Yes (CLUSTER MUNOZ) Hepatitis: No Hiatal Hernia: No Heparin Induced Thrombocytopen: No Hypertension: Yes Immune Disorder: Yes (Lupus) Implanted Vascular Access Dvce: No Kidney Stones: No Medical other: No Musculoskeletal: No Neurologic: Yes (LUPUS) Psychiatric: Yes Reproductive: No Respiratory: Yes Immunizations Current: Yes Migraines: Yes (FROM HTN) Radiation Therapy: No Renal Failure: Yes Seizures: Yes (FROM HTN) Sickle Cell Disease: No Thyroid Disease: No Ulcer: No Tetanus Vaccination: Unknown Influenza Vaccination: Yes ?: Not LMP: NOW : 1 Para: 1 Past Surgical History Abdominal Surgery: Yes (PERMACATH, PERITONEAL DIALYSIS) AICD: No Arteriovenous Shunt: No Body Medical Devices: PD catheter Cardiac Surgery: No Ear Surgery: No Endocrine Surgery: No Eye Surgery: No Genitourinary Surgery: No Gynecologic Surgery: No Insulin Pump: No Joint Replacement: No Neurologic Surgery: No Oral Surgery: No Pacemaker: No Thoracic Surgery: Yes (VAS CATH TO LEFT CHEST, removed) Other Surgery: Yes ((R) Permacath, PD catheter, R CHEST PORT ) Social History Alcohol Use: No Tobacco Use: No Substance Use: Yes (Marijuana every so often) Allergies-Medications (Allergen,Severity, Reaction): Coded Allergies: hydralazine (Unverified Allergy, Severe, Rash, 04/18/17) vancomycin (Unverified Allergy, Severe, RASH, 04/18/17) metoprolol (Unverified Allergy, Unknown, Patient does not know, 04/18/17) *MDRO Multi-Drug Resistant Organism (Verified Adverse Reaction, Unknown, MRSA, 04/18/17) MRSA PCR (nares) POSITIVE - 08/18/16 Reported Meds & Prescriptions Reported Meds & Active Scripts Active Sensipar (Cinacalcet) 30 Mg Tab 180 Mg PO DAILY Norvasc (Amlodipine Besylate) 10 Mg Tab 10 Mg PO BID Cozaar (Losartan Potassium) 50 Mg Tab 50 Mg PO Q12HR Terazosin (Terazosin HCl) 5 Mg Cap 5 Mg PO HS Keppra (Levetiracetam) 500 Mg Tab 500 Mg PO Q12HR Hydroxychloroquine (Hydroxychloroquine Sulfate) 200 Mg Tab 200 Mg PO Q12HR Reported Labetalol (Labetalol HCl) 300 Mg Tab 300 Mg PO BID Calcium Acetate (Phosphate Binder) 667 Mg Cap 1,334 Mg PO TID Epogen Inj (Epoetin Diego) 2,000 Unit/Ml Inj 1,500 Units SQ 2XMONTH Review of Systems Except as stated in HPI: all other systems reviewed are Neg General / Constitutional: No: Fever, Chills HENT: Positive: Lightheadedness Cardiovascular: No: Chest Pain or Discomfort Respiratory: No: Shortness of Breath Gastrointestinal: Positive: Nausea, No: Vomiting, Diarrhea Genitourinary: Positive: Pelvic Pain, Vaginal Bleeding Physical Exam Narrative GENERAL: Awake and alert. SKIN: warm/dry. HEAD: Normocephalic. Atraumatic. EYES: Pupils equal and round. No scleral icterus. No injection or drainage. Sclera pink. ENT: No nasal bleeding or discharge. Mucous membranes pink and moist. NECK: Trachea midline. Full range of motion without pain.. CARDIOVASCULAR: Regular rate and rhythm. Heart sounds normal. RESPIRATORY: No accessory muscle use. Clear to auscultation. Breath sounds equal bilaterally. GASTROINTESTINAL: Abdomen soft. Suprapubic tenderness. Bowel sounds present. Nondistended. MUSCULOSKELETAL: No obvious deformities. NEUROLOGICAL: Awake and alert. No obvious cranial nerve deficits. Motor grossly within normal limits. Normal speech. PSYCHIATRIC: Appropriate mood and affect; insight and judgment normal. Data Data Last Documented VS Vital Signs Date Time Temp Pulse Resp B/P (MAP) Pulse Ox O2 Delivery O2 Flow Rate FiO2 07/18/17 10:07 104 18 106/65 (79) 07/18/17 09:45 99 Nasal Cannula 07/18/17 09:37 98.4 Orders Orders Ed Urine Pregnancytest Poc (07/18/17 09:50) Complete Blood Count With Diff (07/18/17 09:50) Orthostatic Vital Signs (07/18/17 09:50) Sodium Chlor 0.9% 1000 Ml Inj (Ns 1000 M (07/18/17 11:00) Labs Laboratory Tests Test 07/18/17 10:15 White Blood Count 7.7 TH/MM3 Red Blood Count 2.81 MIL/MM3 Hemoglobin 8.4 GM/DL Hematocrit 24.5 % Mean Corpuscular Volume 87.3 FL Mean Corpuscular Hemoglobin 29.9 PG Mean Corpuscular Hemoglobin Concent 34.3 % Red Cell Distribution Width 14.5 % Platelet Count 260 TH/MM3 Mean Platelet Volume 6.7 FL Neutrophils (%) (Auto) 72.4 % Lymphocytes (%) (Auto) 14.6 % Monocytes (%) (Auto) 3.5 % Eosinophils (%) (Auto) 8.2 % Basophils (%) (Auto) 1.3 % Neutrophils # (Auto) 5.6 TH/MM3 Lymphocytes # (Auto) 1.1 TH/MM3 Monocytes # (Auto) 0.3 TH/MM3 Eosinophils # (Auto) 0.6 TH/MM3 Basophils # (Auto) 0.1 TH/MM3 CBC Comment DIFF FINAL Differential Comment MDM Medical Decision Making Medical Screen Exam Complete: Yes Emergency Medical Condition: Yes Medical Record Reviewed: Yes (PMH SLE, HTN, ESRD on peritoneal dialysis, anemia requiring PRBCs) Differential Diagnosis Differential diagnosis of dizziness includes but is not limited to vertigo, dehydration, acute blood loss, sepsis, ACS Narrative Course This patient presents complaining with feeling weak and dizzy. She has been menstruating for the last month. She is concerned about anemia. I will check orthostatic vital signs and a CBC. Further treatment and disposition will be dependent upon the results of these. CBC Diagram 07/18/17 10:15 Vital Signs Date Time Temp Pulse Resp B/P (MAP) Pulse Ox O2 Delivery O2 Flow Rate FiO2 07/18/17 10:07 104 18 106/65 (79) 07/18/17 10:05 91 18 120/75 (90) 07/18/17 09:45 99 Nasal Cannula 07/18/17 09:37 98.4 91 18 122/81 (95) 99 CBC Diagram 07/18/17 10:15 I have discussed the results of her CBC and her orthostatics. I have given her the option of close outpatient follow-up versus admission to observation. She does have a relationship with her timber packer. She is also followed closely by nephrology. She states that she can go there tomorrow and have a stat hemoglobin done. She is now stable for discharge to home. She does need close outpatient follow- up and is aware of this. Diagnosis Primary Impression: Dizziness Additional Impressions: Vaginal bleeding Anemia Qualified Codes: D64.9 - Anemia, unspecified Patient Instructions: Anemia (DC), Dysfunctional Uterine Bleeding (DC), General Instructions Disposition: 01 DISCHARGE HOME Condition: Stable Carol Huntley MD July 18, 2017 10:20
[2017-07-18 10:33] LABS: AUTOMATED NEUTROPHIL # 5.6 TH/MM3 (1.8-7.7); BASOPHIL # 0.1 TH/MM3 (0-0.2); BASOPHIL % 1.3 % (0.0-2.0); EOSINOPHIL # 0.6 TH/MM3 (0-0.4); EOSINOPHIL % 8.2 % (0.0-4.0); HEMATOCRIT 24.5 % (35.0-46.0); HEMOGLOBIN 8.4 GM/DL (11.6-15.3); LYMPH % 14.6 % (9.0-44.0); LYMPHOCYTE # 1.1 TH/MM3 (1.0-4.8); MEAN CELL VOLUME 87.3 FL (80.0-100.0); MEAN CORPUSCULAR HEMOGLOBIN 29.9 PG (27.0-34.0); MEAN CORPUSCULAR HGB CONC 34.3 % (32.0-36.0); MEAN PLATELET VOLUME 6.7 FL (7.0-11.0); MONO % 3.5 % (0.0-8.0); MONOCYTE # 0.3 TH/MM3 (0-0.9); NEUT % 72.4 % (16.0-70.0); PLATELET COUNT 260 TH/MM3 (150-450); RED BLOOD COUNT 2.81 MIL/MM3 (4.00-5.30); RED CELL DISTRIBUTION WIDTH 14.5 % (11.6-17.2); WHITE BLOOD COUNT 7.7 TH/MM3 (4.0-11.0)
[2017-07-18] MEDS ORDERED: SODIUM CHLOR 0.9% 1000 ML INJ 1,000 ML IV ONE (11:00)
[2017-07-18 11:48] VITALS: BP 109/63; PULSE 86; RESP 18; O2SAT 100
== END 2017-07-18 12:26 | disposition home or self-care (01) ==
LOC: NEPD 09:24
DX: R42 Dizziness and giddiness (principal); N93.9 Abnormal uterine and vaginal bleeding, unspecified; D64.9 Anemia, unspecified; M32.9 Systemic lupus erythematosus, unspecified; I12.0 Hypertensive chronic kidney disease with stage 5 chronic kidney disease or end stage renal disease; N18.6 End stage renal disease; Z86.73 Personal history of transient ischemic attack (TIA), and cerebral infarction without residual deficits; Z99.2 Dependence on renal dialysis
CPT/HCPCS: 84703; 85025; 96360; 99284; J7030